=== PATIENT | female | born 1935 | race Caucasian/White ===

== ENCOUNTER 2016-10-10 01:17 | Inpatient (IN) | payer OTHER, BC ==
[2016-10-10] MEDS ORDERED: ALBUTEROL SO4 2.5/IPRATROPIUM 0.5 INH SOL 3 ML VIAL.NEB. NEB ONE ×2 (01:41→02:24)
[2016-10-10] MEDS ORDERED: MAGNESIUM SULF 50% (8.12 MEQ/2 ML-1 GM VIAL) IVPB ONE (01:46)
[2016-10-10] MEDS ORDERED: methylPREDNISolone NA SUCC 125 MG/2 ML VIAL IVPB ONE (01:46)
[2016-10-10 01:55] LABS: MCH 25.7 pg (25.7-33.7); MCHC 30.3 g/dl (32.0-36.0); MEAN CELL VOLUME 84.6 fl (80-96); MEAN PLT VOLUME 8.3 fl (7.5-11.1); PLATELET COUNT 202 K/MM3 (134-434); RDW 17.1 % (11.6-15.6)
--- NOTE | 2016-10-10 01:59 | PDOC ---
History of Present Illness - General History Source: Patient Exam Limitations: No Limitations - History of Present Illness Initial Comments: 10/10/16 02:05 The patient is a 81-year-old female from [facility], with a significant past medical history of COPD and chronic lymphocytic leukemia (diagnosed 3 years ago) , who presents to the ED with COPD exacerbation. Pt woke up feeling fine this morning. She experienced a panic attack and began to experience chest tightness and shortness of breath. She reports having them in the past. She reports taking Keflex for one day for the swelling and redness of her legs. The patient denies any fever, chills, nausea, vomiting, or diarrhea. The patient denies any chest pain. <Venus Martin - Last Filed: 10/10/16 02:08> <Danny Sanchez - Last Filed: 10/10/16 05:39> - General Chief Complaint: Shortness of Breath Stated Complaint: DIFFICULTY BREATHING Past History <Venus Martin - Last Filed: 10/10/16 02:08> <Danny Sanchez - Last Filed: 10/10/16 05:39> - Past Medical History Allergies/Adverse Reactions: Allergies Allergy/AdvReac Type Severity Reaction Status Date / Time No Known Allergies Allergy Verified 10/10/16 01:32 Home Medications: Ambulatory Orders Atorvastatin Ca [Lipitor] 10 mg PO Q2D 10/10/16 Bimatoprost [Lumigan] 1 drop OU HS 10/10/16 Budesonide/Formeterol Fumarate [SYMBICORT 160/4.5mcg -] 1 inh PO BID 10/10/16 Cephalexin Monohydrate [Keflex -] 500 mg PO BID 10/10/16 Metoprolol Succinate [Toprol Xl -] 25 mg PO DAILY 10/10/16 Review of Systems - Review of Systems Able to Perform ROS?: Yes Comments:: 10/10/16 02:05 GENERAL/CONSTITUTIONAL: No fever or chills. No weakness. HEAD, EYES, EARS, NOSE AND THROAT: No change in vision. No ear pain or discharge. No sore throat. CARDIOVASCULAR: No chest pain. (+)Shortness of breath, chest tightness. RESPIRATORY: No cough or hemoptysis. (+)Wheezing GASTROINTESTINAL: No nausea, vomiting, diarrhea or constipation. GENITOURINARY: No dysuria, frequency, or change in urination. MUSCULOSKELETAL: No joint or muscle swelling or pain. No neck or back pain. SKIN: No rash NEUROLOGIC: No headache, vertigo, loss of consciousness, or change in strength/ sensation. ENDOCRINE: No increased thirst. No abnormal weight change. HEMATOLOGIC/LYMPHATIC: No anemia, easy bleeding, or history of blood clots. ALLERGIC/IMMUNOLOGIC: No hives or skin allergy. <Venus Martin - Last Filed: 10/10/16 02:08> *Physical Exam - Physical Exam Comments: 10/10/16 02:06 GENERAL: Awake, alert, and fully oriented, in no acute distress HEAD: No signs of trauma EYES: PERRLA, EOMI, sclera anicteric, conjunctiva clear ENT: Auricles normal inspection, hearing grossly normal, nares patent, oropharynx clear without exudates. Moist mucosa. NECK: Normal ROM, supple, no lymphadenopathy, JVD, or masses LUNGS: (+)Prolonged phase with expiratory wheezing. Moving air but very tight. Hypoxia noted in the 80s with room air with talking noted. HEART: Regular rate and rhythm, normal S1 and S2, no murmurs, rubs or gallops ABDOMEN: Soft, nontender, normoactive bowel sounds. No guarding, no rebound. No masses EXTREMITIES: Normal range of motion, no edema. No clubbing or cyanosis. No cords, erythema, or tenderness NEUROLOGICAL: Cranial nerves II through XII grossly intact. Normal speech, normal gait SKIN: Warm, Dry, normal turgor, no rashes or lesions noted <Venus Martin - Last Filed: 10/10/16 02:08> ED Treatment Course - LABORATORY CBC & Chemistry Diagram: 10/10/16 01:37 10/10/16 01:37 - ADDITIONAL ORDERS Additional order review: 10/10/16 01:37 RBC 3.62 MCV 84.6 MCHC 30.3 L RDW 17.1 H MPV 8.3 Neutrophils % Y Lymphocytes % Y <Venus Martin - Last Filed: 10/10/16 02:08> - LABORATORY CBC & Chemistry Diagram: 10/10/16 01:37 10/10/16 01:37 <Danny Sanchez - Last Filed: 10/10/16 05:39> Medical Decision Making - Medical Decision Making 10/10/16 04:12 This is a 81yo F with weakness and recently diagnoses with cellulitis and UTI as well as chronic lymphocytic leukemia. She has significant weakness reported and almost fell down today; she was also noted to have UTI which she knows about. She looks weak otherwise, no significant findings; the troponin is negative and CXR reassuring. She will be admitted for IV antibiotics and will be endorsed to hospitalist for admission for cellulitis, UTI and weakness. 10/10/16 05:39 I have endorsed the patient to the hospitalist for further care. <Danny Sanchez - Last Filed: 10/10/16 05:39> *DC/Admit/Observation/Transfer - Attestations Scribe Attestion: 10/10/16 02:06 Documentation prepared by Venus Maritn, acting as medical nurse for Danny Sanchez MD. <Venus Martin - Last Filed: 10/10/16 02:08> - Discharge Dispostion Decision to Admit order Date/Time: 10/10/16 05:39 - Attestations Physician Attestion: 10/10/16 05:39 I, Dr. Danny Sanchez MD, attest that this document has been prepared under my direction and personally reviewed by me in its entirety. I further attest, that it accurately reflects all work, treatment, procedures and medical decision -making performed by me. <Danny Sanchez - Last Filed: 10/10/16 05:39> Diagnosis at time of Disposition: Weakness, Abscess or cellulitis of foot UTI (urinary tract infection) Qualifiers: Urinary tract infection type: acute cystitis Hematuria presence: with hematuria Qualified Code(s): N30.01 - Acute cystitis with hematuria
[2016-10-10] MEDS ORDERED: MAGNESIUM SULF 50% (8.12 MEQ/2 ML-1 GM VIAL) ONE (02:24)
[2016-10-10] MEDS ORDERED: methylPREDNISolone NA SUCC 125 MG/2 ML VIAL ONE (02:24)
[2016-10-10 02:28] LABS: URINE APPEARANCE CLEAR; URINE BILIRUBIN NEGATIVE (NEGATIVE); URINE BLOOD NEGATIVE (NEGATIVE); URINE COLOR YELLOW; URINE GLUCOSE (UA) NEGATIVE (NEGATIVE); URINE KETONE NEGATIVE (NEGATIVE); URINE NITRITE NEGATIVE (NEGATIVE); URINE UROBILINOGEN 2.0 E.U/dl E.U./dl (0.2-1.0)
[2016-10-10 02:29] LABS: ALBUMIN 2.7 g/dl (3.4-5.0); ANION GAP 10 (8-16); BILIRUBIN,TOTAL 0.5 mg/dL (0.2-1.0); CALCIUM 7.7 mg/dL (8.5-10.1); CO2 31 mmol/L (21-32); CREATININE 0.7 mg/dL (0.55-1.02); GLUCOSE,RANDOM 107 mg/dL (74-106); MAGNESIUM 2.4 mg/dL (1.8-2.4); PHOSPHOROUS 3.9 mg/dL (2.5-4.9); SGOT/AST 20 U/L (15-37); SGPT/ALT 13 U/L (12-78); TOT PROT 6.6 g/dl (6.4-8.2)
[2016-10-10 02:30] LABS: ALK PHOS 119 U/L (45-117); TROPONIN I < 0.02 ng/ml (0.00-0.05)
[2016-10-10] MEDS ORDERED: CEFTRIAXONE 1 GM in DEXTROSE 5%-WATER - 50 ML IVPB ONE (02:32)
[2016-10-10 02:36] LABS: ANISOCYTOSIS 1+; PLATELET COMMENT2 NO CLOTTING DETECTED; PLATELET ESTIMATE ADEQUATE (NORMAL); SMUDGE CELLS MODERATE
[2016-10-10 02:37] LABS: URINE LEUK ESTERASE 1+ (NEGATIVE); URINE PROTEIN 2+ (NEGATIVE)
[2016-10-10 02:40] LABS: URINE BACTERIA FEW /hpf (NONE SEEN); URINE HYALINE CAST 1 /lpf; URINE MUCUS RARE; URINE RBC 5 /hpf (0-3); URINE WBC 13 /hpf (3-5)
[2016-10-10 02:45] LABS: INR 1.09 (0.82-1.09)
[2016-10-10] MEDS ORDERED: CEFTRIAXONE 50 ML ONE (03:04)
[2016-10-10] MEDS ORDERED: diazePAM 5 MG TABLET PO ONE ×2 (03:05→03:15)
[2016-10-10] MEDS ORDERED: diazePAM 5 MG TABLET ONE ×2 (03:05→03:10)
--- NOTE | 2016-10-10 06:21 | HP ---
CHIEF COMPLAINT: B/L leg swelling and redness PCP: Dr. Cirilo Ruiz ( [facility]) HISTORY OF PRESENT ILLNESS: Whitney is a 81 year old female from [facility] presented with the chief complaints of B/L leg swelling and redness since 2 days. As per the patient, she developed the mentioned symptoms 2 days ago, gradually getting worse, no pain but experienced tingling sensation. Left > right. Has had similar episodes in the past. Took keflex for one day for leg swelling. Denies fever, chills, sweating. Patient mentioned when she noticed the redness of her legs getting worse, she panicked, started having shortness of breath with chest tightness and shaking of her body. No palpitations or cough. Has had panic attacks in the past. Bowel/Bladder habit normal. Appetite normal. Sleep normal. Has h/o CLL and is not under any treatment. Blood work done every 3 months. Last one she did was 10 days ago and her WBC count was 34. Has home oxygen for COPD which she uses intermittently. She can walk with a walker but hasn't been able to do so due to leg swelling. ER course was notable for: (1) Afebrile, Leukocytosis 27, BNP 1618.79 (2) EKG (3) Ceftriaxone, Duoneb, Magnesium, Solumedrol Recent Travel: None PAST MEDICAL HISTORY: COPD, CLL (diagnosed 3 years ago); Hypertension, Hyperlipidemia. PAST SURGICAL HISTORY: None Social History: Smoking: Smoked for 60 years, quit 2 years ago Alcohol: Occasional Drugs: Denies Family History: Unknown. Allergies No Known Allergies Allergy (Verified 10/10/16 01:32) HOME MEDICATIONS: Home Medications Medication Instructions Recorded Atorvastatin Ca [Lipitor] 10 mg PO Q2D 10/10/16 Bimatoprost [Lumigan] 1 drop OU HS 10/10/16 Budesonide/Formeterol Fumarate 1 inh PO BID 10/10/16 [SYMBICORT 160/4.5mcg -] Cephalexin Monohydrate [Keflex -] 500 mg PO BID 10/10/16 Metoprolol Succinate [Toprol Xl -] 25 mg PO DAILY 10/10/16 REVIEW OF SYSTEMS CONSTITUTIONAL: Present: generalized weakness, Absent: fever, chills, diaphoresis, malaise, loss of appetite, weight change HEENT: Absent: rhinorrhea, nasal congestion, throat pain, throat swelling, difficulty swallowing, mouth swelling, ear pain, eye pain, visual changes CARDIOVASCULAR: Absent: chest pain, syncope, palpitations, irregular heart rate, lightheadedness , peripheral edema RESPIRATORY: Present: shortness of breath Absent: cough, dyspnea with exertion, orthopnea, wheezing, stridor, hemoptysis GASTROINTESTINAL: Absent: abdominal pain, abdominal distension, nausea, vomiting, diarrhea, constipation, melena, hematochezia GENITOURINARY: Absent: dysuria, frequency, urgency, hesitancy, hematuria, flank pain, genital pain MUSCULOSKELETAL: Present: B/L leg swelling and redness with tingling Absent: myalgia, arthralgia, joint swelling, back pain, neck pain SKIN: Absent: rash, itching, pallor HEMATOLOGIC/IMMUNOLOGIC: Absent: easy bleeding, easy bruising, lymphadenopathy, frequent infections ENDOCRINE: Absent: unexplained weight gain, unexplained weight loss, heat intolerance, cold intolerance NEUROLOGIC: Absent: headache, focal weakness or paresthesias, dizziness, unsteady gait, seizure, mental status changes, bladder or bowel incontinence PSYCHIATRIC: Present: Panic attack Absent: anxiety, depression, suicidal or homicidal ideation, hallucinations. PHYSICAL EXAMINATION GENERAL: Elderly female, Awake, alert, and fully oriented, in no acute distress. HEAD: Normal with no signs of trauma. EYES: EOM intact, no pallor or icterus. EARS, NOSE, THROAT: Ears normal. Moist mucous membranes. NECK: Normal range of motion, supple without lymphadenopathy, JVD, or masses. LUNGS: Breath sounds equal,decreased bilaterally. No wheezes, and no crackles. No accessory muscle use. HEART: Regular rate and rhythm, normal S1 and S2 without murmur, rub or gallop. ABDOMEN: Soft, nontender, distended +, normoactive bowel sounds, 2 masses felt on palpation (one over the right lumbar and one over the left lumbar area) No hepatomegaly or splenomegaly. MUSCULOSKELETAL: Normal range of motion at all joints. No bony deformities or tenderness. No CVA tenderness. UPPER EXTREMITIES: 2+ pulses, warm, well-perfused. No cyanosis. No clubbing. No peripheral edema. LOWER EXTREMITIES: B/L foot redness Left > right; B/L pitting edema up to mid monte; dermatitis over the b/l legs, raised temperature NEUROLOGICAL: Cranial nerves II-XII intact. Normal speech. Gait not observed. PSYCHIATRIC: Cooperative. Good eye contact. Appropriate mood and affect. SKIN: Warm, dry, normal turgor, no rashes or lesions noted, normal capillary refill. ASSESSMENT/PLAN: Whitney is a 81 year old female with significant past medical history of COPD, CLL (diagnosed 3 years ago); Hypertension, Hyperlipidemia from senior resident living presented with the chief complaints of B/L leg swelling and redness since 2 days. # Cellulitis Patient presented with B/L leg swelling and redness for 2 days. Has had cellulitis in the past. Afebrile, Leukocytosis 27, BNP 1618.79. (WBC count 10 days ago was 34-checks every 3 months for CLL) In the ED, patient received Ceftriaxone, Duoneb, Magnesium, Solumedrol Admitted in Med-Surg IV Vancomycin and IV zosyn ID consult WELLS SCORE for DVT-2 Would consider Duplex of b/l legs to r/o DVT # SOB-possible CHF No h/o CHF. But her BNP-1618.79 ECHO ordered IV Lasix 40mg daily (Takes PO Lasix 40mg 3 times a week) # COPD Symbicort continued On home oxygen # Abdominal mass R/o Malignancy CT scan of Abdomen/Pelvis/chest with iv contrast ordered IV Gentle hydration given to prevent RAMY due to contrast # CLL Not on any treatment currently Checks her blood every 3 months, WBC count 10 days ago was 34 # Hypertension Continue Metoprolol 25mg Daily once PO meds are resumed # Hyperlipidemia Lipitor 10mg every 3rd day, resume after she starts PO # FEN On gentle Hydration Electrolytes WNL NPO # Prophylaxis For DVT- Heparin sq For GI- not indicated # Code Status: Full Code # Dispo- Admitted in Med surg. Duration of stay unknown. Illness, Investigation and Plan of care explained to the patient. She verbalized understanding. Case seen and discussed with Dr. Donald. Visit type - Emergency Visit Emergency Visit: Yes ED Registration Date: 10/10/16 Care time: The patient presented to the Emergency Department on the above date and was hospitalized for further evaluation of their emergent condition. - New Patient This patient is new to me today: Yes Date on this admission: 10/10/16 - Critical Care Critical Care patient: No
[2016-10-10] MEDS ORDERED: PIPERACILLIN/TAZOB 3.375 GM/50 ML PRE-DOCKED IVPB ONE (06:48)
[2016-10-10] MEDS ORDERED: PIPERACILLIN/TAZOB 3.375 GM 50 ML IVPB ONE (07:09)
[2016-10-10] MEDS ORDERED: HEMOQUE TEST 1 EACH EACH ONE (07:10)
--- NOTE | 2016-10-10 07:25 | PN ---
<Rayna Donald - Last Filed: 10/10/16 07:25> Teaching Attending Note Name of Resident: Analy Bains <Lizzie Ortega - Last Filed: 10/25/16 21:39> Teaching Attending Note ATTENDING PHYSICIAN STATEMENT I saw and evaluated the patient. I reviewed the resident's note and discussed the case with the resident. I agree with the resident's findings and plan as documented. SUBJECTIVE: 81 yo F presented to the ED with complaint of bilateral LE erythema and swelling for two days. Pt was prescribed keflex by her PMD and took medication for one day with no noted improvement. Pt complained of SOB and chest tightness. PMHx: COPD, CLL, HTN, HLD Surgical Hx: None Social Hx: Quit smoking 2 years prior. Occasional ETOH. Denied illicit drug use OBJECTIVE: GENERAL: Awake, alert, and fully oriented, in no acute distress HEENT: Atraumatic. PERRLA, EOMI. Moist mucosa. No JVD LUNGS: No distress, speaks full sentences, clear to auscultation bilaterally HEART: Regular rate and rhythm, normal S1 and S2, no murmurs, rubs or gallops, peripheral pulses normal and equal bilaterally. ABDOMEN: Soft, distended, normoactive bowel sounds. No guarding, no rebound. 2 palpable masses in bilateral lumbar area. EXTREMITIES: LE bilateral erythema greater on the L with pitting edema and warm to touch. NEUROLOGICAL: Cranial nerves II through XII grossly intact. Normal speech, no focal sensorimotor deficits SKIN: Warm, Dry, normal turgor, no rashes or lesions noted. ASSESSMENT AND PLAN: 1.) Cellulitis of LE -Rule out DVT -Start Vanc and Zosyn -ID consult -Doppler of LE 2.) Rule out CHF -Get Echo -40 lasix daily Documentation prepared by Lizzie Ortega, acting as medical billing specialist for Rayna Donald M.D.
[2016-10-10] MEDS: SODIUM CHLORIDE 1,000 ML IV SCH ×2 (07:30→09:44)
[2016-10-10] MEDS: FUROSEMIDE 40 MG/4 ML INJECTABLE VIAL IVPB SCH (09:44)
[2016-10-10] MEDS ORDERED: VANCOMYCIN 1 GRAM (PRE-DOCKED) 250 ML IVPB ONE (10:00)
[2016-10-10 10:36] VITALS: BMI 20.6
[2016-10-10] MEDS: BUDESONIDE/FORMETEROL FUMARATE 160/4.5 mcg INHALER IH SCH ×2 (11:24→21:54)
[2016-10-10] MEDS: HEPARIN NA (PORCINE) 5,000 UNITS/ML 1ML VIAL SQ SCH ×2 (13:22→21:53)
--- NOTE | 2016-10-10 14:48 | PN ---
Progress Note (short form) - Note Progress Note: c/o pain in B/L LE that has been progressively worsening over the past 4 days. took 1 tablet of keflex and then came to the hospital because she said it did not improve. also notes decreased appetite over the past few months but is unsure if she lost weight. states she been compliant with cancer screening, had colonoscopy several years ago with a few benign polyps was supposed to go for sigmoidoscopy but never did. mamograms she continues to do yearly and completed pap smears in the past. Denies Cp, SOB,fever, chills, cough, orthopnea, N/V/C/D Current Medications Generic Name Dose Route Start Last Admin Trade Name Freq PRN Reason Stop Dose Admin Budesonide/Formoterol Fumarate 1 puff 10/10/16 10:00 10/10/16 11:24 Symbicort 160/4.5mcg - IH Not Given BID TRACY Furosemide 40 mg 10/10/16 10:00 10/10/16 09:44 Lasix Injection - IVPB 40 mg DAILY TRACY Administration Heparin Sodium (Porcine) 5,000 unit 10/10/16 14:00 10/10/16 13:22 Heparin - SQ 5,000 unit TID TRACY Administration Sodium Chloride 1,000 mls @ 50 mls/hr 10/10/16 07:00 10/10/16 09:44 Normal Saline - IV 10/11/16 06:47 50 mls/hr ASDIR TRACY Administration Vancomycin HCl 250 mls @ 250 mls/hr 10/11/16 10:00 Vancomycin (Pre-Docked) IVPB DAILY [facility] Protocol Latanoprost 1 drop 10/10/16 22:00 Xalatan 0.005% Eye Drops - OU HS [facility] Last Vital Signs Temp Pulse Resp BP Pulse Ox 98.1 F 71 20 103/51 98 10/10/16 14:43 10/10/16 14:43 10/10/16 14:43 10/10/16 14:43 10/10/16 10:00 General NAD, thin appearing with temporal wasting CV S1 S2 RRR no murmur/rub/gallop Lungs decreased breath sounds B/L bases poor inspiratory effort Abdomen +distention soft, NT no rebound or guarding tympanic. +BS Extremities 2+ pitting edema B/L erythema from dorsum of LLE to mid monte area is warm and tender. minimal erythema of LLE 1+ pitting edema, no calf tenderness either leg. no lacerations or abrasions noted on either legs or on the toes. CBCD WBC 27.0 K/mm3 (4.0-10.0) H 10/10/16 01:37 RBC 3.62 M/mm3 (3.60-5.2) 10/10/16 01:37 Hgb 9.3 GM/dL (10.7-15.3) L 10/10/16 01:37 Hct 30.6 % (32.4-45.2) L 10/10/16 01:37 MCV 84.6 fl (80-96) 10/10/16 01:37 MCHC 30.3 g/dl (32.0-36.0) L 10/10/16 01:37 RDW 17.1 % (11.6-15.6) H 10/10/16 01:37 Plt Count 202 K/MM3 (134-434) 10/10/16 01:37 MPV 8.3 fl (7.5-11.1) 10/10/16 01:37 CMP Sodium 132 mmol/L (136-145) L 10/10/16 01:37 Potassium 4.2 mmol/L (3.5-5.1) 10/10/16 01:37 Chloride 91 mmol/L (98-107) L 10/10/16 01:37 Carbon Dioxide 31 mmol/L (21-32) 10/10/16 01:37 Anion Gap 10 (8-16) 10/10/16 01:37 BUN 20 mg/dL (7-18) H 10/10/16 01:37 Creatinine 0.7 mg/dL (0.55-1.02) 10/10/16 01:37 Creat Clearance w eGFR > 60 (>60) 10/10/16 01:37 Random Glucose 107 mg/dL (74-106) H 10/10/16 01:37 Calcium 7.7 mg/dL (8.5-10.1) L 10/10/16 01:37 Total Bilirubin 0.5 mg/dL (0.2-1.0) 10/10/16 01:37 AST 20 U/L (15-37) 10/10/16 01:37 ALT 13 U/L (12-78) 10/10/16 01:37 Alkaline Phosphatase 119 U/L (45-117) H 10/10/16 01:37 Total Protein 6.6 g/dl (6.4-8.2) 10/10/16 01:37 Albumin 2.7 g/dl (3.4-5.0) L 10/10/16 01:37 CARDIAC ENZYMES Creatine Kinase 37 IU/L (26-192) 10/10/16 01:37 Troponin I < 0.02 ng/ml (0.00-0.05) 10/10/16 01:37 A/p 81 year old female with significant past medical history of COPD, CLL ( diagnosed 3 years ago); Hypertension, Hyperlipidemia presented tot he ER and was admitted for furhter evlauation of their emergent condition 1. LLE cellulitis- did not fail outpatient abx therapy as not completed. will d/ c vanco/zosyn and switch to Clindamycin 600mg Q6H. check doppler of the legs to r/o DVT. elevate B/L LE. f/u Cx 2. PUlmonary vascular congestion- denies hx of CHF. started on lasix IV. saturating 94% on 3L NC. will d/c IVF at this time. monitor electrolytes. Echo pending. daily weights 3, Abdominal distention/mass- concern for malignancy given hx of CLL and anorexia. has had routine cancer screening. will check CT abdomen/pelvis to r/o pathology 4. Anorexia- may be related to malignancy, concern for malnutrition. dietary consult 5. Normocytic anemia- no signs of bleeding. unknown Hgb baseline. check iron studies. has hx of hemorrhoids 6. CLL- not on therapy. Leukocytosis at baseline per pt. (34 several days ago) 7. COPD- not on home O2. currently saturating 94% on 3L. will monitor oxygen levels. cont nebs 8. DVT ppx- hep sq Visit type - Emergency Visit Emergency Visit: Yes ED Registration Date: 10/10/16 Care time: The patient presented to the Emergency Department on the above date and was hospitalized for further evaluation of their emergent condition. - New Patient This patient is new to me today: Yes Date on this admission: 10/10/16 - Critical Care Critical Care patient: No - Discharge Referral Referred to [facility] Med P.C.: No
[2016-10-10] MEDS: CLINDAMYCIN 600MG PREMIX IVPB 50 ML IVPB SCH (21:53)
[2016-10-10] MEDS: LATANOPROST 0.005% OPHTH SOLN 2.5ML BOTTLE OU SCH (21:53)
[2016-10-11] MEDS: CLINDAMYCIN 600MG PREMIX IVPB 50 ML IVPB SCH ×4 (03:34→21:26)
[2016-10-11] MEDS: HEPARIN NA (PORCINE) 5,000 UNITS/ML 1ML VIAL SQ SCH ×3 (06:16→21:26)
[2016-10-11 08:13] LABS: MCHC 30.5 g/dl (32.0-36.0); MEAN CELL VOLUME 85.2 fl (80-96); MEAN PLT VOLUME 8.3 fl (7.5-11.1); PLATELET COUNT 189 K/MM3 (134-434); RDW 16.5 % (11.6-15.6); WHITE BLOOD COUNT 27.7 K/mm3 (4.0-10.0)
[2016-10-11 08:38] LABS: INR 1.02 (0.82-1.09); PROTHROMBIN TIME (PATIENT) 11.2 SEC (9.98-11.88)
[2016-10-11 08:39] LABS: ALBUMIN 2.5 g/dl (3.4-5.0); ANION GAP 8 (8-16); CALCIUM 7.7 mg/dL (8.5-10.1); CO2 35 mmol/L (21-32); CREATININE 0.8 mg/dL (0.55-1.02); GLUCOSE,RANDOM 99 mg/dL (74-106); PHOSPHOROUS 5.7 mg/dL (2.5-4.9); SGOT/AST 18 U/L (15-37); SGPT/ALT 9 U/L (12-78)
[2016-10-11 08:40] LABS: ACTIVATED PTT 25.8 SECONDS (26.9-34.4)
[2016-10-11 08:41] LABS: ALK PHOS 103 U/L (45-117); BILIRUBIN,TOTAL 0.4 mg/dL (0.2-1.0); TOT PROT 5.9 g/dl (6.4-8.2)
[2016-10-11] MEDS ORDERED: PT OWN MED DRAWER 7, Y5N ONE (09:17)
[2016-10-11] MEDS: BUDESONIDE/FORMETEROL FUMARATE 160/4.5 mcg INHALER IH SCH ×2 (09:34→21:26)
[2016-10-11] MEDS ORDERED: VANCOMYCIN 1 GRAM (PRE-DOCKED) 250 ML IVPB SCH (10:00)
--- NOTE | 2016-10-11 10:02 | PN ---
Physical Exam: SUBJECTIVE: Patient seen and examined Pt is awake, alert and oriented to time place and person No fever or chills no pain in lower ext Pt states that redness and swelling has improved pt denies sob, chest, palpitation OBJECTIVE: Vital Signs Period Temp Pulse Resp BP Sys/Gong Pulse Ox Last 24 Hr 97.6 F-98.4 F 71-79 16-20 97-103/46-58 94 GENERAL: The patient is awake, alert, and fully oriented, in no acute distress. HEAD: Normal with no signs of trauma. NECK: Trachea midline, full range of motion, supple. LUNGS: Breath sounds equal, diminished to auscultation bilaterally, no wheezes , no crackles, no accessory muscle use. HEART: Regular rate and rhythm, S1, S2 without murmur, rub or gallop. ABDOMEN: Soft, nontender, distended and rounded abdomen with dullness in flanks , normoactive bowel sounds, no guarding, no rebound EXTREMITIES: 2+ pulses, warm, well-perfused, b/l lower ext edema 2+ and redness NEUROLOGICAL: Normal speech, gait not observed. PSYCH: Normal mood, normal affect. SKIN: Warm, dry, normal turgor, erythema and swelling b/l lower from ankle to midtibia Laboratory Results - last 24 hr 10/11/16 10/11/16 10/11/16 06:45 06:45 06:45 WBC 27.7 H RBC 3.35 L Hgb 8.7 L Hct 28.5 L MCV 85.2 MCHC 30.5 L RDW 16.5 H Plt Count 189 MPV 8.3 Neutrophils % Y Lymphocytes % Y INR 1.02 PTT (Actin FS) 25.8 L Sodium 134 L Potassium 4.9 Chloride 91 L Carbon Dioxide 35 H Anion Gap 8 BUN 26 H D Creatinine 0.8 Creat Clearance w eGFR > 60 Random Glucose 99 Calcium 7.7 L Phosphorus 5.7 H D Magnesium 3.0 H D Ferritin Total Bilirubin 0.4 AST 18 ALT 9 L D Alkaline Phosphatase 103 Total Protein 5.9 L Albumin 2.5 L 10/11/16 06:45 WBC RBC Hgb Hct MCV MCHC RDW Plt Count MPV Neutrophils % Lymphocytes % INR PTT (Actin FS) Sodium Potassium Chloride Carbon Dioxide Anion Gap BUN Creatinine Creat Clearance w eGFR Random Glucose Calcium Phosphorus Magnesium Ferritin 78.744 Total Bilirubin AST ALT Alkaline Phosphatase Total Protein Albumin Active Medications Generic Name Dose Route Start Last Admin Trade Name Freq PRN Reason Stop Dose Admin Budesonide/Formoterol Fumarate 1 puff 10/10/16 10:00 10/11/16 09:34 Symbicort 160/4.5mcg - IH 1 puff BID TRACY Administration Furosemide 40 mg 10/10/16 10:00 10/10/16 09:44 Lasix Injection - IVPB 40 mg DAILY TRACY Administration Heparin Sodium (Porcine) 5,000 unit 10/10/16 14:00 10/11/16 06:16 Heparin - SQ 5,000 unit TID TRACY Administration Clindamycin Phosphate 50 mls @ 100 mls/hr 10/10/16 21:00 10/11/16 09:34 Cleocin 600 Mg Premix Ivpb - IVPB 100 mls/hr Q6H-IV TRACY Administration Latanoprost 1 drop 10/10/16 22:00 10/10/16 21:53 Xalatan 0.005% Eye Drops - OU 1 drop HS TRACY Administration CBC, BMP 10/11/16 06:45 10/11/16 06:45 Laboratory Tests 10/10/16 10/10/16 10/11/16 01:37 02:16 06:45 Neutrophils % 23.0 L D Lymphocytes % 68.0 H D Calcium Phosphorus Magnesium Total Bilirubin AST ALT Alkaline Phosphatase Troponin I < 0.02 B-Natriuretic Peptide 1618.79 H Albumin Urine Nitrite Negative Ur Leukocyte Esterase 1+ H Urine WBC 13 10/11/16 06:45 Neutrophils % Lymphocytes % Calcium 7.7 L Phosphorus 5.7 H D Magnesium 3.0 H D Total Bilirubin 0.4 AST 18 ALT 9 L D Alkaline Phosphatase 103 Troponin I B-Natriuretic Peptide Albumin 2.5 L Urine Nitrite Ur Leukocyte Esterase Urine WBC ASSESSMENT/PLAN: 81 year old female with pmh of COPD, CLL< HTN, HPLD from resident skilled nursing presented to the ED with b/l lower extremity swelling, redness for last couple of days. B/l Lower extremities Cellulitis was started on vanco and Zosyn ED. Was switched to Clindamycin On Clindamycin day 2, 600mg PO q6h redness and swelling has improved, less tenderness, no warmth, no fever or chills F/u blood culture, so far neg for 24hours Keep lower ext elevated US b/l lower ext to r/o DVT Pleural effusion and Pulm Vascular congestion r/o CHF Lung diminished, no crackles, b/l lower edema Pt is on liter nasal cannula, with O2 sat>90% On Lasix 40mg IV daily, consider holding it for tomorrow Repeat Chemistry in am Monitor fluid status and s/s of dehydration Abdominal Distention r/o Malignant effusion or Mass Rounded, distended abdomen Pt has CLL and anorexia CT abdomen and pelvis Normocytic Anemia Hgb drop from 9.3, to 8.7 Pt says her baseline is 9 and above but we have no documentation No known bleeding source. Denies black stool, no hematuria. H/o of hemorrhoids Iron studies pending result. CLL leukocytosis of 27.7, smudge cell, reactive leukocytosis, Lymphocytes 68% No intervention at this time Outpatient follow up with Dr Mancini Oncologist Asymptomatic bacteruria No dysuria UA with + leuk esterase, wbc 13 urine culture pending result No antibiotic at this time COPD On nasal cannula 3 liter no s/s of acute resp distress No wheezes, no ronchi Continue symbicort bronchodilators Prn HTN Controlled off antihypertensive No need to resume right now, worry about CHF HPLD Will verify home dose of statins FEN Fluid: none electrolytes: Chemistry in ma Nutrition: Low NA diet DVT prophylaxis: heparin Sq Disposition: Keep in medsurg pending CT abdomen/pelvis. Visit type - Emergency Visit Emergency Visit: Yes ED Registration Date: 10/10/16 Care time: The patient presented to the Emergency Department on the above date and was hospitalized for further evaluation of their emergent condition. - New Patient This patient is new to me today: Yes Date on this admission: 10/11/16 - Critical Care Critical Care patient: No - Discharge Referral Referred to [facility] Med P.C.: No
--- NOTE | 2016-10-11 11:11 | PN ---
Teaching Attending Note Name of Resident: Emanuel Wooten ATTENDING PHYSICIAN STATEMENT I saw and evaluated the patient. I reviewed the resident's note and discussed the case with the resident. I agree with the resident's findings and plan as documented. SUBJECTIVE:states her legs have improved. less painful. states she has no difficulty breathing. said that she lost her balance this morning while getting out bed and slid to the floor. denies palpitation, CP, SOB, LOC, hitting her head on the floor or bed, fever or chills. no BRBPR or melena. OBJECTIVE: Last Vital Signs Temp Pulse Resp BP Pulse Ox 98.2 F 79 16 97/46 94 L 10/11/16 06:00 10/11/16 06:00 10/11/16 06:00 10/11/16 06:00 10/10/16 22:00 General NAD, thin appearing with temporal wasting CV S1 S2 RRR no murmur/rub/gallop Lungs decreased breath sounds R base poor inspiratory effort Abdomen +distention soft, NT no rebound or guarding tympanic with dullness on the sides, possible L flank mass, non mobile, nontender. +BS Extremities 2+ pitting edema LLE erythema from dorsum of LLE to mid monte area no warmth or tenderness. minimal erythema of LLE 1+ pitting edema, buttocks no deformities or tenderness or bleeding. small area of erythema to R buttock. ASSESSMENT AND PLAN: 81 year old female with significant past medical history of COPD, CLL ( diagnosed 3 years ago); Hypertension, Hyperlipidemia presented tot he ER and was admitted for furhter evlauation of their emergent condition 1. LLE cellulitis-clinically improved. on Clindamycin day 2. awaiting doppler to r/o DVT. elevate B/L LE. f/u Cx 2. Acute hypoxic respiratory failure- saturating 90% on 3L NC. does not require O2 at home. likely due to pleural effusion. received lasix IV. may be becoming volume contracted. echo pending. monitor electrolytes. daily weights 3. mechanical fall- denies LOC or syncope. possible over diuresis vs hypotension vs mechanical. check orthostatics 4. Abdominal distention/mass- concern for malignancy given hx of CLL and anorexia. has had routine cancer screening. will check CT abdomen/pelvis to r/o pathology 5. Anorexia- may be related to malignancy, concern for malnutrition. dietary consult. ensures 6. Normocytic anemia- no signs of bleeding. unknown Hgb baseline. iron studies pending. has hx of hemorrhoids 7. CLL- not on therapy. Leukocytosis at baseline per pt. (34 several days ago) 8. COPD- not on home O2. currently saturating 90% on 3L. will monitor oxygen levels. cont inhlaers/nebs 9. Pseudohypocalcemia- corrected Ca 8.9 10. DVT ppx- hep sq
[2016-10-11] MEDS: FUROSEMIDE 40 MG/4 ML INJECTABLE VIAL IVPB SCH (15:46)
--- NOTE | 2016-10-11 19:34 | HOSP ---
Subjective - Review of Symptoms Musculoskeletal: Yes: No Symptoms Physical Examination Vital Signs: Vital Signs Temperature 97.9 F 10/11/16 15:03 Pulse Rate 75 10/11/16 15:03 Respiratory Rate 20 10/11/16 15:03 Blood Pressure 106/49 10/11/16 15:03 O2 Sat by Pulse Oximetry (%) 94 L 10/10/16 22:00 Constitutional: Yes: No Distress, Calm Eyes: Yes: EOM Intact HENT: Yes: Atraumatic, Normocephalic Neck: Yes: Supple Cardiovascular: Yes: Regular Rate and Rhythm, Murmur, S1, S2 Respiratory: Yes: Regular, Diminished, On Nasal O2 Gastrointestinal: Yes: Normal Bowel Sounds, Soft, Ascites, Distention Musculoskeletal: Yes: WNL Extremities: Yes: Other (erythema, swelling from b/l lower ext) Edema: LLE: 2+, RLE: 2+ Peripheral Pulses WNL: Yes Integumentary: Yes: Erythema, Other (No new bruises) Neurological: Yes: Alert, Oriented, Cran Nerves II-XII Intact ...Motor Strength: WNL Psychiatric: Yes: Alert, Oriented Labs: CBC, BMP 10/11/16 06:45 10/11/16 06:45 Hospitalist Encounter Assessment: Was called to floor to assess a pt who was found on the floor. Fall was unwitnessed. Pt said she was wanted to go to bathroom, she slipped floor and fell on her buttocks. She denies pain, she denies hitting her head/neck, no loc. No focal neurological deficit, no numbness or tingling, no change in vision , no dizziness or confusion. No new swelling or bruises. No injuries observed on physical exam. No cervical/lumbar spine tenderness. No hip tenderness. Impression Mechanical fall Plan No Head CT need at this point Pt will have a CT abdomen and pelvis this morning, will follow result. OOB with assist only fall precaution Visit type - Emergency Visit Emergency Visit: Yes ED Registration Date: 10/10/16 Care time: The patient presented to the Emergency Department on the above date and was hospitalized for further evaluation of their emergent condition. - New Patient This patient is new to me today: Yes Date on this admission: 10/11/16 - Critical Care Critical Care patient: No
[2016-10-11] MEDS: LATANOPROST 0.005% OPHTH SOLN 2.5ML BOTTLE OU SCH (21:26)
[2016-10-12] MEDS: CLINDAMYCIN 600MG PREMIX IVPB 50 ML IVPB SCH ×4 (03:32→21:52)
[2016-10-12] MEDS: HEPARIN NA (PORCINE) 5,000 UNITS/ML 1ML VIAL SQ SCH ×3 (06:30→21:48)
[2016-10-12] MEDS ORDERED: FUROSEMIDE 40 MG/4 ML INJECTABLE VIAL ONE ×2 (07:28→15:42)
[2016-10-12] MEDS ORDERED: FUROSEMIDE 40 MG/4 ML INJECTABLE VIAL IVPUSH ONE ×2 (07:32→16:09)
[2016-10-12] MEDS: ALBUTEROL SO4 2.5/IPRATROPIUM 0.5 INH SOL 3 ML VIAL.NEB. NEB PRN ×3 (07:36→16:15)
--- NOTE | 2016-10-12 07:38 | PN ---
Physical Exam: SUBJECTIVE: Patient seen and examined Pt is awake, alert, oriented in mild resp distress c/o sob, mild cough denies chest pain, palpitation, fever, no n/v OBJECTIVE: Vital Signs Period Temp Pulse Resp BP Sys/Gong Pulse Ox Last 24 Hr 97.2 F-98.9 F 74-85 18-20 94-125/43-64 95-95 GENERAL: The patient is awake, alert, and fully oriented, in mid distress. HEAD: Normal with no signs of trauma. ENT: Ears normal, nares patent, oropharynx clear without exudates, moist mucous membranes. NECK: Trachea midline, full range of motion, supple. LUNGS:diminished to auscultation bilaterally, mild b/l crackles, use of accessory muscle use. HEART: Regular rate and rhythm, S1, S2 with pansystolic 3/6 murmur, rub or gallop. ABDOMEN: Soft, nontender, distended, acites, with dullness in b/l flank, right upper and left upper quandrant, normoactive bowel sounds, no guarding, no rebound.. EXTREMITIES: 2+ pulses, warm, well-perfused, no edema. NEUROLOGICAL:. Normal speech, gait not observed. PSYCH: Normal mood, normal affect. SKIN: Warm, dry, normal turgor, no rashes or lesions noted Laboratory Results - last 24 hr 10/11/16 10/11/16 10/11/16 06:45 06:45 06:45 WBC 27.7 H RBC 3.35 L Hgb 8.7 L Hct 28.5 L MCV 85.2 MCHC 30.5 L RDW 16.5 H Plt Count 189 MPV 8.3 Neutrophils % 23.0 L D Lymphocytes % 68.0 H D Monocytes % 9.0 D Band Neutrophils 0.0 INR 1.02 PTT (Actin FS) 25.8 L Sodium 134 L Potassium 4.9 Chloride 91 L Carbon Dioxide 35 H Anion Gap 8 BUN 26 H D Creatinine 0.8 Creat Clearance w eGFR > 60 Random Glucose 99 Calcium 7.7 L Phosphorus 5.7 H D Magnesium 3.0 H D Ferritin Total Bilirubin 0.4 AST 18 ALT 9 L D Alkaline Phosphatase 103 Total Protein 5.9 L Albumin 2.5 L 10/11/16 06:45 WBC RBC Hgb Hct MCV MCHC RDW Plt Count MPV Neutrophils % Lymphocytes % Monocytes % Band Neutrophils INR PTT (Actin FS) Sodium Potassium Chloride Carbon Dioxide Anion Gap BUN Creatinine Creat Clearance w eGFR Random Glucose Calcium Phosphorus Magnesium Ferritin 78.744 Total Bilirubin AST ALT Alkaline Phosphatase Total Protein Albumin Active Medications Generic Name Dose Route Start Last Admin Trade Name Freq PRN Reason Stop Dose Admin Albuterol/Ipratropium 1 amp 10/11/16 16:49 10/12/16 07:36 Duoneb - NEB 1 amp Q4H PRN Administration SHORTNESS OF BREATH Budesonide/Formoterol Fumarate 1 puff 10/10/16 10:00 10/11/16 21:26 Symbicort 160/4.5mcg - IH 1 puff BID TRACY Administration Furosemide 40 mg 10/10/16 10:00 10/11/16 15:46 Lasix Injection - IVPB 40 mg DAILY TRACY Administration Heparin Sodium (Porcine) 5,000 unit 10/10/16 14:00 10/12/16 06:30 Heparin - SQ 5,000 unit TID TRACY Administration Clindamycin Phosphate 50 mls @ 100 mls/hr 10/10/16 21:00 10/12/16 03:32 Cleocin 600 Mg Premix Ivpb - IVPB 100 mls/hr Q6H-IV TRACY Administration Latanoprost 1 drop 10/10/16 22:00 10/11/16 21:26 Xalatan 0.005% Eye Drops - OU 1 drop HS TRACY Administration 10/11/16 06:45 10/11/16 06:45 Microbiology 10/10/16 02:16 Urine - Urine Clean Catch Urine Culture - Final NO GROWTH OBTAINED 10/10/16 02:11 Blood - Peripheral Venous Blood Culture - Preliminary NO GROWTH OBTAINED AFTER 48 HOURS, INCUBATION TO CONTINUE FOR 3 DAYS. 10/10/16 02:11 Blood - Peripheral Venous Blood Culture - Preliminary NO GROWTH OBTAINED AFTER 48 HOURS, INCUBATION TO CONTINUE FOR 3 DAYS. ASSESSMENT/PLAN: 81 year old female with pmh of COPD, CLL, HTN, HPLD from resident [facility] presented to the ED with b/l lower extremity swelling, redness for last couple of days. B/l Lower extremities Cellulitis was started on vanco and Zosyn ED. Was switched to Clindamycin On Clindamycin day 3, 600mg PO q6h redness and swelling has improved, no more tenderness, no warmth, no fever or chills F/u blood culture, so far neg for 48 hours Keep lower ext elevated US b/l lower ext to r/o DVT Hypoxic respiratory failure with Pleural effusion, Pulm Vascular congestion, CHF , r/o Pneumonia Lung diminished, mild crackles, b/l lower edema Pt is on 50% venti mask, keep with O2 sat>90% On Lasix 40mg IV daily CXR showed b/l effusion and infiltrates. Start on Levaquin 750mg IV daily daily weight intake and output Echo with normal LV size and function, no wall motion abnormality, severe pulm HTN, Moderate . Abdominal Distention r/o Malignant effusion or Mass Rounded, distended abdomen Pt has CLL and anorexia CT abdomen and pelvis showed ascites, splenomegaly 22cm, hepatomegaly Outpatient Hem/onc follow repoeat CT abdomen/pelvis in 3 month outpatient for lymphadenopathy Normocytic Anemia Hgb drop from 9.3, to 8.7 yesterday, pending new labs for today Pt says her baseline is 9 and above but we have no documentation No known bleeding source. Denies black stool, no hematuria. H/o of hemorrhoids Iron studies pending result. CLL leukocytosis of 27.7, smudge cell, reactive leukocytosis, Lymphocytes 68% No intervention at this time Outpatient follow up with Dr Mancini Oncologist Asymptomatic bacteruria No dysuria UA with + leuk esterase, wbc 13 urine culture negative No antibiotic at this time COPD Was On nasal cannula 3 liter, increased to venti mask 50% Mild to moderate resp distress No wheezes, no ronchi, lung diminished and crackles Continue symbicort bronchodilators Prn HTN Controlled off antihypertensive No need to resume right now, worry about CHF HPLD Atorvastatin 10mg po qd FEN Fluid: none electrolytes: no abnormalities Nutrition: Low NA diet DVT prophylaxis: heparin Sq Disposition: Keep in medsurg pending improvement in resp status Visit type - Emergency Visit Emergency Visit: Yes ED Registration Date: 10/10/16 Care time: The patient presented to the Emergency Department on the above date and was hospitalized for further evaluation of their emergent condition. - New Patient This patient is new to me today: No - Critical Care Critical Care patient: No
--- NOTE | 2016-10-12 07:42 | HOSP ---
Subjective - Review of Symptoms Pulmonary: Yes: Dyspnea Physical Examination Vital Signs: Vital Signs Temperature 98.4 F 10/12/16 06:00 Pulse Rate 80 10/12/16 06:00 Respiratory Rate 20 10/12/16 06:00 Blood Pressure 123/62 10/12/16 06:00 O2 Sat by Pulse Oximetry (%) 95 10/11/16 22:00 Constitutional: Yes: Anxious, Moderate Distress Cardiovascular: Yes: Regular Rate and Rhythm, Murmur, S1, S2 Respiratory: Yes: Diminished, Rales, SOB, Tachypnea Gastrointestinal: Yes: Soft, Ascites, Distention, Hypoactive Bowel Sounds Edema: LLE: 2+, RLE: 2+ Integumentary: Yes: Erythema (b/l lower ext) Neurological: Yes: Alert, Oriented Psychiatric: Yes: Alert, Oriented Labs: CBC, BMP 10/11/16 06:45 10/11/16 06:45 Hospitalist Encounter Outcome: Impression Acute hypoxia likely rt to pleural effusion Plan HOB elevated at least 45% O2 Venturi mask 50% Stat Lasix 40mg Iv once STat CXR Visit type - Emergency Visit Emergency Visit: Yes ED Registration Date: 10/10/16 Care time: The patient presented to the Emergency Department on the above date and was hospitalized for further evaluation of their emergent condition. - New Patient This patient is new to me today: No - Critical Care Critical Care patient: No
[2016-10-12 08:31] LABS: CALCIUM 8.2 mg/dL (8.5-10.1); CREATININE 0.7 mg/dL (0.55-1.02); MAGNESIUM 3.2 mg/dL (1.8-2.4); PHOSPHOROUS 4.8 mg/dL (2.5-4.9)
[2016-10-12 08:36] LABS: MCH 25.7 pg (25.7-33.7); MCHC 30.3 g/dl (32.0-36.0); MEAN CELL VOLUME 84.8 fl (80-96); MEAN PLT VOLUME 8.2 fl (7.5-11.1); PLATELET COUNT 172 K/MM3 (134-434); RDW 16.4 % (11.6-15.6); WHITE BLOOD COUNT 22.6 K/mm3 (4.0-10.0)
[2016-10-12] MEDS: FUROSEMIDE 40 MG/4 ML INJECTABLE VIAL IVPB SCH (10:05)
[2016-10-12] MEDS ORDERED: PT OWN MED DRAWER 7, Y5N ONE ×2 (10:06→21:31)
[2016-10-12] MEDS: BUDESONIDE/FORMETEROL FUMARATE 160/4.5 mcg INHALER IH SCH ×2 (10:08→21:49)
--- NOTE | 2016-10-12 11:08 | PN ---
Teaching Attending Note Name of Resident: Emanuel Wooten ATTENDING PHYSICIAN STATEMENT I saw and evaluated the patient. I reviewed the resident's note and discussed the case with the resident. I agree with the resident's findings and plan as documented. SUBJECTIVE:episode of hypoxia this morning, pt was asymptomatic during the event. states that her vitals were check after getting off the commode and noted to be hypoxic. remains comfortable. states swelling and pain in feet have improved. denies Cp, SOB< fever, chills, cough, N/V/C/D OBJECTIVE: Last Vital Signs Temp Pulse Resp BP Pulse Ox 98.4 F 78 20 113/51 92 L 10/12/16 06:00 10/12/16 08:07 10/12/16 09:00 10/12/16 08:07 10/12/16 09:00 General NAD, thin appearing with temporal wasting CV S1 S2 RRR no murmur/rub/gallop Lungs decreased breath sounds R base no wheezing Abdomen +distention soft, NT no rebound or guarding tympanic with dullness on the sides, nontender. +BS Extremities 1+ pitting edema LLE with erythema mid monte but no erythema on foot. non tender. no erythema on RLE no edema ASSESSMENT AND PLAN: 81 year old female with significant past medical history of COPD, CLL ( diagnosed 3 years ago); Hypertension, Hyperlipidemia presented tot he ER and was admitted for furhter evlauation of their emergent condition 1. LLE cellulitis-clinically improved. on Clindamycin day 3 doppler negative for DVT. cx negative. complete 5 day course. 2. Acute hypoxic respiratory failure- episode of hypoxia this AM. repeat CXR showing persistent pleural effusions and B/L infiltrate. start levaquin 500mg. echo pending to assess, high suspicion for CHF at this time, will need to optimize medications. 6 pound weight loss since admission. supplemental oxygen to maintain SpO2 > 90%. states she has oxygen at home that she occasionally uses. lasix 40mg IV. daily weights 3. mechanical fall- denies LOC or syncope. no repeated episodes. PT eval 4. Abdominal distention/mass- passive congestion. lymphadenopathy will need repeat CT scan in 3 months. continue diuresis 5. Anorexia- may be related to malignancy, concern for malnutrition. dietary consult. ensures 6. Normocytic anemia- no signs of bleeding. unknown Hgb baseline. iron studies pending. has hx of hemorrhoids 7. CLL- not on therapy. Leukocytosis at baseline per pt. (34 several days ago) 8. COPD- not on home O2. currently saturating 90% on 3L. will monitor oxygen levels. cont inhlaers/nebs 9. Pseudohypocalcemia- corrected Ca 8.9 10. DVT ppx- hep sq 11. will yanique require HAMZAH on discharge when medically optimized.
[2016-10-12] MEDS ORDERED: LEVOFLOXACIN 750 MG IVPB 150 ML IVPB ONE (14:04)
[2016-10-12] MEDS: LEVOFLOXACIN 750 MG IVPB 150 ML IVPB SCH (15:27)
[2016-10-12] MEDS: LATANOPROST 0.005% OPHTH SOLN 2.5ML BOTTLE OU SCH (21:49)
[2016-10-13] MEDS ORDERED: PT OWN MED DRAWER 7, Y5N ONE ×3 (00:13→18:17)
[2016-10-13] MEDS: CLINDAMYCIN 600MG PREMIX IVPB 50 ML IVPB SCH ×4 (04:08→20:44)
[2016-10-13 06:07] LABS: SERUM IRON 21 ug/dL (27-139); TOTAL IRON BINDING CAPACITY 410 ug/dL (250-450); UIBC 389 ug/dL (118-369)
[2016-10-13] MEDS: HEPARIN NA (PORCINE) 5,000 UNITS/ML 1ML VIAL SQ SCH ×3 (06:44→21:02)
[2016-10-13] MEDS: FLUTICASONE PROP 0.05% 16 GM NASAL SPRAY NS SCH ×2 (09:10→21:07)
[2016-10-13] MEDS: LORATADINE 10 MG TABLET PO SCH ×2 (09:12→09:15)
[2016-10-13] MEDS: FUROSEMIDE 40 MG/4 ML INJECTABLE VIAL IVPB SCH (09:13)
[2016-10-13] MEDS: BUDESONIDE/FORMETEROL FUMARATE 160/4.5 mcg INHALER IH SCH ×2 (10:19→21:06)
[2016-10-13] MEDS: LEVOFLOXACIN 750 MG IVPB 150 ML IVPB SCH (10:44)
[2016-10-13] MEDS: ACLIDINIUM BROMIDE 400 MCG/INH AERO.POWD IH SCH ×2 (11:23→21:06)
[2016-10-13] MEDS: PSEUDOEPHEDRINE HCL 60 MG TABLET PO SCH ×3 (11:27→18:22)
[2016-10-13] MEDS: ALBUTEROL SO4 2.5/IPRATROPIUM 0.5 INH SOL 3 ML VIAL.NEB. NEB PRN ×2 (11:50→17:14)
[2016-10-13] MEDS ORDERED: FUROSEMIDE 40 MG/4 ML INJECTABLE VIAL IVPUSH ONE (13:00)
[2016-10-13] MEDS: POLYETHYLENE GLYCOL 3350 119 GM BTL PO SCH ×2 (13:04→21:01)
--- NOTE | 2016-10-13 13:36 | EKG ---
Test Reason : Blood Pressure : / mmHG Vent. Rate : 075 BPM Atrial Rate : 075 BPM P-R Int : 000 ms QRS Dur : 086 ms QT Int : 406 ms P-R-T Axes : 000 050 059 degrees QTc Int : 453 ms SINUS RHYTHM NO PREVIOUS ECGS AVAILABLE Confirmed by TRISHA STOUT MD ([id number]) on 10/13/2016 1:36:15 PM Referred By: Confirmed By:TRISHA STOUT MD
[2016-10-13] MEDS: DOCUSATE SODIUM 100 MG CAPSULE (FP) PO SCH ×3 (14:08→21:01)
--- NOTE | 2016-10-13 14:17 | PN ---
Physical Exam: SUBJECTIVE: Patient seen and examined pt is complaining of sob and nasal congestion c/o insomnia at night OBJECTIVE: Vital Signs Period Temp Pulse Resp BP Sys/Gong Pulse Ox Last 24 Hr 97.4 F-98.6 F 69-75 17-20 99-118/44-75 92-93 GENERAL: The patient is awake, alert, and fully oriented, in mild distress. ENT: Ears normal, nares patent, oropharynx clear without exudates, moist mucous membranes. NECK: Trachea midline, full range of motion, supple. LUNGS:diminished to auscultation bilaterally, mild b/l crackles, use of accessory muscle use. HEART: Regular rate and rhythm, S1, S2 with pansystolic 3/6 murmur, rub or gallop. ABDOMEN: Soft, nontender, distended, acites, with dullness in b/l flank, right upper and left upper quandrant, normoactive bowel sounds, no guarding, no rebound.. EXTREMITIES: 2+ pulses, warm, well-perfused,. lower ext with edema left 2+ more than right 1+. tenderness has dissipated in b/l lower ext NEUROLOGICAL:. Normal speech, gait not observed. PSYCH: Normal mood, normal affect. SKIN: Warm, dry, redness in left lower ext. Laboratory Results - last 24 hr 10/11/16 06:45 Iron 21 L TIBC 410 Iron Saturation 5 L Active Medications Generic Name Dose Route Start Last Admin Trade Name Freq PRN Reason Stop Dose Admin Aclidinium [place] 1 puff 10/13/16 10:45 10/13/16 11:23 Tudorza - IH 1 puff BID TRACY Administration Albuterol/Ipratropium 1 amp 10/11/16 16:49 10/13/16 11:50 Duoneb - NEB 1 amp Q4H PRN Administration SHORTNESS OF BREATH Budesonide/Formoterol Fumarate 1 puff 10/10/16 10:00 10/13/16 10:19 Symbicort 160/4.5mcg - IH 1 puff BID TRACY Administration Docusate Sodium 100 mg 10/13/16 14:00 10/13/16 14:08 Colace - PO 100 mg TID TRACY Administration Fluticasone Propionate 1 spray 10/13/16 09:15 10/13/16 09:10 Flonase - NS 1 spray BID TRACY Administration Furosemide 40 mg 10/10/16 10:00 10/13/16 09:13 Lasix Injection - IVPB 40 mg DAILY TRACY Administration Heparin Sodium (Porcine) 5,000 unit 10/10/16 14:00 10/13/16 14:07 Heparin - SQ 5,000 unit TID TRACY Administration Clindamycin Phosphate 50 mls @ 100 mls/hr 10/10/16 21:00 10/13/16 09:11 Cleocin 600 Mg Premix Ivpb - IVPB 100 mls/hr Q6H-IV TRACY Administration Levofloxacin 150 mls @ 100 mls/hr 10/12/16 14:45 10/13/16 10:44 Levaquin 750 Mg Premixed Ivpb - IVPB 100 mls/hr DAILY TRACY Administration Latanoprost 1 drop 10/10/16 22:00 10/12/16 21:49 Xalatan 0.005% Eye Drops - OU 1 drop HS TRACY Administration Loratadine 10 mg 10/13/16 10:00 10/13/16 09:15 Claritin - PO Not Given DAILY TRACY Polyethylene Glycol 17 gm 10/13/16 12:15 10/13/16 13:04 Miralax (For Daily Use) - PO Not Given BID TRACY Pseudoephedrine HCl 60 mg 10/13/16 10:45 10/13/16 13:11 Sudafed - PO Not Given Q6HPO TRACY CBC, BMP 10/12/16 07:00 10/12/16 07:00 ASSESSMENT/PLAN: 81 year old female with pmh of COPD, CLL, HTN, HPLD from resident [facility] presented to the ED with b/l lower extremity swelling, redness for last couple of days. Hypoxic respiratory failure with Pleural effusion, Pulm Vascular congestion, diastolic CHF, COPD, Pneumonia Lung diminished, mild crackles, b/l lower edema. Pt c/o of nasal congestion Pt is on 50% venti mask, keep with O2 sat>90% CXR showed b/l effusion and infiltrates. Echo with normal LV size and function, no wall motion abnormality, severe pulm HTN, Moderate . Increase Lasix to 40mg IV BiD on Levaquin 750mg IV daily daily weight intake and output humidified oxygen Add turdoza inh bid Add Add flonase inh Add Loratidine Po Add phenylephrine Prn B/l Lower extremities Cellulitis was started on vanco and Zosyn ED. Was switched to Clindamycin On Clindamycin day 4, 600mg PO q6h redness and swelling has improved, no more tenderness, no warmth, no fever or chills US b/l lower ext negative DVT F/u blood culture, so far neg Keep lower ext elevated Abdominal Distention r/o Malignant effusion or Mass Rounded, distended abdomen Pt has CLL and anorexia CT abdomen and pelvis showed ascites, splenomegaly 22cm, hepatomegaly Outpatient Hem/onc follow repeat CT abdomen/pelvis in 3 month outpatient for lymphadenopathy Normocytic Anemia Hgb drop from 9.3, to 8.7, 9.0 Pt says her baseline is 9 and above but we have no documentation No known bleeding source. Denies black stool, no hematuria. H/o of hemorrhoids Iron studies pending result. CLL leukocytosis of 27.7, smudge cell, reactive leukocytosis, Lymphocytes 68% No intervention at this time Outpatient follow up with Dr Mancini Oncologist Asymptomatic bacteruria No dysuria UA with + leuk esterase, wbc 13 urine culture negative No antibiotic at this time COPD Was On nasal cannula 3 liter, increased to venti mask 50% Mild to moderate resp distress No wheezes, no ronchi, lung diminished with crackles Continue symbicort Add turdoza inh bid bronchodilators Prn HTN Controlled off antihypertensive No need to resume right now, worry about CHF HPLD Atorvastatin 10mg po qd FEN Fluid: none electrolytes: no abnormalities Nutrition: Low NA diet DVT prophylaxis: heparin Sq [facility] improvement in resp status Visit type - Emergency Visit Emergency Visit: Yes ED Registration Date: 10/10/16 Care time: The patient presented to the Emergency Department on the above date and was hospitalized for further evaluation of their emergent condition. - New Patient This patient is new to me today: No - Critical Care Critical Care patient: No - Discharge Referral Referred to [facility] No
--- NOTE | 2016-10-13 18:16 | PN ---
Teaching Attending Note Name of Resident: Emanuel Wooten ATTENDING PHYSICIAN STATEMENT I saw and evaluated the patient. I reviewed the resident's note and discussed the case with the resident. I agree with the resident's findings and plan as documented. SUBJECTIVE: seen and evaluated at the bedside OBJECTIVE: diminished lung sounds throughout, no wheezing/rhonchi ASSESSMENT AND PLAN: 81 year old female with significant past medical history of COPD, CLL ( diagnosed 3 years ago); Hypertension, Hyperlipidemia admitted for cellulitis Cellulitis -erythema improving -afebrile and hemodynamically stable -cont clindamycin COPD -pt has chronic SOB and chronic hypoxic hypoxia; is supposed to be on home oxygen -diminished lung sounds throughout, no wheezing/rhonchi -was not on spiriva so will start now -cont symbicort -nebs as needed
[2016-10-13] MEDS ORDERED: ZOLPIDEM TARTRATE 5 MG TABLET PO ONE (20:00)
[2016-10-13] MEDS: LATANOPROST 0.005% OPHTH SOLN 2.5ML BOTTLE OU SCH (21:06)
[2016-10-14] MEDS: PSEUDOEPHEDRINE HCL 60 MG TABLET PO SCH ×4 (00:39→17:15)
[2016-10-14] MEDS: CLINDAMYCIN 600MG PREMIX IVPB 50 ML IVPB SCH ×3 (03:21→14:48)
[2016-10-14] MEDS: ALBUTEROL SO4 2.5/IPRATROPIUM 0.5 INH SOL 3 ML VIAL.NEB. NEB PRN ×2 (05:24→10:27)
[2016-10-14] MEDS ORDERED: diphenhydrAMINE HCL 25 MG CAPSULE (FP) PO ONE (05:25)
--- NOTE | 2016-10-14 05:27 | HOSP ---
[id number]. She states her anxiety is because she is hospitalized and I reassured her that she is currently being managed appropriately. She requested 2mg of valium and I explained to her because of her low oxygen saturation ( approx 91% at this time) that it would not be a good medication due to its respiratory effects and that it could further decrease her oxygen saturation. She insisted that she needed something to calm her down and she was ok with taking benadryl at this time to help her fall asleep. 25 mg PO benadryl ordered once. Physical Examination Vital Signs: Vital Signs Temperature 98.0 F 10/13/16 21:00 Pulse Rate 76 10/13/16 21:00 Respiratory Rate 20 10/13/16 21:00 Blood Pressure 107/60 10/13/16 21:00 O2 Sat by Pulse Oximetry (%) 92 L 10/13/16 22:00 Labs: CBC, BMP 10/12/16 07:00 10/12/16 07:00 Visit type - Emergency Visit Emergency Visit: Yes ED Registration Date: 10/10/16 Care time: The patient presented to the Emergency Department on the above date and was hospitalized for further evaluation of their emergent condition. - New Patient This patient is new to me today: Yes Date on this admission: 10/15/16 - Critical Care Critical Care patient: No
[2016-10-14] MEDS: DOCUSATE SODIUM 100 MG CAPSULE (FP) PO SCH ×2 (05:41→14:47)
[2016-10-14] MEDS: HEPARIN NA (PORCINE) 5,000 UNITS/ML 1ML VIAL SQ SCH ×2 (05:41→14:47)
[2016-10-14] MEDS: LORATADINE 10 MG TABLET PO SCH ×2 (10:12→11:41)
[2016-10-14] MEDS: FLUTICASONE PROP 0.05% 16 GM NASAL SPRAY NS SCH (11:38)
[2016-10-14] MEDS: FUROSEMIDE 40 MG/4 ML INJECTABLE VIAL IVPB SCH (11:42)
[2016-10-14] MEDS: LEVOFLOXACIN 750 MG IVPB 150 ML IVPB SCH (11:44)
[2016-10-14] MEDS: POLYETHYLENE GLYCOL 3350 119 GM BTL PO SCH (11:45)
[2016-10-14] MEDS ORDERED: PT OWN MED DRAWER 7, Y5N ONE (11:56)
[2016-10-14] MEDS: BUDESONIDE/FORMETEROL FUMARATE 160/4.5 mcg INHALER IH SCH (12:08)
[2016-10-14] MEDS: ACLIDINIUM BROMIDE 400 MCG/INH AERO.POWD IH SCH (12:10)
--- NOTE | 2016-10-14 13:26 | DS ---
Physical Exam: ATTENDING PHYSICIAN STATEMENT I saw and evaluated the patient. I reviewed the resident's note and discussed the case with the resident. I agree with the resident's findings and plan as documented. SUBJECTIVE: seen and evaluated at the bedside OBJECTIVE: diminished lung sounds throughout, no wheezing/rhonchi ASSESSMENT AND PLAN: 81 year old female with significant past medical history of COPD, CLL ( diagnosed 3 years ago); Hypertension, Hyperlipidemia admitted for cellulitis Cellulitis -erythema improving -afebrile and hemodynamically stable -cont clindamycin upon discharge for total of 7 days COPD -pt has chronic SOB and chronic hypoxic hypoxia; is supposed to be on home oxygen -diminished lung sounds throughout, no wheezing/rhonchi -was not on spiriva so started and will discharge with prescription -cont symbicort -pt counselled on using oxygen at home for COPD <Tae Longo - Last Filed: 10/14/16 15:09> Physical Exam: SUBJECTIVE: Patient seen and examined OBJECTIVE: Vital Signs Period Temp Pulse Resp BP Sys/Gong Pulse Ox Last 24 Hr 97.5 F-98.1 F 75-88 17-20 105-122/43-65 90-92 PHYSICAL EXAM GENERAL: The patient is awake, alert, and fully oriented, in mild distress. ENT: Ears normal, nares patent, oropharynx clear without exudates, moist mucous membranes. NECK: Trachea midline, full range of motion, supple. LUNGS:diminished to auscultation bilaterally, mild b/l crackles, use of accessory muscle use. HEART: Regular rate and rhythm, S1, S2 with pansystolic 3/6 murmur, rub or gallop. ABDOMEN: Soft, nontender, distended, acites, with dullness in b/l flank, right upper and left upper quandrant, normoactive bowel sounds, no guarding, no rebound.. EXTREMITIES: 2+ pulses, warm, well-perfused,. lower ext with edema left 2+ more than right 1+. tenderness has dissipated in b/l lower ext NEUROLOGICAL:Normal speech, gait not observed. PSYCH: Normal mood, normal affect. SKIN: Warm, dry, redness in left lower ext. LABS HOSPITAL COURSE: Date of Admission:10/10/16 81 year old female with pmh of COPD, CLL, HTN, HPLD from resident retirement presented to the ED with b/l lower extremity swelling, redness for last couple of days. Pt developped Hypoxic respiratory failure with Pleural effusion, Pulm Vascular congestion, diastolic CHF, COPD, Pneumonia Lung diminished, mild crackles, b/l lower edema. Pt c/o of nasal congestion. Pt was on 50% venti mask and nasal cannula to keep with O2 sat>90%. CXR showed b/ l effusion and infiltrates. Echo with normal LV size and function, no wall motion abnormality, severe pulm HTN, Moderate . Pt was treated with Lasix to 40mg IV BiD for fluid overload, chf and daily weight, intake and output . received Levaquin 750mg IV daily for Pneumonia. Humidified oxygen for nasal dryness. Flonase inh, Loratidine Po, phenylephrine Prn for nasal congestion. B/l Lower extremities Cellulitis. Was started on vanco and Zosyn ED. Was switched to Clindamycin, 600mg PO q6h for 4 days. redness and swelling has improved, no more tenderness, no warmth, no fever or chills. US b/l lower ext negative DVT Blood culture was negative. Pt had Abdominal Distention. The abdomen was Rounded , distended. Pt has CLL and anorexia. CT abdomen and pelvis showed ascites, splenomegaly 22cm, hepatomegaly, lymphdenopathy. Pt is to do Outpatient Hem/onc follow up. Repeat CT abdomen/pelvis in 3 month outpatient. Date of Discharge: 10/14/16 Minutes to complete discharge: 40 <Emanuel Wooten - Last Filed: 10/15/16 17:44> Discharge Summary - Home Medications Comprehensive Discharge Medication List: Ambulatory Orders Atorvastatin Ca [Lipitor] 10 mg PO Q2D 10/10/16 Bimatoprost [Lumigan] 1 drop OU HS 10/10/16 Budesonide/Formeterol Fumarate [SYMBICORT 160/4.5mcg -] 1 inh PO BID 10/10/16 Metoprolol Succinate [Toprol XL -] 25 mg PO DAILY 10/10/16 Aclidinium Callender [Tudorza -] 1 puff IH BID #1 inhaler 10/14/16 Albuterol 2.5/Ipratropium 0.5 [Duoneb -] 1 amp NEB Q4H PRN #1 amp 10/14/16 Docusate Sodium [Colace -] 100 mg PO TID #90 tab 10/14/16 Fluticasone Prop 0.05% Nasal [Flonase -] 1 spray NS BID #1 spray 10/14/16 Loratadine [Claritin -] 10 mg PO DAILY #30 tablet 10/14/16 <Tae Longo - Last Filed: 10/14/16 15:09> Reason For Visit: WEAKNESS,UTI, CELLULITIS Current Active Problems Abscess or cellulitis of foot (Acute) UTI (urinary tract infection) (Acute) Weakness (Acute) - Home Medications Comprehensive Discharge Medication List: Ambulatory Orders Atorvastatin Ca [Lipitor] 10 mg PO Q2D 10/10/16 Bimatoprost [Lumigan] 1 drop OU HS 10/10/16 Budesonide/Formeterol Fumarate [SYMBICORT 160/4.5mcg -] 1 inh PO BID 10/10/16 Cephalexin Monohydrate [Keflex -] 500 mg PO BID 10/10/16 Metoprolol Succinate [Toprol Xl -] 25 mg PO DAILY 10/10/16 <Emanuel Wooten - Last Filed: 10/15/16 17:44> Condition: Stable - Instructions Diet, Activity, Other Instructions: Discharge home resume cardiac cardiet resume home activity Follow up with your primary care physician within 1 week Follow up your electrophysiology technologist within 1 week follow up with your child care teacher within on week If you start having fever, chills, shortness of breath, chest pain, palpitation , nausea, vomiting, worsening leg swelling, weight gain, rash and pain in extremities, please come back to the emergency room Referrals: Femi Campbell MD, MD [Staff Physician] - Disposition: HOME This patient is new to me today: No Emergency Visit: Yes ED Registration Date: 10/10/16 Care time: The patient presented to the Emergency Department on the above date and was hospitalized for further evaluation of their emergent condition. Critical Care patient: No - Discharge Referral Referred to [facility] No <Emanuel Wooten - Last Filed: 10/15/16 17:44>
[2016-10-14 14:56] VITALS: BP 109/64; PULSE 91; TEMP 98
== END 2016-10-14 17:23 | disposition home or self-care (01) | DRG 602 ==
LOC: JER 01:17 → JERBED 05:42 → UNDOADMIN 06:07 → J6S 08:47
PROVIDERS: ADMIT Internal Medicine; ATTEND Internal Medicine
DX: L03.116 Cellulitis of left lower limb (principal); J96.01 Acute respiratory failure with hypoxia; J18.9 Pneumonia, unspecified organism; C91.10 Chronic lymphocytic leukemia of B-cell type not having achieved remission; I50.32 Chronic diastolic (congestive) heart failure; J44.0 Chronic obstructive pulmonary disease with (acute) lower respiratory infection; R18.8 Other ascites; N39.0 Urinary tract infection, site not specified; L03.115 Cellulitis of right lower limb; E78.5 Hyperlipidemia, unspecified; Z87.891 Personal history of nicotine dependence; R19.00 Intra-abdominal and pelvic swelling, mass and lump, unspecified site; R63.0 Anorexia; D64.9 Anemia, unspecified; E83.51 Hypocalcemia; Z68.20 Body mass index [BMI] 20.0-20.9, adult; I11.0 Hypertensive heart disease with heart failure; R16.2 Hepatomegaly with splenomegaly, not elsewhere classified; I27.2 Other secondary pulmonary hypertension
CPT/HCPCS: 36415; 71010-TC; 74177-TC; 80048; 80053; 81003; 81015; 82550; 82728; 83540; 83550; 83605; 83690; 83735; 83880; 84100; 84484; 85025; 85027; 85610; 85730; 87040; 87086; 93005; 93010; 93306-TC; 93970-TC; 94640; 94761; 97116-GP; 97162-PG; 99284-25; J1644; Q9967

== ENCOUNTER 2017-01-31 12:08 | Inpatient (IN) | payer OTHER, BC ==
--- NOTE | 2017-01-31 12:12 | PDOC ---
History of Present Illness <Calvin Edouard - Last Filed: 01/31/17 12:50> - General History Source: Patient, Old Records Exam Limitations: No Limitations - History of Present Illness Initial Comments: 01/31/17 12:33 The patient is a 81-year-old woman, from [facility], with a significant past medical history of chronic lymphocytic leukemia (diagnosed approximately 3 years ago), hypertension and chronic obstructive pulmonary disease who presents to the emergency department via EMS for evaluation of left eye swelling. she was evaluated and diagnosed with shingles and started on Acyclovir last week. She states that she is unable to see from her left eye secondary to the swelling. She also complains of itchiness. No other complaints. No fever, chills , headache, lightheadedness, cough, shortness for breath. nausea, vomiting, diarrhea. <Lilia Ortega - Last Filed: 01/31/17 15:47> - General Stated Complaint: SHINGLES Time Seen by Provider: 01/31/17 12:11 Past History - Past Medical History Cancer: Yes (CLL) COPD: Yes HTN: Yes - Psycho/Social/Smoking Cessation Hx Suicidal Ideation: No Smoking History: Former smoker Have you smoked in the past 12 months: No Hx Alcohol Use: No Drug/Substance Use Hx: No <Calvin Edouard - Last Filed: 01/31/17 12:50> <Lilia Ortega - Last Filed: 01/31/17 15:47> - Past Medical History Allergies/Adverse Reactions: Allergies Allergy/AdvReac Type Severity Reaction Status Date / Time No Known Allergies Allergy Verified 01/31/17 12:13 Home Medications: Ambulatory Orders Atorvastatin Ca [Lipitor] 10 mg PO Q2D 10/10/16 Bimatoprost [Lumigan] 1 drop OU HS 10/10/16 Budesonide/Formeterol Fumarate [SYMBICORT 160/4.5mcg -] 1 inh PO BID 10/10/16 Metoprolol Succinate [Toprol XL -] 25 mg PO DAILY 10/10/16 Aclidinium Cataldo [Tudorza -] 1 puff IH BID #1 inhaler 10/14/16 Albuterol 2.5/Ipratropium 0.5 [Duoneb -] 1 amp NEB Q4H PRN #1 amp 10/14/16 Docusate Sodium [Colace -] 100 mg PO TID #90 tab 10/14/16 Ferrous Sulfate [Feosol] 325 mg PO DAILY #30 tablet 10/14/16 Fluticasone Prop 0.05% Nasal [Flonase -] 1 spray NS BID #1 spray 10/14/16 Loratadine [Claritin -] 10 mg PO DAILY #30 tablet 10/14/16 Tobramycin 0.3% Ophth Oint [Tobrex Ophthalmic Ointment -] 1 applic OS ONCE #1 tube 01/31/17 Tobramycin Sulf/Dexamethasone [Tobradex *Eye Ointment*] 1 applic OS TID #1 tube 01/31/17 Review of Systems - Review of Systems Able to Perform ROS?: Yes Comments:: 01/31/17 12:33 GENERAL/CONSTITUTIONAL: No fever or chills. No weakness. HEAD, EYES, EARS, NOSE AND THROAT: Yes: Left eye swelling. No change in vision. No ear pain or discharge. No sore throat. CARDIOVASCULAR: No chest pain or shortness of breath. RESPIRATORY: No cough, wheezing, or hemoptysis. GASTROINTESTINAL: No nausea, vomiting, diarrhea or constipation. GENITOURINARY: No dysuria, frequency, or change in urination. MUSCULOSKELETAL: No joint or muscle swelling or pain. No neck or back pain. SKIN: Yes: Rash NEUROLOGIC: No headache, vertigo, loss of consciousness, or change in strength/ sensation. ENDOCRINE: No increased thirst. No abnormal weight change. HEMATOLOGIC/LYMPHATIC: No anemia, easy bleeding, or history of blood clots. ALLERGIC/IMMUNOLOGIC: No hives or skin allergy. <Lilia Ortega - Last Filed: 01/31/17 15:47> *Physical Exam - Vital Signs Last Vital Signs Temp Pulse Resp BP Pulse Ox 99.3 F 103 H 18 136/62 95 01/31/17 12:11 01/31/17 12:11 01/31/17 12:11 01/31/17 12:11 01/31/17 12:11 - Physical Exam Comments: 01/31/17 12:33 GENERAL: Awake, alert, and fully oriented, in no acute distress HEAD: No signs of trauma EYES: PERRLA, EOMI. Corneal lesions. Left sided facial lesions ENT: Auricles normal inspection, hearing grossly normal, nares patent, oropharynx clear without exudates. Moist mucosa NECK: Normal ROM, supple, no lymphadenopathy, JVD, or masses LUNGS: Breath sounds equal, clear to auscultation bilaterally. No wheezes, and no crackles HEART: Regular rate and rhythm, normal S1 and S2, no murmurs, rubs or gallops ABDOMEN: Soft, nontender, normoactive bowel sounds. No guarding, no rebound. No masses EXTREMITIES: Normal range of motion, no edema. No clubbing or cyanosis. No cords, erythema, or tenderness NEUROLOGICAL: Cranial nerves II through XII grossly intact. Normal speech. <Lilia Ortega - Last Filed: 01/31/17 15:47> Medical Decision Making - Medical Decision Making 01/31/17 12:45 The patient is a 81-year-old woman, from [facility], with a significant past medical history of chronic lymphocytic leukemia (diagnosed approximately 3 years ago), hypertension and chronic obstructive pulmonary disease who presents to the emergency department via EMS for evaluation of left eye swelling. she was evaluated and diagnosed with shingles and started on Acyclovir last week. She states that she is unable to see from her left eye secondary to the swelling. She also complains of itchiness. No other complaints. No fever, chills , headache, lightheadedness, cough, shortness for breath. nausea, vomiting, diarrhea. <Lilia Ortega - Last Filed: 01/31/17 15:47> *DC/Admit/Observation/Transfer - Discharge Dispostion Admit: No - Attestations Physician Attestion: 01/31/17 12:12 I, Dr. Calvin Edouard, attest that this document has been prepared under my direction and personally reviewed by me in its entirety. I further attest, that it accurately reflects all work, treatment, procedures and medical decision -making performed by me. <Calvin Edouard - Last Filed: 01/31/17 12:50> - Attestations Scribe Attestion: 01/31/17 12:33 Documentation prepared by Lilia Ortega, acting as medical assistant supervisor for Calvin Edouard DO. <Lilia Ortega - Last Filed: 01/31/17 15:47> Diagnosis at time of Disposition: Shingles outbreak Qualifiers: Herpes zoster complications: unspecified herpes zoster complication Qualified Code(s): B02.8 - Zoster with other complications - Discharge Dispostion Disposition: HOME Condition at time of disposition: Unchanged/Unknown - Prescriptions Prescriptions: Tobramycin Sulf/Dexamethasone [Tobradex *Eye Ointment*] 1 applic OS TID #1 tube Tobramycin 0.3% Ophth Oint [Tobrex Ophthalmic Ointment -] 1 applic OS ONCE #1 tube - Referrals Referrals: Shakir Chaney [Staff Physician] - - Patient Instructions Printed Discharge Instructions: DI for Corneal Abrasion Additional Instructions: mRS Garcia- Sorry that you are going through this. Keep taking the Acyclovir. See the ophthalomologist tomorrow in the morning.
[2017-01-31] MEDS ORDERED: FLUORESCEIN NA 1 EA STRIP ONE (12:19)
[2017-01-31] MEDS ORDERED: TOBRAMYCIN 0.3% OPHTH OINT 3.5 GM OS ONE (12:47)
[2017-01-31] MEDS ORDERED: TOBRAMYCIN 0.3% OPHTH SOLN 5 ML BOTTLE ONE (12:51)
[2017-01-31] MEDS ORDERED: SODIUM CHLORIDE 1,000 ML IV STA ×2 (14:59→23:55)
--- NOTE | 2017-01-31 19:14 | PDOC ---
*Physical Exam - Vital Signs Last Vital Signs Temp Pulse Resp BP Pulse Ox 99.2 F 87 22 128/67 98 01/31/17 18:59 01/31/17 18:59 01/31/17 18:59 01/31/17 18:59 01/31/17 18:59 ED Treatment Course - LABORATORY CBC & Chemistry Diagram: 01/31/17 19:22 01/31/17 19:22 - Medications Given in the ED: ED Medications Discontinued Medications Generic Name Dose Route Start Last Admin Trade Name Colleen PRN Reason Stop Dose Admin Sodium Chloride 1,000 mls @ 1,000 mls/hr 01/31/17 14:59 01/31/17 15:15 Normal Saline - IV 01/31/17 15:58 1,000 mls/hr ASDIR STA Administration Tobramycin Sulfate 1 applic 01/31/17 12:47 01/31/17 13:05 Tobrex Ophthalmic Ointment - OS 01/31/17 12:48 1 appful ONCE ONE Administration Medical Decision Making - Medical Decision Making 01/31/17 19:09 Daughter is concerned that the patient is very weak and I spoke with Dr Garcia -pt has advanced copd -Dr Garcia requested that the hospitalist admit the pt for med/surg obs -pt to get IVF,labs -pt diagnosed w shingles 1 week ago and is on acyclovir -left side of face has shingles 01/31/17 22:09 Patient has long-standing CLL is followed by Dr. Prudencio Mancini, who doesn't admit to this hospital. We called Dr. Joseph Dial and spoke to the covering attending, who agreed we could transfuse 1 unit of packed cells 01/31/17 22:10 -Patient did receive normal saline. Her sodium is 129. She remains normotensive Hemoccult is negative 01/31/17 22:14 pt became tachycardic and hypotensive, vanco and zosyn ordereed ,pt upgraded to ICU 02/01/17 03:15 *DC/Admit/Observation/Transfer Diagnosis at time of Disposition: CLL (chronic lymphocytic leukemia) Shingles outbreak Qualifiers: Herpes zoster complications: unspecified herpes zoster complication Qualified Code(s): B02.8 - Zoster with other complications Fever Qualifiers: Fever type: unspecified Qualified Code(s): R50.9 - Fever, unspecified Anemia Qualifiers: Anemia type: other cause Other causes of anemia: chronic disease, neoplastic Qualified Code(s): D63.0 - Anemia in neoplastic disease - Discharge Dispostion Admit: Yes - Prescriptions - Referrals - Patient Instructions - Post Discharge Activity
[2017-01-31 19:45] LABS: MCH 24.4 pg (25.7-33.7); MCHC 27.8 g/dl (32.0-36.0); MEAN CELL VOLUME 87.8 fl (80-96); MEAN PLT VOLUME 8.3 fl (7.5-11.1); PLATELET COUNT 229 K/MM3 (134-434); RDW 15.3 % (11.6-15.6)
[2017-01-31 20:08] LABS: WHITE BLOOD COUNT 131.4 K/mm3 (4.0-10.0)
[2017-01-31 20:17] LABS: ALBUMIN 2.3 g/dl (3.4-5.0); ANION GAP 6 (8-16); BILIRUBIN,TOTAL 0.3 mg/dL (0.2-1.0); CALCIUM 7.7 mg/dL (8.5-10.1); CO2 30 mmol/L (21-32); CREATININE 0.5 mg/dL (0.55-1.02); GLUCOSE,RANDOM 130 mg/dL (74-106); SGOT/AST 32 U/L (15-37); SGPT/ALT 11 U/L (12-78); TROPONIN I 0.07 ng/ml (0.00-0.05)
[2017-01-31 20:18] LABS: ALK PHOS 139 U/L (45-117); TOT PROT 5.9 g/dl (6.4-8.2)
[2017-01-31 21:10] LABS: SMUDGE CELLS FEW
[2017-01-31 21:11] LABS: PLATELET ESTIMATE ADEQUATE (NORMAL)
[2017-01-31] MEDS ORDERED: ACETAMINOPHEN 325 MG TABLET (FP) PO ONE (21:15)
[2017-01-31] MEDS ORDERED: ACETAMINOPHEN 325 MG TABLET (FP) ONE (21:29)
--- NOTE | 2017-01-31 23:27 | PN ---
Teaching Attending Note Name of Resident: Sarah Nickerson ATTENDING PHYSICIAN STATEMENT I saw and evaluated the patient. I reviewed the resident's note and discussed the case with the resident. I agree with the resident's findings and plan as documented. SUBJECTIVE: 81 yo F with COPD on home 02, HTN, CLL (dx'd years ago), who was BIBA for left eye swelling. States she was diagnosed with shingles (pt. unsure when) and was started on Acyclovir. No current chest pain, pressure or shortness of breath. PCP: Dr. Garcia who requested we take patient OBJECTIVE: Physical: VS: Vital Signs Period Temp Pulse Resp BP Sys/Gong Pulse Ox Last 24 Hr 98.6 F-101.6 F 87-148 18-24 72-136/45-67 95-98 GEN: NAD, Resting in bed, Able to speak full sentences HEENT: PERRlL. Eye with surrounding lesions ulcerations in dermatomal pattern CARD: Stach, S1, S2 RESP: CTAB ABD: BSX4, NTD to palpation EXT: - C/C/E CBCD WBC 131.4 K/mm3 (4.0-10.0) H* 01/31/17 19:22 RBC 2.77 M/mm3 (3.60-5.2) L D 01/31/17 19:22 Hgb 6.8 GM/dL (10.7-15.3) L* D 01/31/17 19:22 Hct 24.3 % (32.4-45.2) L D 01/31/17 19:22 MCV 87.8 fl (80-96) 01/31/17 19:22 MCHC 27.8 g/dl (32.0-36.0) L 01/31/17 19:22 RDW 15.3 % (11.6-15.6) 01/31/17 19:22 Plt Count 229 K/MM3 (134-434) D 01/31/17 19:22 MPV 8.3 fl (7.5-11.1) 01/31/17 19:22 CMP Sodium 129 mmol/L (136-145) L 01/31/17 19:22 Potassium 4.1 mmol/L (3.5-5.1) 01/31/17 19:22 Chloride 93 mmol/L (98-107) L 01/31/17 19:22 Carbon Dioxide 30 mmol/L (21-32) 01/31/17 19:22 Anion Gap 6 (8-16) L 01/31/17 19:22 BUN 26 mg/dL (7-18) H 01/31/17 19:22 Creatinine 0.5 mg/dL (0.55-1.02) L D 01/31/17 19:22 Creat Clearance w eGFR > 60 (>60) 01/31/17 19:22 Random Glucose 130 mg/dL (74-106) H D 01/31/17 19:22 Calcium 7.7 mg/dL (8.5-10.1) L 01/31/17 19:22 Total Bilirubin 0.3 mg/dL (0.2-1.0) D 01/31/17 19:22 AST 32 U/L (15-37) D 01/31/17 19:22 ALT 11 U/L (12-78) L D 01/31/17 19:22 Alkaline Phosphatase 139 U/L (45-117) H D 01/31/17 19:22 Total Protein 5.9 g/dl (6.4-8.2) L 01/31/17 19:22 Albumin 2.3 g/dl (3.4-5.0) L 01/31/17 19:22 CARDIAC ENZYMES Creatine Kinase 195 IU/L (26-192) H D 01/31/17 19:22 Troponin I 0.07 ng/ml (0.00-0.05) H 01/31/17 19:22 Urine Test Results Urine Color Yellow 01/31/17 23:33 Urine Appearance Clear 01/31/17 23:33 Urine pH 6.0 (5.0-8.0) 01/31/17 23:33 Urine Protein 3+ (NEGATIVE) H 01/31/17 23:33 Urine Glucose (UA) Negative (NEGATIVE) 01/31/17 23:33 Urine Ketones Trace (NEGATIVE) H 01/31/17 23:33 Urine Blood 1+ (NEGATIVE) H 01/31/17 23:33 Urine Nitrite Negative (NEGATIVE) 01/31/17 23:33 Urine Bilirubin Negative (NEGATIVE) 01/31/17 23:33 Ur Leukocyte Esterase Negative (NEGATIVE) 07/16/17 23:33 Urine RBC 2 /hpf (0-3) 01/31/17 23:33 Urine WBC 1 /hpf (3-5) 01/31/17 23:33 Ur Epithelial Cells Rare /hpf (FEW) 01/31/17 23:33 Urine Bacteria Rare /hpf (NONE SEEN) 01/31/17 23:33 Urine Mucus Rare 01/31/17 23:33 EKG: Afib 141, no acute St-T changes CXR- Rotated, No acute ST-T changes ASSESSMENT AND PLAN: 81 yo F with pmhx of CLL ( 3 years ago), HTN, COPD on home 02, who presents with L. eye swelling and found to have cytopenias, and possible Septic Shock 1.) Septic Shock - IVF - [facility] - Repeat LA - Broad Spectrum abx with Vanco/Zosyn - ID consult - If BP not responsive to fluid, add pressors 2.) CLL with Anemia - Need to ro hemolysis - Stat LDH, Retic, hapto, WALTER, Jose Juan - H/O consult - 1U PRBC- As per H/O reccs - Smear 3.) Shingles in Immunocompromised pt - Acyclovir 10mg/kg q8 - Optho consult 4.) COPD - Nebs prn - C/W home meds 5.) HTN - HOLD MEDS as pt. is hypotensive 6.) AFIB - New onset - Digoxin for rate control if needed - [id number] - NO A/C due ro anemia - Echo 7.) Hyponatremia - IVF - Monitor, do not increases >10 MeQ in 24 hrs 7.) Dvt PPX - SCD Rest as per resident note Place in ICU CC time 60 minutes
[2017-01-31] MEDS ORDERED: SODIUM CHLORIDE 0.9% 1000 ML INFUS.BAG IV ONE (23:42)
[2017-01-31 23:48] LABS: URINE APPEARANCE CLEAR; URINE BILIRUBIN NEGATIVE (NEGATIVE); URINE BLOOD 1+ (NEGATIVE); URINE COLOR YELLOW; URINE GLUCOSE (UA) NEGATIVE (NEGATIVE); URINE KETONE TRACE (NEGATIVE); URINE LEUK ESTERASE NEGATIVE (NEGATIVE); URINE NITRITE NEGATIVE (NEGATIVE); URINE PROTEIN 3+ (NEGATIVE); URINE UROBILINOGEN NEGATIVE mg/dL (0.2-1.0)
[2017-01-31] MEDS ORDERED: PIPERACILLIN/TAZOB 3.375 GM 50 ML IVPB ONE (23:49)
[2017-01-31] MEDS ORDERED: VANCOMYCIN 1 GRAM (PRE-DOCKED) 250 ML IVPB ONE (23:49)
[2017-01-31 23:51] LABS: GRANULAR CASTS 29 /lpf; URINE BACTERIA RARE /hpf (NONE SEEN); URINE HYALINE CAST 3 /lpf; URINE MUCUS RARE; URINE RBC 2 /hpf (0-3); URINE WBC 1 /hpf (3-5)
--- NOTE | 2017-01-31 23:54 | HP ---
CHIEF COMPLAINT: Left eye swelling PCP: Dr. Garcia, but requested for hospitalist to admit HISTORY OF PRESENT ILLNESS: Patient is a 81 year old female from [address] [place] [address] with a PMHx of CLL (Diagnosed 3 years ago), COPD on 02, current active shingles who was BIBEMS due to left eye swelling. Patient was diagnosed with Shingles last week and started on PO Acyclovir. However, patient complained she was having difficulty seeing from her left eye and the long-term decided to bring her to the ED. Patient reports in the last 24 hours her left eye swelling has significantly worsened and is now unable to open her eyes. She also noticed discharged from her left eye that dries up and closes her eye shut. Later on in the conversation when speaking to the patient, patient is shouting "I can't breathe because I'm congested." When asking in further details patient states her nose is "clogged " and needs her flonase. Otherwise, patient denies fever, chills, abdominal pain, chest pain, headaches, dizziness, hematuria, dysuria. ER course was notable for: (1) IV Bolus (2) Acetaminophen (3) Recent Travel: Denies PAST MEDICAL HISTORY: COPD, CLL (diagnosed 3 years ago); Hypertension, Hyperlipidemia, hypothyroidism PAST SURGICAL HISTORY: Denies Social History: Smoking: Smoked for 60 years, quit 2 years ago Alcohol: Denies Drugs: Denies Family History: Non-Contributory Allergies: No Known Allergies Allergy (Verified 01/31/17 12:13) HOME MEDICATIONS: Home Medications Medication Instructions Recorded Atorvastatin Ca [Lipitor] 10 mg PO Q2D 10/10/16 Bimatoprost [Lumigan] 1 drop OU HS 10/10/16 Budesonide/Formeterol Fumarate 1 inh PO BID 10/10/16 [SYMBICORT 160/4.5mcg -] Metoprolol Succinate [Toprol XL -] 25 mg PO DAILY 10/10/16 Aclidinium [place] [Tudorza -] 1 puff IH BID #1 inhaler 10/14/16 Albuterol 2.5/Ipratropium 0.5 1 amp NEB Q4H PRN #1 amp 10/14/16 [Duoneb -] Docusate Sodium [Colace -] 100 mg PO TID #90 tab 10/14/16 Ferrous Sulfate [Feosol] 325 mg PO DAILY #30 tablet 10/14/16 Fluticasone Prop 0.05% Nasal 1 spray NS BID #1 spray 10/14/16 [Flonase -] Loratadine [Claritin -] 10 mg PO DAILY #30 tablet 10/14/16 Tobramycin 0.3% Ophth Oint [Tobrex 1 applic OS ONCE #1 tube 01/31/17 Ophthalmic Ointment -] Tobramycin Sulf/Dexamethasone 1 applic OS TID #1 tube 01/31/17 [Tobradex *Eye Ointment*] REVIEW OF SYSTEMS CONSTITUTIONAL: generalized weakness Absent: fever, chills, diaphoresis, malaise, loss of appetite, weight change HEENT: nasal congestion Absent: rhinorrhea, throat pain, throat swelling, difficulty swallowing, mouth swelling, ear pain, eye pain, visual changes CARDIOVASCULAR: Absent: chest pain, syncope, palpitations, irregular heart rate, lightheadedness , peripheral edema RESPIRATORY: Absent: cough, shortness of breath, dyspnea with exertion, orthopnea, wheezing, stridor, hemoptysis GASTROINTESTINAL: Absent: abdominal pain, abdominal distension, nausea, vomiting, diarrhea, constipation, melena, hematochezia GENITOURINARY: Absent: dysuria, frequency, urgency, hesitancy, hematuria, flank pain, genital pain MUSCULOSKELETAL: Absent: myalgia, arthralgia, joint swelling, back pain, neck pain SKIN: left sided facial rash in dermatomal pattern Absent: rash, itching, pallor HEMATOLOGIC/IMMUNOLOGIC: Absent: easy bleeding, easy bruising, lymphadenopathy, frequent infections ENDOCRINE: Absent: unexplained weight gain, unexplained weight loss, heat intolerance, cold intolerance NEUROLOGIC: Absent: headache, focal weakness or paresthesias, dizziness, unsteady gait, seizure, mental status changes, bladder or bowel incontinence PSYCHIATRIC: Absent: anxiety, depression, suicidal or homicidal ideation, hallucinations. PHYSICAL EXAMINATION Vital Signs - 24 hr 01/31/17 23:32 Pulse Rate [ 148 H Left Radial] Respiratory 24 Rate Blood Pressure 72/45 [Left Arm] O2 Sat by Pulse 95 Oximetry (%) GENERAL: Frail, Awake, alert, and fully oriented, in mild respiratory distress HEAD: Normal with no signs of trauma. EYES: Left eye periorbital edema and yellow purulent discharge with left sided vesicular dermatomal pattern. Injected sclera EARS: Moist mucous membranes. NECK: Normal range of motion, supple without lymphadenopathy. LUNGS: Decreased breath sounds throughout lung bases bilaterally. No wheezes, and no crackles. No accessory muscle use. HEART:Tachycardic with irregularly irregular rhythem, normal S1 and S2 without murmur, rub or gallop. ABDOMEN: Soft, nontender, (+) splenomegaly, normoactive bowel sounds, no guarding, no rebound, no masses. UPPER EXTREMITIES: No peripheral edema. LOWER EXTREMITIES: No calf tenderness. No peripheral edema. NEUROLOGICAL:Normal speech. Sensory intact throughout. Motor Strength 5/5 bilaterally SKIN: Vesicular rash on left sided face in dermatomal distribution with tenderness upon palpation Abnormal Lab Results 01/31/17 01/31/17 01/31/17 19:22 19:22 19:22 WBC 131.4 H* RBC 2.77 L D Hgb 6.8 L* D Hct 24.3 L D MCH 24.4 L MCHC 27.8 L Neutrophils % 9.0 L D Lymphocytes % 90.0 H D Sodium 129 L Chloride 93 L Anion Gap 6 L BUN 26 H Creatinine 0.5 L D Random Glucose 130 H D Calcium 7.7 L ALT 11 L D Alkaline Phosphatase 139 H D LD Total 264 H Creatine Kinase 195 H D Troponin I 0.07 H Total Protein 5.9 L Albumin 2.3 L Urine Protein Urine Ketones Urine Blood Crossmatch 01/31/17 01/31/17 20:48 23:33 WBC RBC Hgb Hct MCH MCHC Neutrophils % Lymphocytes % Sodium Chloride Anion Gap BUN Creatinine Random Glucose Calcium ALT Alkaline Phosphatase LD Total Creatine Kinase Troponin I Total Protein Albumin Urine Protein 3+ H Urine Ketones Trace H Urine Blood 1+ H Crossmatch See Detail ASSESSMENT/PLAN: Whitney is a 81 year old female with significant past medical history of COPD, CLL (diagnosed 3 years ago); Hypertension, Hyperlipidemia from senior resident living presented with the chief complaint of left eye swelling with vision difficulty. Patient was found to be Septic and admitted for further monitoring and management. Sepsis of Unknown Etiology -U/A negative. Repeat CXR -Zosyn 3.375mg IVPB and Vancomycin 1000mg IVPB ordered -Two Bolus IV fluids given in ED. Maintenance @75cc/hr. Pressors if no response to fluids -Urine and Blood cultures sent -Tylenol 650mg PO Q6H PRN for fevers -ID Consult placed CLL with Leukocytosis and Anemia -WBC's >131, Hgb 6.8 -Reports taking new medication for CLL but called 5 stars and report no new medication -Stat order of LDH, Retic count, Haptoglobin, Direct lindy -1 PRBC ordered in ED -Coags ordered -Heme/Oncology consult placed Left Facial Shingles in Immunocompromised patient -With left eye swollen -Continue Tobramycin drops -IV Acyclovir 540mg IV Q8H ordered -Optho consult placed New Onset A.fib with RVR -[id number] Score: 4 -Initially 140'S but now normal rate and rhythm -Will need AC if continues to have A.fib but patient currently anemic at 6.8 -Hold metoprolol due to hypotension -Continue Cardiac monitoring COPD -In no acute exacerbation -On home oxygen. Continue 2L 02 -Continue Symbicort, Tudorza -DuoNeb Q4H PRN Hypertension -Will hold meds due to hypotension -Continue to monitor BP HLD -Continue Lipitor 10mg daily Hyponatremia -Continue IV NS @ 75cc/hr -Do not increase sodium >10 in 24 hours F/E/N -On IV NS @75cc/hr -Hyponatremia. Continue IV NS -Sodium controlled diet Prophylaxis -High Risk but will hold until hgb is stable. SCD's for DVT -No GI required Disposition -Full code -Will admit to ICU Visit type - Emergency Visit Emergency Visit: Yes ED Registration Date: 01/31/17 Care time: The patient presented to the Emergency Department on the above date and was hospitalized for further evaluation of their emergent condition. - New Patient This patient is new to me today: Yes Date on this admission: 02/02/17 - Critical Care Critical Care patient: Yes Total Critical Care Time (in minutes): 45 Critical Care Statement: The care of this patient involved high complexity decision making to prevent further life threatening deterioration of the patient 's condition and/or to evalute & treat vital organ system(s) failure or risk of failure.
[2017-02-01] MEDS ORDERED: ALBUTEROL SO4 2.5/IPRATROPIUM 0.5 INH SOL 3 ML VIAL.NEB. NEB ONE (00:24)
[2017-02-01] MEDS ORDERED: HEPARIN NA (PORCINE) 5,000 UNITS/ML 1ML VIAL SQ SCH (00:30)
[2017-02-01] MEDS ORDERED: VANCOMYCIN 1 GRAM (PRE-DOCKED) 250 ML IVPB ONE (00:38)
[2017-02-01] MEDS ORDERED: PIPERACILLIN/TAZOB 3.375 GM 50 ML IVPB ONE (00:39)
[2017-02-01 00:49] LABS: LDH 264 U/L (84-246)
[2017-02-01 02:56] VITALS: BMI 17.7
[2017-02-01] MEDS: ACYCLOVIR IVPB SCH ×2 (03:00→09:33)
[2017-02-01] MEDS: WATER IVPB SCH ×2 (03:00→09:33)
[2017-02-01] MEDS: DEXTROSE 5% IVPB SCH ×2 (03:00→09:33)
[2017-02-01] MEDS: SODIUM CHLORIDE 1,000 ML IV SCH ×2 (03:15→09:31)
--- NOTE | 2017-02-01 04:33 | CONSULT ---
Consult - text type - Consultation Consultation Note: PULM/CCM PT seen and examined in ICU CC: hypotension HPI: Briefly Ms Pollard is a 81-year-old woman resident of [facility], with past medical history notable for chronic lymphocytic leukemia (diagnosed approximately 3 years ago, WBC ususally in 30-40), hypertension and chronic obstructive pulmonary disease who presented to the emergency department via EMS for evaluation of left eye swelling, on morning of 01/31. She had been recently been diagnosed with shingles, on L facial dermatone and started on Acyclovir approx a week prior. Related she was unable to see from her left eye secondary to the swelling. 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 Optho eval being contacted by ED/hospitalist. Pt denied LOC, Cxpn, abd pain, trauman, N/V/D, fevers at home Pt was in ED throughout day and was attempted to be d/c home. However pt became increasing SOB and hypotensive, to 70/40, SHe went into afib with RVR with rates in 130s. SHe spiked fever to 101, was started on broad spectrum abx. Labs were notable for WBC 130, Hbg 6.8. 1 PRBC (guaic negative, no reports of acute blood loss) and iV fluid were given with improvement. CXR did not show obvious infiltrate, UA was clean. Troponin was negative Pt improved over the course of a few hours, admitted to ICU for overnight observation. Ambulatory Orders Atorvastatin Ca [Lipitor] 10 mg PO Q2D 10/10/16 Bimatoprost [Lumigan] 1 drop OU HS 10/10/16 Budesonide/Formeterol Fumarate [SYMBICORT 160/4.5mcg -] 1 inh PO BID 10/10/16 Metoprolol Succinate [Toprol XL -] 25 mg PO DAILY 10/10/16 Aclidinium [place] [Tudorza -] 1 puff IH BID #1 inhaler 10/14/16 Albuterol 2.5/Ipratropium 0.5 [Duoneb -] 1 amp NEB Q4H PRN #1 amp 10/14/16 Docusate Sodium [Colace -] 100 mg PO TID #90 tab 10/14/16 Ferrous Sulfate [Feosol] 325 mg PO DAILY #30 tablet 10/14/16 Fluticasone Prop 0.05% Nasal [Flonase -] 1 spray NS BID #1 spray 10/14/16 Loratadine [Claritin -] 10 mg PO DAILY #30 tablet 10/14/16 Tobramycin 0.3% Ophth Oint [Tobrex Ophthalmic Ointment -] 1 applic OS ONCE #1 tube 01/31/17 Tobramycin Sulf/Dexamethasone [Tobradex *Eye Ointment*] 1 applic OS TID #1 tube 01/31/17 PMHX -CLL -COPD -HTN PSX: unable to clarify Family hx non-contrib Smoking History Smoking history Former smoker Alcohol/Substance Use Hx Alcohol Use No Resident of MD Active Medications Acetaminophen (Tylenol -) 650 mg PO Q6H PRN PRN Reason: FEVER OR PAIN Chlorhexidine Gluconate (Hibiclens For Decolonization -) 1 applic TP HS [facility] Fluticasone Propionate (Flonase -) 1 spray NS DAILY [facility] Acyclovir 540 mg/ Dextrose 110.8 mls @ 110.8 mls/hr IVPB Q8H-IV [facility]Y Last Admin: 02/01/17 03:00 Dose: 110.8 mls/hr Sodium Chloride (Normal Saline -) 1,000 mls @ 75 mls/hr IV ASDIR TRACY Mupirocin (Bactroban Ointment (For Decolonization) -) 1 applic NS BID TR[facility]Y Stop: 02/06/17 09:59 CBC, BMP 01/31/17 19:22 01/31/17 19:22 ROS: 10 pt Review of systems unrevealing save as per HPI PE: Gen: frail thin eld woman, sleeping in bed INAD HEENT: Vesicular rash c/f zoster outbreak L mid face, significant periorbital edema with injected sclera, upon opening eye pt is able to see out of affect side PULM: clear anterior, slightly poor air entry, no wheezes or accessory muscle use ABD; Soft, NT, ND EXT: no edema Neuro: intact, non focal exam CXR: reviewed EKG: sinus, R axis, no ischemic changes A/ 81 y/o woman with CLL, presented with swollen L eye insetting of zoster outbreak and anemia, ED course c/b fever, hypotension now resolved iwth IV abx, PRBC and fluid. P/ -IV abx (vanco and PT given) , ID consult in am -iv acyclovir -optho consult augustina -cont gayle eye gtts - repeat CBC in am, suspect chronic -heme/onc follow up - SCD , no indication for GI prophy -if BP and HR remain stable ok to floor in am. Jose Alfredo Cornejo ACNP [id number]
[2017-02-01] MEDS ORDERED: ALBUTEROL SO4 2.5/IPRATROPIUM 0.5 INH SOL 3 ML VIAL.NEB. NEB PRN (05:02)
[2017-02-01 06:24] LABS: MCH 25.8 pg (25.7-33.7); MCHC 30.1 g/dl (32.0-36.0); MEAN CELL VOLUME 85.7 fl (80-96); MEAN PLT VOLUME 8.4 fl (7.5-11.1); PLATELET COUNT 211 K/MM3 (134-434); RDW 14.8 % (11.6-15.6)
[2017-02-01] MEDS: DOCUSATE SODIUM 100 MG CAPSULE (FP) PO SCH ×3 (06:36→22:41)
[2017-02-01 06:38] LABS: INR 1.04 (0.82-1.09); PROTHROMBIN TIME (PATIENT) 11.5 SEC (9.98-11.88)
[2017-02-01 06:41] LABS: ACTIVATED PTT 24.6 SECONDS (26.9-34.4)
[2017-02-01 06:49] LABS: ANION GAP 6 (8-16); CALCIUM 7.3 mg/dL (8.5-10.1); CO2 30 mmol/L (21-32); CREATININE 0.6 mg/dL (0.55-1.02); GLUCOSE,RANDOM 101 mg/dL (74-106)
[2017-02-01 06:57] LABS: TROPONIN I 0.17 ng/ml (0.00-0.05)
[2017-02-01] MEDS ORDERED: PT OWN MED DRAWER 7, Y5N ONE (09:07)
[2017-02-01 09:30] LABS: CHOLESTEROL 140 mg/dL (50-200); LDL CHOLESTEROL (ONLY SJRH) 94 mg/dL (5-100)
[2017-02-01] MEDS: MUPIROCIN 2% TOPICAL OINTMENT FOR DECOLONIZATION NS SCH ×2 (09:31→22:41)
[2017-02-01] MEDS: ACETAMINOPHEN 325 MG TABLET (FP) PO PRN ×2 (09:32→15:10)
[2017-02-01] MEDS: LORATADINE 10 MG TABLET PO SCH (09:32)
[2017-02-01] MEDS: FERROUS SO4 325 MG TABLET (FP) PO SCH (09:32)
[2017-02-01] MEDS: FLUTICASONE PROP 0.05% 16 GM NASAL SPRAY NS SCH ×2 (09:34→22:41)
[2017-02-01] MEDS: ACLIDINIUM BROMIDE 400 MCG/INH AERO.POWD IH SCH ×2 (09:34→22:44)
[2017-02-01] MEDS: BUDESONIDE/FORMETEROL FUMARATE 160/4.5 mcg INHALER IH SCH ×2 (09:34→22:44)
--- NOTE | 2017-02-01 09:44 | PN ---
Progress Note, Physician Chief Complaint: ID Full note dictated diagnosis of CLL followed Dr Mancini No chemotherapy Transiently hypotensive and febrile 101.6 Currently alert NAD Shingles opthalmic forehead and eye on oral Zovirax - Current Medication List Current Medications: Active Medications Acetaminophen (Tylenol -) 650 mg PO Q6H PRN PRN Reason: FEVER OR PAIN Aclidinium Happy (Tudorza -) 1 puff IH BID TRACY Albuterol/Ipratropium (Duoneb -) 1 amp NEB Q4H PRN PRN Reason: SHORTNESS OF BREATH Atorvastatin Calcium (Lipitor -) 10 mg PO Q2D@HS TRACY Budesonide/Formoterol Fumarate (Symbicort 160/4.5mcg -) 1 puff IH BID TRACY Chlorhexidine Gluconate (Hibiclens For Decolonization -) 1 applic TP HS [facility] Docusate Sodium (Colace -) 100 mg PO TID [facility] Last Admin: 02/01/17 06:36 Dose: Not Given Ferrous Sulfate (Feosol -) 325 mg PO DAILY [facility] Fluticasone Propionate (Flonase -) 1 spray NS BID [facility] Acyclovir 540 mg/ Dextrose 110.8 mls @ 110.8 mls/hr IVPB Q8H-IV TRACY Last Admin: 02/01/17 03:00 Dose: 110.8 mls/hr Sodium Chloride (Normal Saline -) 1,000 mls @ 75 mls/hr IV ASDIR TRACY Last Admin: 02/01/17 03:15 Dose: 75 mls/hr Latanoprost (Xalatan 0.005% Eye Drops -) 1 drop OU HS [facility] Loratadine (Claritin -) 10 mg PO DAILY [facility] Mupirocin (Bactroban Ointment (For Decolonization) -) 1 applic NS BID [facility] Stop: 02/06/17 09:59 - Objective Vital Signs: Vital Signs Temperature 99.5 F 02/01/17 08:00 Pulse Rate 88 02/01/17 08:00 Respiratory Rate 23 02/01/17 08:00 Blood Pressure 120/65 02/01/17 08:00 O2 Sat by Pulse Oximetry (%) 96 02/01/17 02:46 Constitutional: Yes: Thin, Other (Frail) Eyes: Yes: Other (Swelling of the left eyelid purulent drainage from the eye conjunctival injection Cornea grossly clear cachorro color crusting lesions nose) Labs: CBC, BMP 02/01/17 05:15 02/01/17 05:15 INR, PTT INR 1.04 (0.82-1.09) 02/01/17 05:15 Problem List - Problems (1) CLL (chronic lymphocytic leukemia) Code(s): C91.10 - CHRONIC LYMPHOCYTIC LEUK OF B-CELL TYPE NOT ACHIEVE REMIS (2) Fever Code(s): R50.9 - FEVER, UNSPECIFIED Qualifiers: Fever type: unspecified Qualified Code(s): R50.9 - Fever, unspecified (3) Shingles outbreak Code(s): B02.9 - ZOSTER WITHOUT COMPLICATIONS Qualifiers: Herpes zoster complications: unspecified herpes zoster complication Qualified Code(s): B02.8 - Zoster with other complications Assessment/Plan Laboratory Tests 01/31/17 01/31/17 01/31/17 19:22 19:22 23:33 WBC 131.4 H* Hgb 6.8 L* D Hct 24.3 L D Plt Count 229 D BUN 26 H Creatinine 0.5 L D Creat Clearance w eGFR > 60 Urine WBC 1 02/01/17 05:15 WBC Hgb Hct Plt Count BUN 30 H Creatinine 0.6 Creat Clearance w eGFR Urine WBC Assessment CLL ( No chemotherapy) Anemia on Ibrutinib(TKInhibitor) Elevated WBC related to drug chemotherapy 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 staph or strep vs all related to HVZ Fever source unclear Plan Blood and urine c/s Contact isolation IV Acyclovir with hydration for prevention of renal failure Opthomology evaluation Ceftriaxone empirically pending final cultures Tobramycin opthalmic eye drops Dr Mancini notified Mathew NAPIER
[2017-02-01] MEDS ORDERED: METOPROLOL SUCCINATE 25 MG TAB.SR.24H (FP) PO SCH (10:00)
[2017-02-01] MEDS ORDERED: FLUTICASONE PROP 0.05% 16 GM NASAL SPRAY NS SCH (10:00)
[2017-02-01] MEDS: CEFTRIAXONE 50 ML IVPB SCH (10:58)
[2017-02-01] MEDS: ACYCLOVIR INJECTION 500 MG in SODIUM CHLORIDE 100 ML IVPB SCH ×2 (11:00→22:45)
--- NOTE | 2017-02-01 12:03 | CONSULT ---
Consult Consult Specialty:: Hematology/Oncology Reason for Consultation:: CLL - History of Present Illness Chief Complaint: Admitted for zoster ophthalimicus History of Present Illness: is a 81 year old female who was admitted yesterday with complains of left eye swelling, discharge and lesions on the forehead. Patient has a history of CLL, followed by Dr.Mark Mancini. Patient was until recently on watchful waiting. As per the patient, a week ago, she was started on pills for her CLL. She also mentioned that she was started on Acyclovir PO for shingles present on the forehead site. She takes all her pills religiously. She also mentioned that the shingles preceded the initiation of new pill for her CLL. But from the past week or so, the lesions grew, eye swelling started , positive for discharge and also blurry vision in the left eye, which prompted the NH to send her to ER. Patient was initially evaluated in the ER, when her BP was low and was febrile, leading to ICU admission. She was seen by ID. She was started on broad spectrum antibiotics and also antivirals. Hematology consulted for the history of CLL. Patient seen and examined in the ICU. She mentions she is a "little" better than yesterday, but no change in her visual status, she feels thirsty. She denies any fevers at home, she has recent weight loss as per her. She has no chest pain, cough or lesions noted elsewhere on her skin. - History Source History Provided By: Patient Limitations to Obtaining History: No Limitations - Past Medical History Pulmonary: Yes: COPD, Other (patient mentioned that she is on Home Oxygen and use it when needed) Gastrointestinal: No: Constipation, GI Bleed ...: No Heme/Onc: Yes: Current Chemotherapy (CLL on ibrutinib) Infectious Disease: Yes: Herpes Zoster Psych: Yes: Other (insomnia and as per her she is on valium) - Alcohol/Substance Use Hx Alcohol Use: No History of Substance Use: reports: None - Smoking History Smoking history: Former smoker Have you smoked in the past 12 months: No - Social History Usual Living Arrangement: Long-Term Home Medications - Allergies Allergies/Adverse Reactions: Allergies Allergy/AdvReac Type Severity Reaction Status Date / Time No Known Allergies Allergy Verified 01/31/17 12:13 - Home Medications Home Medications: Ambulatory Orders Atorvastatin Ca [Lipitor] 10 mg PO Q2D 10/10/16 Bimatoprost [Lumigan] 1 drop OU HS 10/10/16 Budesonide/Formeterol Fumarate [SYMBICORT 160/4.5mcg -] 1 inh PO BID 10/10/16 Metoprolol Succinate [Toprol XL -] 25 mg PO DAILY 10/10/[address] [place] [Tudorza -] 1 puff IH BID #1 inhaler 10/14/16 Albuterol 2.5/Ipratropium 0.5 [Duoneb -] 1 amp NEB Q4H PRN #1 amp 10/14/16 Docusate Sodium [Colace -] 100 mg PO TID #90 tab 10/14/16 Ferrous Sulfate [Feosol] 325 mg PO DAILY #30 tablet 10/14/16 Fluticasone Prop 0.05% Nasal [Flonase -] 1 spray NS BID #1 spray 10/14/16 Loratadine [Claritin -] 10 mg PO DAILY #30 tablet 10/14/16 Tobramycin 0.3% Ophth Oint [Tobrex Ophthalmic Ointment -] 1 applic OS ONCE #1 tube 01/31/17 Tobramycin Sulf/Dexamethasone [Tobradex *Eye Ointment*] 1 applic OS TID #1 tube 01/31/17 Family Disease History - Family Disease History Family History: Denies Review of Systems - Review of Systems Constitutional: reports: Unintentional Wgt. Loss Eyes: reports: Blurred Vision (left eye), Recent Change in Vision HENT: reports: No Symptoms Cardiovascular: reports: Shortness of Breath Respiratory: denies: Cough, Hemoptysis, SOB Gastrointestinal: denies: Abdominal Pain, Constipation, Diarrhea, Rectal Bleeding, Vomiting Genitourinary: denies: Burning, Flank Pain Musculoskeletal: denies: Back Pain, Joint Swelling Integumentary: reports: Lesions (left forehead) Hematology/Lymphatic: reports: No Symptoms Psychiatric: reports: Altered Sleep Pattern Physical Exam Vital Signs: Vital Signs Temperature 101.6 F H 02/01/17 09:30 Pulse Rate 82 02/01/17 10:39 Respiratory Rate 16 02/01/17 10:00 Blood Pressure 99/54 02/01/17 10:00 O2 Sat by Pulse Oximetry (%) 94 L 07/17/17 10:39 Constitutional: Yes: Mild Distress Eyes: Yes: Conjunctiva Clear, EOM Intact HENT: Yes: Atraumatic, Normocephalic, Other (left forehead with vesicular lesions, swollen elft eyelid, discharge present) Neck: Yes: Supple Cardiovascular: Yes: Regular Rate and Rhythm Respiratory: Yes: CTA Bilaterally. No: Accessory Muscle Use Gastrointestinal: Yes: Normal Bowel Sounds, Soft Extremities: Yes: WNL Edema: No Integumentary: Yes: WNL Labs: CBC, BMP 02/01/17 05:15 02/01/17 05:15 Imaging - Results Chest X-ray: Report Reviewed Problem List - Problems (1) CLL (chronic lymphocytic leukemia) Assessment/Plan: has recently been started on a BTK inhibitor, Ibrutinib. Ibrutinib tends to have a initial Lymphocytosis, prior to response, which explains the surge of lymphocytes in the peripheral blood count. Need to be monitored Medication to be held in the acute setting. ?need of VZV ppx in the future Will check Quantitative Immunoglobulins. Informed office. Code(s): C91.10 - CHRONIC LYMPHOCYTIC LEUK OF B-CELL TYPE NOT ACHIEVE REMIS (2) Anemia Assessment/Plan: Anemia, might be explained by the ibrutinib, acute event. Supportive care and transfusion support as needed CLL patients tend to hemolyse, therefore, will check LDH, Hapto and lindy along with iron studies. Code(s): D64.9 - ANEMIA, UNSPECIFIED Qualifiers: Anemia type: other cause Other causes of anemia: chronic disease, neoplastic Qualified Code(s): D63.0 - Anemia in neoplastic disease (3) Shingles outbreak Assessment/Plan: appreciate ID consult Awaiting Ophthal evaluation. On treatment Will follow patient closely Code(s): B02.9 - ZOSTER WITHOUT COMPLICATIONS Qualifiers: Herpes zoster complications: unspecified herpes zoster complication Qualified Code(s): B02.8 - Zoster with other complications
[2017-02-01 12:13] LABS: TROPONIN I 0.16 ng/ml (0.00-0.05)
--- NOTE | 2017-02-01 12:36 | EKG ---
Test Reason : Blood Pressure : / mmHG Vent. Rate : 094 BPM Atrial Rate : 094 BPM P-R Int : 148 ms QRS Dur : 080 ms QT Int : 350 ms P-R-T Axes : -38 064 053 degrees QTc Int : 437 ms UNUSUAL P AXIS, POSSIBLE ECTOPIC ATRIAL RHYTHM NONSPECIFIC ST ABNORMALITY ABNORMAL ECG WHEN COMPARED WITH ECG OF 10-OCT-2016 01:50, ECTOPIC ATRIAL RHYTHM HAS REPLACED SINUS RHYTHM CLINICAL CORRELATION IS RECOMMENDED Confirmed by ARGELIA NAPIER, TRISHA ([id number]) on 02/01/2017 12:36:31 PM Referred By: Confirmed By:TRISHA TSOUT MD
--- NOTE | 2017-02-01 12:44 | PN ---
Teaching Attending Note Name of Resident: Danny Pena ATTENDING PHYSICIAN STATEMENT I saw and evaluated the patient. I reviewed the resident's note and discussed the case with the resident. I agree with the resident's findings and plan as documented. SUBJECTIVE: Patient seen and examined in the ICU. Drowsy but arousbale. Able to answer questions. Looks weak. Denies CP or SOB. Noted ID follow up. Ophthalmology called for evaluation. Intake & Output 01/29/17 01/30/17 01/31/17 02/01/17 23:59 23:59 23:59 23:59 Intake Total 1000 930 Output Total 450 Balance 1000 480 Weight 120 lb 110 lb Last Vital Signs Temp Pulse Resp BP Pulse Ox 101.6 F H 82 16 99/54 94 L 02/01/17 09:30 02/01/17 10:39 02/01/17 10:00 02/01/17 10:00 02/01/17 10:39 Active Medications Acetaminophen (Tylenol -) 650 mg PO Q6H PRN PRN Reason: FEVER OR PAIN Last Admin: 02/01/17 09:32 Dose: 650 mg Aclidinium [place] (Tudorza -) 1 puff IH BID [facility] Last Admin: 02/01/17 09:34 Dose: 1 puff Albuterol/Ipratropium (Duoneb -) 1 amp NEB Q4H PRN PRN Reason: SHORTNESS OF BREATH Atorvastatin Calcium (Lipitor -) 10 mg PO Q2D@HS [facility] Budesonide/Formoterol Fumarate (Symbicort 160/4.5mcg -) 1 puff IH BID [facility] Last Admin: 02/01/17 09:34 Dose: 1 puff Chlorhexidine Gluconate (Hibiclens For Decolonization -) 1 applic TP HS [facility] Docusate Sodium (Colace -) 100 mg PO TID [facility] Last Admin: 02/01/17 06:36 Dose: Not Given Ferrous Sulfate (Feosol -) 325 mg PO DAILY [facility] Last Admin: 02/01/17 09:32 Dose: 325 mg Fluticasone Propionate (Flonase -) 1 spray NS BID [facility] Last Admin: 02/01/17 09:34 Dose: 1 spray Sodium Chloride (Normal Saline -) 1,000 mls @ 75 mls/hr IV ASDIR [facility] Last Admin: 07/17/17 09:31 Dose: 75 mls/hr Ceftriaxone Sodium (Rocephin 1gm Ivpb (Pre-Docked)) 50 mls @ 100 mls/hr IVPB DAILY [facility] Last Admin: 02/01/17 10:58 Dose: 100 mls/hr Acyclovir 500 mg/ Sodium (Chloride) 110 mls @ 110 mls/hr IVPB Q12H [facility] Last Admin: 02/01/17 11:00 Dose: Not Given Latanoprost (Xalatan 0.005% Eye Drops -) 1 drop OU HS [facility] Loratadine (Claritin -) 10 mg PO DAILY [facility] Last Admin: 02/01/17 09:32 Dose: 10 mg Mupirocin (Bactroban Ointment (For Decolonization) -) 1 applic NS BID [facility] Stop: 02/06/17 09:59 Last Admin: 02/01/17 09:31 Dose: 1 applic Tobramycin Sulfate (Tobrex Ophthalmic Solution -) 1 drop OS TID [facility] PE: Gen: frail thin elderly woman HEENT: Vesicular rash c/f zoster outbreak Left mid face, significant periorbital edema with injected sclera, upon opening eye pt is able to see out of affect side PULM: clear anterior, no wheezes or accessory muscle use ABD; Soft, NT, ND EXT: no edema Neuro: intact, non focal exam Laboratory Results - last 24 hr 01/31/17 01/31/17 01/31/17 19:22 19:22 19:22 WBC 131.4 H* RBC 2.77 L D Hgb 6.8 L* D Hct 24.3 L D MCV 87.8 MCH 24.4 L MCHC 27.8 L RDW 15.3 Plt Count 229 D MPV 8.3 Neutrophils % 9.0 L D Lymphocytes % 90.0 H D Monocytes % Band Neutrophils 1.0 D Differential Comment Manual diff done Smudge Cells Few Platelet Estimate Adequate INR PTT (Actin FS) Sodium 129 L Potassium 4.1 Chloride 93 L Carbon Dioxide 30 Anion Gap 6 L BUN 26 H Creatinine 0.5 L D Creat Clearance w eGFR > 60 Random Glucose 130 H D Lactic Acid Calcium 7.7 L Total Bilirubin 0.3 D AST 32 D ALT 11 L D Alkaline Phosphatase 139 H D LD Total 264 H Creatine Kinase 195 H D Creatine Kinase Index < 0.5 CK-MB (CK-2) < 1.000 Troponin I 0.07 H Total Protein 5.9 L Albumin 2.3 L Triglycerides Cholesterol Total LDL Cholesterol HDL Cholesterol Urine Color Urine Appearance Urine pH Ur Specific [place] Urine Protein Urine Glucose (UA) Urine Ketones Urine Blood Urine Nitrite Urine Bilirubin Urine Urobilinogen Ur Leukocyte Esterase Urine RBC Urine WBC Ur Epithelial Cells Urine Bacteria Hyaline Casts Granular Casts Urine Mucus Stool Occult Blood Blood Type Antibody Screen Direct Antiglob Test Crossmatch 01/31/17 01/31/17 01/31/17 20:48 20:48 21:35 WBC RBC Hgb Hct MCV MCH MCHC RDW Plt Count MPV Neutrophils % Lymphocytes % Monocytes % Band Neutrophils Differential Comment Smudge Cells Platelet Estimate INR PTT (Actin FS) Sodium Potassium Chloride Carbon Dioxide Anion Gap BUN Creatinine Creat Clearance w eGFR Random Glucose Lactic Acid Calcium Total Bilirubin AST ALT Alkaline Phosphatase LD Total Creatine Kinase Creatine Kinase Index CK-MB (CK-2) Troponin I Total Protein Albumin Triglycerides Cholesterol Total LDL Cholesterol HDL Cholesterol Urine Color Urine Appearance Urine pH Ur Specific [place] Urine Protein Urine Glucose (UA) Urine Ketones Urine Blood Urine Nitrite Urine Bilirubin Urine Urobilinogen Ur Leukocyte Esterase Urine RBC Urine WBC Ur Epithelial Cells Urine Bacteria Hyaline Casts Granular Casts Urine Mucus Stool Occult Blood Negative Blood Type O POSITIVE O POSITIVE Antibody Screen Negative Direct Antiglob Test Crossmatch See Detail 01/31/17 01/31/17 02/01/17 21:50 23:33 05:15 WBC 98.0 H* D RBC 3.00 L Hgb 7.7 L D Hct 25.7 L MCV 85.7 MCH 25.8 MCHC 30.1 L RDW 14.8 Plt Count 211 MPV 8.4 Neutrophils % 16.0 L D Lymphocytes % 80.0 H Monocytes % 4.0 Band Neutrophils Differential Comment Smudge Cells Platelet Estimate INR PTT (Actin FS) Sodium Potassium Chloride Carbon Dioxide Anion Gap BUN Creatinine Creat Clearance w eGFR Random Glucose Lactic Acid 0.9 Calcium Total Bilirubin AST ALT Alkaline Phosphatase LD Total Creatine Kinase Creatine Kinase Index CK-MB (CK-2) Troponin I Total Protein Albumin Triglycerides Cholesterol Total LDL Cholesterol HDL Cholesterol Urine Color Yellow Urine Appearance Clear Urine pH 6.0 Ur Specific [place] 1.025 Urine Protein 3+ H Urine Glucose (UA) Negative Urine Ketones Trace H Urine Blood 1+ H Urine Nitrite Negative Urine Bilirubin Negative Urine Urobilinogen Negative Ur Leukocyte Esterase Negative Urine RBC 2 Urine WBC 1 Ur Epithelial Cells Rare Urine Bacteria Rare Hyaline Casts 3 Granular Casts 29 Urine Mucus Rare Stool Occult Blood Blood Type Antibody Screen Direct Antiglob Test Crossmatch 02/01/17 02/01/17 02/01/17 05:15 05:15 05:15 WBC RBC Hgb Hct MCV MCH MCHC RDW Plt Count MPV Neutrophils % Lymphocytes % Monocytes % Band Neutrophils Differential Comment Smudge Cells Platelet Estimate INR 1.04 PTT (Actin FS) 24.6 L Sodium 132 L Potassium 3.9 Chloride 96 L Carbon Dioxide 30 Anion Gap 6 L BUN 30 H Creatinine 0.6 Creat Clearance w eGFR Random Glucose 101 D Lactic Acid Calcium 7.3 L Total Bilirubin AST ALT Alkaline Phosphatase LD Total Creatine Kinase 198 H Creatine Kinase Index CK-MB (CK-2) 1.287 Troponin I 0.17 H Total Protein Albumin Triglycerides Cholesterol Total LDL Cholesterol HDL Cholesterol Urine Color Urine Appearance Urine pH Ur Specific [place] Urine Protein Urine Glucose (UA) Urine Ketones Urine Blood Urine Nitrite Urine Bilirubin Urine Urobilinogen Ur Leukocyte Esterase Urine RBC Urine WBC Ur Epithelial Cells Urine Bacteria Hyaline Casts Granular Casts Urine Mucus Stool Occult Blood Blood Type Antibody Screen Direct Antiglob Test Crossmatch 02/01/17 02/01/17 02/01/17 05:15 08:25 11:33 WBC RBC Hgb Hct MCV MCH MCHC RDW Plt Count MPV Neutrophils % Lymphocytes % Monocytes % Band Neutrophils Differential Comment Smudge Cells Platelet Estimate INR PTT (Actin FS) Sodium Potassium Chloride Carbon Dioxide Anion Gap BUN Creatinine Creat Clearance w eGFR Random Glucose Lactic Acid Calcium Total Bilirubin AST ALT Alkaline Phosphatase LD Total Creatine Kinase 148 Creatine Kinase Index CK-MB (CK-2) Troponin I 0.16 H Total Protein Albumin Triglycerides 126 Cholesterol 140 Total LDL Cholesterol 94 HDL Cholesterol 26 L Urine Color Urine Appearance Urine pH Ur Specific [place] Urine Protein Urine Glucose (UA) Urine Ketones Urine Blood Urine Nitrite Urine Bilirubin Urine Urobilinogen Ur Leukocyte Esterase Urine RBC Urine WBC Ur Epithelial Cells Urine Bacteria Hyaline Casts Granular Casts Urine Mucus Stool Occult Blood Blood Type Antibody Screen Direct Antiglob Test Negative Crossmatch IMP: CLL Swollen Left eye / zoster outbreak Anemia Hypotension / Sepsis PLAN: IVF Pending Ophthalmology evaluation [place]-culture VTE prophylaxis ABX / Antiviral per ID Tobramycin eye drops Heme/Onc evaluation Strict I&O ICU Monitoring Dr Carty CCTime 40"
--- NOTE | 2017-02-01 13:40 | PN ---
Physical Exam: SUBJECTIVE: 81 year old female with a past medical history of CLL, COPD, and shingles for 1 week presented to the ED with worsening L eye purulent discharge, pain and swelling. She broke out in shingles 1 week ago and was started on PO acyclovir. Her ocular symptoms (decreased visual acuity in L eye) was found to be SOB and hypotensive - transferred to the ICU and begun on a dose of vanc/zosyn and IV acyclovir. Currently she feels a little better, is able to see blurry outlines from affected eye. Currently denies pain, pruritis, SOB, chest pain, n/v, fever. OBJECTIVE: Vital Signs Period Temp Pulse Resp BP Sys/Gong Pulse Ox Last 24 Hr 97.6 F-101.6 F 77-93 16-23 85-120/46-65 90-99 GENERAL: The patient is awake, alert, and fully oriented, in no acute distress. HEAD: Normal with no signs of trauma. EYES: PERRL, extraocular movements intact, sclera anicteric, L conjunctiva injected. No ptosis. L eye purulent drainage noted. ENT: Ears normal, nares patent, oropharynx clear without exudates, moist mucous membranes. NECK: Trachea midline, full range of motion, supple. LUNGS: Breath sounds equal, clear to auscultation bilaterally, no wheezes, no crackles, no accessory muscle use. HEART: Regular rate and rhythm, S1, S2 without murmur, rub or gallop. ABDOMEN: Soft, nontender, nondistended, normoactive bowel sounds, no guarding, no rebound, no hepatosplenomegaly, no masses. EXTREMITIES: 2+ pulses, warm, well-perfused, no edema. NEUROLOGICAL: Cranial nerves II through XII grossly intact. Normal speech, gait not observed. PSYCH: Normal mood, normal affect. SKIN: Warm, dry, normal turgor, L sided, dermatomal, herpetic rash noted on forehead, maxilla CBC, BMP 02/01/17 05:15 02/01/17 05:15 Active Medications Generic Name Dose Route Start Last Admin Trade Name Freq PRN Reason Stop Dose Admin Acetaminophen 650 mg 01/31/17 23:55 02/01/17 09:32 Tylenol - PO 650 mg Q6H PRN Administration FEVER OR PAIN Aclidinium [place] 1 puff 02/01/17 10:00 02/01/17 09:34 Tudorza - IH 1 puff BID [facility] Administration Albuterol/Ipratropium 1 amp 02/01/17 05:02 Duoneb - NEB Q4H PRN SHORTNESS OF BREATH Atorvastatin Calcium 10 mg 02/01/17 22:00 Lipitor - PO Q2D@HS [facility] Budesonide/Formoterol Fumarate 1 puff 02/01/17 10:00 02/01/17 09:34 Symbicort 160/4.5mcg - IH 1 puff BID [facility] Administration Chlorhexidine Gluconate 1 applic 02/01/17 22:00 Hibiclens For Decolonization - TP HS [facility] Docusate Sodium 100 mg 02/01/17 06:00 02/01/17 06:36 Colace - PO Not Given TID [facility] Ferrous Sulfate 325 mg 02/01/17 10:00 02/01/17 09:32 Feosol - PO 325 mg DAILY [facility] Administration Fluticasone Propionate 1 spray 02/01/17 10:00 02/01/17 09:34 Flonase - NS 1 spray BID [facility] Administration Sodium Chloride 1,000 mls @ 75 mls/hr 02/01/17 03:15 02/01/17 09:31 Normal Saline - IV 75 mls/hr ASDIR [facility] Administration Ceftriaxone Sodium 50 mls @ 100 mls/hr 02/01/17 10:00 02/01/17 10:58 Rocephin 1gm Ivpb (Pre-Docked) IVPB 100 mls/hr DAILY [facility] Administration Acyclovir 500 mg/ Sodium 110 mls @ 110 mls/hr 02/01/17 11:00 02/01/17 11:00 Chloride IVPB Not Given Q12H [facility] Latanoprost 1 drop 02/01/17 22:00 Xalatan 0.005% Eye Drops - OU HS [facility] Loratadine 10 mg 02/01/17 10:00 02/01/17 09:32 Claritin - PO 10 mg DAILY [facility] Administration Mupirocin 1 applic 02/01/17 10:00 02/01/17 09:31 Bactroban Ointment (For Decolonization) - NS 02/06/17 09:59 1 applic BID [facility] Administration Tobramycin Sulfate 1 drop 02/01/17 14:00 Tobrex Ophthalmic Solution - OS TID [facility] Imaging: CXR (01/31): no evidence of acute pulmonary dz ASSESSMENT/PLAN: 81 year old female w/ CLL and active herpes zoster ophthalmicus ID: improving herpes zoster ophthalmicus in setting of CLL, unlikely bacterial in origin -begin airborne and contact precautions due to immunocompromised state of patient -continue acyclovir 500mg IV -place urgent consult w/ Dr. Chaney for ophthalmology Heme/Onc: pt with CLL and WBC count trending down from >100 to 98, likely due to new medication Ibrutinib -monitor lymphocytosis with AM CBC Cardiovascular: improved BP and HR -monitor routine BP/HR -cardiovascularly stable for tx to floors -cont statins Pulmonary: pt is baseline on 2 L home O2 -reduce O2 from 3L to 2L by NC -monitor O2 sats FEN: -IVF NS 1000 @ 75 ml/hr -regular diet -D/C foy, monitor UO Dispo: -Called Dr. Chaney (ophthalmology at 1:18pm) and left a message with her office staff discussing the need for urgent consult Problem List - Problems (1) Anemia Code(s): D64.9 - ANEMIA, UNSPECIFIED Qualifiers: Anemia type: other cause Other causes of anemia: chronic disease, neoplastic Qualified Code(s): D63.0 - Anemia in neoplastic disease (2) CLL (chronic lymphocytic leukemia) Code(s): C91.10 - CHRONIC LYMPHOCYTIC LEUK OF B-CELL TYPE NOT ACHIEVE REMIS (3) Shingles outbreak Code(s): B02.9 - ZOSTER WITHOUT COMPLICATIONS Qualifiers: Herpes zoster complications: unspecified herpes zoster complication Qualified Code(s): B02.8 - Zoster with other complications Visit type - Emergency Visit Emergency Visit: No - New Patient This patient is new to me today: Yes Date on this admission: 02/01/17 - Critical Care Critical Care patient: Yes Total Critical Care Time (in minutes): 45 Critical Care Statement: The care of this patient involved high complexity decision making to prevent further life threatening deterioration of the patient 's condition and/or to evalute & treat vital organ system(s) failure or risk of failure.
--- NOTE | 2017-02-01 14:25 | PN ---
Teaching Attending Note Name of Resident: Maritza Morillo ATTENDING PHYSICIAN STATEMENT I saw and evaluated the patient. I reviewed the resident's note and discussed the case with the resident. I agree with the resident's findings and plan as documented. SUBJECTIVE: Patient says her left eye vision is a little better. OBJECTIVE: Vital Signs Period Temp Pulse Resp BP Sys/Gong Pulse Ox Last 24 Hr 97.6 F-101.6 F 77-148 16-24 72-128/45-67 90-99 HEENT: Crusting vesicular lesions over left forehead, left eye, left cheek HEART: S1S2, tachycardic LUNGS: Clear ABDOMEN: Soft, non-tender, distended, normal BS EXTREMITIES: No edema ASSESSMENT AND PLAN: This is a 81-year-old woman with a history of COPD, CLL, HTN, hyperlipidemia who presented to the ER from [facility] with left eye swelling and blurred difficulty. 1. Sepsis secondary to left facial cellulitis superimposed on Herpes zoster - On Rocephin, Acyclovir IV, Tobramycin eye drops - Hypotension improved - ID consult appreciated - Ophthalmology consult - Continue IV fluid 2. Paroxysmal atrial fibrillation - Converted to sinus rhythm - Likely secondary to sepsis - Cardiology consult 3. Leukocytosis and anemia secondary to sepsis and CLL - Continue ferrous sulfate 4. COPD - Stable - Continue Symbicort, Tudorza, DuoNeb as needed 5. Hypertension - Toprol XL held secondary to hypotension 6. Hyperlipidemia - Continue Lipitor 7. Hyponatremia - Improved
[2017-02-01] MEDS: TOBRAMYCIN 0.3% OPHTH SOLN 5 ML BOTTLE OS SCH ×2 (15:30→22:44)
--- NOTE | 2017-02-01 17:00 | PN ---
Physical Exam: SUBJECTIVE: Patient seen and examined at bedside today. No acute events overnight. As per patient, today eyesight in her L eye is blurry. This is an improvement from her condition prior. Denies SOB, chest pain, abdominal pain. OBJECTIVE: Vital Signs Period Temp Pulse Resp BP Sys/Gong Pulse Ox Last 24 Hr 97.6 F-101.6 F 76-93 16-23 85-120/46-65 90-99 GENERAL: The patient is awake, alert, and fully oriented, in no acute distress. HEAD: Normal with no signs of trauma. EYES: PERRL, extraocular movements intact, herpetic lesions on L side of face, healing NECK: Trachea midline LUNGS: Breath sounds equal, clear to auscultation bilaterally, no wheezes, no crackles, no accessory muscle use. HEART: Regular rate and rhythm, S1, S2 without murmur, rub or gallop. ABDOMEN: Soft, nontender, nondistended, normoactive bowel sounds, no guarding, no rebound EXTREMITIES: 2+ posterior tibial pulses, no edema noted NEUROLOGICAL: Cranial nerves II through XII grossly intact. Laboratory Results - last 24 hr 02/01/17 02/01/17 02/01/17 05:15 05:15 05:15 WBC 98.0 H* D RBC 3.00 L Hgb 7.7 L D Hct 25.7 L MCV 85.7 MCH 25.8 MCHC 30.1 L RDW 14.8 Plt Count 211 MPV 8.4 Neutrophils % 16.0 L D Lymphocytes % 80.0 H Monocytes % 4.0 INR 1.04 PTT (Actin FS) 24.6 L Sodium 132 L Potassium 3.9 Chloride 96 L Carbon Dioxide 30 Anion Gap 6 L BUN 30 H Creatinine 0.6 Random Glucose 101 D Calcium 7.3 L Creatine Kinase CK-MB (CK-2) Troponin I Triglycerides Cholesterol Total LDL Cholesterol HDL Cholesterol Direct Antiglob Test 02/01/17 02/01/17 02/01/17 05:15 05:15 08:25 WBC RBC Hgb Hct MCV MCH MCHC RDW Plt Count MPV Neutrophils % Lymphocytes % Monocytes % INR PTT (Actin FS) Sodium Potassium Chloride Carbon Dioxide Anion Gap BUN Creatinine Random Glucose Calcium Creatine Kinase 198 H CK-MB (CK-2) 1.287 Troponin I 0.17 H Triglycerides 126 Cholesterol 140 Total LDL Cholesterol 94 HDL Cholesterol 26 L Direct Antiglob Test Negative 02/01/17 11:33 WBC RBC Hgb Hct MCV MCH MCHC RDW Plt Count MPV Neutrophils % Lymphocytes % Monocytes % INR PTT (Actin FS) Sodium Potassium Chloride Carbon Dioxide Anion Gap BUN Creatinine Random Glucose Calcium Creatine Kinase 148 CK-MB (CK-2) Troponin I 0.16 H Triglycerides Cholesterol Total LDL Cholesterol HDL Cholesterol Direct Antiglob Test Active Medications Generic Name Dose Route Start Last Admin Trade Name Freq PRN Reason Stop Dose Admin Acetaminophen 650 mg 01/31/17 23:55 02/01/17 15:10 Tylenol - PO 650 mg Q6H PRN Administration FEVER OR PAIN Aclidinium [place] 1 puff 02/01/17 10:00 02/01/17 09:34 Tudorza - IH 1 puff BID [facility] Administration Albuterol/Ipratropium 1 amp 02/01/17 05:02 Duoneb - NEB Q4H PRN SHORTNESS OF BREATH Atorvastatin Calcium 10 mg 02/01/17 22:00 Lipitor - PO Q2D@HS [facility] Budesonide/Formoterol Fumarate 1 puff 02/01/17 10:00 02/01/17 09:34 Symbicort 160/4.5mcg - IH 1 puff BID [facility] Administration Chlorhexidine Gluconate 1 applic 02/01/17 22:00 Hibiclens For Decolonization - TP HS [facility] Docusate Sodium 100 mg 02/01/17 06:00 02/01/17 15:11 Colace - PO 100 mg TID [facility] Administration Ferrous Sulfate 325 mg 02/01/17 10:00 02/01/17 09:32 Feosol - PO 325 mg DAILY [facility] Administration Fluticasone Propionate 1 spray 02/01/17 10:00 02/01/17 09:34 Flonase - NS 1 spray BID [facility] Administration Sodium Chloride 1,000 mls @ 75 mls/hr 02/01/17 03:15 02/01/17 09:31 Normal Saline - IV 75 mls/hr ASDIR [facility] Administration Ceftriaxone Sodium 50 mls @ 100 mls/hr 02/01/17 10:00 02/01/17 10:58 Rocephin 1gm Ivpb (Pre-Docked) IVPB 100 mls/hr DAILY [facility] Administration Acyclovir 500 mg/ Sodium 110 mls @ 110 mls/hr 02/01/17 11:00 02/01/17 11:00 Chloride IVPB Not Given Q12H [facility] Latanoprost 1 drop 02/01/17 22:00 Xalatan 0.005% Eye Drops - OU HS [facility] Loratadine 10 mg 02/01/17 10:00 02/01/17 09:32 Claritin - PO 10 mg DAILY [facility] Administration Mupirocin 1 applic 02/01/17 10:00 02/01/17 09:31 Bactroban Ointment (For Decolonization) - NS 02/06/17 09:59 1 applic BID [facility] Administration Tobramycin Sulfate 1 drop 02/01/17 14:00 Tobrex Ophthalmic Solution - OS TID [facility] ASSESSMENT/PLAN: 81 year old F with PMH CLL, COPD on 02, current active shingles, who was BIBEMS due to L eye swelling. Pt admitted for CLL and sepsis secondary to possible herpes zoster opthalmicus infection. 1. Sepsis secondary to possible herpes zoster opthalmicus infection -continue acyclovir 500 mg IV (not given today) -Rocephin 1gm given -Dr. Chaney to see patient - optholomology -Urine and blood culture results pending 2. CLL with leukocytosis and anemia -WBC trended down to 98 today (improving) -Monitor CBC 3. Left facial shingles -L eye swollen, continue to monitor -Contiune Tobramycin drops -Optho consult- 4. New onset Afib with RVR -[id number]: 4 -Cardiac monitoring -Continue statin 5. COPD -Reduce 02 from 3L to 2L by ME -Monitor 02 sat -Continue symbicort, [place] FEN: -IVF NS 1000 @ 75 ml/hr -regular diet -[place] discontinued, monitor UO Visit type - Emergency Visit Emergency Visit: No - New Patient This patient is new to me today: Yes Date on this admission: 02/01/17 - Critical Care Critical Care patient: Yes Total Critical Care Time (in minutes): 10 - Discharge Referral Referred to [facility] Med [facility].C.: No
--- NOTE | 2017-02-01 18:08 | CONSULT ---
Consult - text type - Consultation Consultation Note: Ophthalmology consult 81 year old woman with Zoster left forehead, eyelids - currently on IV antibiotics and Acyclovir, also on Tobramycin drops. Pt reports that she feels like the left eye/eyelid are improving. Pt has a history of glaucoma and is also taking Lumigan drops vision left eye 20/400, near card P 3/3---> 3+/3+ no APD EOM full OU PLE LLL blisters over left forehead and eyelid, 1+ edema SHANTE S/C tr injection, increased tear zuniga OS K clear OS A/C formed I round Imp/Plan Zoster left side. Appears to be improving, minimal lid edema. Mild conjunctivitis OS, typical of Zoster. Continue Tobramycin drops. May add Erythromycin ophthalmic ointment to left eye at bedtime (dose after patient receives Lumigan). Otherwise, continue current management. Pt advised to follow up as an outpatient, my card was given to the patient.
[2017-02-01] MEDS ORDERED: ATORVASTATIN CA 10 MG TABLET (FP) PO SCH (22:00)
[2017-02-01] MEDS: ERYTHROMYCIN 0.5% OPHTHALMIC OINTMENT 3.5 GM TUBE OS SCH (22:41)
[2017-02-01] MEDS: CHLORHEXIDINE GLUCONATE 4% CLEANSER FOR DECOLONIZATION TP SCH (22:42)
[2017-02-01] MEDS: LATANOPROST 0.005% OPHTH SOLN 2.5ML BOTTLE OU SCH (22:45)
[2017-02-02] MEDS ORDERED: QUEtiapine FUMARATE 25 MG TABLET (FP) PO ONE ×3 (00:39→22:30)
[2017-02-02] MEDS: ACETAMINOPHEN 325 MG TABLET (FP) PO PRN ×2 (00:45→09:50)
[2017-02-02] MEDS: SODIUM CHLORIDE 1,000 ML IV SCH (03:00)
[2017-02-02 06:00] LABS: MCH 25.6 pg (25.7-33.7); MCHC 30.1 g/dl (32.0-36.0); MEAN PLT VOLUME 8.4 fl (7.5-11.1); PLATELET COUNT 176 K/MM3 (134-434)
[2017-02-02] MEDS: DOCUSATE SODIUM 100 MG CAPSULE (FP) PO SCH ×3 (06:09→22:20)
[2017-02-02] MEDS: TOBRAMYCIN 0.3% OPHTH SOLN 5 ML BOTTLE OS SCH ×3 (06:11→22:31)
[2017-02-02 06:20] LABS: ANION GAP 5 (8-16); BILIRUBIN,DIRECT 0.1 mg/dL (0.0-0.2); BILIRUBIN,TOTAL 0.3 mg/dL (0.2-1.0); CALCIUM 7.5 mg/dL (8.5-10.1); CO2 30 mmol/L (21-32); CREATININE 0.4 mg/dL (0.55-1.02); GLUCOSE,RANDOM 89 mg/dL (74-106); LDH 176 U/L (84-246); SGOT/AST 20 U/L (15-37); SGPT/ALT 9 U/L (12-78)
[2017-02-02 06:23] LABS: ALK PHOS 102 U/L (45-117); FERRITIN 84.092 ng/ml (6.9-282.5)
[2017-02-02 06:31] LABS: WHITE BLOOD COUNT 57.2 K/mm3 (4.0-10.0)
[2017-02-02] MEDS: CEFTRIAXONE 50 ML IVPB SCH (09:46)
[2017-02-02] MEDS: MUPIROCIN 2% TOPICAL OINTMENT FOR DECOLONIZATION NS SCH ×2 (09:49→22:20)
[2017-02-02] MEDS: ACLIDINIUM BROMIDE 400 MCG/INH AERO.POWD IH SCH ×2 (09:53→22:32)
[2017-02-02] MEDS: FERROUS SO4 325 MG TABLET (FP) PO SCH (09:54)
[2017-02-02] MEDS: FLUTICASONE PROP 0.05% 16 GM NASAL SPRAY NS SCH ×2 (09:55→22:30)
[2017-02-02] MEDS: LORATADINE 10 MG TABLET PO SCH (09:55)
[2017-02-02] MEDS: BUDESONIDE/FORMETEROL FUMARATE 160/4.5 mcg INHALER IH SCH ×2 (09:56→22:31)
[2017-02-02] MEDS: ACYCLOVIR INJECTION 500 MG in SODIUM CHLORIDE 100 ML IVPB SCH ×2 (11:08→22:20)
--- NOTE | 2017-02-02 11:08 | CON.CARD ---
Consult Consult Specialty:: cardiology Reason for Consultation:: shingles; arrhythmia - History of Present Illness Chief Complaint: Pt A&Ox3; no chest pain, dyspnea, or palpitations; +pain an itchiness of left periorbital area History of Present Illness: The patient is a 81-year-old woman, from [facility], with a significant past medical history of chronic lymphocytic leukemia (diagnosed approximately 3 years ago), hypertension and chronic obstructive pulmonary disease, severe pulmonary HTNwho (EKG : chronically peaked T waves unrelated to potassium, per pt's prepared foods team leader, Dr. Trinh), who presents to the emergency department via EMS for evaluation of left eye swelling. she was evaluated and diagnosed with shingles and started on Acyclovir last week. She states that she is unable to see from her left eye secondary to the swelling. She also complains of itchiness. No other complaints. No fever, chills, headache, lightheadedness, cough, shortness for breath. nausea, vomiting, diarrhea. - History Source History Provided By: Patient, Medical Record Limitations to Obtaining History: No Limitations - Past Medical History Pulmonary: Yes: COPD, Other (patient mentioned that she is on Home Oxygen and use it when needed) Gastrointestinal: No: Constipation, GI Bleed Reproductive: Yes: Postmenopausal ...: No Heme/Onc: Yes: Anemia Infectious Disease: Yes: Herpes Zoster - Alcohol/Substance Use Hx Alcohol Use: No History of Substance Use: reports: None - Smoking History Smoking history: Former smoker Have you smoked in the past 12 months: No - Social History Usual Living Arrangement: [facility] Home Medications - Allergies Allergies/Adverse Reactions: Allergies Allergy/AdvReac Type Severity Reaction Status Date / Time No Known Allergies Allergy Verified 01/31/17 12:13 - Home Medications Home Medications: Ambulatory Orders Atorvastatin Ca [Lipitor] 10 mg PO Q2D 10/10/16 Bimatoprost [Lumigan] 1 drop OU HS 10/10/16 Budesonide/Formeterol Fumarate [SYMBICORT 160/4.5mcg -] 1 inh PO BID 10/10/16 Metoprolol Succinate [Toprol XL -] 25 mg PO DAILY 10/10/16 Aclidinium [place] [Tudorza -] 1 puff IH BID #1 inhaler 10/14/16 Albuterol 2.5/Ipratropium 0.5 [Duoneb -] 1 amp NEB Q4H PRN #1 amp 10/14/16 Docusate Sodium [Colace -] 100 mg PO TID #90 tab 10/14/16 Ferrous Sulfate [Feosol] 325 mg PO DAILY #30 tablet 10/14/16 Fluticasone Prop 0.05% Nasal [Flonase -] 1 spray NS BID #1 spray 10/14/16 Loratadine [Claritin -] 10 mg PO DAILY #30 tablet 10/14/16 Tobramycin 0.3% Ophth Oint [Tobrex Ophthalmic Ointment -] 1 applic OS ONCE #1 tube 01/31/17 Tobramycin Sulf/Dexamethasone [Tobradex *Eye Ointment*] 1 applic OS TID #1 tube 01/31/17 Family Disease History - Family Disease History Family History: Denies Review of Systems - Review of Systems Constitutional: reports: Fever Eyes: reports: Eye Pain HENT: reports: Other (skin rash/pain) Neck: reports: Pain on Movement Cardiovascular: reports: No Symptoms Respiratory: reports: No Symptoms Gastrointestinal: reports: No Symptoms Genitourinary: reports: No Symptoms Breasts: reports: No Symptoms Reported Musculoskeletal: reports: Extremity Pain Integumentary: reports: Rash Neurological: reports: Weakness Psychiatric: reports: Other - Risk Factors Known Risk Factors: Yes: Age, Hypercholesterolemia, Smoking (former), Other ( COPD) Vital Signs: Vital Signs Temperature 99.2 F 02/02/17 08:00 Pulse Rate 82 02/02/17 08:00 Respiratory Rate 20 02/02/17 08:33 Blood Pressure 116/50 02/02/17 08:00 O2 Sat by Pulse Oximetry (%) 94 L 02/02/17 08:33 Constitutional: Yes: Calm Eyes: Yes: Other (periorbital rash and edema) HENT: Yes: Other Neck: Yes: WNL Respiratory: Yes: WNL Gastrointestinal: Yes: WNL Renal/: No: Anuria Cardiovascular: Yes: Tachycardia JVD: No Carotid Bruit: No PMI: Non-Displaced Heart Sounds: Yes: S1, S2 Musculoskeletal: Yes: Muscle Weakness Extremities: Yes: WNL Edema: No Peripheral Pulses WNL: Yes Integumentary: Yes: Rash Neurological: Yes: Alert, Oriented, Weakness Psychiatric: Yes: Other - Other Data Labs, Other Data: CBC, BMP 02/02/17 05:10 02/02/17 05:10 INR, PTT INR 1.04 (0.82-1.09) 02/01/17 05:15 Troponin, BNP 02/01/17 11:33 Troponin I 0.16 H Troponin, BNP 02/01/17 11:33 Troponin I 0.16 H Echo: Report Reviewed (normal LVEF) Ejection Fraction %: LVEF > or = 40 % Imaging - Results Chest X-ray: Image Reviewed (no acute pulmonary pathology) EKG: Image Reviewed (normal sinus rhythm) Problem List - Problems (1) Shingles outbreak Code(s): B02.9 - ZOSTER WITHOUT COMPLICATIONS Qualifiers: Herpes zoster complications: unspecified herpes zoster complication Qualified Code(s): B02.8 - Zoster with other complications (2) COPD (chronic obstructive pulmonary disease) Assessment/Plan: pt was a heavy smoker; quit ?cold turkey" 2 yrs ago Code(s): J44.9 - CHRONIC OBSTRUCTIVE PULMONARY DISEASE, UNSPECIFIED (3) PSVT (paroxysmal supraventricular tachycardia) Assessment/Plan: I discussed pt with her prepared foods team leader, Dr. Handley. There is no hx of CAD or arrhythmias. Brief runs of PSVT noted on monitor during this hospitalization. ECHO 10/02: normal LVEF; severe pulmonary HTN; moderate . Pt denies hx asthma. Observe while anemia and shingles are treated. Avoid dehydration. F/u electrolytes. Code(s): I47.1 - SUPRAVENTRICULAR TACHYCARDIA Assessment/Plan cc time spent perusing chart, evaluating pt, formulating plan: 70 minutes.
--- NOTE | 2017-02-02 11:49 | PN ---
Progress Note (short form) - Note Progress Note: much improved less facial swelling able to open her eye getting a blood transfusion no other lesions Vital Signs Period Temp Pulse Resp BP Sys/Gong Pulse Ox Last 24 Hr 98.5 F-101.3 F 76-94 18-26 101-132/48-70 94-94 cor-rrr lungs clear abd soft,nt ext no edema skin+vesicular lesions/swelling left eye improved CBC, BMP 02/02/17 05:10 02/02/17 05:10 Microbiology 01/31/17 23:33 Urine - Urine Clean Catch Urine Culture - Final NO GROWTH OBTAINED 01/31/17 21:50 Blood - Peripheral Venous Blood Culture - Preliminary NO GROWTH OBTAINED AFTER 24 HOURS, INCUBATION TO CONTINUE FOR 4 DAYS. a/p zoster opthalmicus cellulitis CLL anemia improving continue acyclovir and ceftriaxone
--- NOTE | 2017-02-02 12:07 | CONS ---
DATE OF CONSULTATION: DATE OF DICTATION: 02/01/2017 HISTORY OF PRESENT ILLNESS: This is a 81-year-old female, apparently a resident of a custodial, admitted with shingles of the left forehead and left eye discomfort with swelling, thus unable to open the left eye. The patient has a known history of chronic lymphocytic leukemia diagnosed in 2013. She has been followed by Dr. Prudencio Mancini, her property utilization officer, who notes that recently, she has become more anemic, and a decision was made to treat her with chemotherapy with the drub, ibrutinib, a TK inhibitor. Her baseline white counts are 30,000, but when she came to the emergency room yesterday, her white count was noted to be a 131,000 with a hemoglobin of 6.8, and platelets of 229. Subsequently, she was transiently hypotensive and spiked fever to 101. She denied any chills, headaches, confusion, shortness of breath, abdominal pain, or urinary complaints. She was started on an [id number] IV acyclovir dose along with a dose of vancomycin and Zosyn, and we are asked to see her now for further evaluation. At the present time, she is completely alert and oriented. Once again, she denies any localizing complaints, only that her left eye is swollen and shut. When she opens the eye, she notes she is able to see normally. PAST MEDICAL HISTORY: Additional past medical history includes severe COPD, CLL, hypertension, hyperlipidemia, hypothyroidism. PREVIOUS MEDICATIONS: Chemotherapy as noted, iron, albuterol, Symbicort, atorvastatin, ALLERGIES: None known. SOCIAL HISTORY: A former smoker, but gave this up only 2 years ago. No history of alcohol abuse. No recent travel. No exposure directly to pets, unusual hoppies. FAMILY HISTORY: Reviewed and noncontributory. REVIEW OF SYSTEMS: Respiratory: No cough, shortness of breath, hemoptysis. Cardiac: No chest pain, palpitations, syncope, murmur. Gastrointestinal: No nausea, vomiting, abdominal pain, blood per rectum, hematemesis. Genitourinary: No dysuria, hematuria, or urinary frequency. PHYSICAL EXAMINATION: General: Revealed a frail, thin, alert, and pleasant-appearing woman in no acute distress. Vital signs: Temperature was 97.7. However, maximum temperature currently is 101, pulse 93, blood pressure 120/64, respirations 19. HEENT: Revealed mostly dry, crusted lesions of the left forehead and eyelid. The left eyelid was edematous and swollen, but she was able to open the eye. Purulent drainage was noted from the eye, and the conjunctiva appeared injected. Grossly, the cornea appeared clear. Crusted lesions were noted on the left side of her nose with an cachorro color to them, but no purulence. The oropharynx had no thrush. Neck: Supple. Lungs: With diminished breath sounds and poor are entry. Heart: S1, S2, regular rhythm, without audible murmur or gallop. Abdomen: Soft, nontender, without hepatosplenomegaly. Extremities: No clubbing, cyanosis, or edema. LABORATORY DATA: The white count was 98,000 with hemoglobin 7.7, platelets 211, with the differential showing 16% neutrophils, 80% lymphocytes. BUN 26, creatinine 0.5, alkaline phosphatase 139, LDH 264. Urinalysis negative for red cells, white cells. Chest x-ray with no acute infiltrate. ASSESSMENT: This 81-year-old female with known diagnosis of chronic lymphocytic leukemia receiving chemotherapy recently with ibrutinib, elevated white count of 131,000, most likely the effect of recent chemotherapy, presents now with fever, transient hypotension, and a rash consistent with shingles. The possibility of ophthalmic and corneal involvement is considered. She appears to have conjunctivitis, which may be on the basis of secondary bacterial infection with streptococcus or staphylococcus, and in addition, has fever, unclear source. PLAN: Blood and urine cultures sent. Contact isolation for shingles. Airborne isolation implemented, as well. Intravenous acyclovir with adequate hydration for prevention of renal failure as a consequence of intravenous acyclovir. Ophthalmologic consultation would be important to assess the possible corneal involvement with herpes varicella zoster. Empiric therapy with ceftriaxone for staphylococcus and streptococcus coverage. Tobramycin ophthalmic eye drops. Her oncologist, Dr. Mancini, was notified, and I spoke to him this morning regarding her admission to the ICU. Critical care time spent with the patient 45 minutes. BG BACA M.D. MEIR/[id number]
--- NOTE | 2017-02-02 13:10 | PN ---
Physical Exam: SUBJECTIVE: 81 year old female with a past medical history of CLL, COPD, and shingles for 1 week presented to the ED with worsening L eye purulent discharge, pain and swelling. She broke out in shingles 1 week ago and was started on PO acyclovir. Her ocular symptoms (decreased visual acuity in L eye) was found to be SOB and hypotensive - transferred to the ICU and begun on a dose of vanc/zosyn and IV acyclovir. Currently she feels better, and she is able to see shapes and figures from affected eye. Currently denies pain, pruritis, SOB, chest pain, n/v , fever. OBJECTIVE: Vital Signs Period Temp Pulse Resp BP Sys/Gong Pulse Ox Last 24 Hr 98.5 F-101.3 F 76-94 20-26 99-132/48-70 94-94 GENERAL: The patient is awake, alert, and fully oriented, in no acute distress. HEAD: Normal with no signs of trauma. EYES: PERRL, extraocular movements intact, sclera anicteric, L conjunctiva injected. No ptosis. L eye purulent drainage noted. ENT: Ears normal, nares patent, oropharynx clear without exudates, moist mucous membranes. NECK: Trachea midline, full range of motion, supple. LUNGS: Breath sounds equal, clear to auscultation bilaterally, no wheezes, no crackles, no accessory muscle use. HEART: Regular rate and rhythm, S1, S2 without murmur, rub or gallop. ABDOMEN: Soft, nontender, nondistended, normoactive bowel sounds, no guarding, no rebound, no hepatosplenomegaly, no masses. EXTREMITIES: 2+ pulses, warm, well-perfused, no edema. NEUROLOGICAL: Cranial nerves II through XII grossly intact. Normal speech, gait not observed. PSYCH: Normal mood, normal affect. SKIN: Warm, dry, normal turgor, L sided, dermatomal, herpetic rash noted on forehead, maxilla CBC, BMP 02/02/17 05:10 02/02/17 05:10 Active Medications Generic Name Dose Route Start Last Admin Trade Name Freq PRN Reason Stop Dose Admin Acetaminophen 650 mg 01/31/17 23:55 02/02/17 09:50 Tylenol - PO 650 mg Q6H PRN Administration FEVER OR PAIN Aclidinium [place] 1 puff 02/01/17 10:00 02/02/17 09:53 Tudorza - IH 1 puff BID TRACY Administration Albuterol/Ipratropium 1 amp 02/01/17 05:02 Duoneb - NEB Q4H PRN SHORTNESS OF BREATH Atorvastatin Calcium 10 mg 02/01/17 22:00 02/01/17 22:43 Lipitor - PO 10 mg Q2D@HS TRACY Administration Budesonide/Formoterol Fumarate 1 puff 02/01/17 10:00 02/02/17 09:56 Symbicort 160/4.5mcg - IH 1 puff BID TRACY Administration Chlorhexidine Gluconate 1 applic 02/01/17 22:00 02/01/17 22:42 Hibiclens For Decolonization - TP 1 applic HS TRACY Administration Docusate Sodium 100 mg 02/01/17 06:00 02/02/17 06:09 Colace - PO 100 mg TID TRACY Administration Erythromycin 1 applic 02/01/17 22:00 02/01/17 22:41 Erythromycin 0.5% Eye Ointment OS 1 applic HS TRACY Administration Ferrous Sulfate 325 mg 02/01/17 10:00 02/02/17 09:54 Feosol - PO 325 mg DAILY TRACY Administration Fluticasone Propionate 1 spray 02/01/17 10:00 02/02/17 09:55 Flonase - NS 1 spray BID TRACY Administration Sodium Chloride 1,000 mls @ 75 mls/hr 02/01/17 03:15 02/02/17 03:00 Normal Saline - IV 75 mls/hr ASDIR TRACY Administration Ceftriaxone Sodium 50 mls @ 100 mls/hr 02/01/17 10:00 02/02/17 09:46 Rocephin 1gm Ivpb (Pre-Docked) IVPB 100 mls/hr DAILY TRACY Administration Acyclovir 500 mg/ Sodium 110 mls @ 110 mls/hr 02/01/17 11:00 02/02/17 11:08 Chloride IVPB 110 mls/hr Q12H TRACY Administration Latanoprost 1 drop 02/01/17 22:00 02/01/17 22:45 Xalatan 0.005% Eye Drops - OU 1 drop HS TRACY Administration Loratadine 10 mg 02/01/17 10:00 02/02/17 09:55 Claritin - PO 10 mg DAILY TRACY Administration Mupirocin 1 applic 02/01/17 10:00 02/02/17 09:49 Bactroban Ointment (For Decolonization) - NS 02/06/17 09:59 1 applic BID TRACY Administration Tobramycin Sulfate 1 drop 02/01/17 14:00 02/02/17 06:11 Tobrex Ophthalmic Solution - OS 1 applic TID TRACY Administration ASSESSMENT/PLAN: 81 year old female w/ CLL and active herpes zoster ophthalmicus ID: improving herpes zoster ophthalmicus in setting of CLL, unlikely bacterial in origin -begin airborne and contact precautions due to immunocompromised state of patient -continue acyclovir 500mg IV -Dr. Chaney consulted for ophthalmology -began on erythromycin drops -f/u with ophthalmology outpatient Heme/Onc: pt with CLL and WBC count trending down from 98 to 54 -monitor lymphocytosis with AM CBC Cardiovascular: BP and HR stable -monitor routine BP/HR -cardiovascularly stable for tx to floors -cont statins Pulmonary: pt is baseline on 2 L home O2 -patient on 2.5L NC -monitor O2 sats FEN: -IVF NS 1000 @ 75 ml/hr -regular diet -foy re-inserted Dispo: -Monitor in ICU for 1 day and transfer to med/surg Problem List - Problems (1) Anemia Code(s): D64.9 - ANEMIA, UNSPECIFIED Qualifiers: Anemia type: other cause Other causes of anemia: chronic disease, neoplastic Qualified Code(s): D63.0 - Anemia in neoplastic disease (2) CLL (chronic lymphocytic leukemia) Code(s): C91.10 - CHRONIC LYMPHOCYTIC LEUK OF B-CELL TYPE NOT ACHIEVE REMIS (3) Shingles outbreak Code(s): B02.9 - ZOSTER WITHOUT COMPLICATIONS Qualifiers: Herpes zoster complications: unspecified herpes zoster complication Qualified Code(s): B02.8 - Zoster with other complications Visit type - Emergency Visit Emergency Visit: No - New Patient This patient is new to me today: No - Critical Care Critical Care patient: Yes Total Critical Care Time (in minutes): 45 Critical Care Statement: The care of this patient involved high complexity decision making to prevent further life threatening deterioration of the patient 's condition and/or to evalute & treat vital organ system(s) failure or risk of failure.
--- NOTE | 2017-02-02 13:27 | PN ---
Teaching Attending Note Name of Resident: Danny Pena ATTENDING PHYSICIAN STATEMENT I saw and evaluated the patient. I reviewed the resident's note and discussed the case with the resident. I agree with the resident's findings and plan as documented. SUBJECTIVE: Patient seen and examined in the ICU. More awake and alert today. Less facial swelling noted. Denies CP or SOB. Noted drop in H&H. Currently getting pRBCs. Intake & Output 01/30/17 01/31/17 02/01/17 02/02/17 23:59 23:59 23:59 23:59 Intake Total 1000 2980 1400 Output Total 1150 1600 Balance 1000 1830 -200 Weight 120 lb 110 lb 113 lb 8 oz Last Vital Signs Temp Pulse Resp BP Pulse Ox 99.2 F 78 20 112/49 94 L 02/02/17 08:00 02/02/17 12:00 02/02/17 12:00 02/02/17 12:00 02/02/17 08:33 Active Medications Acetaminophen (Tylenol -) 650 mg PO Q6H PRN PRN Reason: FEVER OR PAIN Last Admin: 02/02/17 09:50 Dose: 650 mg Aclidinium [place] (Tudorza -) 1 puff IH BID [facility] Last Admin: 02/02/17 09:53 Dose: 1 puff Albuterol/Ipratropium (Duoneb -) 1 amp NEB Q4H PRN PRN Reason: SHORTNESS OF BREATH Atorvastatin Calcium (Lipitor -) 10 mg PO Q2D@[facility] Last Admin: 02/01/17 22:43 Dose: 10 mg Budesonide/Formoterol Fumarate (Symbicort 160/4.5mcg -) 1 puff IH BID [facility] Last Admin: 02/02/17 09:56 Dose: 1 puff Chlorhexidine Gluconate (Hibiclens For Decolonization -) 1 applic TP [facility] Last Admin: 02/01/17 22:42 Dose: 1 applic Docusate Sodium (Colace -) 100 mg PO TID [facility] Last Admin: 02/02/17 06:09 Dose: 100 mg Erythromycin (Erythromycin 0.5% Eye Ointment) 1 applic OS [facility] Last Admin: 02/01/17 22:41 Dose: 1 applic Ferrous Sulfate (Feosol -) 325 mg PO DAILY [facility] Last Admin: 07/18/17 09:54 Dose: 325 mg Fluticasone Propionate (Flonase -) 1 spray NS BID [facility] Last Admin: 02/02/17 09:55 Dose: 1 spray Sodium Chloride (Normal Saline -) 1,000 mls @ 75 mls/hr IV ASDIR TRACY Last Admin: 02/02/17 03:00 Dose: 75 mls/hr Ceftriaxone Sodium (Rocephin 1gm Ivpb (Pre-Docked)) 50 mls @ 100 mls/hr IVPB DAILY [facility] Last Admin: 02/02/17 09:46 Dose: 100 mls/hr Acyclovir 500 mg/ Sodium (Chloride) 110 mls @ 110 mls/hr IVPB Q12H [facility] Last Admin: 02/02/17 11:08 Dose: 110 mls/hr Latanoprost (Xalatan 0.005% Eye Drops -) 1 drop OU HS [facility] Last Admin: 02/01/17 22:45 Dose: 1 drop Loratadine (Claritin -) 10 mg PO DAILY [facility] Last Admin: 02/02/17 09:55 Dose: 10 mg Mupirocin (Bactroban Ointment (For Decolonization) -) 1 applic NS BID [facility] Stop: 02/06/17 09:59 Last Admin: 02/02/17 09:49 Dose: 1 applic Tobramycin Sulfate (Tobrex Ophthalmic Solution -) 1 drop OS TID [facility] Last Admin: 02/02/17 06:11 Dose: 1 applic PE: Gen: frail thin elderly woman HEENT: Improving vesicular rash Left mid face, less periorbital edema with injected sclera Lungs: Clear anteriorly, no wheezes or accessory muscle use ABD; Soft, NT, ND EXT: no edema Neuro: intact, non focal exam Laboratory Results - last 24 hr 02/01/17 02/02/17 02/02/17 08:25 05:10 05:10 WBC 57.2 H* D RBC 2.49 L Hgb 6.4 L* D Hct 21.1 L D MCV 85.0 MCH 25.6 L MCHC 30.1 L RDW 15.0 Plt Count 176 MPV 8.4 Neutrophils % 19.0 L Lymphocytes % 80.0 H Monocytes % 1.0 L Sodium 135 L Potassium 3.7 Chloride 100 Carbon Dioxide 30 Anion Gap 5 L BUN 20 H D Creatinine 0.4 L D Creat Clearance w eGFR > 60 Random Glucose 89 Calcium 7.5 L Ferritin 84.092 Total Bilirubin 0.3 Direct Bilirubin 0.1 AST 20 D ALT 9 L Alkaline Phosphatase 102 D LD Total 176 D Total Protein 5.0 L Albumin 2.0 L Direct Antiglob Test Negative Crossmatch See Detail IMP: CLL Swollen Left eye / zoster outbreak Anemia Hypotension / Sepsis PLAN: Normal transfusion thresholds -> Patient reports hemorrhoidal bleeding in the past Follow cultures VTE prophylaxis ABX / Antiviral per ID Tobramycin eye drops Hemolysis workup pending Strict I&O Dr Carty CCTime 35"
--- NOTE | 2017-02-02 16:05 | PN ---
Progress Note, Physician History of Present Illness: patient seen in follow up Seen and examined she feels much better than yesterday she says. She feels that she could open her left eye with no problems. Otherwise no complains - Current Medication List Current Medications: Active Medications Acetaminophen (Tylenol -) 650 mg PO Q6H PRN PRN Reason: FEVER OR PAIN Last Admin: 02/02/17 09:50 Dose: 650 mg Aclidinium [place] (Tudorza -) 1 puff IH BID [facility] Last Admin: 02/02/17 09:53 Dose: 1 puff Albuterol/Ipratropium (Duoneb -) 1 amp NEB Q4H PRN PRN Reason: SHORTNESS OF BREATH Atorvastatin Calcium (Lipitor -) 10 mg PO Q2D@[facility] Last Admin: 02/01/17 22:43 Dose: 10 mg Budesonide/Formoterol Fumarate (Symbicort 160/4.5mcg -) 1 puff IH BID [facility] Last Admin: 02/02/17 09:56 Dose: 1 puff Chlorhexidine Gluconate (Hibiclens For Decolonization -) 1 applic TP [facility] Last Admin: 02/01/17 22:42 Dose: 1 applic Docusate Sodium (Colace -) 100 mg PO TID [facility] Last Admin: 02/02/17 06:09 Dose: 100 mg Erythromycin (Erythromycin 0.5% Eye Ointment) 1 applic OS [facility] Last Admin: 02/01/17 22:41 Dose: 1 applic Ferrous Sulfate (Feosol -) 325 mg PO DAILY [facility] Last Admin: 02/02/17 09:54 Dose: 325 mg Fluticasone Propionate (Flonase -) 1 spray NS BID [facility] Last Admin: 02/02/17 09:55 Dose: 1 spray Sodium Chloride (Normal Saline -) 1,000 mls @ 75 mls/hr IV ASDIR [facility] Last Admin: 02/02/17 03:00 Dose: 75 mls/hr Ceftriaxone Sodium (Rocephin 1gm Ivpb (Pre-Docked)) 50 mls @ 100 mls/hr IVPB DAILY [facility] Last Admin: 02/02/17 09:46 Dose: 100 mls/hr Acyclovir 500 mg/ Sodium (Chloride) 110 mls @ 110 mls/hr IVPB Q12H [facility] Last Admin: 02/02/17 11:08 Dose: 110 mls/hr Latanoprost (Xalatan 0.005% Eye Drops -) 1 drop OU HS [facility] Last Admin: 02/01/17 22:45 Dose: 1 drop Loratadine (Claritin -) 10 mg PO DAILY [facility] Last Admin: 02/02/17 09:55 Dose: 10 mg Mupirocin (Bactroban Ointment (For Decolonization) -) 1 applic NS BID [facility] Stop: 02/06/17 09:59 Last Admin: 02/02/17 09:49 Dose: 1 applic Tobramycin Sulfate (Tobrex Ophthalmic Solution -) 1 drop OS TID [facility] Last Admin: 02/02/17 06:11 Dose: 1 applic - Objective Vital Signs: Vital Signs Temperature 99.2 F 02/02/17 14:00 Pulse Rate 77 02/02/17 14:00 Respiratory Rate 20 02/02/17 14:00 Blood Pressure 101/46 02/02/17 14:00 O2 Sat by Pulse Oximetry (%) 94 L 02/02/17 08:33 Labs: CBC, BMP 02/02/17 05:10 02/02/17 05:10 INR, PTT INR 1.04 (0.82-1.09) 02/01/17 05:15 Problem List - Problems (1) CLL (chronic lymphocytic leukemia) Assessment/Plan: Lymphocytosis in the setting of BTK inhibitor, ibrutinib less likely Tumor lysis Hold the medication. ?need of VZV ppx in the future f/u on Quantitative Immunoglobulins. Need to follow-up with as an OP, patient mentioned she will see him post discharge Code(s): C91.10 - CHRONIC LYMPHOCYTIC LEUK OF B-CELL TYPE NOT ACHIEVE REMIS (2) Anemia Assessment/Plan: Anemia, might be explained by the ibrutinib/ acute event. Supportive care and transfusion support as needed f/u on labs ordered yesterday Code(s): D64.9 - ANEMIA, UNSPECIFIED Qualifiers: Anemia type: other cause Other causes of anemia: chronic disease, neoplastic Qualified Code(s): D63.0 - Anemia in neoplastic disease (3) Shingles outbreak Assessment/Plan: appreciate ID consult seen by Ophthal On treatment Will follow patient closely Code(s): B02.9 - ZOSTER WITHOUT COMPLICATIONS Qualifiers: Herpes zoster complications: unspecified herpes zoster complication Qualified Code(s): B02.8 - Zoster with other complications
--- NOTE | 2017-02-02 16:11 | EKG ---
Test Reason : Blood Pressure : / mmHG Vent. Rate : 076 BPM Atrial Rate : 076 BPM P-R Int : 146 ms QRS Dur : 084 ms QT Int : 384 ms P-R-T Axes : 000 064 069 degrees QTc Int : 432 ms NORMAL SINUS RHYTHM NORMAL ECG WHEN COMPARED WITH ECG OF 31-JAN-2017 23:44, SINUS RHYTHM HAS REPLACED ATRIAL FIBRILLATION VENT. RATE HAS DECREASED BY 60 BPM Q WAVES ARE NOTED IN V4-V6 WITH UPWARD COVING ST SEGMENTS. ST NO LONGER DEPRESSED IN INFERIOR LEADS ST NO LONGER DEPRESSED IN ANTERIOR LEADS T WAVE INVERSION NO LONGER EVIDENT IN INFERIOR LEADS T WAVE INVERSION NO LONGER EVIDENT IN LATERAL LEADS CORELATE CLINICALLY AND REPEAT INDICATED Confirmed by IDANIA GROVER MD ([id number]) on 02/02/2017 4:11:31 PM Referred By: MARIA ELENA LUNSFORD Confirmed By:IDANIA GROVER MD
--- NOTE | 2017-02-02 17:18 | PN ---
Physical Exam: SUBJECTIVE: Patient seen and examined at bedside today. Overnight, patient became febrile with a Tmax of 101.1 as per nurse and was given PO Tylenol. Wayne was taken out yesterday afternoon and replaced, as patient developed urinary retention. Pt's H&H also dropped to 6./21.1 and was thus given 1 unit of PRBCs. ID added rocephin to regime. As per optho, Zoster is improving, continue tobramycin drops. May add erythromycin opthalmic ointment to L eye at bedtime after Lumigan. Pt advised to follow up with optho outpatient. Zoster rash has improved, vision has improved. Denies chest pain, shortness of breath, or any new complaints. OBJECTIVE: Vital Signs Period Temp Pulse Resp BP Sys/Gong Pulse Ox Last 24 Hr 98.5 F-101.1 F 77-94 20-26 99-132/46-70 94-94 GENERAL: The patient is awake, alert, and fully oriented, in no acute distress. HEAD: Normal with no signs of trauma. EYES: L eye edema, discharge NECK: Trachea midline LUNGS: Breath sounds equal, clear to auscultation bilaterally, no wheezes, no crackles, no accessory muscle use. HEART: Regular rate and rhythm, S1, S2 without murmur, rub or gallop. ABDOMEN: Soft, nontender, nondistended, normoactive bowel sounds, no guarding, no rebound EXTREMITIES: 2+ posterior tibial pulses, warm, well-perfused, no edema. NEUROLOGICAL: Cranial nerves II through XII grossly intact. Laboratory Results - last 24 hr 02/01/17 02/02/17 02/02/17 08:25 05:10 05:10 WBC 57.2 H* D RBC 2.49 L Hgb 6.4 L* D Hct 21.1 L D MCV 85.0 MCH 25.6 L MCHC 30.1 L RDW 15.0 Plt Count 176 MPV 8.4 Neutrophils % 19.0 L Lymphocytes % 80.0 H Monocytes % 1.0 L Sodium 135 L Potassium 3.7 Chloride 100 Carbon Dioxide 30 Anion Gap 5 L BUN 20 H D Creatinine 0.4 L D Creat Clearance w eGFR > 60 Random Glucose 89 Calcium 7.5 L Ferritin 84.092 Total Bilirubin 0.3 Direct Bilirubin 0.1 AST 20 D ALT 9 L Alkaline Phosphatase 102 D LD Total 176 D Total Protein 5.0 L Albumin 2.0 L Direct Antiglob Test Negative Crossmatch See Detail Active Medications Generic Name Dose Route Start Last Admin Trade Name Colleen PRN Reason Stop Dose Admin Acetaminophen 650 mg 01/31/17 23:55 02/02/17 09:50 Tylenol - PO 650 mg Q6H PRN Administration FEVER OR PAIN Aclidinium [place] 1 puff 02/01/17 10:00 02/02/17 09:53 Tudorza - IH 1 puff BID [facility] Administration Albuterol/Ipratropium 1 amp 02/01/17 05:02 Duoneb - NEB Q4H PRN SHORTNESS OF BREATH Atorvastatin Calcium 10 mg 02/01/17 22:00 02/01/17 22:43 Lipitor - PO 10 mg Q2D@[facility] Administration Budesonide/Formoterol Fumarate 1 puff 02/01/17 10:00 02/02/17 09:56 Symbicort 160/4.5mcg - IH 1 puff BID [facility] Administration Chlorhexidine Gluconate 1 applic 02/01/17 22:00 02/01/17 22:42 Hibiclens For Decolonization - TP 1 applic HS [facility] Administration Docusate Sodium 100 mg 02/01/17 06:00 02/02/17 06:09 Colace - PO 100 mg TID [facility] Administration Erythromycin 1 applic 02/01/17 22:00 02/01/17 22:41 Erythromycin 0.5% Eye Ointment OS 1 applic HS [facility] Administration Ferrous Sulfate 325 mg 02/01/17 10:00 02/02/17 09:54 Feosol - PO 325 mg DAILY [facility] Administration Fluticasone Propionate 1 spray 02/01/17 10:00 02/02/17 09:55 Flonase - NS 1 spray BID [facility] Administration Sodium Chloride 1,000 mls @ 75 mls/hr 02/01/17 03:15 02/02/17 03:00 Normal Saline - IV 75 mls/hr ASDIR [facility] Administration Ceftriaxone Sodium 50 mls @ 100 mls/hr 02/01/17 10:00 02/02/17 09:46 Rocephin 1gm Ivpb (Pre-Docked) IVPB 100 mls/hr DAILY [facility] Administration Acyclovir 500 mg/ Sodium 110 mls @ 110 mls/hr 02/01/17 11:00 02/02/17 11:08 Chloride IVPB 110 mls/hr Q12H [facility] Administration Latanoprost 1 drop 02/01/17 22:00 02/01/17 22:45 Xalatan 0.005% Eye Drops - OU 1 drop HS [facility] Administration Loratadine 10 mg 02/01/17 10:00 02/02/17 09:55 Claritin - PO 10 mg DAILY [facility] Administration Mupirocin 1 applic 02/01/17 10:00 02/02/17 09:49 Bactroban Ointment (For Decolonization) - NS 02/06/17 09:59 1 applic BID [facility] Administration Tobramycin Sulfate 1 drop 02/01/17 14:00 02/02/17 06:11 Tobrex Ophthalmic Solution - OS 1 applic TID [facility] Administration ASSESSMENT/PLAN: 81 year old woman admitted for sepsis secondary to Herpes Zoster opthalmicus, CLL. 1. Sepsis secondary to Herpes Opthalmicus Zoster -continue acyclovir 500mg IV -Rocephin 1 gram given -urine and blood cx- no growth 2. CLL with leukocytosis and anemia -Hold ibrutinib as per heme onc due to H&H drop -WBC improved now in 50's -Was given 1 unit of PRBCs today -F/u immunoglobulins -Follow-up with as an OP, patient mentioned she will see him post discharge -F/u CBC 3. Left facial shingles in immunocompromised patient -Optho recommendation: continue tobramycin drops. May add erythromycin opthalmic ointment to L eye at bedtime after Lumigan. Pt advised to follow up with optho outpatient. 4. New onset afib with RVR -Cardio scrap preparation supervisor has been consulted for discussion on anticoagulation 5. COPD -no acute exacerbation, continue symbicort, turdoza 6. Hypertension -Continue to monitor BP 7. Hyperlipidemia -continue lipitor 10mg daily 8. Hyponatremia -continue IV NS @ 75 cc/hr -Do not increase sodium >10 in 24 hrs Supportive care and transfusion support as needed f/u on labs ordered yesterday Visit type - Emergency Visit Emergency Visit: No - New Patient This patient is new to me today: No - Critical Care Critical Care patient: Yes Total Critical Care Time (in minutes): 12 - Discharge Referral Referred to [facility] No
--- NOTE | 2017-02-02 18:10 | PN ---
Teaching Attending Note Name of Resident: Maritza Morillo ATTENDING PHYSICIAN STATEMENT I saw and evaluated the patient. I reviewed the resident's note and discussed the case with the resident. I agree with the resident's findings and plan as documented. SUBJECTIVE: Patient feels better. Denies chest pain, SOB. OBJECTIVE: Vital Signs Period Temp Pulse Resp BP Sys/Gong Pulse Ox Last 24 Hr 98.5 F-101.1 F 73-94 20-26 99-132/46-70 94-94 HEENT: Crusting vesicular lesions over left forehead, left eye, left cheek HEART: S1S2, RRR LUNGS: Clear ABDOMEN: Soft, non-tender, distended, normal BS EXTREMITIES: No edema Acetaminophen (Tylenol -) 650 mg PO Q6H PRN PRN Reason: FEVER OR PAIN Last Admin: 02/02/17 09:50 Dose: 650 mg Aclidinium [place] (Tudorza -) 1 puff IH BID [facility] Last Admin: 02/02/17 09:53 Dose: 1 puff Albuterol/Ipratropium (Duoneb -) 1 amp NEB Q4H PRN PRN Reason: SHORTNESS OF BREATH Atorvastatin Calcium (Lipitor -) 10 mg PO Q2D@[facility] Last Admin: 02/01/17 22:43 Dose: 10 mg Budesonide/Formoterol Fumarate (Symbicort 160/4.5mcg -) 1 puff IH BID [facility] Last Admin: 02/02/17 09:56 Dose: 1 puff Chlorhexidine Gluconate (Hibiclens For Decolonization -) 1 applic TP [facility] Last Admin: 02/01/17 22:42 Dose: 1 applic Docusate Sodium (Colace -) 100 mg PO TID [facility] Last Admin: 02/02/17 06:09 Dose: 100 mg Erythromycin (Erythromycin 0.5% Eye Ointment) 1 applic OS HS [facility] Last Admin: 02/01/17 22:41 Dose: 1 applic Ferrous Sulfate (Feosol -) 325 mg PO DAILY [facility] Last Admin: 02/02/17 09:54 Dose: 325 mg Fluticasone Propionate (Flonase -) 1 spray NS BID [facility] Last Admin: 02/02/17 09:55 Dose: 1 spray Sodium Chloride (Normal Saline -) 1,000 mls @ 75 mls/hr IV ASDIR [facility] Last Admin: 02/02/17 03:00 Dose: 75 mls/hr Ceftriaxone Sodium (Rocephin 1gm Ivpb (Pre-Docked)) 50 mls @ 100 mls/hr IVPB DAILY [facility] Last Admin: 02/02/17 09:46 Dose: 100 mls/hr Acyclovir 500 mg/ Sodium (Chloride) 110 mls @ 110 mls/hr IVPB Q12H [facility] Last Admin: 02/02/17 11:08 Dose: 110 mls/hr Latanoprost (Xalatan 0.005% Eye Drops -) 1 drop OU HS [facility] Last Admin: 02/01/17 22:45 Dose: 1 drop Loratadine (Claritin -) 10 mg PO DAILY [facility] Last Admin: 02/02/17 09:55 Dose: 10 mg Mupirocin (Bactroban Ointment (For Decolonization) -) 1 applic NS BID [facility] Stop: 02/06/17 09:59 Last Admin: 02/02/17 09:49 Dose: 1 applic Tobramycin Sulfate (Tobrex Ophthalmic Solution -) 1 drop OS TID [facility] Last Admin: 02/02/17 06:11 Dose: 1 applic ASSESSMENT AND PLAN: This is a 81-year-old woman with a history of COPD, CLL, HTN, hyperlipidemia who presented to the ER from [facility] with left eye swelling and blurred difficulty. 1. Sepsis secondary to left facial cellulitis superimposed on Herpes zoster - On Rocephin, Acyclovir IV - Hypotension, tachycardia improved - Ophthalmology consult appreciated 2. Conjunctivitis, left eye - Continue Tobramycin eye drops - Erythromycin ointment started 3. Paroxysmal atrial fibrillation - Remains in sinus rhythm - Likely secondary to sepsis - Cardiology consult 4. Leukocytosis and anemia secondary to sepsis and CLL - Continue ferrous sulfate - Transfused 1 unit PRBCs yesterday - Being transfused 1 unit PRBCs today 5. COPD - Stable - Continue Symbicort, Tudorza, DuoNeb as needed 6. Hypertension - Toprol XL held secondary to hypotension 7. Hyperlipidemia - Continue Lipitor 8. Hyponatremia - Improved 9. Glaucoma - Continue Xalatan eye drops
[2017-02-02] MEDS ORDERED: PT OWN MED DRAWER 7, Y5N ONE (22:23)
[2017-02-02] MEDS: LATANOPROST 0.005% OPHTH SOLN 2.5ML BOTTLE OU SCH (22:31)
[2017-02-02] MEDS: ERYTHROMYCIN 0.5% OPHTHALMIC OINTMENT 3.5 GM TUBE OS SCH (22:32)
[2017-02-02] MEDS: CHLORHEXIDINE GLUCONATE 4% CLEANSER FOR DECOLONIZATION TP SCH (22:32)
[2017-02-03] MEDS ORDERED: CALAMINE 8% TOPICAL LOTION 177 ML BOTTLE TP PRN (00:08)
[2017-02-03] MEDS ORDERED: LACTATED RINGERS SOLUTION 500 ML IV STA (03:15)
[2017-02-03 03:54] LABS: MCH 25.9 pg (25.7-33.7); MCHC 30.5 g/dl (32.0-36.0); MEAN CELL VOLUME 84.9 fl (80-96); MEAN PLT VOLUME 8.4 fl (7.5-11.1); PLATELET COUNT 170 K/MM3 (134-434); RDW 15.6 % (11.6-15.6)
[2017-02-03 03:57] LABS: WHITE BLOOD COUNT 41.4 K/mm3 (4.0-10.0)
[2017-02-03] MEDS ORDERED: AMIODARONE HCL INJECTION 150 MG in DEXTROSE 5%-WATER - 97 ML IVPB ONE (04:13)
[2017-02-03 04:15] LABS: ANION GAP 7 (8-16); BILIRUBIN,TOTAL 0.3 mg/dL (0.2-1.0); CALCIUM 7.4 mg/dL (8.5-10.1); CO2 30 mmol/L (21-32); CREATININE 0.4 mg/dL (0.55-1.02); GLUCOSE,RANDOM 89 mg/dL (74-106); MAGNESIUM 2.3 mg/dL (1.8-2.4); PHOSPHOROUS 2.8 mg/dL (2.5-4.9); SGOT/AST 18 U/L (15-37); SGPT/ALT 10 U/L (12-78); TOT PROT 5.2 g/dl (6.4-8.2)
[2017-02-03] MEDS ORDERED: AMIODARONE HCL 150 MG/3 ML VIAL ONE (04:15)
[2017-02-03 04:18] LABS: ALK PHOS 108 U/L (45-117); TROPONIN I 0.03 ng/ml (0.00-0.05)
[2017-02-03] MEDS ORDERED: METOPROLOL TARTRATE 5 MG/5 ML VIAL IVPUSH ONE (05:03)
[2017-02-03 06:06] LABS: HAPTOGLOBIN 204 mg/dL (34-200); IGG IMMUNOGLOBULIN 760 mg/dL (700-1600); SERUM IRON 10 ug/dL (27-139); TOTAL IRON BINDING CAPACITY 260 ug/dL (250-450); UIBC 250 ug/dL (118-369)
[2017-02-03] MEDS: SODIUM CHLORIDE 1,000 ML IV SCH ×3 (06:42→21:23)
[2017-02-03] MEDS: TOBRAMYCIN 0.3% OPHTH SOLN 5 ML BOTTLE OS SCH ×2 (06:46→21:24)
[2017-02-03] MEDS: DOCUSATE SODIUM 100 MG CAPSULE (FP) PO SCH ×2 (06:48→21:23)
--- NOTE | 2017-02-03 08:08 | PN ---
Progress Note, Physician Chief Complaint: ID Day 2 therapy Iv Zovirax and Ceftriaxone for fever and possible facial cellulitis ( eye lid) She feels well No complaints - Current Medication List Current Medications: Active Medications Acetaminophen (Tylenol -) 650 mg PO Q6H PRN PRN Reason: FEVER OR PAIN Last Admin: 02/02/17 09:50 Dose: 650 mg Aclidinium [place] (Tudorza -) 1 puff IH BID [facility] Last Admin: 02/02/17 22:32 Dose: 1 puff Albuterol/Ipratropium (Duoneb -) 1 amp NEB Q4H PRN PRN Reason: SHORTNESS OF BREATH Atorvastatin Calcium (Lipitor -) 10 mg PO Q2D@[facility] Last Admin: 02/01/17 22:43 Dose: 10 mg Budesonide/Formoterol Fumarate (Symbicort 160/4.5mcg -) 1 puff IH BID [facility] Last Admin: 02/02/17 22:31 Dose: 1 puff Calamine (Calamine 8% Topical Lotion -) 1 applic TP BID PRN PRN Reason: FOR ITCHING Chlorhexidine Gluconate (Hibiclens For Decolonization -) 1 applic TP [facility] Last Admin: 02/02/17 22:32 Dose: 1 applic Docusate Sodium (Colace -) 100 mg PO TID [facility] Last Admin: 02/03/17 06:48 Dose: 100 mg Erythromycin (Erythromycin 0.5% Eye Ointment) 1 applic OS [facility] Last Admin: 02/02/17 22:32 Dose: 1 applic Ferrous Sulfate (Feosol -) 325 mg PO DAILY [facility] Last Admin: 02/02/17 09:54 Dose: 325 mg Fluticasone Propionate (Flonase -) 1 spray NS BID [facility] Last Admin: 02/02/17 22:30 Dose: 1 spray Sodium Chloride (Normal Saline -) 1,000 mls @ 75 mls/hr IV ASDIR [facility] Last Admin: 02/03/17 06:42 Dose: 75 mls/hr Ceftriaxone Sodium (Rocephin 1gm Ivpb (Pre-Docked)) 50 mls @ 100 mls/hr IVPB DAILY [facility] Last Admin: 02/02/17 09:46 Dose: 100 mls/hr Acyclovir 500 mg/ Sodium (Chloride) 110 mls @ 110 mls/hr IVPB Q12H [facility] Last Admin: 02/02/17 22:20 Dose: 110 mls/hr Latanoprost (Xalatan 0.005% Eye Drops -) 1 drop OU HS [facility] Last Admin: 02/02/17 22:31 Dose: 1 drop Loratadine (Claritin -) 10 mg PO DAILY [facility] Last Admin: 02/02/17 09:55 Dose: 10 mg Mupirocin (Bactroban Ointment (For Decolonization) -) 1 applic NS BID [facility] Stop: 02/06/17 09:59 Last Admin: 02/02/17 22:20 Dose: 1 applic Tobramycin Sulfate (Tobrex Ophthalmic Solution -) 1 drop OS TID [facility] Last Admin: 02/03/17 06:46 Dose: 1 applic - Objective Vital Signs: Vital Signs Temperature 99.8 F H 02/03/17 02:00 Pulse Rate 76 02/03/17 06:00 Respiratory Rate 23 02/03/17 06:00 Blood Pressure 91/47 02/03/17 06:00 O2 Sat by Pulse Oximetry (%) 94 L 02/02/17 20:49 Constitutional: Yes: Thin Eyes: Yes: Other (Left lid edema improved facail forehead lesions are drying up) Cardiovascular: Yes: Regular Rate and Rhythm, S1, S2. No: Murmur Respiratory: Yes: WNL, Regular, CTA Bilaterally Gastrointestinal: Yes: WNL, Normal Bowel Sounds, Soft. No: Tenderness, Tenderness, Rebound Edema: No Labs: CBC, BMP 02/03/17 03:40 02/03/17 03:40 INR, PTT INR 1.04 (0.82-1.09) 02/01/17 05:15 Problem List - Problems (1) CLL (chronic lymphocytic leukemia) Code(s): C91.10 - CHRONIC LYMPHOCYTIC LEUK OF B-CELL TYPE NOT ACHIEVE REMIS (2) Fever Code(s): R50.9 - FEVER, UNSPECIFIED Qualifiers: Fever type: unspecified Qualified Code(s): R50.9 - Fever, unspecified (3) Shingles outbreak Code(s): B02.9 - ZOSTER WITHOUT COMPLICATIONS Qualifiers: Herpes zoster complications: unspecified herpes zoster complication Qualified Code(s): B02.8 - Zoster with other complications Assessment/Plan Microbiology 01/31/17 23:33 Urine - Urine Clean Catch Urine Culture - Final NO GROWTH OBTAINED 01/31/17 21:50 Blood - Peripheral Venous Blood Culture - Preliminary NO GROWTH OBTAINED AFTER 48 HOURS, INCUBATION TO CONTINUE FOR 3 DAYS. Laboratory Tests 02/03/17 02/03/17 03:40 03:40 WBC 41.4 H* Hgb 7.9 L D Plt Count 170 BUN 16 Creatinine 0.4 L Creat Clearance w eGFR > 60 AST 18 ALT 10 L Alkaline Phosphatase 108 Assessment CLL S/P chemotherapy presents with fever and dermatomal HVZ. Possible component of bacterial infection BLood culture negative Plan Continue current IV meds today and switch to po tomorrow valtrex and Keflex and topical opthalmic antibiotics. Mathew NAPIER
--- NOTE | 2017-02-03 09:03 | PN ---
Physical Exam: SUBJECTIVE: 81 year old female with a past medical history of CLL, COPD, and shingles for 1 week presented to the ED with worsening L eye purulent discharge, pain and swelling. She broke out in shingles 1 week ago and was started on PO acyclovir. Her ocular symptoms (decreased visual acuity in L eye) was found to be SOB and hypotensive - transferred to the ICU and begun on a dose of vanc/zosyn and IV acyclovir. Currently she feels better, and she is able to see nearly 100% from affected eye. Patient complains of constipation with no bowel movement for 3 days. She states that she feels as if it is mental and that she doesn't want to have a BM in her diaper. Currently denies pain, pruritis, SOB, chest pain, n/v, fever. OBJECTIVE: Vital Signs Period Temp Pulse Resp BP Sys/Gong Pulse Ox Last 24 Hr 99 F-99.8 F 72-139 15-25 91-113/46-62 94-94 GENERAL: The patient is awake, alert, and fully oriented, in no acute distress. HEAD: Normal with no signs of trauma. EYES: PERRL, extraocular movements intact, sclera anicteric, conjunctiva clear. No ptosis. Improved swelling around L eye. ENT: Ears normal, nares patent, oropharynx clear without exudates, moist mucous membranes. NECK: Trachea midline, full range of motion, supple. LUNGS: Breath sounds equal, clear to auscultation bilaterally, no wheezes, no crackles, no accessory muscle use. HEART: Regular rate and rhythm, S1, S2 without murmur, rub or gallop. ABDOMEN: Soft, nontender, nondistended, normoactive bowel sounds, no guarding, no rebound, no hepatosplenomegaly, no masses. EXTREMITIES: 2+ pulses, warm, well-perfused, no edema. NEUROLOGICAL: Cranial nerves II through XII grossly intact. Normal speech, gait not observed. PSYCH: Normal mood, normal affect. SKIN: Warm, dry, normal turgor, resolving herpetic rash noted on upper left of face and around eye. CBC, BMP 02/03/17 03:40 02/03/17 03:40 Active Medications Generic Name Dose Route Start Last Admin Trade Name Freq PRN Reason Stop Dose Admin Acetaminophen 650 mg 01/31/17 23:55 02/02/17 09:50 Tylenol - PO 650 mg Q6H PRN Administration FEVER OR PAIN Aclidinium [place] 1 puff 02/01/17 10:00 02/02/17 22:32 Tudorza - IH 1 puff BID TRACY Administration Albuterol/Ipratropium 1 amp 02/01/17 05:02 Duoneb - NEB Q4H PRN SHORTNESS OF BREATH Atorvastatin Calcium 10 mg 02/01/17 22:00 02/01/17 22:43 Lipitor - PO 10 mg Q2D@HS TRACY Administration Budesonide/Formoterol Fumarate 1 puff 02/01/17 10:00 02/02/17 22:31 Symbicort 160/4.5mcg - IH 1 puff BID TRACY Administration Calamine 1 applic 02/03/17 00:08 Calamine 8% Topical Lotion - TP BID PRN FOR ITCHING Chlorhexidine Gluconate 1 applic 02/01/17 22:00 02/02/17 22:32 Hibiclens For Decolonization - TP 1 applic HS TRACY Administration Docusate Sodium 100 mg 02/01/17 06:00 02/03/17 06:48 Colace - PO 100 mg TID TRACY Administration Erythromycin 1 applic 02/01/17 22:00 02/02/17 22:32 Erythromycin 0.5% Eye Ointment OS 1 applic HS TRACY Administration Ferrous Sulfate 325 mg 02/01/17 10:00 02/02/17 09:54 Feosol - PO 325 mg DAILY [facility]Y Administration Fluticasone Propionate 1 spray 02/01/17 10:00 02/02/17 22:30 Flonase - NS 1 spray BID TRACY Administration Sodium Chloride 1,000 mls @ 75 mls/hr 02/01/17 03:15 02/03/17 06:42 Normal Saline - IV 75 mls/hr ASDIR TRACY Administration Ceftriaxone Sodium 50 mls @ 100 mls/hr 02/01/17 10:00 02/02/17 09:46 Rocephin 1gm Ivpb (Pre-Docked) IVPB 100 mls/hr DAILY [facility]CA[facility] Administration Acyclovir 500 mg/ Sodium 110 mls @ 110 mls/hr 02/01/17 11:00 02/02/17 22:20 Chloride IVPB 110 mls/hr Q12H [facility]ACY Administration Latanoprost 1 drop 02/01/17 22:00 02/02/17 22:31 Xalatan 0.005% Eye Drops - OU 1 drop HS TRACY Administration Loratadine 10 mg 02/01/17 10:00 02/02/17 09:55 Claritin - PO 10 mg DAILY TRACY Administration Mupirocin 1 applic 02/01/17 10:00 02/02/17 22:20 Bactroban Ointment (For Decolonization) - NS 02/06/17 09:59 1 applic BID TRACY Administration Tobramycin Sulfate 1 drop 02/01/17 14:00 02/03/17 06:46 Tobrex Ophthalmic Solution - OS 1 applic TID TRACY Administration ASSESSMENT/PLAN: 81 year old female w/ CLL and resolving herpes zoster ophthalmicus ID: improving herpes zoster ophthalmicus in setting of CLL, unlikely bacterial in origin -d/c airborne precautions due to resolving infection -contact precautions due to immunocompromised state of patient -continue acyclovir 500mg IV, switch to PO tomorrow -Dr. Chaney consulted for ophthalmology -continue on erythromycin and tobramycin drops -f/u with ophthalmology outpatient Heme/Onc: pt with CLL and WBC count trending down from 98 to 54 -monitor lymphocytosis with AM CBC - Cardiovascular: BP and HR stable -monitor routine BP/HR -cardiovascularly stable for tx to floors -cont statins Pulmonary: pt is baseline on 2 L home O2 -patient on 2.5L NC -monitor O2 sats FEN: -IVF NS 1000 @ 75 ml/hr -regular diet -foy inserted and is draining urine Dispo: -Transfer to med/surg Problem List - Problems (1) Anemia Code(s): D64.9 - ANEMIA, UNSPECIFIED Qualifiers: Anemia type: other cause Other causes of anemia: chronic disease, neoplastic Qualified Code(s): D63.0 - Anemia in neoplastic disease (2) CLL (chronic lymphocytic leukemia) Code(s): C91.10 - CHRONIC LYMPHOCYTIC LEUK OF B-CELL TYPE NOT ACHIEVE REMIS (3) Shingles outbreak Code(s): B02.9 - ZOSTER WITHOUT COMPLICATIONS Qualifiers: Herpes zoster complications: unspecified herpes zoster complication Qualified Code(s): B02.8 - Zoster with other complications Visit type - Emergency Visit Emergency Visit: No - New Patient This patient is new to me today: No - Critical Care Critical Care patient: Yes Total Critical Care Time (in minutes): 45 Critical Care Statement: The care of this patient involved high complexity decision making to prevent further life threatening deterioration of the patient 's condition and/or to evalute & treat vital organ system(s) failure or risk of failure.
[2017-02-03] MEDS ORDERED: PT OWN MED DRAWER 7, Y5N ONE (10:18)
[2017-02-03] MEDS: ACYCLOVIR INJECTION 500 MG in SODIUM CHLORIDE 100 ML IVPB SCH ×2 (10:59→22:09)
[2017-02-03] MEDS: ACLIDINIUM BROMIDE 400 MCG/INH AERO.POWD IH SCH ×2 (11:01→21:24)
[2017-02-03] MEDS: MUPIROCIN 2% TOPICAL OINTMENT FOR DECOLONIZATION NS SCH (11:03)
--- NOTE | 2017-02-03 11:04 | PN ---
Teaching Attending Note Name of Resident: Danny Pena ATTENDING PHYSICIAN STATEMENT I saw and evaluated the patient. I reviewed the resident's note and discussed the case with the resident. I agree with the resident's findings and plan as documented. SUBJECTIVE: Pt seen and examined in the ICU. Episodes of PSVT overnight, currently in sinus rhythm. Pt denies any shortness of breath, chest pain or palpitations. No fevers or chills. No BM x 3 days. OBJECTIVE: Last Vital Signs Temp Pulse Resp BP Pulse Ox 99.8 F H 72 22 97/50 94 L 02/03/17 02:00 02/03/17 08:00 02/03/17 08:00 02/03/17 08:00 02/03/17 07:59 Intake & Output 01/31/17 02/01/17 02/02/17 02/03/17 23:59 23:59 23:59 23:59 Intake Total 1000 2980 3090 1425 Output Total 1150 2300 400 Balance 1000 0224 632 2114 Weight 120 lb 110 lb 113 lb 8 oz 118 lb 9 oz Gen: NAD at rest Heart: RRR Lung: decreased breath sounds at the bases Abd: soft, nontender Ext: no edema CBC, BMP 02/03/17 03:40 02/03/17 03:40 Active Medications Acetaminophen (Tylenol -) 650 mg PO Q6H PRN PRN Reason: FEVER OR PAIN Last Admin: 02/02/17 09:50 Dose: 650 mg Aclidinium [place] (Tudorza -) 1 puff IH BID [facility] Last Admin: 02/02/17 22:32 Dose: 1 puff Albuterol/Ipratropium (Duoneb -) 1 amp NEB Q4H PRN PRN Reason: SHORTNESS OF BREATH Atorvastatin Calcium (Lipitor -) 10 mg PO Q2D@[facility] Last Admin: 02/01/17 22:43 Dose: 10 mg Budesonide/Formoterol Fumarate (Symbicort 160/4.5mcg -) 1 puff IH BID [facility] Last Admin: 02/02/17 22:31 Dose: 1 puff Calamine (Calamine 8% Topical Lotion -) 1 applic TP BID PRN PRN Reason: FOR ITCHING Chlorhexidine Gluconate (Hibiclens For Decolonization -) 1 applic TP [facility] Last Admin: 02/02/17 22:32 Dose: 1 applic Docusate Sodium (Colace -) 100 mg PO TID [facility] Last Admin: 02/03/17 06:48 Dose: 100 mg Erythromycin (Erythromycin 0.5% Eye Ointment) 1 applic OS HS [facility] Last Admin: 02/02/17 22:32 Dose: 1 applic Ferrous Sulfate (Feosol -) 325 mg PO DAILY [facility] Last Admin: 02/02/17 09:54 Dose: 325 mg Fluticasone Propionate (Flonase -) 1 spray NS BID [facility] Last Admin: 02/02/17 22:30 Dose: 1 spray Sodium Chloride (Normal Saline -) 1,000 mls @ 75 mls/hr IV ASDIR [facility] Last Admin: 02/03/17 06:42 Dose: 75 mls/hr Ceftriaxone Sodium (Rocephin 1gm Ivpb (Pre-Docked)) 50 mls @ 100 mls/hr IVPB DAILY [facility] Last Admin: 02/02/17 09:46 Dose: 100 mls/hr Acyclovir 500 mg/ Sodium (Chloride) 110 mls @ 110 mls/hr IVPB Q12H [facility] Last Admin: 02/02/17 22:20 Dose: 110 mls/hr Latanoprost (Xalatan 0.005% Eye Drops -) 1 drop OU HS [facility] Last Admin: 02/02/17 22:31 Dose: 1 drop Loratadine (Claritin -) 10 mg PO DAILY [facility] Last Admin: 02/02/17 09:55 Dose: 10 mg Mupirocin (Bactroban Ointment (For Decolonization) -) 1 applic NS BID [facility] Stop: 02/06/17 09:59 Last Admin: 02/02/17 22:20 Dose: 1 applic Tobramycin Sulfate (Tobrex Ophthalmic Solution -) 1 drop OS TID [facility] Last Admin: 02/03/17 06:46 Dose: 1 applic ASSESSMENT AND PLAN: CLL s/p chemotherapy Herpes Zoster/Facial Cellulitis Sepsis PSVT Anemia s/p PRBC transfusions COPD Chronic Hypoxic Respiratory Failure HTN Hyperlipidemia Hypothyroidism - antibiotics per ID - f/u final cultures - bowel regimen - PO as tolerated - monitor H/H - inhaled bronchodilators - O2 to keep SpO2 >90% - if frequent PSVT may need maintenance low dose beta kalyn - telemetry monitoring
[2017-02-03] MEDS: FLUTICASONE PROP 0.05% 16 GM NASAL SPRAY NS SCH ×2 (11:07→21:23)
[2017-02-03] MEDS: FERROUS SO4 325 MG TABLET (FP) PO SCH (11:07)
[2017-02-03] MEDS: LORATADINE 10 MG TABLET PO SCH (11:07)
[2017-02-03] MEDS: CEFTRIAXONE 50 ML IVPB SCH (11:09)
[2017-02-03] MEDS: BUDESONIDE/FORMETEROL FUMARATE 160/4.5 mcg INHALER IH SCH ×2 (11:09→21:22)
--- NOTE | 2017-02-03 12:47 | PN ---
Progress Note, Physician History of Present Illness: The patient is a 81-year-old woman, [place], with a significant past medical history of chronic lymphocytic leukemia (diagnosed approximately 3 years ago), hypertension and chronic obstructive pulmonary disease, severe pulmonary HTNwho (EKG : chronically peaked T waves unrelated to potassium, per 's sugar trucker, Dr. Trinh), who presents to the emergency department via EMS for evaluation of left eye swelling. she was evaluated and diagnosed with shingles and started on Acyclovir last week. She states that she is unable to see from her left eye secondary to the swelling. She also complains of itchiness. No other complaints. No fever, chills, headache, lightheadedness, cough, shortness for breath. nausea, vomiting, diarrhea. - Current Medication List Current Medications: Active Medications Acetaminophen (Tylenol -) 650 mg PO Q6H PRN PRN Reason: FEVER OR PAIN Last Admin: 02/02/17 09:50 Dose: 650 mg Aclidinium [place] (Tudorza -) 1 puff IH BID [facility] Last Admin: 02/03/17 11:01 Dose: 1 puff Albuterol/Ipratropium (Duoneb -) 1 amp NEB Q4H PRN PRN Reason: SHORTNESS OF BREATH Atorvastatin Calcium (Lipitor -) 10 mg PO Q2D@HS [facility] Last Admin: 02/01/17 22:43 Dose: 10 mg Budesonide/Formoterol Fumarate (Symbicort 160/4.5mcg -) 1 puff IH BID [facility] Last Admin: 02/03/17 11:09 Dose: 1 puff Calamine (Calamine 8% Topical Lotion -) 1 applic TP BID PRN PRN Reason: FOR ITCHING Chlorhexidine Gluconate (Hibiclens For Decolonization -) 1 applic TP HS [facility] Last Admin: 02/02/17 22:32 Dose: 1 applic Docusate Sodium (Colace -) 100 mg PO TID [facility] Last Admin: 02/03/17 06:48 Dose: 100 mg Erythromycin (Erythromycin 0.5% Eye Ointment) 1 applic OS [facility] Last Admin: 02/02/17 22:32 Dose: 1 applic Ferrous Sulfate (Feosol -) 325 mg PO DAILY [facility] Last Admin: 02/03/17 11:07 Dose: 325 mg Fluticasone Propionate (Flonase -) 1 spray NS BID [facility] Last Admin: 02/03/17 11:07 Dose: 1 spray Sodium Chloride (Normal Saline -) 1,000 mls @ 75 mls/hr IV ASDIR [facility] Last Admin: 02/03/17 10:58 Dose: 75 mls/hr Ceftriaxone Sodium (Rocephin 1gm Ivpb (Pre-Docked)) 50 mls @ 100 mls/hr IVPB DAILY [facility] Last Admin: 02/03/17 11:09 Dose: 100 mls/hr Acyclovir 500 mg/ Sodium (Chloride) 110 mls @ 110 mls/hr IVPB Q12H [facility] Last Admin: 02/03/17 10:59 Dose: 110 mls/hr Latanoprost (Xalatan 0.005% Eye Drops -) 1 drop OU HS [facility] Last Admin: 02/02/17 22:31 Dose: 1 drop Loratadine (Claritin -) 10 mg PO DAILY [facility] Last Admin: 02/03/17 11:07 Dose: 10 mg Mupirocin (Bactroban Ointment (For Decolonization) -) 1 applic NS BID [facility] Stop: 02/06/17 09:59 Last Admin: 02/03/17 11:03 Dose: 1 applic Tobramycin Sulfate (Tobrex Ophthalmic Solution -) 1 drop OS TID [facility] Last Admin: 02/03/17 06:46 Dose: 1 applic - Objective Vital Signs: Vital Signs Temperature 99.8 F H 02/03/17 02:00 Pulse Rate 72 02/03/17 08:00 Respiratory Rate 22 02/03/17 08:00 Blood Pressure 97/50 02/03/17 08:00 O2 Sat by Pulse Oximetry (%) 94 L 02/03/17 07:59 Eyes: Yes: WNL, Conjunctiva Clear, EOM Intact HENT: Yes: WNL, Atraumatic, Normocephalic Neck: Yes: WNL, Supple, Trachea Midline Cardiovascular: Yes: WNL, Regular Rate and Rhythm Respiratory: Yes: WNL, Regular, CTA Bilaterally Gastrointestinal: Yes: WNL, Normal Bowel Sounds Genitourinary: Yes: WNL Musculoskeletal: Yes: WNL Extremities: Yes: WNL Edema: No Integumentary: Yes: WNL Neurological: Yes: WNL, Alert, Oriented ...Motor Strength: WNL Psychiatric: Yes: WNL Labs: CBC, BMP 02/03/17 03:40 02/03/17 03:40 INR, PTT INR 1.04 (0.82-1.09) 02/01/17 05:15 Assessment/Plan Problem List - Problems (1) Shingles outbreak Code(s): B02.9 - ZOSTER WITHOUT COMPLICATIONS Qualifiers: Herpes zoster complications: unspecified herpes zoster complication Qualified Code(s): B02.8 - Zoster with other complications (2) COPD (chronic obstructive pulmonary disease) Assessment/Plan: pt was a heavy smoker; quit ?cold turkey" 2 yrs ago Code(s): J44.9 - CHRONIC OBSTRUCTIVE PULMONARY DISEASE, UNSPECIFIED (3) PSVT (paroxysmal supraventricular tachycardia) Assessment/Plan: I discussed pt with her sugar trucker, Dr. Handley. There is no hx of CAD or arrhythmias. Brief runs of PSVT noted on monitor during this hospitalization. ECHO 10/02: normal LVEF; severe pulmonary HTN; moderate . Pt denies hx asthma. Observe while anemia and shingles are treated. Avoid dehydration. F/u electrolytes. Code(s): I47.1 - SUPRAVENTRICULAR TACHYCARDIA Assessment/Plan cc time spent perusing chart, evaluating pt, formulating plan: 35 minutes.
--- NOTE | 2017-02-03 14:10 | PN ---
Progress Note, Physician History of Present Illness: patient seen in follow up Seen and examined She continues to improve She feels well, her only complain is constipation. - Current Medication List Current Medications: Active Medications Acetaminophen (Tylenol -) 650 mg PO Q6H PRN PRN Reason: FEVER OR PAIN Last Admin: 02/02/17 09:50 Dose: 650 mg Aclidinium [place] (Tudorza -) 1 puff IH BID [facility] Last Admin: 02/03/17 11:01 Dose: 1 puff Albuterol/Ipratropium (Duoneb -) 1 amp NEB Q4H PRN PRN Reason: SHORTNESS OF BREATH Atorvastatin Calcium (Lipitor -) 10 mg PO Q2D@HS [facility] Last Admin: 02/01/17 22:43 Dose: 10 mg Budesonide/Formoterol Fumarate (Symbicort 160/4.5mcg -) 1 puff IH BID [facility] Last Admin: 02/03/17 11:09 Dose: 1 puff Calamine (Calamine 8% Topical Lotion -) 1 applic TP BID PRN PRN Reason: FOR ITCHING Chlorhexidine Gluconate (Hibiclens For Decolonization -) 1 applic TP HS [facility] Last Admin: 02/02/17 22:32 Dose: 1 applic Docusate Sodium (Colace -) 100 mg PO TID [facility] Last Admin: 02/03/17 06:48 Dose: 100 mg Erythromycin (Erythromycin 0.5% Eye Ointment) 1 applic OS HS [facility] Last Admin: 02/02/17 22:32 Dose: 1 applic Ferrous Sulfate (Feosol -) 325 mg PO DAILY [facility] Last Admin: 02/03/17 11:07 Dose: 325 mg Fluticasone Propionate (Flonase -) 1 spray NS BID [facility] Last Admin: 02/03/17 11:07 Dose: 1 spray Sodium Chloride (Normal Saline -) 1,000 mls @ 75 mls/hr IV ASDIR [facility] Last Admin: 02/03/17 10:58 Dose: 75 mls/hr Ceftriaxone Sodium (Rocephin 1gm Ivpb (Pre-Docked)) 50 mls @ 100 mls/hr IVPB DAILY [facility] Last Admin: 02/03/17 11:09 Dose: 100 mls/hr Acyclovir 500 mg/ Sodium (Chloride) 110 mls @ 110 mls/hr IVPB Q12H [facility] Last Admin: 02/03/17 10:59 Dose: 110 mls/hr Latanoprost (Xalatan 0.005% Eye Drops -) 1 drop OU HS [facility] Last Admin: 02/02/17 22:31 Dose: 1 drop Loratadine (Claritin -) 10 mg PO DAILY [facility] Last Admin: 02/03/17 11:07 Dose: 10 mg Mupirocin (Bactroban Ointment (For Decolonization) -) 1 applic NS BID [facility] Stop: 02/06/17 09:59 Last Admin: 02/03/17 11:03 Dose: 1 applic Tobramycin Sulfate (Tobrex Ophthalmic Solution -) 1 drop OS TID [facility] Last Admin: 02/03/17 06:46 Dose: 1 applic - Objective Vital Signs: Vital Signs Temperature 99.8 F H 02/03/17 02:00 Pulse Rate 72 02/03/17 08:00 Respiratory Rate 22 02/03/17 08:00 Blood Pressure 97/50 02/03/17 08:00 O2 Sat by Pulse Oximetry (%) 94 L 02/03/17 07:59 Constitutional: Yes: Well Nourished, No Distress, Calm Eyes: Yes: Conjunctiva Clear, Other (left forehead with slightly healing vescicles, the lid is much less swollen than yesterday) HENT: Yes: Atraumatic, Normocephalic Neck: No: Lymphadenopathy Cardiovascular: Yes: Regular Rate and Rhythm Respiratory: Yes: CTA Bilaterally Labs: CBC, BMP 02/03/17 03:40 02/03/17 03:40 INR, PTT INR 1.04 (0.82-1.09) 02/01/17 05:15 Problem List - Problems (1) CLL (chronic lymphocytic leukemia) Assessment/Plan: Lymphocytosis in the setting of BTK inhibitor, ibrutinib less likely Tumor lysis Hold the medication. ?need of VZV ppx in the future f/u on Quantitative Immunoglobulins. Need to follow-up with as an OP, patient mentioned she will see him post discharge Code(s): C91.10 - CHRONIC LYMPHOCYTIC LEUK OF B-CELL TYPE NOT ACHIEVE REMIS (2) Anemia Assessment/Plan: Anemia, might be explained by the ibrutinib/ acute event. Supportive care and transfusion support as needed Presently holding hgb. Code(s): D64.9 - ANEMIA, UNSPECIFIED Qualifiers: Anemia type: other cause Other causes of anemia: chronic disease, neoplastic Qualified Code(s): D63.0 - Anemia in neoplastic disease (3) Shingles outbreak Assessment/Plan: appreciate ID consult seen by Ophthal On treatment Likely switch to PO tomorrow Will follow patient closely Code(s): B02.9 - ZOSTER WITHOUT COMPLICATIONS Qualifiers: Herpes zoster complications: unspecified herpes zoster complication Qualified Code(s): B02.8 - Zoster with other complications
--- NOTE | 2017-02-03 14:56 | EKG ---
Test Reason : Blood Pressure : / mmHG Vent. Rate : 136 BPM Atrial Rate : 156 BPM P-R Int : 000 ms QRS Dur : 080 ms QT Int : 314 ms P-R-T Axes : 000 077 257 degrees QTc Int : 472 ms POOR DATA QUALITY, INTERPRETATION MAY BE ADVERSELY AFFECTED ATRIAL FIBRILLATION WITH RAPID VENTRICULAR RESPONSE ABNORMAL ECG WHEN COMPARED WITH ECG OF 31-JAN-2017 19:54, ATRIAL FIBRILLATION HAS REPLACED ECTOPIC ATRIAL RHYTHM ST NOW DEPRESSED IN INFERIOR LEADS ST NOW DEPRESSED IN ANTERIOR LEADS T WAVE INVERSION NOW EVIDENT IN INFERIOR LEADS T WAVE INVERSION NOW EVIDENT IN LATERAL LEADS Confirmed by TAI NAPIER, HARPREET ([id number]) on 02/03/2017 2:56:01 PM Referred By: Confirmed By:HARPREET LUJAN MD
--- NOTE | 2017-02-03 16:23 | PN ---
Physical Exam: SUBJECTIVE: Patient seen and examined at bedside. Pt complains of constipation. Wayne intact. Otherwise denies chest pain or SOB, or other complaints. OBJECTIVE: Vital Signs Period Temp Pulse Resp BP Sys/Gong Pulse Ox Last 24 Hr 99 F-99.8 F 71-139 15-25 91-114/47-71 94-94 GENERAL: The patient is awake, alert, and fully oriented, in no acute distress. HEAD: Normal with no signs of trauma, zoster healing and scabbing EYES: PERRL, extraocular movements intact, sclera anicteric, conjunctiva clear. ENT: oropharynx clear without exudates, moist mucous membranes. NECK: Trachea midline, full range of motion, supple. LUNGS: Breath sounds equal, clear to auscultation bilaterally, no wheezes, no crackles, no accessory muscle use. HEART: Regular rate and rhythm, S1, S2 without murmur, rub or gallop. ABDOMEN: Soft, nontender, nondistended, normoactive bowel sounds, no guarding, no rebound, no hepatosplenomegaly, no masses. EXTREMITIES: 2+ posterior tibial pulses, warm, well-perfused, no edema. NEUROLOGICAL: Cranial nerves II through XII grossly intact. Laboratory Results - last 24 hr 02/02/17 02/03/17 02/03/17 05:10 03:40 03:40 WBC 41.4 H* RBC 3.06 L D Hgb 7.9 L D Hct 26.0 L D MCV 84.9 MCH 25.9 MCHC 30.5 L RDW 15.6 Plt Count 170 MPV 8.4 Haptoglobin 204 H Sodium 138 Potassium 3.9 Chloride 101 Carbon Dioxide 30 Anion Gap 7 L BUN 16 Creatinine 0.4 L Creat Clearance w eGFR > 60 Random Glucose 89 Calcium 7.4 L Phosphorus 2.8 D Magnesium 2.3 D Iron 10 L TIBC 260 Iron Saturation 4 L Total Bilirubin 0.3 AST 18 ALT 10 L Alkaline Phosphatase 108 Creatine Kinase 67 Troponin I 0.03 Total Protein 5.2 L Albumin 2.0 L IgG 760 IgA 350 Active Medications Generic Name Dose Route Start Last Admin Trade Name Freq PRN Reason Stop Dose Admin Acetaminophen 650 mg 01/31/17 23:55 02/02/17 09:50 Tylenol - PO 650 mg Q6H PRN Administration FEVER OR PAIN Aclidinium [place] 1 puff 02/01/17 10:00 02/03/17 11:01 Tudorza - IH 1 puff BID TRACY Administration Albuterol/Ipratropium 1 amp 02/01/17 05:02 Duoneb - NEB Q4H PRN SHORTNESS OF BREATH Atorvastatin Calcium 10 mg 02/01/17 22:00 02/01/17 22:43 Lipitor - PO 10 mg Q2D@HS TRACY Administration Budesonide/Formoterol Fumarate 1 puff 02/01/17 10:00 02/03/17 11:09 Symbicort 160/4.5mcg - IH 1 puff BID TRACY Administration Calamine 1 applic 02/03/17 00:08 Calamine 8% Topical Lotion - TP BID PRN FOR ITCHING Chlorhexidine Gluconate 1 applic 02/01/17 22:00 02/02/17 22:32 Hibiclens For Decolonization - TP 1 applic HS TRACY Administration Docusate Sodium 100 mg 02/01/17 06:00 02/03/17 06:48 Colace - PO 100 mg TID TRACY Administration Erythromycin 1 applic 02/01/17 22:00 02/02/17 22:32 Erythromycin 0.5% Eye Ointment OS 1 applic HS TRACY Administration Ferrous Sulfate 325 mg 02/01/17 10:00 02/03/17 11:07 Feosol - PO 325 mg DAILY TRACY Administration Fluticasone Propionate 1 spray 02/01/17 10:00 02/03/17 11:07 Flonase - NS 1 spray BID TRACY Administration Sodium Chloride 1,000 mls @ 75 mls/hr 02/01/17 03:15 02/03/17 10:58 Normal Saline - IV 75 mls/hr ASDIR TRACY Administration Ceftriaxone Sodium 50 mls @ 100 mls/hr 02/01/17 10:00 02/03/17 11:09 Rocephin 1gm Ivpb (Pre-Docked) IVPB 100 mls/hr DAILY TRACY Administration Acyclovir 500 mg/ Sodium 110 mls @ 110 mls/hr 02/01/17 11:00 02/03/17 10:59 Chloride IVPB 110 mls/hr Q12H TRACY Administration Latanoprost 1 drop 02/01/17 22:00 02/02/17 22:31 Xalatan 0.005% Eye Drops - OU 1 drop HS TRACY Administration Loratadine 10 mg 02/01/17 10:00 02/03/17 11:07 Claritin - PO 10 mg DAILY TRACY Administration Mupirocin 1 applic 02/01/17 10:00 02/03/17 11:03 Bactroban Ointment (For Decolonization) - NS 02/06/17 09:59 1 applic BID TRACY Administration Tobramycin Sulfate 1 drop 02/01/17 14:00 02/03/17 06:46 Tobrex Ophthalmic Solution - OS 1 applic TID TRACY Administration ASSESSMENT/PLAN: 81 year old woman admitted for sepsis secondary to Herpes Zoster opthalmicus, CLL. 1. Sepsis secondary to Herpes Opthalmicus Zoster -continue acyclovir 500mg IV (day 3), may switch to PO -Rocephin 1 gram given (day3) 2. CLL with leukocytosis and anemia -Improved H&H -WBC improved now in 40's -F/u CBC 3. Left facial shingles in immunocompromised patient -Healing -Optho recommendation: continue tobramycin drops. May add erythromycin opthalmic ointment to L eye at bedtime after Lumigan. Pt advised to follow up with optho outpatient. 4. New onset afib with RVR -Cardio meat boner and slicer has been consulted for discussion on anticoagulation 5. COPD -no acute exacerbation, continue symbicort, turdoza -on 2.5L 02 NC 6. PSVT -if frequent may need low dose BB 7. Hyperlipidemia -continue lipitor 10mg daily 8. Hyponatremia -continue IV NS @ 75 cc/hr -Do not increase sodium >10 in 24 hrs Disposition -medsur Visit type - Emergency Visit Emergency Visit: No - New Patient This patient is new to me today: No - Critical Care Critical Care patient: Yes Total Critical Care Time (in minutes): 12 - Discharge Referral Referred to [facility] Med P.C.: No
--- NOTE | 2017-02-03 17:28 | PN ---
Teaching Attending Note Name of Resident: Maritza Morillo ATTENDING PHYSICIAN STATEMENT I saw and evaluated the patient. I reviewed the resident's note and discussed the case with the resident. I agree with the resident's findings and plan as documented. SUBJECTIVE: No complaints. OBJECTIVE: Vital Signs Period Temp Pulse Resp BP Sys/Gong Pulse Ox Last 24 Hr 99 F-99.8 F 71-139 15-25 91-114/47-71 94-94 HEENT: Improving vesicular rash on left face HEART: S1S2, RRR LUNGS: Clear ABDOMEN: Soft, non-tender, distended, normal BS EXTREMITIES: No edema ASSESSMENT AND PLAN: This is a 81-year-old woman with a history of COPD, CLL, HTN, hyperlipidemia who presented to the ER from [facility] with left eye swelling and blurred difficulty. 1. Sepsis secondary to left facial cellulitis superimposed on Herpes zoster - Continue Rocephin, Acyclovir IV 2. Conjunctivitis, left eye - Continue Tobramycin eye drops, Erythromycin ointment 3. Paroxysmal atrial fibrillation - Remains in sinus rhythm - Likely secondary to sepsis 4. Leukocytosis and anemia secondary to sepsis and CLL - Continue ferrous sulfate - Transfused 2 units PRBCs 5. COPD - Stable - Continue Symbicort, Tudorza, DuoNeb as needed 6. Hypertension - Toprol XL held secondary to hypotension 7. Hyperlipidemia - Continue Lipitor 8. Hyponatremia - Improved 9. Glaucoma - Continue Xalatan eye drops
[2017-02-03] MEDS ORDERED: ACETAMINOPHEN 325 MG TABLET (FP) PO PRN (17:37)
[2017-02-03] MEDS ORDERED: ALBUTEROL SO4 2.5/IPRATROPIUM 0.5 INH SOL 3 ML VIAL.NEB. NEB PRN (17:37)
[2017-02-03] MEDS: ATORVASTATIN CA 10 MG TABLET (FP) PO SCH (21:22)
[2017-02-03] MEDS: ERYTHROMYCIN 0.5% OPHTHALMIC OINTMENT 3.5 GM TUBE OS SCH (21:23)
[2017-02-03] MEDS: MUPIROCIN 2% TOPICAL OINTMENT 22 GM TUBE NS SCH (21:23)
[2017-02-03] MEDS: LATANOPROST 0.005% OPHTH SOLN 2.5ML BOTTLE OU SCH (21:24)
[2017-02-03] MEDS ORDERED: QUEtiapine FUMARATE 25 MG TABLET (FP) PO ONE (21:52)
[2017-02-03] MEDS ORDERED: CHLORHEXIDINE GLUCONATE 4% CLEANSER FOR DECOLONIZATION TP SCH (22:00)
[2017-02-03] MEDS ORDERED: MUPIROCIN 2% TOPICAL OINTMENT FOR DECOLONIZATION NS SCH (22:00)
[2017-02-04] MEDS: DOCUSATE SODIUM 100 MG CAPSULE (FP) PO SCH ×3 (06:06→21:18)
[2017-02-04] MEDS: TOBRAMYCIN 0.3% OPHTH SOLN 5 ML BOTTLE OS SCH ×3 (06:06→21:20)
--- NOTE | 2017-02-04 08:45 | PN ---
Progress Note, Physician Chief Complaint: Pt A&Ox3; no chest pain; resting in bed; easily dyspneic with mild exertion.She wants to go home. History of Present Illness: The patient is a 81-year-old white woman rom Longterm, with a significant past medical history of chronic lymphocytic leukemia (diagnosed approximately 3 years ago), hypertension and chronic obstructive pulmonary disease, severe pulmonary HTNwho (EKG : chronically peaked T waves unrelated to potassium, per pt's technical administrator, Dr. Trinh), who presents to the emergency department via EMS for evaluation of left eye swelling. she was evaluated and diagnosed with shingles and started on Acyclovir last week. She states that she is unable to see from her left eye secondary to the swelling. She also complains of itchiness. No other complaints. No fever, chills, headache, lightheadedness, cough, shortness for breath. nausea, vomiting, diarrhea. - Current Medication List Current Medications: Active Medications Acetaminophen (Tylenol -) 650 mg PO Q6H PRN PRN Reason: FEVER OR PAIN Aclidinium [place] (Tudorza -) 1 puff IH BID [facility] Last Admin: 02/03/17 21:24 Dose: 1 puff Albuterol/Ipratropium (Duoneb -) 1 amp NEB Q4H PRN PRN Reason: SHORTNESS OF BREATH Atorvastatin Calcium (Lipitor -) 10 mg PO Q2D@[facility] Last Admin: 02/03/17 21:22 Dose: 10 mg Budesonide/Formoterol Fumarate (Symbicort 160/4.5mcg -) 1 puff IH BID [facility] Last Admin: 02/03/17 21:22 Dose: 1 puff Calamine (Calamine 8% Topical Lotion -) 1 applic TP BID PRN PRN Reason: FOR ITCHING Chlorhexidine Gluconate (Hibiclens For Decolonization -) 1 applic TP [facility] Last Admin: 02/03/17 21:23 Dose: Not Given Docusate Sodium (Colace -) 100 mg PO TID [facility] Last Admin: 02/04/17 06:06 Dose: 100 mg Erythromycin (Erythromycin 0.5% Eye Ointment) 1 applic OS [facility] Last Admin: 02/03/17 21:23 Dose: 1 applic Ferrous Sulfate (Feosol -) 325 mg PO DAILY [facility] Fluticasone Propionate (Flonase -) 1 spray NS BID [facility] Last Admin: 02/03/17 21:23 Dose: 1 spray Acyclovir 500 mg/ Sodium (Chloride) 110 mls @ 110 mls/hr IVPB Q12H [facility] Last Admin: 02/03/17 22:09 Dose: 110 mls/hr Ceftriaxone Sodium (Rocephin 1gm Ivpb (Pre-Docked)) 50 mls @ 100 mls/hr IVPB DAILY [facility] Sodium Chloride (Normal Saline -) 1,000 mls @ 75 mls/hr IV ASDIR [facility] Last Admin: 02/03/17 21:23 Dose: Not Given Latanoprost (Xalatan 0.005% Eye Drops -) 1 drop OU HS [facility] Last Admin: 02/03/17 21:24 Dose: 1 drop Loratadine (Claritin -) 10 mg PO DAILY [facility] Mupirocin (Bactroban 2% Ointment -) 1 applic NS BID [facility] Stop: 02/08/17 21:59 Last Admin: 02/03/17 21:23 Dose: Not Given Tobramycin Sulfate (Tobrex Ophthalmic Solution -) 1 drop OS TID [facility] Last Admin: 02/04/17 06:06 Dose: 1 drop - Objective Vital Signs: Vital Signs Temperature 98.9 F 02/04/17 06:00 Pulse Rate 108 H 02/04/17 06:00 Respiratory Rate 18 02/04/17 06:00 Blood Pressure 141/57 02/04/17 06:00 O2 Sat by Pulse Oximetry (%) 93 L 02/03/17 20:16 Constitutional: Yes: Calm Eyes: Yes: Other (improvement in swelling and periorbital erythema) HENT: Yes: WNL Neck: Yes: WNL Cardiovascular: Yes: Pulse Irregular Respiratory: Yes: Diminished Gastrointestinal: Yes: Soft ...Rectal Exam: Yes: Deferred Genitourinary: No: Anuria Breast(s): Yes: WNL Musculoskeletal: Yes: Muscle Weakness Edema: No Peripheral Pulses WNL: No Peripheral Pulses: Left Doralis Pedis: 1+, Right Dorsalis Pedis: 1+ Integumentary: Yes: Erythema, Rash Neurological: Yes: Weakness Psychiatric: Yes: WNL Labs: CBC, BMP 02/03/17 03:40 02/03/17 03:40 INR, PTT INR 1.04 (0.82-1.09) 02/01/17 05:15 Abnormal Lab Results 02/01/17 02/05/17 02/05/17 08:25 05:53 05:53 WBC 29.9 H RBC 2.82 L Hgb 7.5 L Hct 24.3 L MCHC 30.9 L RDW 15.8 H Neutrophils % 33.0 L D Lymphocytes % 59.0 H Carbon Dioxide 33 H Anion Gap 4 L BUN 20 H Creatinine 0.4 L Calcium 8.2 L Crossmatch See Detail - ....Imaging Other: Image Reviewed (telemetry: NSR; periods of AF with RVR) Problem List - Problems (1) Shingles outbreak Assessment/Plan: improvement in rash, facial swelling treatment per ID Code(s): B02.9 - ZOSTER WITHOUT COMPLICATIONS Qualifiers: Herpes zoster complications: unspecified herpes zoster complication Qualified Code(s): B02.8 - Zoster with other complications (2) COPD (chronic obstructive pulmonary disease) Assessment/Plan: pt was a heavy smoker; quit ?cold turkey" 2 yrs ago Code(s): J44.9 - CHRONIC OBSTRUCTIVE PULMONARY DISEASE, UNSPECIFIED (3) PSVT (paroxysmal supraventricular tachycardia) Assessment/Plan: I discussed pt with her technical administrator, Dr. Handley. There is no hx of CAD or arrhythmias. Brief runs of PSVT noted on monitor during this hospitalization. ECHO 10/02: normal LVEF; severe pulmonary HTN; moderate . Pt denies hx asthma. Observe while anemia and shingles are treated. Avoid dehydration. F/u electrolytes. Code(s): I47.1 - SUPRAVENTRICULAR TACHYCARDIA (4) Atrial fibrillation Assessment/Plan: Has received IV metoprolol for AF with RVR; will start PO. Maintain hydration. Leukemia, anemia preclude use of anticoagulant. Code(s): I48.91 - UNSPECIFIED ATRIAL FIBRILLATION
--- NOTE | 2017-02-04 09:08 | PN ---
Physical Exam: SUBJECTIVE: Patient seen and examined at bedside. Pt states that she is having blurry vision again in L eye. Pt denies SOB, chest pain. OBJECTIVE: Vital Signs Period Temp Pulse Resp BP Sys/Gong Pulse Ox Last 24 Hr 97.8 F-99 F 71-108 16-25 95-141/50-71 93-93 GENERAL: The patient is awake, alert, and fully oriented, in no acute distress. On 2L 02. HEAD: Normal with no signs of trauma. Zoster on L temporal region healing, scaley white dry patches, non-erythematous EYES: PERRL, extraocular movements intact, sclera anicteric, conjunctiva clear. L eyelid swollen ENT: oropharynx clear without exudates, moist mucous membranes. NECK: Trachea midline, supple. LUNGS: Breath sounds equal, clear to auscultation bilaterally, no wheezes, no crackles, no accessory muscle use. HEART: Regular rate and rhythm, S1, S2 without murmur, rub or gallop. ABDOMEN: Soft, nontender, nondistended, normoactive bowel sounds, no guarding, no rebound EXTREMITIES: 2+ posterior tibial pulses, warm, well-perfused, no edema. NEUROLOGICAL: Cranial nerves II through XII grossly intact. GENITOURINARY: Wayne in Active Medications Generic Name Dose Route Start Last Admin Trade Name Robbieq PRN Reason Stop Dose Admin Acetaminophen 650 mg 02/03/17 17:37 Tylenol - PO Q6H PRN FEVER OR PAIN Aclidinium [place] 1 puff 02/03/17 22:00 02/03/17 21:24 Tudorza - IH 1 puff BID TRACY Administration Albuterol/Ipratropium 1 amp 02/03/17 17:37 Duoneb - NEB Q4H PRN SHORTNESS OF BREATH Atorvastatin Calcium 10 mg 02/03/17 22:00 02/03/17 21:22 Lipitor - PO 10 mg Q2D@HS TRACY Administration Budesonide/Formoterol Fumarate 1 puff 02/03/17 22:00 02/03/17 21:22 Symbicort 160/4.5mcg - IH 1 puff BID TRACY Administration Calamine 1 applic 02/03/17 17:37 Calamine 8% Topical Lotion - TP BID PRN FOR ITCHING Docusate Sodium 100 mg 02/03/17 22:00 02/04/17 06:06 Colace - PO 100 mg TID TRACY Administration Erythromycin 1 applic 02/03/17 22:00 02/03/17 21:23 Erythromycin 0.5% Eye Ointment OS 1 applic HS TRACY Administration Ferrous Sulfate 325 mg 02/04/17 10:00 Feosol - PO DAILY TRACY Fluticasone Propionate 1 spray 02/03/17 22:00 02/03/17 21:23 Flonase - NS 1 spray BID TRACY Administration Acyclovir 500 mg/ Sodium 110 mls @ 110 mls/hr 02/03/17 23:00 02/03/17 22:09 Chloride IVPB 110 mls/hr Q12H TRACY Administration Ceftriaxone Sodium 50 mls @ 100 mls/hr 02/04/17 10:00 Rocephin 1gm Ivpb (Pre-Docked) IVPB DAILY TRACY Sodium Chloride 1,000 mls @ 75 mls/hr 02/03/17 17:37 02/03/17 21:23 Normal Saline - IV Not Given ASDIR TRACY Latanoprost 1 drop 02/03/17 22:00 02/03/17 21:24 Xalatan 0.005% Eye Drops - OU 1 drop HS TRACY Administration Loratadine 10 mg 02/04/17 10:00 Claritin - PO DAILY TRACY Mupirocin 1 applic 02/03/17 22:00 02/03/17 21:23 Bactroban 2% Ointment - NS 02/08/17 21:59 Not Given BID TRACY Tobramycin Sulfate 1 drop 02/03/17 22:00 02/04/17 06:06 Tobrex Ophthalmic Solution - OS 1 drop TID TRACY Administration ASSESSMENT/PLAN: 81 year old woman admitted for sepsis secondary to Herpes Zoster opthalmicus, CLL. 1. Sepsis secondary to Herpes Opthalmicus Zoster -Switched to PO (Valtrex 1000mg PO BID, Keflex 500mg PO BID- 3 day course for each) (replacing IV acyclovir, Rocephin) 2. CLL with leukocytosis and anemia -Improved H&H (8.1/26.3) -WBC's 30.6, improving -F/u tomorrow's CBC 3. Left facial shingles in immunocompromised patient -Healing Zoster- dry scaly patches on L temporal region, non-erythematous -Continue Tobramycin drops 1 drop in each eye, erythromycin opthalmic ointment to L eye at bedtime after Lumigan 4. Paraoxysmal afib with RVR- 1 episode, resolved -possibly due to sepsis 5. COPD -no acute exacerbation, continue symbicort, turdoza -on 2L 02 NC 6. PSVT -TSH returned WNL to rule out thyroid dysfunction as cause of tachycardia -Last night, pt was tachycardic to 150-160's, no medication was given, returned to 80-90's -This afternoon at 2pm, pt tachycardic again to 150's , lopressor 25mg PO given 7. Hyperlipidemia -continue lipitor 10mg daily 8. Hyponatremia-resolved 9. Urinary retention -Wayne being removed currently 5pm, will follow up if any retention with bladder scan General -PT has been ordered -OOB to chair -patient can tolerate PO Disposition -pt's condition is improving -to discuss discharge planning tomorrow Plan was discussed with senior resident Visit type - Emergency Visit Emergency Visit: No - New Patient This patient is new to me today: No - Critical Care Critical Care patient: No
[2017-02-04 09:15] LABS: MCH 26.4 pg (25.7-33.7); MCHC 30.8 g/dl (32.0-36.0); MEAN CELL VOLUME 85.7 fl (80-96); MEAN PLT VOLUME 8.1 fl (7.5-11.1); PLATELET COUNT 149 K/MM3 (134-434); RDW 15.4 % (11.6-15.6)
[2017-02-04 09:20] LABS: ANION GAP 5 (8-16); CALCIUM 7.9 mg/dL (8.5-10.1); CO2 33 mmol/L (21-32); CREATININE 0.4 mg/dL (0.55-1.02); GLUCOSE,RANDOM 106 mg/dL (74-106)
[2017-02-04 09:21] LABS: WHITE BLOOD COUNT 30.6 K/mm3 (4.0-10.0)
[2017-02-04] MEDS: CALAMINE 8% TOPICAL LOTION 177 ML BOTTLE TP PRN (09:23)
[2017-02-04] MEDS: FERROUS SO4 325 MG TABLET (FP) PO SCH (09:24)
[2017-02-04] MEDS: LORATADINE 10 MG TABLET PO SCH (09:24)
[2017-02-04] MEDS: MUPIROCIN 2% TOPICAL OINTMENT 22 GM TUBE NS SCH (09:26)
[2017-02-04] MEDS: ACLIDINIUM BROMIDE 400 MCG/INH AERO.POWD IH SCH ×2 (09:28→21:23)
[2017-02-04] MEDS: BUDESONIDE/FORMETEROL FUMARATE 160/4.5 mcg INHALER IH SCH ×2 (09:28→21:22)
[2017-02-04] MEDS: FLUTICASONE PROP 0.05% 16 GM NASAL SPRAY NS SCH ×2 (09:29→21:21)
[2017-02-04] MEDS ORDERED: CEFTRIAXONE 50 ML IVPB SCH (10:00)
[2017-02-04] MEDS: ACYCLOVIR INJECTION 500 MG in SODIUM CHLORIDE 100 ML IVPB SCH (10:02)
[2017-02-04 10:12] LABS: THYROID STIMULATING HORMONE 2.07 uIU/ml (0.358-3.74)
--- NOTE | 2017-02-04 11:52 | PN ---
Progress Note, Physician History of Present Illness: Patient seen and examined She continues to improve She feels well, she did have a BM yesterday Moved out of the ICU to regular floor PT at bedside - Current Medication List Current Medications: Active Medications Acetaminophen (Tylenol -) 650 mg PO Q6H PRN PRN Reason: FEVER OR PAIN Aclidinium [place] (Tudorza -) 1 puff IH BID [facility] Last Admin: 02/04/17 09:28 Dose: 1 puff Albuterol/Ipratropium (Duoneb -) 1 amp NEB Q4H PRN PRN Reason: SHORTNESS OF BREATH Atorvastatin Calcium (Lipitor -) 10 mg PO Q2D@HS [facility] Last Admin: 02/03/17 21:22 Dose: 10 mg Budesonide/Formoterol Fumarate (Symbicort 160/4.5mcg -) 1 puff IH BID [facility] Last Admin: 02/04/17 09:28 Dose: 1 puff Calamine (Calamine 8% Topical Lotion -) 1 applic TP BID PRN PRN Reason: FOR ITCHING Last Admin: 02/04/17 09:23 Dose: 1 applic Docusate Sodium (Colace -) 100 mg PO TID [facility] Last Admin: 02/04/17 06:06 Dose: 100 mg Erythromycin (Erythromycin 0.5% Eye Ointment) 1 applic OS HS [facility] Last Admin: 02/03/17 21:23 Dose: 1 applic Ferrous Sulfate (Feosol -) 325 mg PO DAILY [facility] Last Admin: 02/04/17 09:24 Dose: 325 mg Fluticasone Propionate (Flonase -) 1 spray NS BID [facility] Last Admin: 02/04/17 09:29 Dose: 1 spray Acyclovir 500 mg/ Sodium (Chloride) 110 mls @ 110 mls/hr IVPB Q12H [facility] Last Admin: 02/04/17 10:02 Dose: 110 mls/hr Ceftriaxone Sodium (Rocephin 1gm Ivpb (Pre-Docked)) 50 mls @ 100 mls/hr IVPB DAILY [facility] Last Admin: 02/04/17 09:24 Dose: 100 mls/hr Sodium Chloride (Normal Saline -) 1,000 mls @ 75 mls/hr IV ASDIR [facility] Last Admin: 02/03/17 21:23 Dose: Not Given Latanoprost (Xalatan 0.005% Eye Drops -) 1 drop OU HS [facility] Last Admin: 02/03/17 21:24 Dose: 1 drop Loratadine (Claritin -) 10 mg PO DAILY [facility] Last Admin: 02/04/17 09:24 Dose: 10 mg Tobramycin Sulfate (Tobrex Ophthalmic Solution -) 1 drop OS TID [facility] Last Admin: 02/04/17 06:06 Dose: 1 drop - Objective Vital Signs: Vital Signs Temperature 98.9 F 02/04/17 08:32 Pulse Rate 89 02/04/17 08:32 Respiratory Rate 18 02/04/17 08:36 Blood Pressure 139/60 02/04/17 08:32 O2 Sat by Pulse Oximetry (%) 93 L 02/04/17 08:36 Constitutional: Yes: Well Nourished, No Distress Eyes: Yes: Other (left forehead with healing vescicles Left eye lid swelling decreased) Neck: Yes: Supple. No: Lymphadenopathy Cardiovascular: Yes: Regular Rate and Rhythm Respiratory: Yes: CTA Bilaterally Gastrointestinal: Yes: Normal Bowel Sounds Edema: No Labs: CBC, BMP 02/04/17 08:40 02/04/17 08:40 INR, PTT INR 1.04 (0.82-1.09) 02/01/17 05:15 Problem List - Problems (1) CLL (chronic lymphocytic leukemia) Assessment/Plan: Lymphocytosis in the setting of BTK inhibitor, ibrutinib and also acuity of the situation, now resolving. Hold the medication until seen as an Out pt. ?need of VZV ppx in the future along with chemo Quantitative Immunoglobulins- wnl , no IVIG indicated Need to follow-up with as an OP, patient mentioned she will see him post discharge Code(s): C91.10 - CHRONIC LYMPHOCYTIC LEUK OF B-CELL TYPE NOT ACHIEVE REMIS (2) Anemia Assessment/Plan: Anemia, might be explained by the ibrutinib/ acute event. Supportive care and transfusion support as needed Presently holding hgb, no further transfusion needed Code(s): D64.9 - ANEMIA, UNSPECIFIED Qualifiers: Qualified Code(s): D63.0 - Anemia in neoplastic disease (3) Shingles outbreak Assessment/Plan: appreciate ID consult seen by Ophthal On treatment , much improved now will likely be Switched to PO today Will follow PT , likely being prepared for d/c planning Code(s): B02.9 - ZOSTER WITHOUT COMPLICATIONS Qualifiers: Qualified Code(s): B02.8 - Zoster with other complications
[2017-02-04 12:00] LABS: PLATELET ESTIMATE ADEQUATE (NORMAL); SMUDGE CELLS MANY
--- NOTE | 2017-02-04 12:48 | PN ---
Progress Note (short form) - Note Progress Note: PULMONARY Denies shortness of breath or chest pain. No fevers or chills. Last Vital Signs Temp Pulse Resp BP Pulse Ox 98.9 F 89 18 139/60 93 L 02/04/17 08:32 02/04/17 08:32 02/04/17 08:36 02/04/17 08:32 02/04/17 08:36 Gen: NAD at rest Heart: RRR Lung: decreased breath sounds at the bases Abd: soft, nontender Ext: no edema CBC, BMP 02/04/17 08:40 02/04/17 08:40 Active Medications Acetaminophen (Tylenol -) 650 mg PO Q6H PRN PRN Reason: FEVER OR PAIN Aclidinium [place] (Tudorza -) [address] [facility] Last Admin: 02/04/17 09:28 Dose: 1 puff Albuterol/Ipratropium (Duoneb -) 1 amp NEB Q4H PRN PRN Reason: SHORTNESS OF BREATH Atorvastatin Calcium (Lipitor -) 10 mg PO Q2D@HS [facility] Last Admin: 02/03/17 21:22 Dose: 10 mg Budesonide/Formoterol Fumarate (Symbicort 160/4.5mcg -) [address] [facility] Last Admin: 02/04/17 09:28 Dose: 1 puff Calamine (Calamine 8% Topical Lotion -) 1 applic TP BID PRN PRN Reason: FOR ITCHING Last Admin: 02/04/17 09:23 Dose: 1 applic Docusate Sodium (Colace -) [address] [facility] Last Admin: 02/04/17 06:06 Dose: 100 mg Erythromycin (Erythromycin 0.5% Eye Ointment) [address] [facility] Last Admin: 02/03/17 21:23 Dose: 1 applic Ferrous Sulfate (Feosol -) [address] [facility] Last Admin: 02/04/17 09:24 Dose: 325 mg Fluticasone Propionate (Flonase -) [address] [facility] Last Admin: 02/04/17 09:29 Dose: 1 spray Acyclovir 500 mg/ Sodium (Chloride) 110 mls @ 110 mls/hr IVPB Q12H [facility] Last Admin: 02/04/17 10:02 Dose: 110 mls/hr Ceftriaxone Sodium (Rocephin 1gm Ivpb (Pre-Docked)) 50 mls @ 100 mls/hr IVPB DAILY [facility] Last Admin: 02/04/17 09:24 Dose: 100 mls/hr Sodium Chloride (Normal Saline -) 1,000 mls @ 75 mls/hr IV ASDIR [facility] Last Admin: 02/03/17 21:23 Dose: Not Given Latanoprost (Xalatan 0.005% Eye Drops -) [address] [facility] Last Admin: 02/03/17 21:24 Dose: 1 drop Loratadine (Claritin -) [address] [facility] Last Admin: 02/04/17 09:24 Dose: 10 mg Tobramycin Sulfate (Tobrex Ophthalmic Solution -) [address] [facility] Last Admin: 02/04/17 06:06 Dose: 1 drop A/P CLL s/p chemotherapy Herpes Zoster/Facial Cellulitis Sepsis PSVT Anemia s/p PRBC transfusions COPD Chronic Hypoxic Respiratory Failure HTN Hyperlipidemia Hypothyroidism - antibiotics per ID - bowel regimen - PO as tolerated - monitor H/H - inhaled bronchodilators - O2 to keep SpO2 >90% - if frequent PSVT may need maintenance low dose beta kalyn, monitor lytes - telemetry monitoring
[2017-02-04] MEDS ORDERED: METOPROLOL TARTRATE 25 MG TABLET (FP) PO ONE (14:12)
--- NOTE | 2017-02-04 16:19 | PN ---
Teaching Attending Note Name of Resident: Maritza Morillo ATTENDING PHYSICIAN STATEMENT I saw and evaluated the patient. I reviewed the resident's note and discussed the case with the resident. I agree with the resident's findings and plan as documented. SUBJECTIVE: No complaints. Wants to go home. OBJECTIVE: Vital Signs Period Temp Pulse Resp BP Sys/Gong Pulse Ox Last 24 Hr 97.8 F-99.9 F 75-108 16-20 112-141/50-81 93-93 HEENT: Improving vesicular rash on left face HEART: S1S2, RRR LUNGS: Clear ABDOMEN: Soft, non-tender, distended, normal BS EXTREMITIES: No edema ASSESSMENT AND PLAN: This is a 81-year-old woman with a history of COPD, CLL, HTN, hyperlipidemia who presented to the ER from [facility] with left eye swelling and blurred difficulty. 1. Sepsis secondary to left facial cellulitis superimposed on Herpes zoster - Continue Rocephin, Acyclovir IV 2. Conjunctivitis, left eye - Continue Tobramycin eye drops, Erythromycin ointment 3. PAF/PSVT - Remains in sinus rhythm - Likely secondary to sepsis - Toprol XL has been on hold secondary to hypotension 4. Leukocytosis and anemia secondary to sepsis and CLL - Continue ferrous sulfate - Transfused 2 units PRBCs this admission 5. COPD - Stable - Continue Symbicort, Tudorza, DuoNeb as needed 6. Hypertension - Toprol XL held secondary to hypotension 7. Hyperlipidemia - Continue Lipitor 8. Hyponatremia - Improved 9. Glaucoma - Continue Xalatan eye drops 10. Urinary retention - Remove Wayne, voiding trial today 11. Physical therapy
--- NOTE | 2017-02-04 16:22 | PN ---
Progress Note (short form) - Note Progress Note: much improved swelling almost resolved alert and conversant no other lesions Vital Signs Period Temp Pulse Resp BP Sys/Gong Pulse Ox Last 24 Hr 97.8 F-99.9 F 75-108 16-20 116-141/55-81 93-93 skin- drying lesions no edema cor-rrr lungs decreased bs at bases abd soft,nt ext no edema +foy CBC, BMP 02/04/17 08:40 02/04/17 08:40 a/p zoster opthalmicus-improved cellulitis-improved CLL anemia improving switch to po valtrex and keflex consider d/c foy
--- NOTE | 2017-02-04 16:28 | EKG ---
Test Reason : Blood Pressure : / mmHG Vent. Rate : 078 BPM Atrial Rate : 078 BPM P-R Int : 000 ms QRS Dur : 090 ms QT Int : 388 ms P-R-T Axes : 059 051 061 degrees QTc Int : 442 ms NORMAL SINUS RHYTHM NORMAL ECG WHEN COMPARED WITH ECG OF 03-FEB-2017 02:57, VENT. RATE HAS DECREASED BY 61 BPM T WAVE INVERSION NO LONGER EVIDENT IN INFERIOR LEADS T WAVE INVERSION NO LONGER EVIDENT IN LATERAL LEADS Confirmed by JENNIFER MORA MD ([id number]) on 02/04/2017 4:28:10 PM Referred By: MICHAEL PARDO Confirmed By:JENNIFER MORA MD
[2017-02-04] MEDS: SODIUM CHLORIDE 1,000 ML IV SCH (18:30)
[2017-02-04] MEDS ORDERED: MELATONIN 5 MG TABLETS PO ONE (20:57)
[2017-02-04] MEDS: CEPHALEXIN MONOHYDRATE 500 MG CAPSULE (UD) PO SCH (21:19)
[2017-02-04] MEDS: valACYclovir HCL 500 MG TABLET (FP) PO SCH (21:19)
[2017-02-04] MEDS: LATANOPROST 0.005% OPHTH SOLN 2.5ML BOTTLE OU SCH (21:21)
[2017-02-04] MEDS: ERYTHROMYCIN 0.5% OPHTHALMIC OINTMENT 3.5 GM TUBE OS SCH (21:22)
[2017-02-05] MEDS: TOBRAMYCIN 0.3% OPHTH SOLN 5 ML BOTTLE OS SCH ×3 (06:44→21:24)
[2017-02-05] MEDS: DOCUSATE SODIUM 100 MG CAPSULE (FP) PO SCH ×3 (06:44→21:11)
[2017-02-05 08:11] LABS: MCH 26.6 pg (25.7-33.7); MCHC 30.9 g/dl (32.0-36.0); MEAN CELL VOLUME 86.2 fl (80-96); MEAN PLT VOLUME 8.9 fl (7.5-11.1); PLATELET COUNT 169 K/MM3 (134-434); RDW 15.8 % (11.6-15.6); WHITE BLOOD COUNT 29.9 K/mm3 (4.0-10.0)
[2017-02-05 08:32] LABS: ANION GAP 4 (8-16); CALCIUM 8.2 mg/dL (8.5-10.1); CO2 33 mmol/L (21-32); CREATININE 0.4 mg/dL (0.55-1.02); GLUCOSE,RANDOM 101 mg/dL (74-106)
[2017-02-05] MEDS ORDERED: PT OWN MED DRAWER 7, Y5N ONE ×2 (08:57→21:26)
[2017-02-05] MEDS: CEPHALEXIN MONOHYDRATE 500 MG CAPSULE (UD) PO SCH ×2 (09:15→21:11)
[2017-02-05] MEDS: ACLIDINIUM BROMIDE 400 MCG/INH AERO.POWD IH SCH ×2 (09:15→21:12)
[2017-02-05] MEDS: BUDESONIDE/FORMETEROL FUMARATE 160/4.5 mcg INHALER IH SCH ×2 (09:15→21:11)
[2017-02-05] MEDS: CALAMINE 8% TOPICAL LOTION 177 ML BOTTLE TP PRN (09:15)
[2017-02-05] MEDS: LORATADINE 10 MG TABLET PO SCH (09:15)
[2017-02-05] MEDS: FERROUS SO4 325 MG TABLET (FP) PO SCH (09:15)
[2017-02-05] MEDS: valACYclovir HCL 500 MG TABLET (FP) PO SCH ×2 (09:15→21:27)
[2017-02-05] MEDS: FLUTICASONE PROP 0.05% 16 GM NASAL SPRAY NS SCH ×2 (09:17→21:11)
--- NOTE | 2017-02-05 09:41 | PN ---
Progress Note, Physician Chief Complaint: Pt A&Ox3; calm; less discomfort from rash, swelling facially. History of Present Illness: The patient is a 81-year-old white woman rom [facility], with a significant past medical history of chronic lymphocytic leukemia (diagnosed approximately 3 years ago), hypertension and chronic obstructive pulmonary disease, severe pulmonary HTNwho (EKG : chronically peaked T waves unrelated to potassium, per pt's melon packer, Dr. Trinh), who presents to the emergency department via EMS for evaluation of left eye swelling. she was evaluated and diagnosed with shingles and started on Acyclovir last week. She states that she is unable to see from her left eye secondary to the swelling. She also complains of itchiness. No other complaints. No fever, chills, headache, lightheadedness, cough, shortness for breath. nausea, vomiting, diarrhea. - Current Medication List Current Medications: Active Medications Acetaminophen (Tylenol -) 650 mg PO Q6H PRN PRN Reason: FEVER OR PAIN Aclidinium [place] (Tudorza -) 1 puff IH BID [facility] Last Admin: 02/05/17 09:15 Dose: 1 puff Albuterol/Ipratropium (Duoneb -) 1 amp NEB Q4H PRN PRN Reason: SHORTNESS OF BREATH Atorvastatin Calcium (Lipitor -) 10 mg PO Q2D@HS [facility] Last Admin: 02/03/17 21:22 Dose: 10 mg Budesonide/Formoterol Fumarate (Symbicort 160/4.5mcg -) 1 puff IH BID [facility] Last Admin: 02/05/17 09:15 Dose: 1 puff Calamine (Calamine 8% Topical Lotion -) 1 applic TP BID PRN PRN Reason: FOR ITCHING Last Admin: 02/05/17 09:15 Dose: 1 applic Cephalexin HCl (Keflex -) 500 mg PO BID [facility] Last Admin: 02/05/17 09:15 Dose: 500 mg Docusate Sodium (Colace -) 100 mg PO TID [facility] Last Admin: 02/05/17 06:44 Dose: 100 mg Erythromycin (Erythromycin 0.5% Eye Ointment) 1 applic OS HS [facility] Last Admin: 02/04/17 21:22 Dose: 1 applic Ferrous Sulfate (Feosol -) 325 mg PO DAILY [facility] Last Admin: 02/05/17 09:15 Dose: 325 mg Fluticasone Propionate (Flonase -) 1 spray NS BID [facility] Last Admin: 02/05/17 09:17 Dose: 1 spray Sodium Chloride (Normal Saline -) 1,000 mls @ 75 mls/hr IV ASDIR [facility] Last Admin: 02/04/17 18:30 Dose: 75 mls/hr Latanoprost (Xalatan 0.005% Eye Drops -) 1 drop OU HS [facility] Last Admin: 02/04/17 21:21 Dose: 1 drop Loratadine (Claritin -) 10 mg PO DAILY [facility] Last Admin: 02/05/17 09:15 Dose: 10 mg Tobramycin Sulfate (Tobrex Ophthalmic Solution -) 1 drop OS TID [facility] Last Admin: 02/05/17 06:44 Dose: 1 drop Valacyclovir HCl (Valtrex -) 1,000 mg PO BID [facility] Last Admin: 02/05/17 09:15 Dose: 1,000 mg - Objective Vital Signs: Vital Signs Temperature 98.1 F 02/05/17 08:04 Pulse Rate 88 02/05/17 08:04 Respiratory Rate 20 02/05/17 08:11 Blood Pressure 121/62 02/05/17 08:04 O2 Sat by Pulse Oximetry (%) 94 L 02/04/17 21:00 Constitutional: Yes: Calm Eyes: Yes: Other (left periorbital swelling and rash have lessened) HENT: Yes: WNL Neck: Yes: WNL Cardiovascular: Yes: Pulse Irregular Respiratory: Yes: Diminished Gastrointestinal: No: Soft ...Rectal Exam: Yes: Deferred Genitourinary: No: Anuria Breast(s): Yes: WNL Musculoskeletal: Yes: Muscle Weakness Extremities: Yes: Cool Edema: No Peripheral Pulses WNL: No Peripheral Pulses: Left Doralis Pedis: 1+, Right Dorsalis Pedis: 1+ Integumentary: Yes: Rash Neurological: Yes: Alert, Oriented, Weakness Psychiatric: Yes: WNL Labs: CBC, BMP 02/05/17 05:53 02/05/17 05:53 INR, PTT INR 1.04 (0.82-1.09) 02/01/17 05:15 - ....Imaging Other: Image Reviewed (NSR; transient AF, at times with RVR) Problem List - Problems (1) Shingles outbreak Assessment/Plan: improvement in rash, facial swelling treatment per ID Code(s): B02.9 - ZOSTER WITHOUT COMPLICATIONS Qualifiers: Herpes zoster complications: unspecified herpes zoster complication Qualified Code(s): B02.8 - Zoster with other complications (2) COPD (chronic obstructive pulmonary disease) Assessment/Plan: pt was a heavy smoker; quit ?cold turkey" 2 yrs ago Code(s): J44.9 - CHRONIC OBSTRUCTIVE PULMONARY DISEASE, UNSPECIFIED (3) PSVT (paroxysmal supraventricular tachycardia) Assessment/Plan: I discussed pt with her melon packer, Dr. Handley. There is no hx of CAD or arrhythmias. Brief runs of PSVT noted on monitor during this hospitalization. ECHO 10/02: normal LVEF; severe pulmonary HTN; moderate . Pt denies hx asthma. Observe while anemia and shingles are treated. Avoid dehydration. F/u electrolytes. Code(s): I47.1 - SUPRAVENTRICULAR TACHYCARDIA (4) Atrial fibrillation Assessment/Plan: Has received IV metoprolol for AF with RVR; will start PO because of continued periods of AF with RVR. Maintain hydration. Leukemia, anemia apparently preclude use of anticoagulant. TSH WNL. Code(s): I48.91 - UNSPECIFIED ATRIAL FIBRILLATION
[2017-02-05] MEDS: METOPROLOL TARTRATE 25 MG TABLET (FP) PO SCH ×2 (10:52→21:11)
[2017-02-05 11:19] LABS: PLATELET ESTIMATE ADEQUATE (NORMAL); SMUDGE CELLS MANY
--- NOTE | 2017-02-05 11:29 | PN ---
Progress Note, Physician History of Present Illness: pulmonary alert,nad,-sob,-cp - Current Medication List Current Medications: Active Medications Acetaminophen (Tylenol -) 650 mg PO Q6H PRN PRN Reason: FEVER OR PAIN Aclidinium [place] (Tudorza -) 1 puff IH BID [facility] Last Admin: 02/05/17 09:15 Dose: 1 puff Albuterol/Ipratropium (Duoneb -) 1 amp NEB Q4H PRN PRN Reason: SHORTNESS OF BREATH Atorvastatin Calcium (Lipitor -) 10 mg PO Q2D@HS [facility] Last Admin: 02/03/17 21:22 Dose: 10 mg Budesonide/Formoterol Fumarate (Symbicort 160/4.5mcg -) 1 puff IH BID [facility] Last Admin: 02/05/17 09:15 Dose: 1 puff Calamine (Calamine 8% Topical Lotion -) 1 applic TP BID PRN PRN Reason: FOR ITCHING Last Admin: 02/05/17 09:15 Dose: 1 applic Cephalexin HCl (Keflex -) 500 mg PO BID [facility] Last Admin: 02/05/17 09:15 Dose: 500 mg Docusate Sodium (Colace -) 100 mg PO TID [facility] Last Admin: 02/05/17 06:44 Dose: 100 mg Erythromycin (Erythromycin 0.5% Eye Ointment) 1 applic OS HS [facility] Last Admin: 02/04/17 21:22 Dose: 1 applic Ferrous Sulfate (Feosol -) 325 mg PO DAILY [facility] Last Admin: 02/05/17 09:15 Dose: 325 mg Fluticasone Propionate (Flonase -) 1 spray NS BID [facility] Last Admin: 02/05/17 09:17 Dose: 1 spray Sodium Chloride (Normal Saline -) 1,000 mls @ 75 mls/hr IV ASDIR [facility] Last Admin: 02/04/17 18:30 Dose: 75 mls/hr Latanoprost (Xalatan 0.005% Eye Drops -) 1 drop OU HS [facility] Last Admin: 02/04/17 21:21 Dose: 1 drop Loratadine (Claritin -) 10 mg PO DAILY [facility] Last Admin: 02/05/17 09:15 Dose: 10 mg Metoprolol Tartrate (Lopressor -) 25 mg PO BID [facility] Tobramycin Sulfate (Tobrex Ophthalmic Solution -) 1 drop OS TID [facility] Last Admin: 02/05/17 06:44 Dose: 1 drop Valacyclovir HCl (Valtrex -) 1,000 mg PO BID [facility] Last Admin: 02/05/17 09:15 Dose: 1,000 mg - Objective Vital Signs: Vital Signs Temperature 98.1 F 02/05/17 08:04 Pulse Rate 88 02/05/17 08:04 Respiratory Rate 20 02/05/17 08:11 Blood Pressure 121/62 02/05/17 08:04 O2 Sat by Pulse Oximetry (%) 94 L 02/04/17 21:00 Constitutional: Yes: Calm, Thin Eyes: Yes: WNL HENT: Yes: WNL Neck: Yes: WNL Cardiovascular: Yes: Regular Rate and Rhythm, S1, S2 Respiratory: Yes: Rales (BIBASILAR RALES 1/3 UP) Gastrointestinal: Yes: Normal Bowel Sounds, Soft Extremities: Yes: WNL Edema: No Labs: CBC, BMP 02/05/17 05:53 02/05/17 05:53 INR, PTT INR 1.04 (0.82-1.09) 02/01/17 05:15 Problem List - Problems (1) Anemia Code(s): D64.9 - ANEMIA, UNSPECIFIED Qualifiers: Anemia type: other cause Other causes of anemia: chronic disease, neoplastic Qualified Code(s): D63.0 - Anemia in neoplastic disease (2) CLL (chronic lymphocytic leukemia) Code(s): C91.10 - CHRONIC LYMPHOCYTIC LEUK OF B-CELL TYPE NOT ACHIEVE REMIS (3) COPD (chronic obstructive pulmonary disease) Code(s): J44.9 - CHRONIC OBSTRUCTIVE PULMONARY DISEASE, UNSPECIFIED (4) PSVT (paroxysmal supraventricular tachycardia) Code(s): I47.1 - SUPRAVENTRICULAR TACHYCARDIA (5) Shingles outbreak Code(s): B02.9 - ZOSTER WITHOUT COMPLICATIONS Qualifiers: Herpes zoster complications: unspecified herpes zoster complication Qualified Code(s): B02.8 - Zoster with other complications (6) Chronic hypoxemic respiratory failure Code(s): J96.11 - CHRONIC RESPIRATORY FAILURE WITH HYPOXIA Assessment/Plan A/P CLL s/p chemotherapy Herpes Zoster/Facial Cellulitis Sepsis PSVT Anemia s/p PRBC transfusions COPD Chronic Hypoxic Respiratory Failure HTN Hyperlipidemia Hypothyroidism - antibiotics - PO as tolerated - monitor H/H - inhaled bronchodilators - O2 to keep SpO2 >90% DR MARK
--- NOTE | 2017-02-05 12:32 | PN ---
Progress Note (short form) - Note Progress Note: much improved oob in chair episode of sob this am, now improved after using inhaler foy d/kuldip Vital Signs Period Temp Pulse Resp BP Sys/Gong Pulse Ox Last 24 Hr 97.4 F-99.9 F 68-125 18-20 109-127/52-81 94 lesions almost resolved cor-rrr lungs decreased bs at bases abd soft,nt ext no edema CBC, BMP 02/05/17 05:53 02/05/17 05:53 Microbiology 01/31/17 21:50 Blood - Peripheral Venous Blood Culture - Preliminary NO GROWTH OBTAINED AFTER 96 HOURS, INCUBATION TO CONTINUE FOR 1 DAYS. 01/31/17 23:33 Urine - Urine Clean Catch Urine Culture - Final NO GROWTH OBTAINED a/p zoster -resolving- would complete 10 days - now on valtrex cellulitis-resolving- finish total 7 days-now on keflex CLL anemia improving please call back if needed
--- NOTE | 2017-02-05 13:03 | PN ---
Teaching Attending Note Name of Resident: Maritza Morillo ATTENDING PHYSICIAN STATEMENT I saw and evaluated the patient. I reviewed the resident's note and discussed the case with the resident. I agree with the resident's findings and plan as documented. SUBJECTIVE: No complaints. She felt SOB this morning but says she got her inhaler late and improved with nebulizer. Voiding without difficulty. OBJECTIVE: Vital Signs Period Temp Pulse Resp BP Sys/Gong Pulse Ox Last 24 Hr 97.4 F-99.9 F 68-125 18-20 109-127/52-81 94 HEART: S1S2, RRR LUNGS: Clear ABDOMEN: Soft, non-tender, mildly distended, normal BS EXTREMITIES: No edema ASSESSMENT AND PLAN: This is a 81-year-old woman with a history of COPD, CLL, HTN, hyperlipidemia who presented to the ER from [facility] with left eye swelling and blurred difficulty. 1. Sepsis secondary to left facial cellulitis superimposed on Herpes zoster - Rocephin changed to Keflex - complete 7 days - Acyclovir changed to Valtrex - complete 10 days 2. Conjunctivitis, left eye - Continue Tobramycin eye drops, Erythromycin ointment 3. PAF/PSVT - Remains in sinus rhythm - Lopressor started 4. Leukocytosis and anemia secondary to sepsis and CLL - Continue ferrous sulfate - Transfused 2 units PRBCs this admission - WBC decreasing (almost at baseline) 5. COPD - Stable - Continue Symbicort, Tudorza, DuoNeb as needed 6. Hypertension - Lopressor started 7. Hyperlipidemia - Continue Lipitor 8. Hyponatremia - Improved 9. Glaucoma - Continue Xalatan eye drops 10. Urinary retention - Voiding since Wayne removed 11. Disposition - Continue physical therapy - May need subacute rehab
--- NOTE | 2017-02-05 13:39 | PN ---
Physical Exam: SUBJECTIVE: Patient seen and examined in room. Pt was ambulating back to bed, with assistance. Denies SOB, chest or extremity pain. OBJECTIVE: Vital Signs Period Temp Pulse Resp BP Sys/Gong Pulse Ox Last 24 Hr 97.4 F-99.9 F 68-125 18-20 109-127/52-81 94 GENERAL: The patient is awake, alert, and fully oriented, in no acute distress. HEAD: Normal with no signs of trauma. From zoster: Erythema on L temporal region , scaly patches have healed EYES: PERRL, extraocular movements intact, sclera anicteric, conjunctiva clear. ENT: oropharynx clear without exudates, moist mucous membranes. NECK: Trachea midline, supple. LUNGS: Breath sounds equal, clear to auscultation bilaterally, no wheezes, no crackles, no accessory muscle use. HEART: Regular rate and rhythm, S1, S2 without murmur, rub or gallop. ABDOMEN: Soft, nontender, mildly distended, normoactive bowel sounds, no guarding, no rebound, no hepatosplenomegaly, no masses. EXTREMITIES: 2+ posterior arterial pulses, warm, well-perfused, no edema. NEUROLOGICAL: Cranial nerves II through XII grossly intact. Laboratory Results - last 24 hr 02/01/17 02/05/17 02/05/17 08:25 05:53 05:53 WBC 29.9 H RBC 2.82 L Hgb 7.5 L Hct 24.3 L MCV 86.2 MCH 26.6 MCHC 30.9 L RDW 15.8 H Plt Count 169 MPV 8.9 Neutrophils % 33.0 L D Lymphocytes % 59.0 H Monocytes % 6.0 D Eosinophils % 1.0 Band Neutrophils 1.0 Differential Comment Manual diff done Smudge Cells Many Platelet Estimate Adequate Sodium 139 Potassium 4.2 Chloride 102 Carbon Dioxide 33 H Anion Gap 4 L BUN 20 H Creatinine 0.4 L Random Glucose 101 Calcium 8.2 L Direct Antiglob Test Negative Crossmatch See Detail Active Medications Generic Name Dose Route Start Last Admin Trade Name Freq PRN Reason Stop Dose Admin Acetaminophen 650 mg 02/03/17 17:37 Tylenol - PO Q6H PRN FEVER OR PAIN Aclidinium [place] 1 puff 02/03/17 22:00 02/05/17 09:15 Tudorza - IH 1 puff BID [facility] Administration Albuterol/Ipratropium 1 amp 02/03/17 17:37 Duoneb - NEB Q4H PRN SHORTNESS OF BREATH Atorvastatin Calcium 10 mg 02/03/17 22:00 02/03/17 21:22 Lipitor - PO 10 mg Q2D@HS [facility] Administration Budesonide/Formoterol Fumarate 1 puff 02/03/17 22:00 02/05/17 09:15 Symbicort 160/4.5mcg - IH 1 puff BID [facility] Administration Calamine 1 applic 02/03/17 17:37 02/05/17 09:15 Calamine 8% Topical Lotion - TP 1 applic BID PRN Administration FOR ITCHING Cephalexin HCl 500 mg 02/04/17 22:00 02/05/17 09:15 Keflex - PO 500 mg BID [facility] Administration Docusate Sodium 100 mg 02/03/17 22:00 02/05/17 06:44 Colace - PO 100 mg TID [facility] Administration Erythromycin 1 applic 02/03/17 22:00 02/04/17 21:22 Erythromycin 0.5% Eye Ointment OS 1 applic HS [facility] Administration Ferrous Sulfate 325 mg 02/04/17 10:00 02/05/17 09:15 Feosol - PO 325 mg DAILY [facility] Administration Fluticasone Propionate 1 spray 02/03/17 22:00 02/05/17 09:17 Flonase - NS 1 spray BID [facility] Administration Latanoprost 1 drop 02/03/17 22:00 02/04/17 21:21 Xalatan 0.005% Eye Drops - OU 1 drop HS [facility] Administration Loratadine 10 mg 02/04/17 10:00 02/05/17 09:15 Claritin - PO 10 mg DAILY [facility] Administration Metoprolol Tartrate 25 mg 02/05/17 10:00 Lopressor - PO BID [facility] Tobramycin Sulfate 1 drop 02/03/17 22:00 02/05/17 06:44 Tobrex Ophthalmic Solution - OS 1 drop TID [facility] Administration Valacyclovir HCl 1,000 mg 02/04/17 22:00 02/05/17 09:15 Valtrex - PO 1,000 mg BID [facility] Administration ASSESSMENT/PLAN: 81 year old woman admitted for sepsis secondary to Herpes Zoster opthalmicus, CLL. 1. Sepsis secondary to Herpes Opthalmicus Zoster -switched to PO: Valtrex 1000 mg PO BID (Day2), keflex 500 mg PO BID (Day 1)- for 3 day total course 2. CLL with leukocytosis and anemia -Improved H&H (now 7.5/24.3) -WBC improved now in 29.9 -F/u CBC 3. Left facial shingles in immunocompromised patient -Healing- Zoster on L temporal region, erythematous patches, scaly patches have healed continue tobramycin drops. May add erythromycin opthalmic ointment to L eye at bedtime after [place]. Pt advised to follow up with optho outpatient. 4. Urinary retention -Wayne is out -Continue to check with bladder scan, so pt does not develop retention 4. Paraoxysmal afib with RVR- one episode, resolved 5. COPD -no acute exacerbation, continue symbicort, turdoza -on 2.5L 02 NC 6. PSVT -sinus tachycardia yesterday 3-4pm, was given 25 mg lopressor PO -may need to add low dose BB if continues 7. Hyperlipidemia -continue lipitor 10mg daily 8. Hyponatremia-resolved NS discontinued, not needed Disposition -check with PT Visit type - Emergency Visit Emergency Visit: No - New Patient This patient is new to me today: No - Critical Care Critical Care patient: No
[2017-02-05] MEDS ORDERED: MELATONIN 5 MG TABLETS PO ONE (19:56)
[2017-02-05] MEDS: ERYTHROMYCIN 0.5% OPHTHALMIC OINTMENT 3.5 GM TUBE OS SCH (21:11)
[2017-02-05] MEDS: LATANOPROST 0.005% OPHTH SOLN 2.5ML BOTTLE OU SCH (21:12)
[2017-02-05] MEDS: ATORVASTATIN CA 10 MG TABLET (FP) PO SCH (21:24)
[2017-02-05] MEDS ORDERED: ZOLPIDEM TARTRATE 5 MG TABLET PO ONE (23:20)
[2017-02-06] MEDS: DOCUSATE SODIUM 100 MG CAPSULE (FP) PO SCH ×2 (06:18→14:50)
[2017-02-06] MEDS: TOBRAMYCIN 0.3% OPHTH SOLN 5 ML BOTTLE OS SCH ×2 (06:18→14:50)
--- NOTE | 2017-02-06 09:00 | PN ---
Progress Note, Physician Chief Complaint: Cardiology for [facility] History of Present Illness: Denies CP or SOB Zoster lesions (old) on face TELE: NSR with episodes of PAF - Current Medication List Current Medications: Active Medications Acetaminophen (Tylenol -) 650 mg PO Q6H PRN PRN Reason: FEVER OR PAIN Aclidinium [place] (Tudorza -) 1 puff IH BID [facility] Last Admin: 02/05/17 21:12 Dose: 1 puff Albuterol/Ipratropium (Duoneb -) 1 amp NEB Q4H PRN PRN Reason: SHORTNESS OF BREATH Atorvastatin Calcium (Lipitor -) 10 mg PO Q2D@HS [facility] Last Admin: 02/05/17 21:24 Dose: 10 mg Budesonide/Formoterol Fumarate (Symbicort 160/4.5mcg -) 1 puff IH BID [facility] Last Admin: 02/05/17 21:11 Dose: 1 puff Calamine (Calamine 8% Topical Lotion -) 1 applic TP BID PRN PRN Reason: FOR ITCHING Last Admin: 02/05/17 09:15 Dose: 1 applic Cephalexin HCl (Keflex -) 500 mg PO BID [facility] Last Admin: 02/05/17 21:11 Dose: 500 mg Docusate Sodium (Colace -) 100 mg PO TID [facility] Last Admin: 02/06/17 06:18 Dose: 100 mg Erythromycin (Erythromycin 0.5% Eye Ointment) 1 applic OS [facility] Last Admin: 02/05/17 21:11 Dose: 1 applic Ferrous Sulfate (Feosol -) 325 mg PO DAILY [facility] Last Admin: 02/05/17 09:15 Dose: 325 mg Fluticasone Propionate (Flonase -) 1 spray NS BID [facility] Last Admin: 02/05/17 21:11 Dose: 1 spray Latanoprost (Xalatan 0.005% Eye Drops -) 1 drop OU HS [facility] Last Admin: 02/05/17 21:12 Dose: 1 drop Loratadine (Claritin -) 10 mg PO DAILY [facility] Last Admin: 02/05/17 09:15 Dose: 10 mg Metoprolol Tartrate (Lopressor -) 25 mg PO BID [facility] Last Admin: 02/05/17 21:11 Dose: 25 mg Tobramycin Sulfate (Tobrex Ophthalmic Solution -) 1 drop OS TID [facility] Last Admin: 02/06/17 06:18 Dose: 1 drop Valacyclovir HCl (Valtrex -) 1,000 mg PO BID [facility] Last Admin: 02/05/17 21:27 Dose: 1,000 mg - Objective Vital Signs: Vital Signs Temperature 98.5 F 02/06/17 06:00 Pulse Rate 79 02/06/17 06:00 Respiratory Rate 18 02/06/17 06:00 Blood Pressure 128/90 02/06/17 06:00 O2 Sat by Pulse Oximetry (%) 94 L 02/04/17 21:00 Constitutional: Yes: Anxious Eyes: Yes: Conjunctiva Clear Cardiovascular: Yes: Regular Rate and Rhythm Respiratory: Yes: CTA Bilaterally Gastrointestinal: Yes: Soft Edema: No Neurological: Yes: Alert Labs: CBC, BMP 02/05/17 05:53 02/05/17 05:53 INR, PTT INR 1.04 (0.82-1.09) 02/01/17 05:15 Microbiology 01/31/17 23:33 Urine - Urine Clean Catch Urine Culture - Final NO GROWTH OBTAINED 01/31/17 21:50 Blood - Peripheral Venous Blood Culture - Final NO GROWTH AFTER 5 DAYS INCUBATION Laboratory Tests 01/31/17 02/05/17 02/05/17 21:35 05:53 05:53 WBC 29.9 H Hgb 7.5 L Hct 24.3 L Plt Count 169 Sodium 139 Potassium 4.2 BUN 20 H Stool Occult Blood Negative - ....Imaging EKG: Image Reviewed Assessment/Plan gabbim List - Problems (1) Shingles outbreak Assessment/Plan: improvement in rash, facial swelling treatment per ID Code(s): B02.9 - ZOSTER WITHOUT COMPLICATIONS Qualifiers: Herpes zoster complications: unspecified herpes zoster complication Qualified Code(s): B02.8 - Zoster with other complications (2) COPD (chronic obstructive pulmonary disease) Assessment/Plan: Stable. Code(s): J44.9 - CHRONIC OBSTRUCTIVE PULMONARY DISEASE, UNSPECIFIED (3) PSVT (paroxysmal supraventricular tachycardia) Assessment/Plan: I discussed pt with her bridge worker, Dr. Handley. There is no hx of CAD or arrhythmias. Brief runs of PSVT and PAF noted on monitor during this hospitalization. ECHO 10/02: normal LVEF; severe pulmonary HTN; moderate . Pt denies hx asthma. Observe while anemia and shingles are treated. Avoid dehydration. F/u electrolytes. Continue Metoprolol and telemetry Code(s): I47.1 - SUPRAVENTRICULAR TACHYCARDIA (4)Paroxysmal Atrial fibrillation Assessment/Plan: Maintain hydration. Leukemia, anemia preclude use of anticoagulant. Would give ASA 81mg daily if ok with Heme TSH WNL. Code(s): I48.91 - UNSPECIFIED ATRIAL FIBRILLATION
[2017-02-06] MEDS ORDERED: PT OWN MED DRAWER 7, Y5N ONE (09:38)
[2017-02-06] MEDS: LORATADINE 10 MG TABLET PO SCH (10:27)
[2017-02-06] MEDS: FERROUS SO4 325 MG TABLET (FP) PO SCH (10:27)
[2017-02-06] MEDS: METOPROLOL TARTRATE 25 MG TABLET (FP) PO SCH (10:28)
[2017-02-06] MEDS: valACYclovir HCL 500 MG TABLET (FP) PO SCH (10:28)
[2017-02-06] MEDS: CEPHALEXIN MONOHYDRATE 500 MG CAPSULE (UD) PO SCH (10:28)
[2017-02-06] MEDS: BUDESONIDE/FORMETEROL FUMARATE 160/4.5 mcg INHALER IH SCH (10:40)
[2017-02-06] MEDS: FLUTICASONE PROP 0.05% 16 GM NASAL SPRAY NS SCH (10:40)
[2017-02-06] MEDS: ACLIDINIUM BROMIDE 400 MCG/INH AERO.POWD IH SCH (10:40)
--- NOTE | 2017-02-06 12:47 | PN ---
Progress Note, Physician History of Present Illness: Patient seen and examined She continues to improve. - Current Medication List Current Medications: Active Medications Acetaminophen (Tylenol -) 650 mg PO Q6H PRN PRN Reason: FEVER OR PAIN Aclidinium [place] (Tudorza -) 1 puff IH BID [facility] Last Admin: 02/06/17 10:40 Dose: 1 puff Albuterol/Ipratropium (Duoneb -) 1 amp NEB Q4H PRN PRN Reason: SHORTNESS OF BREATH Last Admin: 02/06/17 10:00 Dose: 1 amp Atorvastatin Calcium (Lipitor -) 10 mg PO Q2D@HS [facility] Last Admin: 02/05/17 21:24 Dose: 10 mg Budesonide/Formoterol Fumarate (Symbicort 160/4.5mcg -) 1 puff IH BID [facility] Last Admin: 02/06/17 10:40 Dose: 1 puff Calamine (Calamine 8% Topical Lotion -) 1 applic TP BID PRN PRN Reason: FOR ITCHING Last Admin: 02/05/17 09:15 Dose: 1 applic Cephalexin HCl (Keflex -) 500 mg PO BID [facility] Last Admin: 02/06/17 10:28 Dose: 500 mg Docusate Sodium (Colace -) 100 mg PO TID [facility] Last Admin: 02/06/17 06:18 Dose: 100 mg Erythromycin (Erythromycin 0.5% Eye Ointment) 1 applic OS [facility] Last Admin: 02/05/17 21:11 Dose: 1 applic Ferrous Sulfate (Feosol -) 325 mg PO DAILY [facility] Last Admin: 02/06/17 10:27 Dose: 325 mg Fluticasone Propionate (Flonase -) 1 spray NS BID [facility] Last Admin: 02/06/17 10:40 Dose: 1 spray Latanoprost (Xalatan 0.005% Eye Drops -) 1 drop OU HS [facility] Last Admin: 02/05/17 21:12 Dose: 1 drop Loratadine (Claritin -) 10 mg PO DAILY [facility] Last Admin: 02/06/17 10:27 Dose: 10 mg Metoprolol Tartrate (Lopressor -) 25 mg PO BID [facility] Last Admin: 02/06/17 10:28 Dose: 25 mg Tobramycin Sulfate (Tobrex Ophthalmic Solution -) 1 drop OS TID [facility] Last Admin: 02/06/17 06:18 Dose: 1 drop Valacyclovir HCl (Valtrex -) 1,000 mg PO BID [facility] Last Admin: 02/06/17 10:28 Dose: 1,000 mg - Objective Vital Signs: Vital Signs Temperature 98.5 F 02/06/17 06:00 Pulse Rate 79 02/06/17 06:00 Respiratory Rate 18 02/06/17 06:00 Blood Pressure 128/90 02/06/17 06:00 O2 Sat by Pulse Oximetry (%) 94 L 02/04/17 21:00 Constitutional: Yes: Well Nourished, No Distress HENT: Yes: Atraumatic, Other (resolved vescicles seen) Neck: Yes: Supple, Trachea Midline Cardiovascular: Yes: Regular Rate and Rhythm Respiratory: Yes: Regular, CTA Bilaterally Gastrointestinal: Yes: Normal Bowel Sounds Edema: No Labs: CBC, BMP 02/05/17 05:53 02/05/17 05:53 INR, PTT INR 1.04 (0.82-1.09) 02/01/17 05:15 Problem List - Problems (1) CLL (chronic lymphocytic leukemia) Assessment/Plan: Lymphocytosis in the setting of BTK inhibitor, ibrutinib and also acuity of the situation, now resolving. Hold the medication until seen as an Out pt. ?need of VZV ppx in the future along with chemo Quantitative Immunoglobulins- wnl , no IVIG indicated Need to follow-up with as an OP Code(s): C91.10 - CHRONIC LYMPHOCYTIC LEUK OF B-CELL TYPE NOT ACHIEVE REMIS (2) Anemia Assessment/Plan: Anemia, ( has baseline anemia in the setting of CLL) Supportive care and transfusion support as needed ordered CBC Code(s): D64.9 - ANEMIA, UNSPECIFIED Qualifiers: Anemia type: other cause Other causes of anemia: chronic disease, neoplastic Qualified Code(s): D63.0 - Anemia in neoplastic disease (3) Shingles outbreak Assessment/Plan: appreciate ID consult seen by Ophthal On treatment , much improved now On PO therapy currently Will follow PT , likely being prepared for d/c planning Code(s): B02.9 - ZOSTER WITHOUT COMPLICATIONS Qualifiers: Herpes zoster complications: unspecified herpes zoster complication Qualified Code(s): B02.8 - Zoster with other complications (4) AF (paroxysmal atrial fibrillation) Assessment/Plan: Pt not thrombocytopenic, no reported episodes of bleeding. CLL not a contra- indication to start ASA. Code(s): I48.0 - PAROXYSMAL ATRIAL FIBRILLATION
--- NOTE | 2017-02-06 13:15 | PN ---
Progress Note (short form) - Note Progress Note: Resting in NAD. No CP or SOB. No events overnight. Intake & Output 02/03/17 02/04/17 02/05/17 02/06/17 23:59 23:59 23:59 23:59 Intake Total 3335 1390 1800 10 Output Total 800 750 400 200 Balance 2535 640 1400 -190 Weight 118 lb 9 oz 120 lb 12.8 oz 124 lb 125 lb 5 oz Last Vital Signs Temp Pulse Resp BP Pulse Ox 98.5 F 79 18 128/90 94 L 02/06/17 06:00 02/06/17 06:00 02/06/17 06:00 02/06/17 06:00 02/04/17 21:00 Active Medications Acetaminophen (Tylenol -) 650 mg PO Q6H PRN PRN Reason: FEVER OR PAIN Aclidinium [place] (Tudorza -) 1 puff IH BID [facility] Last Admin: 02/06/17 10:40 Dose: 1 puff Albuterol/Ipratropium (Duoneb -) 1 amp NEB Q4H PRN PRN Reason: SHORTNESS OF BREATH Last Admin: 02/06/17 10:00 Dose: 1 amp Atorvastatin Calcium (Lipitor -) 10 mg PO Q2D@[facility] Last Admin: 02/05/17 21:24 Dose: 10 mg Budesonide/Formoterol Fumarate (Symbicort 160/4.5mcg -) 1 puff IH BID [facility] Last Admin: 02/06/17 10:40 Dose: 1 puff Calamine (Calamine 8% Topical Lotion -) 1 applic TP BID PRN PRN Reason: FOR ITCHING Last Admin: 02/05/17 09:15 Dose: 1 applic Cephalexin HCl (Keflex -) 500 mg PO BID [facility] Last Admin: 02/06/17 10:28 Dose: 500 mg Docusate Sodium (Colace -) 100 mg PO TID [facility] Last Admin: 02/06/17 06:18 Dose: 100 mg Erythromycin (Erythromycin 0.5% Eye Ointment) 1 applic OS [facility] Last Admin: 02/05/17 21:11 Dose: 1 applic Ferrous Sulfate (Feosol -) 325 mg PO DAILY [facility] Last Admin: 02/06/17 10:27 Dose: 325 mg Fluticasone Propionate (Flonase -) 1 spray NS BID [facility] Last Admin: 02/06/17 10:40 Dose: 1 spray Latanoprost (Xalatan 0.005% Eye Drops -) 1 drop OU HS [facility] Last Admin: 02/05/17 21:12 Dose: 1 drop Loratadine (Claritin -) 10 mg PO DAILY [facility] Last Admin: 02/06/17 10:27 Dose: 10 mg Metoprolol Tartrate (Lopressor -) 25 mg PO BID [facility] Last Admin: 02/06/17 10:28 Dose: 25 mg Tobramycin Sulfate (Tobrex Ophthalmic Solution -) 1 drop OS TID [facility] Last Admin: 02/06/17 06:18 Dose: 1 drop Valacyclovir HCl (Valtrex -) 1,000 mg PO BID [facility] Last Admin: 02/06/17 10:28 Dose: 1,000 mg Constitutional: Yes: NAD Eyes: Yes: WNL HENT: Yes: WNL Neck: Yes: WNL Cardiovascular: Yes: Regular Rate and Rhythm, S1, S2 Respiratory: Yes: Bibasilar Rales Gastrointestinal: Yes: Normal Bowel Sounds, Soft Extremities: Yes: WNL Edema: No Labs: Problem List - Problems (1) Anemia Code(s): D64.9 - ANEMIA, UNSPECIFIED Qualifiers: Anemia type: other cause Other causes of anemia: chronic disease, neoplastic Qualified Code(s): D63.0 - Anemia in neoplastic disease (2) CLL (chronic lymphocytic leukemia) Code(s): C91.10 - CHRONIC LYMPHOCYTIC LEUK OF B-CELL TYPE NOT ACHIEVE REMIS (3) COPD (chronic obstructive pulmonary disease) Code(s): J44.9 - CHRONIC OBSTRUCTIVE PULMONARY DISEASE, UNSPECIFIED (4) PSVT (paroxysmal supraventricular tachycardia) Code(s): I47.1 - SUPRAVENTRICULAR TACHYCARDIA (5) Shingles outbreak Code(s): B02.9 - ZOSTER WITHOUT COMPLICATIONS Qualifiers: Herpes zoster complications: unspecified herpes zoster complication Qualified Code(s): B02.8 - Zoster with other complications (6) Chronic hypoxemic respiratory failure Code(s): J96.11 - CHRONIC RESPIRATORY FAILURE WITH HYPOXIA Assessment/Plan CLL s/p chemotherapy Herpes Zoster/Facial Cellulitis Sepsis PSVT Anemia s/p PRBC transfusions COPD Chronic Hypoxic Respiratory Failure HTN Hyperlipidemia Hypothyroidism - antibiotics - PO as tolerated - monitor H/H - inhaled bronchodilators - O2 to keep SpO2 >90% Dr Carty
[2017-02-06 13:16] LABS: MCH 26.8 pg (25.7-33.7); MCHC 30.7 g/dl (32.0-36.0); MEAN CELL VOLUME 87.4 fl (80-96); MEAN PLT VOLUME 8.3 fl (7.5-11.1); PLATELET COUNT 184 K/MM3 (134-434); RDW 15.5 % (11.6-15.6)
[2017-02-06 13:27] LABS: WHITE BLOOD COUNT 31.8 K/mm3 (4.0-10.0)
--- NOTE | 2017-02-06 15:49 | DS ---
Physical Exam: SUBJECTIVE: Pt seen and examined at bedside. Pt states that she is feeling better, and urinating frequently. Denies SOB, chest or extremity pain. OBJECTIVE: Vital Signs Period Temp Pulse Resp BP Sys/Gong Pulse Ox Last 24 Hr 97.7 F-98.8 F 68-91 18-20 120-180/41-90 PHYSICAL EXAM GENERAL: The patient is awake, alert, and fully oriented, in no acute distress. On 2L NC 02 HEAD: Normal with no signs of trauma. Zoster - scaly white patches on temporal region no longer present, mild erythema over maxilla, temporal region EYES: PERRL, extraocular movements intact, sclera anicteric, conjunctiva clear. L eyelid slightly swollen ENT: oropharynx clear without exudates, moist mucous membranes. NECK: Trachea midline, supple. LUNGS: Breath sounds equal, clear to auscultation bilaterally. Did not appreciate wheezes, no crackles, no accessory muscle use. HEART: Regular rate and rhythm, S1, S2 without murmur, rub or gallop. ABDOMEN: Soft, nontender, nondistended, normoactive bowel sounds, no guarding, no rebound EXTREMITIES: 2+ posterior tibial pulses, warm, well-perfused, no edema. NEUROLOGICAL: Cranial nerves II through XII grossly intact. VITALS TREND/LAB Vitals Trend 01/31/17 01/31/17 01/31/17 12:11 18:59 21:31 Temperature 99.3 F 99.2 F 101.6 F H Pulse Rate 103 H Pulse Rate [ 87 98 H Left Radial] Respiratory 18 22 24 Rate Blood Pressure 136/62 O2 Sat by Pulse Oximetry (%) 01/31/17 01/31/17 02/01/17 22:33 23:32 00:05 Temperature 98.6 F 98.9 F Pulse Rate Pulse Rate [ 125 H 148 H 88 Left Radial] Respiratory 22 24 19 Rate Blood Pressure O2 Sat by Pulse 99 Oximetry (%) 02/01/17 02/01/17 02/01/17 02:46 04:00 06:00 Temperature 97.6 F 97.7 F Pulse Rate 77 90 93 H Pulse Rate [ Left Radial] Respiratory 19 20 19 Rate Blood Pressure 85/50 116/59 120/46 O2 Sat by Pulse 96 Oximetry (%) 02/01/17 02/01/17 02/01/17 08:00 09:00 09:30 Temperature 99.5 F 101.6 F H Pulse Rate 88 Pulse Rate [ Left Radial] Respiratory 23 Rate Blood Pressure 120/65 O2 Sat by Pulse 90 L Oximetry (%) 02/01/17 02/01/17 02/01/17 10:00 10:39 12:00 Temperature 98.5 F Pulse Rate 82 82 78 Pulse Rate [ Left Radial] Respiratory 16 18 Rate Blood Pressure 99/54 O2 Sat by Pulse 94 L Oximetry (%) 02/01/17 02/01/17 02/01/17 14:00 15:00 16:00 Temperature 99.3 F 101.3 F H Pulse Rate 76 80 Pulse Rate [ Left Radial] Respiratory 22 20 Rate Blood Pressure O2 Sat by Pulse Oximetry (%) 02/01/17 02/01/17 02/01/17 18:46 19:46 20:00 Temperature 100.5 F H 100.4 F H Pulse Rate 80 90 Pulse Rate [ Left Radial] Respiratory 23 23 20 Rate Blood Pressure O2 Sat by Pulse 94 L Oximetry (%) 02/01/17 02/02/17 02/02/17 22:00 00:00 02:00 Temperature 100.6 F H 101.1 F H Pulse Rate 88 Pulse Rate [ Left Radial] Respiratory 26 H 21 20 Rate Blood Pressure O2 Sat by Pulse Oximetry (%) 02/02/17 02/02/17 02/02/17 03:00 04:00 06:00 Temperature 100.1 F H 98.9 F 98.5 F Pulse Rate Pulse Rate [ Left Radial] Respiratory 20 22 20 Rate Blood Pressure O2 Sat by Pulse Oximetry (%) 02/02/17 02/02/17 02/02/17 08:00 08:33 14:00 Temperature 99.2 F 99.2 F Pulse Rate Pulse Rate [ Left Radial] Respiratory 20 20 Rate Blood Pressure O2 Sat by Pulse 94 L Oximetry (%) 02/02/17 02/02/17 02/02/17 19:21 19:31 20:49 Temperature 99 F Pulse Rate Pulse Rate [ Left Radial] Respiratory Rate Blood Pressure O2 Sat by Pulse 94 L 94 L Oximetry (%) Laboratory Tests 01/31/17 01/31/17 01/31/17 19:22 19:22 19:22 WBC 131.4 H* Hgb 6.8 L* D Hct 24.3 L D Plt Count 229 D Sodium 129 L BUN 26 H Creatinine 0.5 L D Random Glucose 130 H D AST 32 D ALT 11 L D Alkaline Phosphatase 139 H D LD Total 264 H Creatine Kinase 195 H D Troponin I 0.07 H 02/01/17 02/01/17 02/01/17 05:15 05:15 05:15 WBC 98.0 H* D Hgb 7.7 L D Hct 25.7 L Plt Count 211 Sodium 132 L BUN 30 H Creatinine 0.6 Random Glucose 101 D AST ALT Alkaline Phosphatase LD Total Creatine Kinase Troponin I 0.17 H 02/02/17 02/02/17 02/03/17 05:10 05:10 03:40 WBC 57.2 H* D 41.4 H* Hgb 6.4 L* D 7.9 L D Hct 21.1 L D 26.0 L D Plt Count 176 Sodium 135 L BUN 20 H D Creatinine 0.4 L D Random Glucose 89 AST 20 D ALT 9 L Alkaline Phosphatase 102 D LD Total Creatine Kinase Troponin I 02/03/17 02/04/17 02/04/17 03:40 08:40 08:40 WBC 30.6 H* Hgb 8.1 L Hct 26.3 L Plt Count Sodium 138 139 BUN 16 17 Creatinine 0.4 L 0.4 L Random Glucose AST ALT Alkaline Phosphatase LD Total Creatine Kinase Troponin I 0.03 02/05/17 02/06/17 05:53 13:00 WBC 29.9 H 31.8 H* Hgb 7.5 L 8.1 L Hct 24.3 L 26.3 L Plt Count Sodium BUN Creatinine Random Glucose AST ALT Alkaline Phosphatase LD Total Creatine Kinase Troponin I IMAGING EKG (01/31/17): unusual P axis, possible ectopic atrial rhythm, nonspecific ST abnormality, abnormal EKG compared to September 2016, ectopic atrial rhythm has replaced sinus rhythm CXR (02/01/17): no active pulmonary disease EKG (02/02/17): Normal EKG compared to January 31, 2017, sinus rhythm, Q waves in V4 -V6 with upward coving ST segments, no ST depression or T wave inersions EKG (02/03/17): abnormal EKG compared to EKG from January 31, 2017, atrial fibrillation has replaced ectopic atrial rhythm, ST depressed in anterior and inferior leads, T wave inversion in inferior and lateral leads MICROBIOLOGY 01/31/17 23:33 Urine - Urine Clean Catch Urine Culture - Final NO GROWTH OBTAINED 01/31/17 21:50 Blood - Peripheral Venous Blood Culture - Final NO GROWTH AFTER 5 DAYS INCUBATION HOSPITAL COURSE: Date of Admission:01/31/17 Date of Discharge: 02/06/17 Admit diagnosis: sepsis secondary to Herpes Zoster Opthalmicus Pre-admission course Patient is a 81 year old female from [address] [place] [address] with a PMH of CLL (Diagnosed 3 years ago), COPD on , active shingles, who was BIBEMS due to left eye swelling. Patient was diagnosed with Shingles a week before presenting and was started on PO Acyclovir. However, patient complained that she was having difficulty seeing from her left eye, so the halfway decided to bring her to the ED. Patient that her left eye had become increasingly swollen over the last 24 hours, so much so that she was unable keep her eyes open on admission. She also noted discharge from her left eye that would close her eye shut when it dried. Patient repeatedly stated that she couldnt breathe because she was congested and needed her Flonase. Otherwise, she denied headache, fever, chills , abdominal or chest pain, dizziness, hematuria, dysuria. ER course was notable for: (1) IV Bolus (2) Acetaminophen Hospital course Pt was admitted to ICU and immediately started on IV acyclovir (and later, tobramycin drops and erythromycin ointment as per ophthalmology) due to ophthalmic involvement of Herpes Zoster. In the ICU, patient had paraoxysmal afib with RVR (one episode) and spiked a fever of 101 Tmax and was started on vancomycin and zosyn empirically. This was most likely due to sepsis. Blood Cx and urine Cx were sent (both came back negative), pt was later transitioned to rocephin 1gm IVPB and before discharge, Valtrex 1000mg PO BID (10 day course), Keflex 500 mg PO BID (7 day course). While in the ICU, pts Hb was 6.4, so 1 unit of PRBCs was transfused (02/02/17) . Pts ibrutinib was held due to this sudden anemia. She also developed PSVT, reaching HRs of 150-160. This was controlled with metoprolol 25mg PO BID. In addition, her WBCs initially were 130 on admission but trended down to 30. After being stepped down to the floor from ICU, pt had urinary retention after her Wayne was removed, so she was observed closely. Upon discharge, pt was able to ambulate and use restroom with assistance from nursing staff. Minutes to complete discharge: 32 Discharge Summary Reason For Visit: FEVER, HERPES ZOSTER, CHRONIC LYMPHOCYTIC LEUKEMIA Current Active Problems AF (paroxysmal atrial fibrillation) (Acute) Anemia (Acute) Chronic hypoxemic respiratory failure (Acute) Shingles outbreak (Acute) Atrial fibrillation (Chronic) CLL (chronic lymphocytic leukemia) (Chronic) PSVT (paroxysmal supraventricular tachycardia) (Chronic) Condition: Stable - Instructions Diet, Activity, Other Instructions: You were recently in the hospital for a shingles infection that affected your eye. You may resume activities as tolerated. Please take the following antibiotics: -Valtrex 1000mg by mouth, twice a day from 02/06-02/13, and once on 02/14, to complete a 10 day course -Keflex 500 mg by mouth, twice a day from 02/06-02/10, and once on 02/11, to complete a 7 day course We would also like you to continue the following for your eye: -Tobramycin drops: 1 drop in each eye -Erythromycin ointment to L eye at bedtime We have also added aspirin 81 mg to your medications, as it will be beneficial for your heart health. Please follow-up in 1 week with: -your wrapper layer/oncologist: -an livery car driver (Dr. Chaney): please discuss resuming your home ointment ( Tobradex) after you finish the treatment with your Erythromycin - a business supervisor (Dr. You) -and your primary care physician If you develop any new vision problems, chest pain, trouble urinating, or become short of breath, please go to the hospital. Referrals: Robinson You MD [Staff Physician] - Sahkir Chaney [Staff Physician] - Disposition: HOME - Home Medications Comprehensive Discharge Medication List: Ambulatory Orders Atorvastatin Ca [Lipitor] 10 mg PO Q2D 10/10/16 Bimatoprost [[place]] 1 drop OU HS 10/10/16 Budesonide/Formeterol Fumarate [SYMBICORT 160/4.5mcg -] 1 inh PO BID 10/10/16 Metoprolol Succinate [Toprol XL -] 25 mg PO DAILY 10/10/16 Aclidinium [place] [Tudorza -] 1 puff IH BID #1 inhaler 10/14/16 Albuterol 2.5/Ipratropium 0.5 [Duoneb -] 1 amp NEB Q4H PRN #1 amp 10/14/16 Docusate Sodium [Colace -] 100 mg PO TID #90 tab 10/14/16 Ferrous Sulfate [Feosol] 325 mg PO DAILY #30 tablet 10/14/16 Fluticasone Prop 0.05% Nasal [Flonase -] 1 spray NS BID #1 spray 10/14/16 Loratadine [Claritin -] 10 mg PO DAILY #30 tablet 10/14/16 Aspirin [ASA -] 81 mg PO DAILY #30 tab.chew 02/06/17 Cephalexin Monohydrate [Keflex -] 500 mg PO BID #10 cap 02/06/17 Erythromycin 0.5% Eye Ointment [Erythromycin 0.5% Eye Ointment -] 1 applic OS HS #1 tube 02/06/17 Tobramycin 0.3% Ophth Soln [Tobrex Ophthalmic Solution -] 1 drop OS TID #1 bottle 02/06/17 Valacyclovir HCl [Valtrex -] 1,000 mg PO BID #16 tablet 02/06/17 This patient is new to me today: No Emergency Visit: No Critical Care patient: No - Discharge Referral Referred to [facility] No
--- NOTE | 2017-02-06 16:20 | PN ---
Teaching Attending Note Name of Resident: Maritza Morillo ATTENDING PHYSICIAN STATEMENT I saw and evaluated the patient. I reviewed the resident's note and discussed the case with the resident. I agree with the resident's findings and plan as documented. SUBJECTIVE:states L eye pain has improved. denies CP, SOb, fever, chills, N/V/C/ D OBJECTIVE: Last Vital Signs Temp Pulse Resp BP Pulse Ox 98 F 75 18 143/61 94 L 02/06/17 14:18 02/06/17 14:18 02/06/17 14:18 02/06/17 14:18 02/04/17 21:00 General NAD HEENT injected L conjunctiva, multiple crusted lesions on L side of face involving the eye and nose ASSESSMENT AND PLAN: 81-year-old woman with a history of COPD, CLL, HTN, hyperlipidemia who presented to the ER from [facility] with left eye swelling and blurred difficulty. 1. Sepsis secondary to left facial cellulitis superimposed on Herpes zoster- clinically improved. lesions are now crusted over and no longer contagious. cont Acyclovir to complete 10 daycourse. and switch ceftriaxone to keflex to complete 7 days. 2. Conjunctivitis, left eye- Continue Tobramycin eye drops, Erythromycin ointment. will need to f/u optho as outpatient 3. PAF/PSVT- Remains in sinus rhythm. now controlled on lopressor. will start low dose ASA for [id number] risk. approved by oncology. 4. Leukocytosis and anemia secondary to sepsis and CLL-stable. received 2 units PRBC this admission. follows by Dr Mancini. seen by oncology here and approved to start asa for afib. instructed pt to inform private oncologist of new medication. 5. COPD- Stable. Continue Symbicort, Tudorza, DuoNeb as needed 6. Hypertension-controlled. Lopressor started 7. Hyperlipidemia- Continue Lipitor 8. Hyponatremia- Improved 9. Glaucoma- Continue Xalatan eye drops 10. Urinary retention-resolved. 11. d[facility] to [facility].
[2017-02-06 17:04] LABS: SMUDGE CELLS MANY
[2017-02-06 17:05] LABS: PLATELET ESTIMATE ADEQUATE (NORMAL)
[2017-02-06 17:07] LABS: PLATELET COMMENT2 NO CLUMPING NOTED
[2017-02-06 21:19] VITALS: BP 141/70; PULSE 73; TEMP 98.3
--- NOTE | 2017-02-09 21:01 | EKG ---
Test Reason : Blood Pressure : / mmHG Vent. Rate : 139 BPM Atrial Rate : 139 BPM P-R Int : 000 ms QRS Dur : 078 ms QT Int : 292 ms P-R-T Axes : 000 059 225 degrees QTc Int : 444 ms SINUS TACHYCARDIA WITH SHORT MD ABNORMAL ECG WHEN COMPARED WITH ECG OF 02-FEB-2017 08:44, MD INTERVAL HAS DECREASED VENT. RATE HAS INCREASED BY [address]-T WAVE ABNORMALITIES IN THE INFERO LATERAL LEADS REPEAT EKG IF CLINICALLY INDICATED Confirmed by IDANIA GROVER MD ([id number] on 02/09/2017 9:00:49 PM Referred By: Confirmed By:IDANIA GROVER MD
== END 2017-02-06 19:15 | disposition home or self-care (01) | DRG 871 ==
LOC: JER 12:08 → UNDOADMIN 22:17 → JERBED 22:17 → UNDOADMIN 23:07 → JERBED 23:52 → JICU 02-01 02:38 → J4W 02-03 17:00
PROVIDERS: ADMIT Internal Medicine; ATTEND Internal Medicine
PROC: 30233N1 Transfusion of Nonautologous Red Blood Cells into Peripheral Vein, Percutaneous Approach (ICD-10-PCS; principal; 2017-02-01)
DX: A41.9 Sepsis, unspecified organism (principal); R65.21 Severe sepsis with septic shock; C91.10 Chronic lymphocytic leukemia of B-cell type not having achieved remission; E87.1 Hypo-osmolality and hyponatremia; L03.211 Cellulitis of face; I47.1 Supraventricular tachycardia; J96.11 Chronic respiratory failure with hypoxia; B02.30 Zoster ocular disease, unspecified; I10 Essential (primary) hypertension; J44.9 Chronic obstructive pulmonary disease, unspecified; Z87.891 Personal history of nicotine dependence; Z99.81 Dependence on supplemental oxygen; E78.5 Hyperlipidemia, unspecified; E03.9 Hypothyroidism, unspecified; I48.0 Paroxysmal atrial fibrillation; H10.9 Unspecified conjunctivitis; I27.2 Other secondary pulmonary hypertension; H40.9 Unspecified glaucoma; R33.9 Retention of urine, unspecified
CPT/HCPCS: 36415; 36430; 71010-TC; 80048; 80053; 80061; 81003; 81015; 82248; 82272; 82550; 82553; 82728; 82784; 83010; 83540; 83550; 83605; 83615; 83721; 83735; 84100; 84443; 84484; 85025; 85027; 85610; 85730; 86850; 86880; 86900; 86901; 86922; 87040; 87086; 93005; 93010; 94640; 97116-GP; 97162-GP; 99285-25; J1644; P9038; P9058

== ENCOUNTER 2017-02-09 16:21 | Inpatient (IN) | payer OTHER, BC ==
--- NOTE | 2017-02-09 16:56 | PDOC ---
History of Present Illness - History of Present Illness Initial Comments: 02/09/17 17:43 Patient is a 81 year old female with significant medical hx of HTN, COPD (O2 dependent, steroid dependent), chronic lymphocytic leukemia, immunocompromised, who is arriving to the ED from [facility], accompanied by daughter, for four days of lethargy. Patient was admitted from 01/31-02/06 for shingles and fever. During her stay, patient was admitted to the ICU, where she was transfused and treated for sepsis. Patient was discharged four days ago and was last known well 24 hours ago. Daughter reports that since her discharge the patient has been unusually lethargic and straying from her normal mental baseline. The patient has been urinating frequently and has had several episodes where she wasnt able to make it to the bathroom, which daughter states is also unusual for her. Yesterday the patient was ambulating with a walker to and from the bathroom. She requested a valium last night from her aid to help her sleep, which she was given, and was found significantly somnolent today by prison aids. Daughter prompted for the patient to be sent to the ED. Denies fever , pain, nausea, vomiting, diarrhea, abdominal pain, or hematuria. <Rama Esparza - Last Filed: 02/09/17 19:09> <Marii Altman - Last Filed: 02/09/17 19:40> - General Stated Complaint: POSSIBLE STROKE Time Seen by Provider: 02/09/17 16:47 Past History <Rama Esparza - Last Filed: 02/09/17 19:09> - Past Medical History Cancer: Yes (CLL) COPD: Yes HTN: Yes - Surgical History Abdominal Surgery: Yes - Psycho/Social/Smoking Cessation Hx Anxiety: No Suicidal Ideation: No Smoking History: Former smoker Have you smoked in the past 12 months: No Hx Alcohol Use: No Drug/Substance Use Hx: No Substance Use Type: None <Marii Altman - Last Filed: 02/09/17 19:40> - Past Medical History Allergies/Adverse Reactions: Allergies Allergy/AdvReac Type Severity Reaction Status Date / Time No Known Allergies Allergy Verified 01/31/17 12:13 Home Medications: Ambulatory Orders Aclidinium [place] [Tudorza -] 1 inh PO BID 02/09/17 Albuterol 2.5/Ipratropium 0.5 [Duoneb -] See Protocol IH ASDIR 02/09/17 Aspirin [Aspirin EC] 81 mg PO DAILY 02/09/17 Atorvastatin Calcium [Lipitor] 10 mg PO Q2D 02/09/17 Bimatoprost 2.5 ml OP HS 02/09/17 Budesonide/Formeterol Fumarate [SYMBICORT 160/4.5mcg -] 1 inh PO BID 02/09/17 Cephalexin Monohydrate [Keflex -] 500 mg PO BID 02/09/17 Docusate Sodium 100 mg PO TID 02/09/17 Erythromycin 0.5% Eye Ointment [Erythromycin 0.5% Eye Ointment -] 1 applic DAILY 02/09/17 Ferrous Sulfate 325 mg PO DAILY 02/09/17 Fluticasone Prop 0.05% Nasal [Flonase -] 1 - 2 spray NS BID 02/09/17 Loratadine [Claritin] 10 mg PO DAILY 02/09/17 Metoprolol Tartrate [Lopressor -] 25 mg PO DAILY 02/09/17 Tobramycin 0.3% Ophth Soln [Tobrex *Ophthalmic Solution*] 1 drop TID 02/09/17 Valacyclovir HCl [Valtrex] 1,000 mg PO BID 02/09/17 Review of Systems - Review of Systems Comments:: 02/09/17 17:43 As per daughter: CONSTITUTIONAL: Present: lethargic, somnolent Absent: fever, chills, diaphoresis, loss of appetite HEENT: Absent: rhinorrhea, nasal congestion, throat pain, throat swelling, difficulty swallowing, mouth swelling, ear pain, eye pain, visual changes CARDIOVASCULAR: Absent: chest pain, syncope, palpitations, irregular heart rate, lightheadedness , peripheral edema RESPIRATORY: Absent: cough, shortness of breath, dyspnea with exertion, orthopnea, wheezing, stridor, hemoptysis GASTROINTESTINAL: Absent: abdominal pain, abdominal distension, nausea, vomiting, diarrhea, constipation, melena, hematochezia GENITOURINARY: Present: increased frequency with some bladder incontinence Absent: dysuria, urgency, hesitancy, hematuria, flank pain, genital pain MUSCULOSKELETAL: Absent: myalgia, arthralgia, joint swelling SKIN: Absent: rash, itching, pallor HEMATOLOGIC/IMMUNOLOGIC: Absent: easy bleeding, easy bruising, lymphadenopathy, frequent infections ENDOCRINE: Absent: unexplained weight gain, unexplained weight loss, heat intolerance, cold intolerance NEUROLOGIC: Present: mental status changes Absent: headache, focal weakness or paresthesia, dizziness, unsteady gait, seizure PSYCHIATRIC: Absent: anxiety, depression, suicidal or homicidal ideation, hallucinations <IsaiasBrandoRama - Last Filed: 02/09/17 19:09> *Physical Exam - Vital Signs Last Vital Signs Temp Pulse Resp BP Pulse Ox 97.4 F L 72 16 123/57 97 02/09/17 16:25 02/09/17 16:25 02/09/17 16:25 02/09/17 16:25 02/09/17 16:25 - Physical Exam Comments: 02/09/17 17:46 GENERAL: Well developed, well nourished. Somnolent. No acute distress. HEENT: Normocephalic, atraumatic. Right periorbital edema without any ecchymosis. PERRLA, EOMI. No conjunctival pallor. Sclera are non-icteric. Moist mucous membranes. Oropharynx is clear. NECK: Supple. Full ROM. No JVD. Carotid pulses 2+ and symmetric, without bruits. No thyromegaly. No lymphadenopathy. CARDIOVASCULAR: Regular rate and rhythm. No murmurs, rubs, or gallops. Distal pulses are 2+ and symmetric. PULMONARY: Increased work of breathing, using accessory muscles. Increased respiratory rate. Fine bibasilar rales. No wheezing or rhonchi. ABDOMINAL: Soft. Protuberant. Non-tender. Non-distended. No rebound or guarding. No organomegaly. Normoactive bowel sounds. MUSCULOSKELETAL: Normal range of motion at all joints. No bony deformities or tenderness. No CVA tenderness. EXTREMITIES: No cyanosis. No clubbing. No edema. No calf tenderness. SKIN: Warm and dry. Dried shingles vesicles that are scabbed over. No recent vesicles appreciated. Normal capillary refill. No jaundice. NEUROLOGICAL: Somnolent. Moving extremities. <IsaiasBrandoRama - Last Filed: 02/09/17 19:09> ED Treatment Course - LABORATORY CBC & Chemistry Diagram: 02/09/17 16:40 02/09/17 16:40 - ADDITIONAL ORDERS Additional order review: Laboratory Results 02/09/17 16:40 Urine Color Yellow Urine Appearance Clear Urine pH 5.0 Urine Protein 3+ H Urine Glucose (UA) Negative Urine Ketones Negative Urine Blood 1+ H Urine Nitrite Negative Urine Bilirubin Negative Urine Urobilinogen Negative Ur Leukocyte Esterase Negative Urine RBC 2 Urine WBC 1 Hyaline Casts 17 Granular Casts 11 Urine Mucus Rare - RADIOLOGY Radiograph Interpretation: 02/09/17 19:09 Chest X-Ray Impression: Right pleural effusion, lower lobe consolidation and smaller left pleural effusion. Clinical correlation and follow-up recommended. Please see discussion. Reported By: Adán Padilla MD Head CT Impression: No evidence of acute intracranial pathology. Reported By: Adán Padilla MD <Rama Esparza - Last Filed: 02/09/17 19:09> - LABORATORY CBC & Chemistry Diagram: 02/09/17 16:40 02/09/17 16:40 <Marii Altman - Last Filed: 02/09/17 19:40> *DC/Admit/Observation/Transfer - Attestations Scribe Attestion: 02/09/17 18:08 Documentation prepared by Rama Esparza, acting as medical transcription for Marii Altman MD. <Rama Esparza - Last Filed: 02/09/17 19:09> - Discharge Dispostion Admit: Yes <Marii Altman - Last Filed: 02/09/17 19:40> Diagnosis at time of Disposition: Chronic hypoxemic respiratory failure, CLL (chronic lymphocytic leukemia) COPD (chronic obstructive pulmonary disease) Qualifiers: COPD type: unspecified COPD Qualified Code(s): J44.9 - Chronic obstructive pulmonary disease, unspecified Pneumonia Qualifiers: Pneumonia type: due to unspecified organism Laterality: left Lung location: lower lobe of lung Qualified Code(s): J18.1 - Lobar pneumonia, unspecified organism - Referrals Referrals: Elizabeth Blackman MD [Primary Care Provider] -
[2017-02-09] MEDS ORDERED: SODIUM CHLORIDE 1,000 ML IV SCH (17:00)
[2017-02-09 17:22] LABS: MCH 26.7 pg (25.7-33.7); MCHC 30.6 g/dl (32.0-36.0); MEAN CELL VOLUME 87.2 fl (80-96); MEAN PLT VOLUME 7.6 fl (7.5-11.1); PLATELET COUNT 247 K/MM3 (134-434); RDW 15.8 % (11.6-15.6)
[2017-02-09 17:25] LABS: URINE APPEARANCE CLEAR; URINE BILIRUBIN NEGATIVE (NEGATIVE); URINE BLOOD 1+ (NEGATIVE); URINE COLOR YELLOW; URINE GLUCOSE (UA) NEGATIVE (NEGATIVE); URINE KETONE NEGATIVE (NEGATIVE); URINE LEUK ESTERASE NEGATIVE (NEGATIVE); URINE NITRITE NEGATIVE (NEGATIVE); URINE UROBILINOGEN NEGATIVE mg/dL (0.2-1.0)
[2017-02-09 17:31] LABS: URINE PROTEIN 3+ (NEGATIVE)
[2017-02-09 17:33] LABS: URINE HYALINE CAST 17 /lpf; URINE RBC 2 /hpf (0-3); URINE WBC 1 /hpf (3-5)
[2017-02-09 17:34] LABS: GRANULAR CASTS 11 /lpf; URINE MUCUS RARE
[2017-02-09 17:40] LABS: ARTERIAL BLD GAS O2 SATURATION 91.4 % (90-98.9); ARTERIAL BLOOD GAS BASE EXCESS 7.8 meq/l (-2-2); ARTERIAL BLOOD GAS HCO3 38.1 meq/L (22-26); ARTERIAL BLOOD GAS PO2 69.7 mmHg (70-100); ARTERIAL BLOOD GAS pH 7.22 (7.35-7.45)
[2017-02-09 17:42] LABS: INR 1.02 (0.82-1.09); PROTHROMBIN TIME (PATIENT) 11.2 SEC (9.98-11.88)
[2017-02-09 17:43] LABS: ALLENS TEST POSITIVE; ART PUNCT SITE RIGHT RADIAL
[2017-02-09 17:43] LABS: WHITE BLOOD COUNT 39.6 K/mm3 (4.0-10.0)
[2017-02-09 17:44] LABS: PT. ON O2? NO
[2017-02-09 17:47] LABS: LPM/O2% ROOM AIR
[2017-02-09] MEDS ORDERED: ALBUTEROL SO4 2.5/IPRATROPIUM 0.5 INH SOL 3 ML VIAL.NEB. NEB ONE (17:51)
[2017-02-09] MEDS: ALBUTEROL SO4 2.5/IPRATROPIUM 0.5 INH SOL 3 ML VIAL.NEB. NEB SCH ×4 (17:55→18:58)
[2017-02-09 18:07] LABS: ALBUMIN 2.2 g/dl (3.4-5.0); ANION GAP 4 (8-16); BILIRUBIN,TOTAL 0.3 mg/dL (0.2-1.0); CALCIUM 8.1 mg/dL (8.5-10.1); CO2 40 mmol/L (21-32); CREATININE 0.3 mg/dL (0.55-1.02); GLUCOSE,RANDOM 92 mg/dL (74-106); SGOT/AST 19 U/L (15-37); SGPT/ALT 11 U/L (12-78); TOT PROT 5.8 g/dl (6.4-8.2)
[2017-02-09 18:09] LABS: ALK PHOS 114 U/L (45-117); TROPONIN I 0.03 ng/ml (0.00-0.05)
[2017-02-09] MEDS ORDERED: CEFTRIAXONE 2 GM in DEXTROSE 5%-WATER - 100 ML IVPB ONE (18:35)
[2017-02-09] MEDS ORDERED: AZITHROMYCIN IVPB 500 MG in DEXTROSE 5%-WATER - 250 ML IVPB ONE (18:35)
[2017-02-09] MEDS ORDERED: AZITHROMYCIN IVPB 250 ML IVPB ONE (18:39)
[2017-02-09] MEDS ORDERED: CEFTRIAXONE 100 ML IVPB ONE (18:39)
[2017-02-09] MEDS ORDERED: methylPREDNISolone NA SUCC 125 MG/2 ML VIAL IVPB ONE (19:41)
[2017-02-09] MEDS ORDERED: methylPREDNISolone NA SUCC 125 MG/2 ML VIAL ONE (19:57)
[2017-02-09] MEDS ORDERED: PIPERACILLIN/TAZOB 3.375 GM 3.375 GM in DEXTROSE 5%-WATER - 50 ML IVPB ONE (19:59)
[2017-02-09] MEDS ORDERED: VANCOMYCIN 1,000 MG in DEXTROSE 5%-WATER - 250 ML IVPB ONE (20:00)
[2017-02-09 20:38] LABS: ARTERIAL BLD GAS O2 SATURATION 85.8 % (90-98.9); ARTERIAL BLOOD GAS BASE EXCESS 9.3 meq/l (-2-2); ARTERIAL BLOOD GAS HCO3 36.5 meq/L (22-26); ARTERIAL BLOOD GAS PO2 51.8 mmHg (70-100); ARTERIAL BLOOD GAS pH 7.28 (7.35-7.45)
[2017-02-09 20:39] LABS: ALLENS TEST POSITIVE; ART PUNCT SITE RIGHT RADIAL; LPM/O2% 30%; PT. ON O2? YES
[2017-02-09 20:40] LABS: MECH. VENT. BIPAP; TYPE OF O2 BIPAP; VT/PRESS 16/6
[2017-02-09 20:41] LABS: VENT RATE 18
[2017-02-09 20:51] LABS: METAMYELOCYTE 1 % (0-2); PLATELET ESTIMATE ADEQUATE (NORMAL); SMUDGE CELLS MANY
[2017-02-09] MEDS ORDERED: PIPERACILLIN/TAZOB 3.375 GM 50 ML IVPB ONE (21:30)
[2017-02-09] MEDS ORDERED: VANCOMYCIN 1 GRAM (PRE-DOCKED) 250 ML IVPB ONE (21:30)
--- NOTE | 2017-02-09 21:44 | CONSULT ---
Consult Consult Specialty:: Pulm/CCM Referred by:: ED Reason for Consultation:: acute on chronic resp failure, lobar pna - History of Present Illness Chief Complaint: altered mental status History of Present Illness: Briefly Ms Pollard is a 81 year old woman with pmhx significant for HTN, COPD ( home o2, chronic steroids, HCo3 32-36), CLL brought to ED with family for lethargy since d/c from here after ~ 5 day admission for shingles and fever. Since her D/c pt has been progressively lethargic with day time sleepiness, difficult to arouse at times. She has been incontinent of urine at times and today was very confused prompting daughter to bring to ED. Of note she was given valium last night from her aid to help her sleep. There is was no reported fever, chest pain, nausea, vomiting, diarrhea, abdominal pain, or hematuria. In ED pt was afebrile, normotensive, with mild to moderate resp distress. CT head was performed which was without acute pathology. Labs notable for WBC 35K ( c/w her CLL), and ABG with resp acidosis 7.22/97. She was placed on BiPap 16/8 30%. with repeat ABG 7.28/80/56. She was started on broad spectrum abx. CXR with R>L pleural effusion and RLL consolidation. Sh was transferred to ICU for further care. On arrival in ICU pt remained sommulent but arousable to noxious stimuli. She was intermittently having desaturations to mid 70s and required Fio2 60%. Daughter Pratmia at bedside relates pt would not want usp mechanical ventilation but if necessary would be amenable to time limited trial of intubation and ICU care. Pt is currently full code. - History Source History Provided By: Family Member Limitations to Obtaining History: Clinical Condition - Past Medical History Pulmonary: Yes: COPD, Other (patient mentioned that she is on Home Oxygen and use it when needed) Heme/Onc: Yes: Other (CLL) Infectious Disease: Yes: Herpes Zoster Psych: Yes: Other (insomnia and as per her she is on valium) Dermatology: Yes: Other (recent zosters L face) - Alcohol/Substance Use Hx Alcohol Use: No History of Substance Use: reports: None - Smoking History Smoking history: Former smoker Have you smoked in the past 12 months: No - Social History Usual Living Arrangement: Care Home ADL: Support Services (some support services in assisted living) History of Recent Travel: No Home Medications - Allergies Allergies/Adverse Reactions: Allergies Allergy/AdvReac Type Severity Reaction Status Date / Time No Known Allergies Allergy Verified 01/31/17 12:13 - Home Medications Home Medications: Ambulatory Orders Aclidinium [place] [Tudorza -] 1 inh PO BID 02/09/17 Albuterol 2.5/Ipratropium 0.5 [Duoneb -] See Protocol IH ASDIR 02/09/17 Aspirin [Aspirin EC] 81 mg PO DAILY 02/09/17 Atorvastatin Calcium [Lipitor] 10 mg PO Q2D 02/09/17 Bimatoprost 2.5 ml OP HS 02/09/17 Budesonide/Formeterol Fumarate [SYMBICORT 160/4.5mcg -] 1 inh PO BID 02/09/17 Cephalexin Monohydrate [Keflex -] 500 mg PO BID 02/09/17 Docusate Sodium 100 mg PO TID 02/09/17 Erythromycin 0.5% Eye Ointment [Erythromycin 0.5% Eye Ointment -] 1 applic DAILY 02/09/17 Ferrous Sulfate 325 mg PO DAILY 02/09/17 Fluticasone Prop 0.05% Nasal [Flonase -] 1 - 2 spray NS BID 02/09/17 Loratadine [Claritin] 10 mg PO DAILY 02/09/17 Metoprolol Tartrate [Lopressor -] 25 mg PO DAILY 02/09/17 Tobramycin 0.3% Ophth Soln [Tobrex *Ophthalmic Solution*] 1 drop TID 02/09/17 Valacyclovir HCl [Valtrex] 1,000 mg PO BID 02/09/17 Family Disease History - Family Disease History Family History: Unable to Obtain Review of Systems Unable to obtain ROS, reason: pt somulent, unable Physical Exam Vital Signs: Vital Signs Temperature 97.4 F L 02/09/17 16:25 Pulse Rate 67 02/09/17 20:31 Respiratory Rate 19 02/09/17 20:31 Blood Pressure 87/52 02/09/17 20:31 O2 Sat by Pulse Oximetry (%) 89 L 02/09/17 20:31 ABG Results ABG pH 7.28 (7.35-7.45) L 02/09/17 20:26 ABG pCO2 at Pt Temp 79.4 mmHg (35-45) H* 02/09/17 20:26 ABG pO2 at Pt Temp 51.8 mmHg (70-100) L D 02/09/17 20:26 ABG HCO3 36.5 meq/L (22-26) H 02/09/17 20:26 ABG O2 Sat (Measured) 85.8 % (90-98.9) L 02/09/17 20: ABG O2 Content 7.5 % vol (15-22) L* 02/09/17 20:26 ABG Base Excess 9.3 meq/l (-2-2) H 02/09/17 20:26 Constitutional: Yes: Cachectic, Mild Distress Eyes: Yes: Conjunctiva Clear, EOM Intact, PERRL, Other (improved lesions about eye from last admission) HENT: Yes: Atraumatic Neck: Yes: Supple, Trachea Midline Cardiovascular: Yes: Regular Rate and Rhythm, S1, S2 Respiratory: Yes: Diminished, On BiPap. No: Wheezes Gastrointestinal: Yes: Soft, Hypoactive Bowel Sounds ...Rectal Exam: Yes: Deferred Renal/: Yes: [place] Present Breast(s): Yes: WNL Musculoskeletal: Yes: WNL Extremities: Yes: WNL Edema: No Peripheral Pulses WNL: Yes Neurological: Yes: Confusion, Weakness. No: Asterixis, Facial Droop ...Motor Strength: WNL (weakness throughout but non-focal) Labs: CBC, BMP 02/09/17 16:40 02/09/17 16:40 ABG Results ABG pH 7.28 (7.35-7.45) L 02/09/17 20:26 ABG pCO2 at Pt Temp 79.4 mmHg (35-45) H* 02/09/17 20:26 ABG pO2 at Pt Temp 51.8 mmHg (70-100) L D 02/09/17 20:26 ABG HCO3 36.5 meq/L (22-26) H 02/09/17 20:26 ABG O2 Sat (Measured) 85.8 % (90-98.9) L 02/09/17 20: ABG O2 Content 7.5 % vol (15-22) L* 02/09/17 20: ABG Base Excess 9.3 meq/l (-2-2) H 02/09/17 20:26 Imaging - Results X-ray: Report Reviewed Cat Scan: Report Reviewed EKG: Image Reviewed (SR without ectopy, non ischemic ST changes, normal intervals) Problem List - Problems (1) Chronic hypoxemic respiratory failure Code(s): J96.11 - CHRONIC RESPIRATORY FAILURE WITH HYPOXIA (2) Pneumonia Code(s): J18.9 - PNEUMONIA, UNSPECIFIED ORGANISM Qualifiers: Pneumonia type: due to unspecified organism Laterality: left Lung location: lower lobe of lung Qualified Code(s): J18.1 - Lobar pneumonia, unspecified organism (3) CLL (chronic lymphocytic leukemia) Code(s): C91.10 - CHRONIC LYMPHOCYTIC LEUK OF B-CELL TYPE NOT ACHIEVE REMIS (4) COPD (chronic obstructive pulmonary disease) Code(s): J44.9 - CHRONIC OBSTRUCTIVE PULMONARY DISEASE, UNSPECIFIED Qualifiers : COPD type: unspecified COPD Qualified Code(s): J44.9 - Chronic obstructive pulmonary disease, unspecified Assessment/Plan Seen and examined in the ICU A/ 81 y/o woman with acute on chronic hypoxemic and hypercapneic respiratory failure in setting of Right Lower lobe, suspected bacteria pneumonia P/ -hospital associated pna coverage: Pip/Eze, Azith, Vanco -send sput cxl if able -check viral swab and urine antigens -NIVPPV and fio2 as need for normal pH and Spo2 88-92 -will intubate if pH below 7.2 or unarousable after few hours on NIV -duo nebs -cont steroids, received 125medrol in ed, will start 60 q12 in am -ICU monitoring -cont Goals of care discussion regarding intubation as suspect intubation would lead to joint terminal attack controller mech vent which pt does not want Jose Alfredo Cornejo [facility] [id number] 35min CCT Critical Care Time/MDM Note Total Critical Care Time: 35 Critical Care Statement: The care of this patient involved high complexity decision making to prevent further life threatening deterioration of the patient 's condition and/or to evalute & treat vital organ system(s) failure or risk of failure.
[2017-02-09 21:49] VITALS: BMI 19.5
[2017-02-09] MEDS ORDERED: ALBUTEROL SO4 2.5/IPRATROPIUM 0.5 INH SOL 3 ML VIAL.NEB. NEB PRN (22:22)
[2017-02-09 22:55] LABS: ALLENS TEST POSITIVE; ART PUNCT SITE RIGHT RADIAL; ARTERIAL BLD GAS O2 SATURATION 92.2 % (90-98.9); ARTERIAL BLOOD GAS BASE EXCESS 9.3 meq/l (-2-2); ARTERIAL BLOOD GAS HCO3 36.8 meq/L (22-26); ARTERIAL BLOOD GAS PO2 62.8 mmHg (70-100); LPM/O2% 35%; PT. ON O2? YES; TYPE OF O2 BIPAP
[2017-02-09 22:56] LABS: VENT RATE 20; VT/PRESS 18/6
[2017-02-10] MEDS ORDERED: PIPERACILLIN/TAZOB 3.375 GM/50 ML PRE-DOCKED IV ONE (05:35)
[2017-02-10 06:37] LABS: MCH 27.1 pg (25.7-33.7); MCHC 31.4 g/dl (32.0-36.0); MEAN CELL VOLUME 86.2 fl (80-96); MEAN PLT VOLUME 7.5 fl (7.5-11.1); PLATELET COUNT 202 K/MM3 (134-434); RDW 15.5 % (11.6-15.6)
[2017-02-10 06:51] LABS: WHITE BLOOD COUNT 30.6 K/mm3 (4.0-10.0)
[2017-02-10 07:04] LABS: ALK PHOS 105 U/L (45-117); ANION GAP 8 (8-16); BILIRUBIN,TOTAL 0.3 mg/dL (0.2-1.0); CALCIUM 7.6 mg/dL (8.5-10.1); CO2 35 mmol/L (21-32); CREATININE 0.5 mg/dL (0.55-1.02); GLUCOSE,RANDOM 116 mg/dL (74-106); SGOT/AST 17 U/L (15-37); SGPT/ALT 9 U/L (12-78); TOT PROT 5.5 g/dl (6.4-8.2)
[2017-02-10] MEDS ORDERED: PT OWN MED DRAWER 7, Y5N ONE (08:41)
[2017-02-10] MEDS: methylPREDNISolone NA SUCC 40 MG/1 ML VIAL IVPB SCH ×2 (09:42→21:13)
[2017-02-10] MEDS ORDERED: AZITHROMYCIN IVPB 500 MG/250 ML D5W PRE-DOCKED IVPB SCH (10:00)
[2017-02-10] MEDS ORDERED: AZITHROMYCIN IVPB 500 MG in DEXTROSE 5%-WATER - 250 ML IVPB SCH (10:00)
[2017-02-10 10:03] LABS: ANISOCYTOSIS 2+; HYPOCHROMIA 1+; PLATELET ESTIMATE ADEQUATE (NORMAL)
[2017-02-10] MEDS ORDERED: ALBUTEROL SO4 2.5/IPRATROPIUM 0.5 INH SOL 3 ML VIAL.NEB. NEB SCH (12:00)
--- NOTE | 2017-02-10 12:17 | PN ---
Teaching Attending Note Name of Resident: Huey Smith ATTENDING PHYSICIAN STATEMENT I saw and evaluated the patient. I reviewed the resident's note and discussed the case with the resident. I agree with the resident's findings and plan as documented. SUBJECTIVE: Pt seen and examined in the ICU. Breathing improving. Denies cough but occasional wheezing. No fevers or chills. OBJECTIVE: Last Vital Signs Temp Pulse Resp BP Pulse Ox 97.4 F L 78 18 103/62 92 L 02/10/17 06:00 02/10/17 10:25 02/10/17 10:06 02/10/17 10:06 02/10/17 10:25 Intake & Output 02/07/17 02/08/17 02/09/17 02/10/17 23:59 23:59 23:59 23:59 Intake Total 475 1865 Balance 475 1865 Weight 125 lb 1 oz Gen: NAD at rest Heart: RRR Lung: decreased breath sounds right base Abd: soft, nontender Ext: no edema CBC, BMP 02/10/17 05:25 02/10/17 05:25 ABG Results ABG pH 7.30 (7.35-7.45) L 02/09/17 22:43 ABG pCO2 at Pt Temp 77.7 mmHg (35-45) H* 02/09/17 22:43 ABG pO2 at Pt Temp 62.8 mmHg (70-100) L D 02/09/17 22:43 ABG HCO3 36.8 meq/L (22-26) H 02/09/17 22:43 ABG O2 Sat (Measured) 92.2 % (90-98.9) 02/09/17 22:43 ABG O2 Content 10.2 % vol (15-22) L 02/09/17 22:43 ABG Base Excess 9.3 meq/l (-2-2) H 02/09/17 22:43 Active Medications Albuterol/Ipratropium (Duoneb -) 1 amp NEB Q4H PRN PRN Reason: SHORTNESS OF BREATH Last Admin: 02/10/17 05:28 Dose: 1 amp Calamine (Calamine 8% Topical Lotion -) 1 applic TP BID PRN PRN Reason: FOR ITCHING Chlorhexidine Gluconate (Hibiclens For Decolonization -) 1 applic TP HS TRACY Enoxaparin Sodium (Lovenox -) 40 mg SQ DAILY [facility] Sodium Chloride (Normal Saline -) 1,000 mls @ 125 mls/hr IV .Q8H [facility] Last Admin: 02/09/17 21:50 Dose: 125 mls/hr Methylprednisolone Sodium Succinate (Solu-Medrol -) 60 mg IVPB BID [facility] Last Admin: 02/10/17 09:42 Dose: 60 mg Mupirocin (Bactroban Ointment (For Decolonization) -) 1 applic NS BID [facility] Stop: 02/15/17 21:59 Piperacillin Sod/Tazobactam Sod (Zosyn 3.375gm Ivpb (Pre-Docked)) 3.375 gm IVPB Q8H-IV TRACY PRN Reason: Protocol ASSESSMENT AND PLAN: Acute on Chronic Hypoxic and Hypercapneic Respiratory Failure Pneumonia Acute COPD Exacerbation Recent Zoster/Facial Cellulitis - continue antibiotics - f/u cultures - IV medrol - inhaled bronchodilators standing and PRN - O2 to keep SpO2 88-92% to avoid worsening V/Q mismatch - DVT prophylaxis - repeat ABG - if pH normalizing, can transfer to floor critical care time spent in reviewing chart, evaluating patient and formulating plan 35 min
[2017-02-10] MEDS ORDERED: ALBUTEROL SO4 0.083% IH SOL 2.5 MG/3 ML VIAL.NEB. NEB PRN (12:18)
[2017-02-10] MEDS ORDERED: CALAMINE 8% TOPICAL LOTION 177 ML BOTTLE TP PRN ×2 (12:30→17:18)
--- NOTE | 2017-02-10 12:58 | EKG ---
Test Reason : Blood Pressure : / mmHG Vent. Rate : 073 BPM Atrial Rate : 073 BPM P-R Int : 180 ms QRS Dur : 096 ms QT Int : 404 ms P-R-T Axes : 058 065 065 degrees QTc Int : 445 ms NORMAL SINUS RHYTHM NORMAL ECG WHEN COMPARED WITH ECG OF 04-FEB-2017 10:57, NO SIGNIFICANT CHANGE WAS FOUND Confirmed by HARPREET LUJAN MD ([id number]) on 02/10/2017 12:58:30 PM Referred By: Confirmed By:HARPREET LUJAN MD
[2017-02-10] MEDS ORDERED: PIPERACILLIN/TAZOB 3.375 GM/50 ML PRE-DOCKED IVPB SCH (13:00)
[2017-02-10 13:52] LABS: ARTERIAL BLD GAS O2 SATURATION 91.9 % (90-98.9); ARTERIAL BLOOD GAS BASE EXCESS 9.1 meq/l (-2-2); ARTERIAL BLOOD GAS HCO3 34.5 meq/L (22-26)
[2017-02-10 13:54] LABS: ALLENS TEST POSITIVE; ART PUNCT SITE RIGHT RADIAL; PT. ON O2? YES
[2017-02-10 13:55] LABS: LPM/O2% 3LPM; TYPE OF O2 NASAL
[2017-02-10 13:58] LABS: ARTERIAL BLOOD GAS PO2 61.6 mmHg (70-100)
--- NOTE | 2017-02-10 15:17 | PN ---
Physical Exam: SUBJECTIVE: Patient seen and examined. Patient was complaining of itching in her nose and the left side of her head due to her resolving shingles. Her breathing has improved and she is saturating well on 2L nasal cannula. OBJECTIVE: Vital Signs Temperature 97.4 F L 02/10/17 06:00 Pulse Rate 84 02/10/17 12:00 Respiratory Rate 18 02/10/17 12:00 Blood Pressure 126/56 02/10/17 12:00 O2 Sat by Pulse Oximetry (%) 92 L 02/10/17 10:25 GENERAL: The patient is awake, alert, and fully oriented, in no acute distress. HEAD: Normal with no signs of trauma rash on left side of face 2/2 shingles. EYES: extraocular movements intact, sclera anicteric, conjunctiva clear. No ptosis. NECK: Trachea midline, full range of motion, supple. LUNGS: Breath sounds equal, clear to auscultation bilaterally, no wheezes, no crackles, no accessory muscle use. HEART: Regular rate and rhythm, S1, S2 without murmur, rub or gallop. ABDOMEN: Soft, nontender, nondistended, normoactive bowel sounds, no guarding, no rebound. EXTREMITIES: 2+ pulses, warm, well-perfused, no edema. NEUROLOGICAL: Cranial nerves II through X grossly intact. Normal speech, gait not observed. PSYCH: Normal mood, normal affect. SKIN: Warm, dry, normal turgor, no rashes or lesions noted Laboratory Results - last 24 hr 02/09/17 02/09/17 02/10/17 20:26 22:43 05:25 WBC RBC Hgb Hct MCV MCH MCHC RDW Plt Count MPV Platelet Estimate Hypochromic-Microcytic Anisocytosis Puncture Site Right radial Right radial ABG pH 7.28 L 7.30 L ABG pCO2 at Pt Temp 79.4 H* 77.7 H* ABG pO2 at Pt Temp 51.8 L D 62.8 L D ABG HCO3 36.5 H 36.8 H ABG O2 Sat (Measured) 85.8 L 92.2 ABG O2 Content 7.5 L* 10.2 L ABG Base Excess 9.3 H 9.3 H Abner Test Positive Positive O2 Delivery Device Bipap Bipap Oxygen Flow Rate 30% 35% Vent Mode S/t S/t Vent Rate 18 20 Mechanical Rate Bipap PEEP 0.0 Pressure Support Vent 16/6 18/6 Sodium 138 Potassium 4.2 Chloride 95 L Carbon Dioxide 35 H Anion Gap 8 BUN 18 D Creatinine 0.5 L D Creat Clearance w eGFR > 60 Random Glucose 116 H D Calcium 7.6 L Total Bilirubin 0.3 AST 17 ALT 9 L Alkaline Phosphatase 105 Total Protein 5.5 L Albumin 2.0 L Vancomycin Pre-Dose 02/10/17 02/10/17 02/10/17 05:25 06:00 13:45 WBC 30.6 H* RBC 2.77 L Hgb 7.5 L Hct 23.8 L MCV 86.2 MCH 27.1 MCHC 31.4 L RDW 15.5 Plt Count 202 MPV 7.5 Platelet Estimate Adequate Hypochromic-Microcytic 1+ Anisocytosis 2+ Puncture Site Right radial ABG pH 7.40 ABG pCO2 at Pt Temp 56.5 H D ABG pO2 at Pt Temp 61.6 L ABG HCO3 34.5 H ABG O2 Sat (Measured) 91.9 ABG O2 Content 9.5 L* ABG Base Excess 9.1 H Abner Test Positive O2 Delivery Device Nasal Oxygen Flow Rate 3lpm Vent Mode Vent Rate Mechanical Rate PEEP 0.0 Pressure Support Vent Sodium Potassium Chloride Carbon Dioxide Anion Gap BUN Creatinine Creat Clearance w eGFR Random Glucose Calcium Total Bilirubin AST ALT Alkaline Phosphatase Total Protein Albumin Vancomycin Pre-Dose 9.719 Active Medications Generic Name Dose Route Start Last Admin Trade Name Freq PRN Reason Stop Dose Admin Albuterol Sulfate 1 amp 02/10/17 12:18 Ventolin 0.083% Nebulizer Soln - NEB Q4H PRN SHORT OF BREATH/WHEEZING Albuterol/Ipratropium 1 amp 02/10/17 12:00 02/10/17 14:03 Duoneb - NEB 1 amp QIDR TRACY Administration Atorvastatin Calcium 10 mg 02/12/17 22:00 Lipitor - PO Q2D@2200 [facility] Calamine 1 applic 02/10/17 12:30 02/10/17 12:46 Calamine 8% Topical Lotion - TP 1 applic BID PRN Administration FOR ITCHING Chlorhexidine Gluconate 1 applic 02/10/17 22:00 Hibiclens For Decolonization - TP HS TRACY Enoxaparin Sodium 40 mg 02/11/17 10:00 Lovenox - SQ DAILY TRACY Ferrous Sulfate 325 mg 02/11/17 10:00 Feosol - PO DAILY TRACY Sodium Chloride 1,000 mls @ 125 mls/hr 02/09/17 17:00 02/09/17 21:50 Normal Saline - IV 125 mls/hr .Q8H TRACY Administration Methylprednisolone Sodium Succinate 60 mg 02/10/17 10:00 02/10/17 09:42 Solu-Medrol - IVPB 60 mg BID TRACY Administration Metoprolol Tartrate 25 mg 02/11/17 10:00 Lopressor - PO DAILY TRACY Mupirocin 1 applic 02/10/17 22:00 Bactroban Ointment (For Decolonization) - NS 02/15/17 21:59 BID TRACY Piperacillin Sod/Tazobactam Sod 3.375 gm 02/10/17 13:00 02/10/17 12:20 Zosyn 3.375gm Ivpb (Pre-Docked) IVPB 3.375 gm Q8H-IV TRACY Administration Protocol Valacyclovir HCl 1,000 mg 02/10/17 22:00 Valtrex - PO 02/11/17 21:59 BID TRACY ASSESSMENT/PLAN: Neuro -a&o x3, alert and oriented Pulmonary -COPD exacerbation -solumetrol 60mg Q12 -duonebs -zosyn 3.375 -most recent ABG shows Ph normalizing -f/u cultures Cardiology -PMH HTN, HLD, anemia, afib -Lopressor 25mg PO -Lipitor 10mg Q2D -Ferrous sulfate 325 PO FEN -NS @ 125 -will monitor lytes -regular diet PPTX -Lovenox for DVT pptx Dispo -Stable to transfer to floor Problem List - Problems (1) Chronic hypoxemic respiratory failure Code(s): J96.11 - CHRONIC RESPIRATORY FAILURE WITH HYPOXIA (2) CLL (chronic lymphocytic leukemia) Code(s): C91.10 - CHRONIC LYMPHOCYTIC LEUK OF B-CELL TYPE NOT ACHIEVE REMIS (3) COPD (chronic obstructive pulmonary disease) Code(s): J44.9 - CHRONIC OBSTRUCTIVE PULMONARY DISEASE, UNSPECIFIED Qualifiers : COPD type: unspecified COPD Qualified Code(s): J44.9 - Chronic obstructive pulmonary disease, unspecified (4) Anemia Code(s): D64.9 - ANEMIA, UNSPECIFIED Qualifiers: Anemia type: other cause Other causes of anemia: chronic disease, neoplastic Qualified Code(s): D63.0 - Anemia in neoplastic disease (5) Shingles outbreak Code(s): B02.9 - ZOSTER WITHOUT COMPLICATIONS Qualifiers: Herpes zoster complications: unspecified herpes zoster complication Qualified Code(s): B02.8 - Zoster with other complications (6) Atrial fibrillation Code(s): I48.91 - UNSPECIFIED ATRIAL FIBRILLATION (7) COPD exacerbation Code(s): J44.1 - CHRONIC OBSTRUCTIVE PULMONARY DISEASE W (ACUTE) EXACERBATION Visit type - Emergency Visit Emergency Visit: Yes ED Registration Date: 02/09/17 Care time: The patient presented to the Emergency Department on the above date and was hospitalized for further evaluation of their emergent condition. - New Patient This patient is new to me today: Yes Date on this admission: 02/10/17 - Critical Care Critical Care patient: Yes Total Critical Care Time (in minutes): 35 Critical Care Statement: The care of this patient involved high complexity decision making to prevent further life threatening deterioration of the patient 's condition and/or to evalute & treat vital organ system(s) failure or risk of failure.
[2017-02-10] MEDS: PIPERACILLIN/TAZOB 3.375 GM/50 ML PRE-DOCKED IVPB SCH (17:38)
[2017-02-10] MEDS: SODIUM CHLORIDE 1,000 ML IV SCH (17:39)
[2017-02-10] MEDS: ALBUTEROL SO4 2.5/IPRATROPIUM 0.5 INH SOL 3 ML VIAL.NEB. NEB SCH (18:01)
[2017-02-10] MEDS: ALBUTEROL SO4 0.083% IH SOL 2.5 MG/3 ML VIAL.NEB. NEB PRN (20:20)
[2017-02-10] MEDS: valACYclovir HCL 500 MG TABLET (FP) PO SCH (21:12)
[2017-02-10] MEDS: MUPIROCIN 2% TOPICAL OINTMENT FOR DECOLONIZATION NS SCH (21:17)
[2017-02-10] MEDS: CHLORHEXIDINE GLUCONATE 4% CLEANSER FOR DECOLONIZATION TP SCH (21:18)
[2017-02-10] MEDS ORDERED: ATORVASTATIN CA 10 MG TABLET (FP) PO SCH ×2 (21:45→22:00)
[2017-02-10] MEDS ORDERED: MUPIROCIN 2% TOPICAL OINTMENT FOR DECOLONIZATION NS SCH (22:00)
[2017-02-10] MEDS ORDERED: CHLORHEXIDINE GLUCONATE 4% CLEANSER FOR DECOLONIZATION TP SCH (22:00)
[2017-02-10] MEDS ORDERED: valACYclovir HCL 500 MG TABLET (FP) PO SCH (22:00)
--- NOTE | 2017-02-10 22:32 | HP ---
Admitting History and Physical - Admission Chief Complaint: altered mental status History of Present Illness: Chief Complaint: altered mental status History of Present Illness: Ms Pollard is a 81 year old woman with pmhx significant for HTN, COPD (home o2 , chronic steroids, HCo3 32-36), CLL brought to ED with family for lethargy since d/c from here after ~ 5 day admission for shingles and fever. Since her D /c pt has been progressively lethargic with day time sleepiness, difficult to arouse at times. She has been incontinent of urine at times and today was very confused prompting daughter to bring to ED. Of note she was given valium last night from her aid to help her sleep. There is was no reported fever, chest pain, nausea, vomiting, diarrhea, abdominal pain, or hematuria. In ED pt was afebrile, normotensive, with mild to moderate resp distress. CT head was performed which was without acute pathology. Labs notable for WBC 35K ( c/w her CLL), and ABG with resp acidosis 7.22/97. She was placed on BiPap 16/8 30%. with repeat ABG 7.28/80/56. She was started on broad spectrum abx. CXR with R>L pleural effusion and RLL consolidation. Sh was transferred to ICU for further care. On arrival in ICU pt remained sommulent but arousable to noxious stimuli. She was intermittently having desaturations to mid 70s and required Fio2 60%. History Source: Patient, Medical Record - Past Medical History Pulmonary: Yes: COPD, Other (patient mentioned that she is on Home Oxygen and use it when needed) Gastrointestinal: Yes: Irritable Bowel Disease ...: No Heme/Onc: Yes: Other (CLL) Infectious Disease: Yes: Herpes Zoster Psych: Yes: Other (insomnia and as per her she is on valium) Endocrine: Yes: Hypothyroidism Dermatology: Yes: Other (recent zosters L face) - Smoking History Smoking history: Former smoker Have you smoked in the past 12 months: No - Alcohol/Substance Use Hx Alcohol Use: No History of Substance Use: reports: None - Social History Usual Living Arrangement: Yes: Alone, Assisted Living ADL: Support Services (some support services in assisted living) History of Recent Travel: No Home Medications - Allergies Allergies/Adverse Reactions: Allergies Allergy/AdvReac Type Severity Reaction Status Date / Time No Known Allergies Allergy Verified 01/31/17 12:13 - Home Medications Home Medications: Ambulatory Orders Aclidinium [place] [Tudorza -] 1 inh PO BID 02/09/17 Albuterol 2.5/Ipratropium 0.5 [Duoneb -] See Protocol IH ASDIR 02/09/17 Aspirin [Aspirin EC] 81 mg PO DAILY 02/09/17 Atorvastatin Calcium [Lipitor] 10 mg PO Q2D 02/09/17 Bimatoprost 2.5 ml OP HS 02/09/17 Budesonide/Formeterol Fumarate [SYMBICORT 160/4.5mcg -] 1 inh PO BID 02/09/17 Cephalexin Monohydrate [Keflex -] 500 mg PO BID 02/09/17 Docusate Sodium 100 mg PO TID 02/09/17 Erythromycin 0.5% Eye Ointment [Erythromycin 0.5% Eye Ointment -] 1 applic DAILY 02/09/17 Ferrous Sulfate 325 mg PO DAILY 02/09/17 Fluticasone Prop 0.05% Nasal [Flonase -] 1 - 2 spray NS BID 02/09/17 Loratadine [Claritin] 10 mg PO DAILY 02/09/17 Metoprolol Tartrate [Lopressor -] 25 mg PO DAILY 02/09/17 Tobramycin 0.3% Ophth Soln [Tobrex *Ophthalmic Solution*] 1 drop TID 02/09/17 Valacyclovir HCl [Valtrex] 1,000 mg PO BID 02/09/17 Review of Systems - Review of Systems Constitutional: reports: Lethargy, Loss of Appetite, Malaise, Unintentional Wgt. Loss, Weakness. denies: Chills, Diaphoresis, Fever, Night Sweats Eyes: reports: No Symptoms HENT: reports: No Symptoms Neck: reports: No Symptoms Genitourinary: reports: No Symptoms Breasts: reports: No Symptoms Reported Musculoskeletal: reports: No Symptoms Integumentary: reports: No Symptoms Neurological: reports: Confusion Endocrine: reports: No Symptoms Hematology/Lymphatic: reports: No Symptoms, Easily Bruised Psychiatric: reports: No Symptoms Physical Examination Vital Signs: Vital Signs Temperature 98 F 02/10/17 14:00 Pulse Rate 82 02/10/17 17:29 Respiratory Rate 22 02/10/17 17:29 Blood Pressure 112/56 02/10/17 17:29 O2 Sat by Pulse Oximetry (%) 92 L 02/10/17 10:25 Constitutional: Yes: Cachectic, Mild Distress, Thin Eyes: Yes: Conjunctiva Clear HENT: Yes: Atraumatic, Normocephalic Neck: Yes: Supple, Trachea Midline Cardiovascular: Yes: Regular Rate and Rhythm Respiratory: Yes: Diminished, Poor Air Entry Gastrointestinal: Yes: Normal Bowel Sounds, Soft ...Rectal Exam: Yes: Deferred Renal/: Yes: WNL Breast(s): Yes: WNL Musculoskeletal: Yes: Muscle Weakness Extremities: Yes: WNL Edema: No Integumentary: Yes: WNL Neurological: Yes: Confusion, Weakness Psychiatric: Yes: Other (altered mental status) Labs: CBC, BMP 02/10/17 05:25 02/10/17 05:25 Problem List - Problems (1) Altered awareness, transient Assessment/Plan: acute metabolic encephalopathy severe COPD -- CO2 retention not tolerating PO for last 2-3 days - dehydaration Code(s): R40.4 - TRANSIENT ALTERATION OF AWARENESS (2) Chronic hypoxemic respiratory failure Assessment/Plan: O2 dependent & Bipap at night ( unclear if using it ) steroid dependent Inhaled and PO Code(s): J96.11 - CHRONIC RESPIRATORY FAILURE WITH HYPOXIA (3) CLL (chronic lymphocytic leukemia) Assessment/Plan: elevated WBC baseline will monitor as presence of infection will further increase WBC CBC with differential Code(s): C91.10 - CHRONIC LYMPHOCYTIC LEUK OF B-CELL TYPE NOT ACHIEVE REMIS (4) COPD (chronic obstructive pulmonary disease) Assessment/Plan: continue with medications add IV steroids Bipap Pulmonary consult and follow up Code(s): J44.9 - CHRONIC OBSTRUCTIVE PULMONARY DISEASE, UNSPECIFIED Qualifiers : COPD type: emphysema (5) AF (paroxysmal atrial fibrillation) Assessment/Plan: rate controlled NOAC Code(s): I48.0 - PAROXYSMAL ATRIAL FIBRILLATION
--- NOTE | 2017-02-10 22:56 | PN ---
Progress Note (short form) - Note Progress Note: attending note ICU awake alert seen and examined in ICU on O2 --had nocturnal CPAP was able to toleratePO well full breakfast and lunch -- admits better appetite Vital Signs Period Temp Pulse Resp BP Sys/Gong Pulse Ox Last 24 Hr 97.4 F-98 F 57-84 18-22 98-126/52-71 92-97 nek supple heart S1/S2 Lungs decreased BS no wheezing abd soft non tender Ext no edema CBC, BMP 02/10/17 05:25 02/10/17 05:25 Microbiology 02/09/17 16:40 Blood - Peripheral Venous Blood Culture - Preliminary NO GROWTH OBTAINED AFTER 24 HOURS, INCUBATION TO CONTINUE FOR 4 DAYS. 02/09/17 16:40 Blood - Peripheral Venous Blood Culture - Preliminary NO GROWTH OBTAINED AFTER 24 HOURS, INCUBATION TO CONTINUE FOR 4 DAYS. 02/10/17 06:00 Nasopharyngeal Swab Respiratory Virus (PCR) - Preliminary Active Medications Albuterol Sulfate (Ventolin 0.083% Nebulizer Soln -) 1 amp NEB Q4H PRN PRN Reason: SHORT OF BREATH/WHEEZING Last Admin: 02/10/17 20:20 Dose: 1 amp Albuterol/Ipratropium (Duoneb -) 1 amp NEB QIDR COUNT INCLUDES [facility] Last Admin: 02/10/17 18:01 Dose: 1 amp Atorvastatin Calcium (Lipitor -) 10 mg PO Q2D@2200 [facility]CLUDES [facility] Last Admin: 02/10/17 21:40 Dose: 10 mg Calamine (Calamine 8% Topical Lotion -) 1 applic TP BID PRN PRN Reason: FOR ITCHING Chlorhexidine Gluconate (Hibiclens For Decolonization -) 1 applic TP HS COUNT INCLUDES [facility] Last Admin: 02/10/17 21:18 Dose: Not Given Enoxaparin Sodium (Lovenox -) 40 mg SQ DAILY COUNT INCLUDES [facility] Ferrous Sulfate (Feosol -) 325 mg PO DAILY COUNT INCLUDES [facility] Sodium Chloride (Normal Saline -) 1,000 mls @ 125 mls/hr IV ASDIR COUNT INCLUDES [facility] Last Admin: 02/10/17 17:39 Dose: 125 mls/hr Levothyroxine Sodium (Synthroid -) 50 mcg PO DAILY@0700 [facility]CLUDES [facility] Methylprednisolone Sodium Succinate (Solu-Medrol -) 60 mg IVPB BID COUNT INCLUDES [facility] Last Admin: 02/10/17 21:13 Dose: 60 mg Metoprolol Tartrate (Lopressor -) 25 mg PO DAILY COUNT [facility]CLUDES [facility] Mupirocin (Bactroban Ointment (For Decolonization) -) 1 applic NS BID [facility]CLUDES [facility] Stop: 02/15/17 21:59 Last Admin: 02/10/17 21:17 Dose: Not Given Piperacillin Sod/Tazobactam Sod (Zosyn 3.375gm Ivpb (Pre-Docked)) 3.375 gm IVPB Q8H-IV TRACY PRN Reason: Protocol Last Admin: 02/10/17 17:38 Dose: 3.375 gm Valacyclovir HCl (Valtrex -) 1,000 mg PO BID [facility]CLUD[facility] Stop: 02/11/17 21:59 Last Admin: 02/10/17 21:12 Dose: 1,000 mg Problem List - Problems (1) Chronic hypoxemic respiratory failure Assessment/Plan: O2 dependent & Bipap at night ( unclear if using it ) steroid dependent Inhaled and PO hypoxic / hypercapnia Code(s): J96.11 - CHRONIC RESPIRATORY FAILURE WITH HYPOXIA (2) Altered awareness, transient Assessment/Plan: resolved patient awake and alert OOx3 back to baseline resolved metabolic encephalopathy Code(s): R40.4 - TRANSIENT ALTERATION OF AWARENESS (3) COPD (chronic obstructive pulmonary disease) Assessment/Plan: continue with medications IV steroids Bipap Pulmonary follow up Code(s): J44.9 - CHRONIC OBSTRUCTIVE PULMONARY DISEASE, UNSPECIFIED Qualifiers : COPD type: emphysema (4) AF (paroxysmal atrial fibrillation) Assessment/Plan: rate controlled NOAC Code(s): I48.0 - PAROXYSMAL ATRIAL FIBRILLATION (5) CLL (chronic lymphocytic leukemia) Assessment/Plan: elevated WBC baseline will monitor as presence of infection will further increase WBC CBC with differential Code(s): C91.10 - CHRONIC LYMPHOCYTIC LEUK OF B-CELL TYPE NOT ACHIEVE REMIS
[2017-02-10] MEDS ORDERED: ZOLPIDEM TARTRATE 5 MG TABLET PO ONE (23:15)
[2017-02-11] MEDS: FLUTICASONE PROP 0.05% 16 GM NASAL SPRAY NS SCH ×3 (00:21→22:21)
[2017-02-11] MEDS: ALBUTEROL SO4 2.5/IPRATROPIUM 0.5 INH SOL 3 ML VIAL.NEB. NEB SCH ×5 (00:21→23:18)
[2017-02-11] MEDS: PIPERACILLIN/TAZOB 3.375 GM/50 ML PRE-DOCKED IVPB SCH ×4 (01:59→18:18)
[2017-02-11] MEDS: SODIUM CHLORIDE 1,000 ML IV SCH ×4 (02:56→21:10)
[2017-02-11] MEDS: LEVOTHYROXINE NA 50 MCG TABLET (FP) PO SCH (06:44)
[2017-02-11 07:46] LABS: MCH 26.8 pg (25.7-33.7); MCHC 30.3 g/dl (32.0-36.0); MEAN CELL VOLUME 88.4 fl (80-96); MEAN PLT VOLUME 7.6 fl (7.5-11.1); PLATELET COUNT 231 K/MM3 (134-434); RDW 16.3 % (11.6-15.6)
[2017-02-11 08:09] LABS: WHITE BLOOD COUNT 61.3 K/mm3 (4.0-10.0)
[2017-02-11 08:18] LABS: ANION GAP 8 (8-16); CALCIUM 7.6 mg/dL (8.5-10.1); CO2 33 mmol/L (21-32); CREATININE 0.7 mg/dL (0.55-1.02); GLUCOSE,RANDOM 114 mg/dL (74-106)
[2017-02-11 09:38] LABS: PLATELET ESTIMATE ADEQUATE (NORMAL)
[2017-02-11] MEDS ORDERED: FERROUS SO4 325 MG TABLET (FP) PO SCH (10:00)
[2017-02-11] MEDS ORDERED: METOPROLOL TARTRATE 25 MG TABLET (FP) PO SCH (10:00)
[2017-02-11] MEDS ORDERED: ENOXAPARIN NA (PORCINE) 40 MG/0.4 ML DISP.SYRIN SQ SCH (10:00)
[2017-02-11] MEDS ORDERED: PT OWN MED DRAWER 7, Y5N ONE ×3 (10:22→18:13)
[2017-02-11] MEDS: FERROUS SO4 325 MG TABLET (FP) PO SCH (10:37)
[2017-02-11] MEDS: ENOXAPARIN NA (PORCINE) 40 MG/0.4 ML DISP.SYRIN SQ SCH (10:38)
[2017-02-11] MEDS: valACYclovir HCL 500 MG TABLET (FP) PO SCH (10:38)
[2017-02-11] MEDS: METOPROLOL TARTRATE 25 MG TABLET (FP) PO SCH (10:38)
--- NOTE | 2017-02-11 10:55 | PN ---
Progress Note (short form) - Note Progress Note: Resting in NAD on 2 L NC O2. NIPPV overnight. Breathing is improving. No CP Minimal cough. Intake & Output 02/08/17 02/09/17 02/10/17 02/11/17 23:59 23:59 23:59 23:59 Intake Total 475 3765 1100 Balance 475 3765 1100 Weight 125 lb 1 oz 125 lb 0.034 oz Last Vital Signs Temp Pulse Resp BP Pulse Ox 98 F 77 28 H 124/62 92 L 02/11/17 09:25 02/11/17 09:25 02/11/17 09:25 02/11/17 09:25 02/10/17 21:00 Active Medications Albuterol Sulfate (Ventolin 0.083% Nebulizer Soln -) 1 amp NEB Q4H PRN PRN Reason: SHORT OF BREATH/WHEEZING Last Admin: 02/10/17 20:20 Dose: 1 amp Albuterol/Ipratropium (Duoneb -) 1 amp NEB QIDR [facility] Last Admin: 02/11/17 06:38 Dose: 1 amp Atorvastatin Calcium (Lipitor -) 10 mg PO Q2D@2200 [facility] Last Admin: 02/10/17 21:40 Dose: 10 mg Atorvastatin Calcium (Lipitor -) 10 mg PO HS TRACY Budesonide/Formoterol Fumarate (Symbicort 160/4.5mcg -) 1 puff IH BID [facility] Calamine (Calamine 8% Topical Lotion -) 1 applic TP BID PRN PRN Reason: FOR ITCHING Last Admin: 02/11/17 00:21 Dose: 1 applic Chlorhexidine Gluconate (Hibiclens For Decolonization -) 1 applic TP HS [facility] Last Admin: 02/10/17 21:18 Dose: Not Given Enoxaparin Sodium (Lovenox -) 40 mg SQ DAILY [facility] Last Admin: 02/11/17 10:38 Dose: 40 mg Erythromycin (Erythromycin 0.5% Eye Ointment) 1 applic OS DAILY TRACY Ferrous Sulfate (Feosol -) 325 mg PO DAILY [facility] Last Admin: 02/11/17 10:37 Dose: 325 mg Fluticasone Propionate (Flonase -) 1 - 2 spray NS BID [facility] Last Admin: 02/11/17 00:21 Dose: 2 sprays Sodium Chloride (Normal Saline -) 1,000 mls @ 125 mls/hr IV ASDIR [facility] Last Admin: 02/11/17 02:56 Dose: 125 mls/hr Latanoprost (Xalatan 0.005% Eye Drops -) 1 drop OU HS [facility] Levothyroxine Sodium (Synthroid -) 50 mcg PO DAILY@0700 [facility] Last Admin: 02/11/17 06:44 Dose: 50 mcg Methylprednisolone Sodium Succinate (Solu-Medrol -) 40 mg IVPB BID [facility] Metoprolol Tartrate (Lopressor -) 25 mg PO DAILY [facility] Last Admin: 02/11/17 10:38 Dose: 25 mg Mupirocin (Bactroban Ointment (For Decolonization) -) 1 applic NS BID [facility] Stop: 02/15/17 21:59 Last Admin: 02/10/17 21:17 Dose: Not Given Piperacillin Sod/Tazobactam Sod (Zosyn 3.375gm Ivpb (Pre-Docked)) 3.375 gm IVPB Q8H-IV [facility] PRN Reason: Protocol Last Admin: 02/11/17 10:50 Dose: 3.375 gm Valacyclovir HCl (Valtrex -) 1,000 mg PO BID [facility] Stop: 02/11/17 21:59 Last Admin: 02/11/17 10:38 Dose: 1,000 mg Gen: NAD at rest Heart: RRR Lung: decreased breath sounds at the bases, few rhonchi Abd: soft, nontender Ext: no edema Laboratory Results - last 24 hr 02/10/17 02/11/17 02/11/17 13:45 06:20 06:20 WBC 61.3 H* D RBC 2.95 L Hgb 7.9 L Hct 26.1 L MCV 88.4 MCH 26.8 MCHC 30.3 L RDW 16.3 H Plt Count 231 MPV 7.6 Neutrophils % 33.0 L Lymphocytes % 65.0 H Monocytes % 2.0 L Differential Comment Manual diff done Platelet Estimate Adequate Puncture Site Right radial ABG pH 7.40 ABG pCO2 at Pt Temp 56.5 H D ABG pO2 at Pt Temp 61.6 L ABG HCO3 34.5 H ABG O2 Sat (Measured) 91.9 ABG O2 Content 9.5 L* ABG Base Excess 9.1 H Abner Test Positive O2 Delivery Device Nasal Oxygen Flow Rate 3lpm PEEP 0.0 Sodium 139 Potassium 4.0 Chloride 98 Carbon Dioxide 33 H Anion Gap 8 BUN 23 H D Creatinine 0.7 D Random Glucose 114 H Calcium 7.6 L ASSESSMENT AND PLAN: Acute on Chronic Hypoxic and Hypercapneic Respiratory Failure Pneumonia Acute COPD Exacerbation Recent Zoster/Facial Cellulitis - ABX - f/u cultures - Medrol - Inhaled bronchodilators standing and PRN - O2 to keep SpO2 88-92% to avoid worsening V/Q mismatch - DVT prophylaxis - NIPPV as needed Dr Carty
[2017-02-11] MEDS: methylPREDNISolone NA SUCC 40 MG/1 ML VIAL IVPB SCH ×3 (12:40→22:22)
[2017-02-11] MEDS: MUPIROCIN 2% TOPICAL OINTMENT FOR DECOLONIZATION NS SCH ×2 (13:50→22:21)
[2017-02-11] MEDS: ERYTHROMYCIN 0.5% OPHTHALMIC OINTMENT 3.5 GM TUBE OS SCH (14:00)
[2017-02-11] MEDS: ACETAMINOPHEN 500 MG TABLET (FP) PO PRN (19:13)
--- NOTE | 2017-02-11 21:20 | PN ---
Progress Note (short form) - Note Progress Note: awake and alert tolerating meals well O2 in place Vital Signs Period Temp Pulse Resp BP Sys/Gong Pulse Ox Last 24 Hr 98 F-98.7 F 72-89 20-28 124-147/53-76 94-94 Intake & Output 02/08/17 02/09/17 02/10/17 02/11/17 23:59 23:59 23:59 23:59 Intake Total 475 3765 1520 Balance 475 3765 1520 Weight 125 lb 1 oz 125 lb 0.034 oz neck supple heart S1/s2 LUNGS Grossly clear / decreased bs / no wheezing abd soft non tender ext no edema CBC, BMP 02/11/17 06:20 02/11/17 06:20 Microbiology 02/09/17 16:40 Blood - Peripheral Venous Blood Culture - Preliminary NO GROWTH OBTAINED AFTER 48 HOURS, INCUBATION TO CONTINUE FOR 3 DAYS. 02/09/17 16:40 Blood - Peripheral Venous Blood Culture - Preliminary NO GROWTH OBTAINED AFTER 48 HOURS, INCUBATION TO CONTINUE FOR 3 DAYS. 02/11/17 03:10 Urine For Antigen Detection Legionella Antigen - Final 02/11/17 03:10 Urine For Antigen Detection Streptococcus pneumoniae Antigen (M - Final 02/09/17 16:40 Urine - Urine [place] Urine Culture - Final NO GROWTH OBTAINED 02/10/17 06:00 Nasopharyngeal Swab Respiratory Virus (PCR) - Preliminary Problem List - Problems (1) Chronic hypoxemic respiratory failure Assessment/Plan: corrected via bipap / O2 dependent declined over night bipap Code(s): J96.11 - CHRONIC RESPIRATORY FAILURE WITH HYPOXIA (2) Altered awareness, transient Assessment/Plan: corrected awake alert Oriented X3 Code(s): R40.4 - TRANSIENT ALTERATION OF AWARENESS (3) COPD (chronic obstructive pulmonary disease) Assessment/Plan: improved and remains stable taper IV solumedrol to 40 BID Code(s): J44.9 - CHRONIC OBSTRUCTIVE PULMONARY DISEASE, UNSPECIFIED Qualifiers : COPD type: emphysema (4) AF (paroxysmal atrial fibrillation) Assessment/Plan: rate controlled NOAC Code(s): I48.0 - PAROXYSMAL ATRIAL FIBRILLATION (5) CLL (chronic lymphocytic leukemia) Assessment/Plan: elevated WBC made worse with steroids will follow / repeat in am Code(s): C91.10 - CHRONIC LYMPHOCYTIC LEUK OF B-CELL TYPE NOT ACHIEVE REMIS (6) Hypothyroid Assessment/Plan: continue with synthroid Code(s): E03.9 - HYPOTHYROIDISM, UNSPECIFIED
[2017-02-11] MEDS: ATORVASTATIN CA 10 MG TABLET (FP) PO SCH (22:22)
[2017-02-11] MEDS: BUDESONIDE/FORMETEROL FUMARATE 160/4.5 mcg INHALER IH SCH (22:22)
[2017-02-11] MEDS: CHLORHEXIDINE GLUCONATE 4% CLEANSER FOR DECOLONIZATION TP SCH (22:22)
[2017-02-11] MEDS: LATANOPROST 0.005% OPHTH SOLN 2.5ML BOTTLE OU SCH (22:23)
[2017-02-11] MEDS: ZOLPIDEM TARTRATE 5 MG TABLET PO PRN (22:27)
[2017-02-12] MEDS: SODIUM CHLORIDE 1,000 ML IV SCH (02:24)
[2017-02-12] MEDS: PIPERACILLIN/TAZOB 3.375 GM/50 ML PRE-DOCKED IVPB SCH ×3 (02:25→18:33)
[2017-02-12] MEDS: LEVOTHYROXINE NA 50 MCG TABLET (FP) PO SCH (06:34)
[2017-02-12] MEDS: ALBUTEROL SO4 2.5/IPRATROPIUM 0.5 INH SOL 3 ML VIAL.NEB. NEB SCH ×4 (06:50→23:43)
[2017-02-12] MEDS: ALBUTEROL SO4 0.083% IH SOL 2.5 MG/3 ML VIAL.NEB. NEB PRN ×2 (08:43→21:05)
[2017-02-12] MEDS ORDERED: PT OWN MED DRAWER 7, Y5N ONE ×3 (09:16→23:06)
[2017-02-12] MEDS: MUPIROCIN 2% TOPICAL OINTMENT FOR DECOLONIZATION NS SCH ×2 (09:18→23:16)
[2017-02-12] MEDS: METOPROLOL TARTRATE 25 MG TABLET (FP) PO SCH (09:21)
[2017-02-12] MEDS: FERROUS SO4 325 MG TABLET (FP) PO SCH (09:21)
[2017-02-12] MEDS: FLUTICASONE PROP 0.05% 16 GM NASAL SPRAY NS SCH ×2 (09:21→23:15)
[2017-02-12] MEDS: ENOXAPARIN NA (PORCINE) 40 MG/0.4 ML DISP.SYRIN SQ SCH (09:22)
[2017-02-12] MEDS: methylPREDNISolone NA SUCC 40 MG/1 ML VIAL IVPB SCH (09:23)
[2017-02-12] MEDS: BUDESONIDE/FORMETEROL FUMARATE 160/4.5 mcg INHALER IH SCH ×2 (09:23→23:11)
[2017-02-12] MEDS: ERYTHROMYCIN 0.5% OPHTHALMIC OINTMENT 3.5 GM TUBE OS SCH (09:24)
--- NOTE | 2017-02-12 11:40 | PN ---
Progress Note (short form) - Note Progress Note: PULMONARY NO LONGER CONFUSED VSS/AFEBRILE/SPO2 95% ON 3L/M O2 ANICTERIC DIMINISHED BREATH SOUNDS RIGHT BASE S1S2 BS+ NO EDEMA LABS/MEDS/NOTES/IMAGING/MICRO REVIEWED (1) Chronic hypoxemic respiratory failure Code(s): J96.11 - CHRONIC RESPIRATORY FAILURE WITH HYPOXIA (2) Pneumonia Code(s): J18.9 - PNEUMONIA, UNSPECIFIED ORGANISM Qualifiers: Pneumonia type: due to unspecified organism Laterality: left Lung location: lower lobe of lung Qualified Code(s): J18.1 - Lobar pneumonia, unspecified organism (3) CLL (chronic lymphocytic leukemia) Code(s): C91.10 - CHRONIC LYMPHOCYTIC LEUK OF B-CELL TYPE NOT ACHIEVE REMIS (4) COPD (chronic obstructive pulmonary disease) Code(s): J44.9 - CHRONIC OBSTRUCTIVE PULMONARY DISEASE, UNSPECIFIED Qualifiers : COPD type: unspecified COPD Qualified Code(s): J44.9 - Chronic obstructive pulmonary disease, unspecified CHECK MICRO CONTINUE ABS HAVE STOPPED MEDROL PT IS ON PREDNISONE 40MG O2 SUPPLEMENTATION BRONCHODILATORS WILL FOLLOW Yazan LOPEZ MD
[2017-02-12] MEDS ORDERED: ATORVASTATIN CA 10 MG TABLET (FP) PO SCH (22:00)
[2017-02-12] MEDS: LATANOPROST 0.005% OPHTH SOLN 2.5ML BOTTLE OU SCH (23:15)
[2017-02-12] MEDS: ATORVASTATIN CA 10 MG TABLET (FP) PO SCH (23:15)
[2017-02-12] MEDS: CHLORHEXIDINE GLUCONATE 4% CLEANSER FOR DECOLONIZATION TP SCH (23:15)
[2017-02-12] MEDS: ZOLPIDEM TARTRATE 5 MG TABLET PO PRN (23:24)
[2017-02-13] MEDS: ALBUTEROL SO4 0.083% IH SOL 2.5 MG/3 ML VIAL.NEB. NEB PRN ×3 (00:40→14:10)
[2017-02-13] MEDS: PIPERACILLIN/TAZOB 3.375 GM/50 ML PRE-DOCKED IVPB SCH ×3 (03:15→17:09)
[2017-02-13] MEDS: ACETAMINOPHEN 500 MG TABLET (FP) PO PRN ×2 (04:38→13:12)
[2017-02-13] MEDS: ALBUTEROL SO4 2.5/IPRATROPIUM 0.5 INH SOL 3 ML VIAL.NEB. NEB SCH ×4 (06:45→23:10)
[2017-02-13 07:48] LABS: MCHC 30.2 g/dl (32.0-36.0); MEAN CELL VOLUME 89.5 fl (80-96); MEAN PLT VOLUME 7.3 fl (7.5-11.1); PLATELET COUNT 183 K/MM3 (134-434); RDW 16.8 % (11.6-15.6)
[2017-02-13 08:09] LABS: ANION GAP 5 (8-16); CALCIUM 7.6 mg/dL (8.5-10.1); CO2 36 mmol/L (21-32); CREATININE 0.5 mg/dL (0.55-1.02); GLUCOSE,RANDOM 85 mg/dL (74-106)
[2017-02-13] MEDS: LEVOTHYROXINE NA 50 MCG TABLET (FP) PO SCH (08:09)
[2017-02-13 08:26] LABS: WHITE BLOOD COUNT 53.1 K/mm3 (4.0-10.0)
[2017-02-13] MEDS ORDERED: PT OWN MED DRAWER 7, Y5N ONE ×5 (09:35→21:24)
[2017-02-13] MEDS: MUPIROCIN 2% TOPICAL OINTMENT FOR DECOLONIZATION NS SCH (09:51)
[2017-02-13] MEDS: METOPROLOL TARTRATE 25 MG TABLET (FP) PO SCH (09:56)
[2017-02-13] MEDS: predniSONE 20 MG TABLET (UD) PO SCH (09:56)
[2017-02-13] MEDS: FERROUS SO4 325 MG TABLET (FP) PO SCH (09:56)
[2017-02-13] MEDS: ENOXAPARIN NA (PORCINE) 40 MG/0.4 ML DISP.SYRIN SQ SCH (09:56)
[2017-02-13] MEDS: ERYTHROMYCIN 0.5% OPHTHALMIC OINTMENT 3.5 GM TUBE OS SCH (10:00)
[2017-02-13] MEDS: BUDESONIDE/FORMETEROL FUMARATE 160/4.5 mcg INHALER IH SCH ×2 (10:00→22:01)
[2017-02-13 10:09] LABS: PLATELET ESTIMATE ADEQUATE (NORMAL); SMUDGE CELLS MANY
--- NOTE | 2017-02-13 11:07 | PN ---
Progress Note (short form) - Note Progress Note: PULMONARY NO LONGER CONFUSED APPEARS WEAK AND CHRONICALLY ILL HGB DROPPING/WBC'S ARE INCREASING ZOSYN DAY #4 VSS/AFEBRILE/SPO2 96% ON 2L/M O2 ANICTERIC DIMINISHED BREATH SOUNDS RIGHT BASE S1S2 BS+ NO EDEMA LABS/MEDS/NOTES/IMAGING/MICRO REVIEWED (1) Chronic hypoxemic respiratory failure Code(s): J96.11 - CHRONIC RESPIRATORY FAILURE WITH HYPOXIA (2) Pneumonia Code(s): J18.9 - PNEUMONIA, UNSPECIFIED ORGANISM Qualifiers: Pneumonia type: due to unspecified organism Laterality: left Lung location: lower lobe of lung Qualified Code(s): J18.1 - Lobar pneumonia, unspecified organism (3) CLL (chronic lymphocytic leukemia) Code(s): C91.10 - CHRONIC LYMPHOCYTIC LEUK OF B-CELL TYPE NOT ACHIEVE REMIS (4) COPD (chronic obstructive pulmonary disease) Code(s): J44.9 - CHRONIC OBSTRUCTIVE PULMONARY DISEASE, UNSPECIFIED Qualifiers : COPD type: unspecified COPD Qualified Code(s): J44.9 - Chronic obstructive pulmonary disease, unspecified REPEAT CXR CONTINUE ABS/NEEDS ID EVAL PREDNISONE 40MG O2 SUPPLEMENTATION/BRONCHODILATORS WILL CALL REZA JEAN(FOLLOWS WITH DR SALCIDO,NOT ON STAFF) WILL FOLLOW Yazan LOPEZ MD
--- NOTE | 2017-02-13 12:22 | PN ---
Progress Note (short form) - Note Progress Note: awake and alert tolerating meals well O2 in place Vital Signs Period Temp Pulse Resp BP Sys/Gong Pulse Ox Last 24 Hr 98 F-98.7 F 72-89 20-28 124-147/53-76 94-94 neck supple heart S1/s2 LUNGS Grossly clear / decreased bs / no wheezing abd soft non tender ext no edema CBC, BMP 02/11/17 06:20 02/11/17 06:20 CBC, BMP 02/13/17 06:10 02/13/17 06:10 Microbiology 02/09/17 16:40 Blood - Peripheral Venous Blood Culture - Preliminary NO GROWTH OBTAINED AFTER 48 HOURS, INCUBATION TO CONTINUE FOR 3 DAYS. 02/09/17 16:40 Blood - Peripheral Venous Blood Culture - Preliminary NO GROWTH OBTAINED AFTER 48 HOURS, INCUBATION TO CONTINUE FOR 3 DAYS. 02/11/17 03:10 Urine For Antigen Detection Legionella Antigen - Final 02/11/17 03:10 Urine For Antigen Detection Streptococcus pneumoniae Antigen (M - Final 02/09/17 16:40 Urine - Urine [place] Urine Culture - Final NO GROWTH OBTAINED 02/10/17 06:00 Nasopharyngeal Swab Respiratory Virus (PCR) - Preliminary Problem List - Problems (1) Chronic hypoxemic respiratory failure Assessment/Plan: corrected via bipap / O2 dependent declined over night bipap move comfortable improved BS Code(s): J96.11 - CHRONIC RESPIRATORY FAILURE WITH HYPOXIA (2) Altered awareness, transient Assessment/Plan: acute metabolic encephalopathy now resolved Code(s): R40.4 - TRANSIENT ALTERATION OF AWARENESS (3) COPD (chronic obstructive pulmonary disease) Assessment/Plan: improved and remains stable taper off IV steroids and start PO steroids Code(s): J44.9 - CHRONIC OBSTRUCTIVE PULMONARY DISEASE, UNSPECIFIED Qualifiers : COPD type: emphysema (4) AF (paroxysmal atrial fibrillation) Assessment/Plan: rate controlled NOAC Code(s): I48.0 - PAROXYSMAL ATRIAL FIBRILLATION (5) CLL (chronic lymphocytic leukemia) Assessment/Plan: elevated WBC made worse with steroids will follow / repeat in am has been afebrile / and clinically improving Code(s): C91.10 - CHRONIC LYMPHOCYTIC LEUK OF B-CELL TYPE NOT ACHIEVE REMIS (6) Hypothyroid Assessment/Plan: continue with synthroid Code(s): E03.9 - HYPOTHYROIDISM, UNSPECIFIED
[2017-02-13] MEDS: FLUTICASONE PROP 0.05% 16 GM NASAL SPRAY NS SCH ×2 (12:28→22:01)
[2017-02-13 13:24] LABS: MCH 26.6 pg (25.7-33.7); MCHC 29.9 g/dl (32.0-36.0); MEAN PLT VOLUME 7.1 fl (7.5-11.1); PLATELET COUNT 174 K/MM3 (134-434); RDW 16.7 % (11.6-15.6)
[2017-02-13] MEDS ORDERED: FUROSEMIDE 40 MG/4 ML INJECTABLE VIAL IVPB ONE (14:01)
[2017-02-13 14:24] LABS: PLATELET ESTIMATE ADEQUATE (NORMAL)
[2017-02-13] MEDS: ATORVASTATIN CA 10 MG TABLET (FP) PO SCH (22:01)
[2017-02-13] MEDS: CHLORHEXIDINE GLUCONATE 4% CLEANSER FOR DECOLONIZATION TP SCH (22:02)
[2017-02-13] MEDS: LATANOPROST 0.005% OPHTH SOLN 2.5ML BOTTLE OU SCH (23:07)
[2017-02-14] MEDS: PIPERACILLIN/TAZOB 3.375 GM/50 ML PRE-DOCKED IVPB SCH ×3 (02:57→17:21)
[2017-02-14] MEDS: ACETAMINOPHEN 500 MG TABLET (FP) PO PRN ×2 (03:32→12:11)
[2017-02-14] MEDS: LEVOTHYROXINE NA 50 MCG TABLET (FP) PO SCH (06:39)
[2017-02-14] MEDS: ALBUTEROL SO4 2.5/IPRATROPIUM 0.5 INH SOL 3 ML VIAL.NEB. NEB SCH ×3 (06:45→17:09)
[2017-02-14 07:48] LABS: MCH 26.8 pg (25.7-33.7); MEAN CELL VOLUME 89.4 fl (80-96); MEAN PLT VOLUME 7.4 fl (7.5-11.1); PLATELET COUNT 152 K/MM3 (134-434); RDW 17.2 % (11.6-15.6)
[2017-02-14 08:24] LABS: ANION GAP 5 (8-16); CALCIUM 7.7 mg/dL (8.5-10.1); CO2 39 mmol/L (21-32); CREATININE 0.5 mg/dL (0.55-1.02); GLUCOSE,RANDOM 95 mg/dL (74-106); MAGNESIUM 2.4 mg/dL (1.8-2.4)
[2017-02-14] MEDS ORDERED: PT OWN MED DRAWER 7, Y5N ONE ×2 (09:08→15:58)
[2017-02-14] MEDS: predniSONE 20 MG TABLET (UD) PO SCH (09:12)
[2017-02-14] MEDS: METOPROLOL TARTRATE 25 MG TABLET (FP) PO SCH (09:12)
[2017-02-14] MEDS: ENOXAPARIN NA (PORCINE) 40 MG/0.4 ML DISP.SYRIN SQ SCH (09:12)
[2017-02-14] MEDS: FERROUS SO4 325 MG TABLET (FP) PO SCH (09:12)
[2017-02-14] MEDS: ERYTHROMYCIN 0.5% OPHTHALMIC OINTMENT 3.5 GM TUBE OS SCH (09:13)
[2017-02-14] MEDS: FLUTICASONE PROP 0.05% 16 GM NASAL SPRAY NS SCH (09:13)
[2017-02-14] MEDS: BUDESONIDE/FORMETEROL FUMARATE 160/4.5 mcg INHALER IH SCH (09:13)
[2017-02-14 09:17] LABS: WHITE BLOOD COUNT 58.6 K/mm3 (4.0-10.0)
--- NOTE | 2017-02-14 09:32 | PN ---
Progress Note (short form) - Note Progress Note: patient seen and examinedin herroom HOB elevated / comfortable Vital Signs Period Temp Pulse Resp BP Sys/Gong Pulse Ox Last 24 Hr 98 F-98.2 F 69-80 16-19 118-139/56-75 90-96 heart S1/S2 Lungs decreased BS / no wheezing abd soft nontender ext no edema CBC, BMP 02/14/17 06:20 02/14/17 06:20 Microbiology 02/09/17 16:40 Blood - Peripheral Venous Blood Culture - Preliminary NO GROWTH OBTAINED AFTER 96 HOURS, INCUBATION TO CONTINUE FOR 1 DAYS. 02/09/17 16:40 Blood - Peripheral Venous Blood Culture - Preliminary NO GROWTH OBTAINED AFTER 96 HOURS, INCUBATION TO CONTINUE FOR 1 DAYS. 02/11/17 03:10 Urine For Antigen Detection Legionella Antigen - Final 02/11/17 03:10 Urine For Antigen Detection Streptococcus pneumoniae Antigen (M - Final 02/09/17 16:40 Urine - Urine [place] Urine Culture - Final NO GROWTH OBTAINED 02/10/17 06:00 Nasopharyngeal Swab Respiratory Virus (PCR) - Preliminary Active Medications Acetaminophen (Tylenol -) 1,000 mg PO Q8H PRN PRN Reason: PAIN Last Admin: 02/14/17 03:32 Dose: 1,000 mg Albuterol Sulfate (Ventolin 0.083% Nebulizer Soln -) 1 amp NEB Q4H PRN PRN Reason: SHORT OF BREATH/WHEEZING Last Admin: 02/13/17 14:10 Dose: 1 amp Albuterol/Ipratropium (Duoneb -) 1 amp NEB QIDR [facility] Last Admin: 02/14/17 06:45 Dose: 1 amp Atorvastatin Calcium (Lipitor -) 10 mg PO HS [facility] Last Admin: 02/13/17 22:01 Dose: 10 mg Budesonide/Formoterol Fumarate (Symbicort 160/4.5mcg -) 1 puff IH BID [facility] Last Admin: 02/14/17 09:13 Dose: 1 inh Calamine (Calamine 8% Topical Lotion -) 1 applic TP BID PRN PRN Reason: FOR ITCHING Last Admin: 02/11/17 00:21 Dose: 1 applic Chlorhexidine Gluconate (Hibiclens For Decolonization -) 1 applic TP HS [facility] Last Admin: 02/13/17 22:02 Dose: Not Given Enoxaparin Sodium (Lovenox -) 40 mg SQ DAILY [facility] Last Admin: 02/14/17 09:12 Dose: 40 mg Erythromycin (Erythromycin 0.5% Eye Ointment) 1 applic OS DAILY [facility] Last Admin: 02/14/17 09:13 Dose: 1 applic Ferrous Sulfate (Feosol -) 325 mg PO DAILY [facility] Last Admin: 02/14/17 09:12 Dose: 325 mg Fluticasone Propionate (Flonase -) 1 - 2 spray NS BID [facility] Last Admin: 02/14/17 09:13 Dose: 2 inh Latanoprost (Xalatan 0.005% Eye Drops -) 1 drop OU HS [facility] Last Admin: 02/13/17 23:07 Dose: Not Given Levothyroxine Sodium (Synthroid -) 50 mcg PO DAILY@0700 [facility] Last Admin: 02/14/17 06:39 Dose: 50 mcg Metoprolol Tartrate (Lopressor -) 25 mg PO DAILY [facility] Last Admin: 02/14/17 09:12 Dose: 25 mg Piperacillin Sod/Tazobactam Sod (Zosyn 3.375gm Ivpb (Pre-Docked)) 3.375 gm IVPB Q8H-IV [facility] PRN Reason: Protocol Last Admin: 02/14/17 09:12 Dose: 3.375 gm Prednisone (Deltasone -) 40 mg PO DAILY [facility] Last Admin: 02/14/17 09:12 Dose: 40 mg Zolpidem Tartrate (Ambien -) 5 mg PO HS PRN PRN Reason: INSOMNIA Last Admin: 02/12/17 23:24 Dose: 5 mg awaiting cxr discussed with Dr Desai Problem List - Problems (1) Chronic hypoxemic respiratory failure Assessment/Plan: O2 dependent & Bipap at night ( unclear if using it ) steroid dependent Inhaled and PO off IV steroids Code(s): J96.11 - CHRONIC RESPIRATORY FAILURE WITH HYPOXIA (2) Altered awareness, transient Assessment/Plan: resolved patient awake and alert OOx3 back to baseline resolved metabolic encephalopathy Code(s): R40.4 - TRANSIENT ALTERATION OF AWARENESS (3) COPD (chronic obstructive pulmonary disease) Assessment/Plan: continue with medications steroids PO and inhaled Bipap Pulmonary follow up Code(s): J44.9 - CHRONIC OBSTRUCTIVE PULMONARY DISEASE, UNSPECIFIED Qualifiers : COPD type: emphysema (4) AF (paroxysmal atrial fibrillation) Assessment/Plan: rate controlled NOAC Code(s): I48.0 - PAROXYSMAL ATRIAL FIBRILLATION (5) CLL (chronic lymphocytic leukemia) Assessment/Plan: elevated WBC baseline will monitor as presence of infection will further increase WBC CBC with differential Code(s): C91.10 - CHRONIC LYMPHOCYTIC LEUK OF B-CELL TYPE NOT ACHIEVE REMIS (6) Hypothyroid Assessment/Plan: continue with synthroid Code(s): E03.9 - HYPOTHYROIDISM, UNSPECIFIED (7) Congestive heart failure (CHF) Code(s): I50.9 - HEART FAILURE, UNSPECIFIED
[2017-02-14 10:14] LABS: PLATELET ESTIMATE ADEQUATE (NORMAL)
--- NOTE | 2017-02-14 11:40 | PN ---
Progress Note (short form) - Note Progress Note: PULMONARY WANTS TO GO HOME. APPEARS WEAK AND CHRONICALLY ILL HGB 7.2 gms ZOSYN DAY #5 VSS/AFEBRILE/SPO2 96% ON 2L/M O2 ANICTERIC DIMINISHED BREATH SOUNDS RIGHT BASE S1S2 BS+ NO EDEMA LABS/MEDS/NOTES/IMAGING/MICRO REVIEWED (1) Chronic hypoxemic respiratory failure Code(s): J96.11 - CHRONIC RESPIRATORY FAILURE WITH HYPOXIA (2) Pneumonia Code(s): J18.9 - PNEUMONIA, UNSPECIFIED ORGANISM Qualifiers: Pneumonia type: due to unspecified organism Laterality: left Lung location: lower lobe of lung Qualified Code(s): J18.1 - Lobar pneumonia, unspecified organism (3) CLL (chronic lymphocytic leukemia) Code(s): C91.10 - CHRONIC LYMPHOCYTIC LEUK OF B-CELL TYPE NOT ACHIEVE REMIS (4) COPD (chronic obstructive pulmonary disease) Code(s): J44.9 - CHRONIC OBSTRUCTIVE PULMONARY DISEASE, UNSPECIFIED Qualifiers : COPD type: unspecified COPD Qualified Code(s): J44.9 - Chronic obstructive pulmonary disease, unspecified REPEAT CXR improved right effusion DAY 5 ZOSYN PREDNISONE 40MG/NEEDS GI PROPHYLAXSIS O2 SUPPLEMENTATION/BRONCHODILATORS NEEDS FOLLOW-UP WITH DR SALCIDO WHEN DISCHARGED USUAL HGB PER PATIENT IS 9GMS REST OF PLAN PER PMD Yazan LOPEZ MD
[2017-02-14] MEDS ORDERED: FUROSEMIDE 40 MG/4 ML INJECTABLE VIAL IVPB ONE (13:25)
[2017-02-14] MEDS: ALBUTEROL SO4 0.083% IH SOL 2.5 MG/3 ML VIAL.NEB. NEB PRN (14:01)
--- NOTE | 2017-02-14 14:09 | PN ---
Progress Note, Physician Chief Complaint: dyspnea History of Present Illness: seen and examined in room patient insist on going home today given Iv lasix yesterday with improvement in symptoms and CXR how ever remains at Hgb of 7 and would benefit from blood transfusion -- she declines at this time and prefers to be scheduled as out patient for blood transfusion I explained IV lasix required with improvement of symptoms still insist on going home today will arrange for d/c and close follow up as out patient will also arrange for Heme follow up with dr Mancini - Current Medication List Current Medications: Active Medications Acetaminophen (Tylenol -) 1,000 mg PO Q8H PRN PRN Reason: PAIN Last Admin: 02/14/17 12:11 Dose: 1,000 mg Albuterol Sulfate (Ventolin 0.083% Nebulizer Soln -) 1 amp NEB Q4H PRN PRN Reason: SHORT OF BREATH/WHEEZING Last Admin: 02/13/17 14:10 Dose: 1 amp Albuterol/Ipratropium (Duoneb -) 1 amp NEB QIDR [facility] Last Admin: 02/14/17 11:05 Dose: 1 amp Atorvastatin Calcium (Lipitor -) 10 mg PO HS [facility] Last Admin: 02/13/17 22:01 Dose: 10 mg Budesonide/Formoterol Fumarate (Symbicort 160/4.5mcg -) 1 puff IH BID [facility] Last Admin: 02/14/17 09:13 Dose: 1 inh Calamine (Calamine 8% Topical Lotion -) 1 applic TP BID PRN PRN Reason: FOR ITCHING Last Admin: 02/11/17 00:21 Dose: 1 applic Chlorhexidine Gluconate (Hibiclens For Decolonization -) 1 applic TP HS [facility] Last Admin: 02/13/17 22:02 Dose: Not Given Enoxaparin Sodium (Lovenox -) 40 mg SQ DAILY [facility] Last Admin: 02/14/17 09:12 Dose: 40 mg Erythromycin (Erythromycin 0.5% Eye Ointment) 1 applic OS DAILY [facility] Last Admin: 02/14/17 09:13 Dose: 1 applic Ferrous Sulfate (Feosol -) 325 mg PO DAILY [facility] Last Admin: 02/14/17 09:12 Dose: 325 mg Fluticasone Propionate (Flonase -) 1 - 2 spray NS BID [facility] Last Admin: 02/14/17 09:13 Dose: 2 inh Latanoprost (Xalatan 0.005% Eye Drops -) 1 drop OU HS [facility] Last Admin: 02/13/17 23:07 Dose: Not Given Levothyroxine Sodium (Synthroid -) 50 mcg PO DAILY@0700 [facility] Last Admin: 02/14/17 06:39 Dose: 50 mcg Metoprolol Tartrate (Lopressor -) 25 mg PO DAILY [facility] Last Admin: 02/14/17 09:12 Dose: 25 mg Piperacillin Sod/Tazobactam Sod (Zosyn 3.375gm Ivpb (Pre-Docked)) 3.375 gm IVPB Q8H-IV [facility] PRN Reason: Protocol Last Admin: 02/14/17 09:12 Dose: 3.375 gm Prednisone (Deltasone -) 40 mg PO DAILY [facility] Last Admin: 02/14/17 09:12 Dose: 40 mg Zolpidem Tartrate (Ambien -) 5 mg PO HS PRN PRN Reason: INSOMNIA Last Admin: 02/12/17 23:24 Dose: 5 mg - Objective Vital Signs: Vital Signs Temperature 98.2 F 02/14/17 08:38 Pulse Rate 89 02/14/17 10:41 Respiratory Rate 18 02/14/17 08:38 Blood Pressure 133/61 02/14/17 08:38 O2 Sat by Pulse Oximetry (%) 93 L 02/14/17 10:41 Constitutional: Yes: Cachectic Eyes: Yes: WNL HENT: Yes: Atraumatic, Normocephalic Neck: Yes: Supple, Trachea Midline Cardiovascular: Yes: Pulse Irregular Respiratory: Yes: Diminished (at baseline) Gastrointestinal: Yes: WNL Breast(s): Yes: WNL Musculoskeletal: Yes: WNL Extremities: Yes: WNL Edema: No Peripheral Pulses WNL: Yes Integumentary: Yes: WNL Neurological: Yes: WNL, Alert, Oriented ...Motor Strength: WNL Psychiatric: Yes: Alert, Oriented Labs: CBC, BMP 02/14/17 06:20 02/14/17 06:20 INR, PTT INR 1.02 (0.82-1.09) 02/09/17 16:40 - ....Imaging Chest X-ray: Report Reviewed, Image Reviewed Problem List - Problems (1) Congestive heart failure (CHF) Code(s): I50.9 - HEART FAILURE, UNSPECIFIED (2) COPD (chronic obstructive pulmonary disease) Assessment/Plan: continue with medications steroids PO and inhaled Bipap Pulmonary follow up Code(s): J44.9 - CHRONIC OBSTRUCTIVE PULMONARY DISEASE, UNSPECIFIED Qualifiers : COPD type: emphysema (3) Chronic hypoxemic respiratory failure Assessment/Plan: O2 dependent & Bipap at night ( unclear if using it ) steroid dependent Inhaled and PO off IV steroids continue PO steroids Code(s): J96.11 - CHRONIC RESPIRATORY FAILURE WITH HYPOXIA (4) AF (paroxysmal atrial fibrillation) Assessment/Plan: rate controlled NOAC Code(s): I48.0 - PAROXYSMAL ATRIAL FIBRILLATION (5) CLL (chronic lymphocytic leukemia) Assessment/Plan: elevated WBC baseline will monitor as presence of infection will further increase WBC CBC with differential out patient follow up sabrina Manicni Code(s): C91.10 - CHRONIC LYMPHOCYTIC LEUK OF B-CELL TYPE NOT ACHIEVE REMIS (6) Hypothyroid Code(s): E03.9 - HYPOTHYROIDISM, UNSPECIFIED Qualified Code(s): - (7) Altered awareness, transient Assessment/Plan: resolved patient awake and alert OOx3 back to baseline resolved metabolic encephalopathy Code(s): R40.4 - TRANSIENT ALTERATION OF AWARENESS (8) Chronic disease anemia Assessment/Plan: will benefit from transfusion declines at this time Code(s): D63.8 - ANEMIA IN OTHER CHRONIC DISEASES CLASSIFIED ELSEWHERE
[2017-02-14 15:29] VITALS: PULSE 65; TEMP 98
[2017-02-14 17:49] VITALS: BP 151/58
[2017-02-15] MEDS ORDERED: FUROSEMIDE 40 MG TABLET (FP) PO SCH (10:00)
== END 2017-02-14 17:35 | disposition home or self-care (01) | DRG 189 ==
LOC: JER 16:21 → JERBED 19:40 → JICU 21:15 → J5S 02-10 19:12
PROVIDERS: ADMIT Family Medicine; ATTEND Family Medicine
PROC: 5A09457 Assistance with Respiratory Ventilation, 24-96 Consecutive Hours, Continuous Positive Airway Pressure (ICD-10-PCS; principal; 2017-02-09)
DX: J96.22 Acute and chronic respiratory failure with hypercapnia (principal); J18.1 Lobar pneumonia, unspecified organism; G93.41 Metabolic encephalopathy; C91.10 Chronic lymphocytic leukemia of B-cell type not having achieved remission; J44.1 Chronic obstructive pulmonary disease with (acute) exacerbation; L03.211 Cellulitis of face; R64 Cachexia; Z68.1 Body mass index [BMI] 19.9 or less, adult; J96.21 Acute and chronic respiratory failure with hypoxia; I10 Essential (primary) hypertension; E03.9 Hypothyroidism, unspecified; J96.11 Chronic respiratory failure with hypoxia; I48.0 Paroxysmal atrial fibrillation; B02.9 Zoster without complications; E78.5 Hyperlipidemia, unspecified; D63.8 Anemia in other chronic diseases classified elsewhere; Z87.891 Personal history of nicotine dependence; Z99.81 Dependence on supplemental oxygen; Z79.52 Long term (current) use of systemic steroids
CPT/HCPCS: 36415; 36600; 70450-TC; 71010-TC; 80048; 80053; 81003; 81015; 82550; 82803; 83605; 83735; 84484; 85025; 85027; 85610; 86850; 86900; 86901; 87040; 87086; 87633; 87899; 93005; 93010; 94640; 94660; 97116-GP; 97161-GP; 99284-25; G0480